=== PATIENT | male | born 1940 | race Caucasian/White ===

== ENCOUNTER → 2023-08-13 14:33 | Outpatient (REF) | payer OTHER, BC, SELFPAY ==
[2023-08-13 15:08] LABS: COVID-19 Antigen Negative (Negative)
== END ==
LOC: OLABP 14:33
PROVIDERS: ATTENDING PHYSICIAN Family Medicine
DX: J96.00 Acute respiratory failure, unspecified whether with hypoxia or hypercapnia (principal)
CPT/HCPCS: 87811

== ENCOUNTER → 2023-09-13 07:44 | Outpatient (REF) | payer OTHER, BC, SELFPAY | LOC: RAD 07:44 | PROVIDERS: ATTENDING PHYSICIAN Internal Medicine Critical Care Medicine; FAMILY PHYSICIAN Family Medicine; REFERRING PHYSICIAN Family Medicine | DX: R91.1 Solitary pulmonary nodule (principal) | CPT/HCPCS: 71250 ==

== ENCOUNTER → 2024-04-01 10:10 | Outpatient (REF) | payer BC, MEDICAID, SELFPAY | LOC: RAD 10:10 | PROVIDERS: ATTENDING PHYSICIAN Internal Medicine Critical Care Medicine; FAMILY PHYSICIAN Family Medicine | DX: R04.2 Hemoptysis (principal) | CPT/HCPCS: 71046 ==

== ENCOUNTER → 2024-04-02 15:38 | Outpatient (REF) | payer BC, MEDICAID, SELFPAY | LOC: RCS 15:38 | PROVIDERS: ATTENDING PHYSICIAN Internal Medicine Cardiovascular Disease; FAMILY PHYSICIAN Family Medicine | DX: R06.09 Other forms of dyspnea (principal); Z98.890 Other specified postprocedural states | CPT/HCPCS: 93306 ==

== ENCOUNTER → 2024-04-04 07:33 | Outpatient (REF) | payer BC, MEDICAID, SELFPAY | LOC: DHCBC/DCA 07:33 | PROVIDERS: ATTENDING PHYSICIAN Internal Medicine Cardiovascular Disease; FAMILY PHYSICIAN Family Medicine | DX: R06.09 Other forms of dyspnea (principal) | CPT/HCPCS: 78452; 93017; A9500; J2785 ==

== ENCOUNTER → 2024-05-16 10:17 | Outpatient (REF) | payer BC, MEDICAID, SELFPAY ==
[2024-05-16 11:49] LABS: % Basophils 0.7 % (0-2); % Eosinophils 3.3 % (0-6); % Immature Granulocytes 0.2 % (0-0.5); % Lymphocytes 27.4 % (20.5-51.1); % Monocytes 7.6 % (1.7-9.3); % Neutrophils 60.8 % (42.2-75.2); Absolute Basophils 0.1 10^3/uL (0-0.2); Absolute Eosinophils 0.3 10^3/uL (0-0.7); Absolute Lymphocytes 2.4 10^3/uL (1.2-3.4); Absolute Monocytes 0.7 10^3/uL (0.1-0.6); Absolute Neutrophils 5.3 10^3/uL (1.4-6.5); Hematocrit 40.4 % (39.0-52.0); Hemoglobin 12.9 g/dL (13.0-18.0); Mean Corp Hgb Conc. 31.9 g/dL (33.0-37.0); Mean Corpuscular Hgb 29.4 pg (27.0-31.0); Mean Platelet Volume 11.5 fL (7.4-10.4); Nucleated Red Blood Cells % 0 % (-); Platelet Count 232 10^3/uL (130-400); Red Blood Cell Count 4.39 10^6/uL (4.70-6.10); Red Cell Dist. Width 14.8 % (11.5-14.5); White Blood Cell Count 8.7 10^3/uL (4.8-10.8)
[2024-05-16 12:05] LABS: Glycohemoglobin (HgbA1c) 5.7 % (4.0-5.6)
[2024-05-16 12:43] LABS: ALT (SGPT) < 10 U/L (0-50); AST (SGOT) 22 U/L (17-59); Alkaline Phosphatase 75 U/L (38-126); Blood Urea Nitrogen 28 mg/dl (9-20); Calcium 9.7 mg/dl (8.4-10.2); Carbon Dioxide 26 mmol/L (22-30); Chloride 103 mmol/L (98-107); Glucose 96 mg/dl (70-99); HDL Cholesterol 56 mg/dl; LDL Cholesterol, Calculated 70 mg/dl; Potassium 4.1 mmol/L (3.5-5.1); Sodium 141 mmol/L (135-145); Total Bilirubin 0.9 mg/dl (0.2-1.3); Total Cholesterol 139 mg/dl (50-199); Total Protein 6.8 g/dl (6.3-8.2); Triglyceride 67 mg/dl (10-149); Very Low Density Lipoprotein 13 mg/dl (0-30); eGFR > 60.00
== END ==
LOC: REG 10:17
PROVIDERS: ATTENDING PHYSICIAN Family Medicine
DX: I10 Essential (primary) hypertension (principal); E50.9 Vitamin A deficiency, unspecified; R73.02 Impaired glucose tolerance (oral); E78.5 Hyperlipidemia, unspecified
CPT/HCPCS: 36415; 80053; 80061; 83036; 85025

== ENCOUNTER → 2024-05-29 11:02 | Outpatient (REF) | payer BC, MEDICAID, SELFPAY | LOC: RAD 11:02 | PROVIDERS: ATTENDING PHYSICIAN Nurse Practitioner Family; FAMILY PHYSICIAN Family Medicine | DX: R04.2 Hemoptysis (principal) | CPT/HCPCS: 71046; 87205 ==

== ENCOUNTER 2024-09-11 20:33 | Inpatient (IN) | payer MEDICARE, BC, SELFPAY ==
[2024-09-11] VITALS (9 sets, daily range): BP systolic 90–131; BP diastolic 50–93; BMI 19.9; BMI 19.2
[2024-09-11 16:47] LABS: % Basophils 0.3 % (0-2); % Immature Granulocytes 0.5 % (0-0.5); % Lymphocytes 7.5 % (20.5-51.1); % Monocytes 8.8 % (1.7-9.3); % Neutrophils 82.9 % (42.2-75.2); Absolute Immature Granulocytes 0.1 10^3/uL (0-0.05); Absolute Lymphocytes 1.1 10^3/uL (1.2-3.4); Absolute Monocytes 1.3 10^3/uL (0.1-0.6); Absolute Neutrophils 12.5 10^3/uL (1.4-6.5); Hematocrit 37.2 % (39.0-52.0); Hemoglobin 12.2 g/dL (13.0-18.0); Mean Corp Hgb Conc. 32.8 g/dL (33.0-37.0); Mean Corpuscular Hgb 29.4 pg (27.0-31.0); Mean Corpuscular Volume 89.6 fL (80.0-94.0); Nucleated Red Blood Cells % 0 % (-); Platelet Count 174 10^3/uL (130-400); Red Blood Cell Count 4.15 10^6/uL (4.70-6.10); Red Cell Dist. Width 15.3 % (11.5-14.5); White Blood Cell Count 15.1 10^3/uL (4.8-10.8)
[2024-09-11 17:01] LABS: ALT (SGPT) 19 U/L (0-50); AST (SGOT) 45 U/L (17-59); Albumin 4.3 g/dl (3.5-5.0); Alkaline Phosphatase 72 U/L (38-126); Blood Urea Nitrogen 52 mg/dl (9-20); Calcium 9.7 mg/dl (8.4-10.2); Carbon Dioxide 23 mmol/L (22-30); Chloride 100 mmol/L (98-107); Estimated Creatinine Clearance 35 ml/min; Glucose 170 mg/dl (70-99); Potassium 4.3 mmol/L (3.5-5.1); Sodium 136 mmol/L (135-145); Total Bilirubin 1.3 mg/dl (0.2-1.3); Total Protein 6.6 g/dl (6.3-8.2); eGFR > 60.00
[2024-09-11 17:16] LABS: NT-proBNP 9480 pg/ml; Troponin I 0.039 ng/ml
--- NOTE | 2024-09-11 17:19 | ED.GENMED ---
History of Present Illness
General
Chief Complaint: Breathing Problem
Source: patient, spouse and family (States he had low oxygen saturations at home)
Exam Limitations: none
Time Seen by Provider: 09/11/24 17:17
Nursing documentation reviewed up to this point in time: agreed with
History of Present Illness
History of Present Illness:
84-year-old male presents Emergency Department due to shortness of breath and weakness ongoing for the past several days, worse today. Family called EMS due to his shortness of breath. He is on oxygen as needed. He did fall today, denies hitting
his head. He denies any injury. He has been on prednisone for the past 2 days for COPD. Denies any fevers.
Past History
Past History
ED Past Medical History: CAD, COPD, HTN, Valvular disease and Other (Neuropathy)
ED Past Surgical History: Cardiac (CABG �2 and mitral valve repair 08/29/2016 DD DDDR pacemaker 2016)
Social History
Tobacco: Former smoker
Drug: None
Personal:
Living: with family
Employment: Retired
Family History
Family History: Other (Noncontributory)
Review of Systems
Review of Systems
Allergies reviewed?: Yes
All Other Systems: Not applicable
Constitutional: Reports no symptoms
EENT: Reports no symptoms
Respiratory: Reports cough and trouble breathing
Cardiac: Reports no symptoms
ABD/GI: Reports no symptoms
: Reports no symptoms
Musculoskeletal: Reports no symptoms
Skin: Reports no symptoms
Neurological: Reports weakness
Endocrine: Reports no symptoms
Hematologic/Lymphatic: Reports no symptoms
Psychiatric: Reports no symptoms
Phy Exam
Physical Exam
Physical Exam:
Physical Exam
General: Moderate respiratory distress, temperature 99.8
Neck: supple. no meningeal signs. normal posterior pharynx
Heart: s1/s2 regular rate and rhythm, no murmur. equal radial
pulses.
HEENT: Pupils equal round reactive to light, EOMI
Lungs: Moderate respiratory distress. Rhonchi bilaterally
Abdomen: normal bowel sounds. not tender. no CVAT
Neuro: alert and oriented. no focal neurological deficits cranial nerves II through XII intact
Skin: no rash
Psychiatric: well kept. interactive and cooperative
Extremities: no edema. no calf tenderness. negative homans. good distal pulses
Scores
Heart Failure Risk
Heart Failure Risk Score: Yes
History of Stroke or TIA: No
History of intubation for respiratory distress: No
Heart rate on ED arrival >/= 110: No
SaO2 <90% on arrival on room air: Yes
HR >/=110 during 3min walk test (or too ill to perform test): Yes
ECG has acute ischemic changes: No
Urea >/=12mmol/L (BUN 33.6mg/dL): Yes
Serum CO2>/=35mmol/L: No
Troponin I or T elevated to NV Level (0.4mg/dL): No
NT-proBNP >/=5,000ng/L (5,000pg/ml): Yes
HF Risk Score: 5
Admission Status: VERY HIGH RISK 39.8% Consider admission to hospital
Course
Orders/Labs/Results
Orders:
Orders
09/11/24 16:29
Electrocardiogram (*1) Urgent
Reason for Study: Shortness of Breath
CR Chest - 2 Views Urgent
Comment:
Reason For Exam: shortness of breath
09/11/24 16:30
EKG- Treatment ONCE
09/11/24 16:33
COVID-19 Antigen Urgent
Source: Nasal Swab
Complete Blood Count/With Diff Urgent
Comprehensive Metabolic Panel Urgent
NT-proBNP Urgent
Troponin I Urgent
Influenza A+B Rapid Molecular Urgent
TODD Source: Nasal Swab
Specimen Description:
09/11/24 17:18
Cardiac Monitoring- Treatment ONCE
IV Insert/Care/Rem.- Treatment PRN
Abnormal Lab Results
09/11/24
16:33
WBC 15.1 H 10^3/uL
(4.8-10.8)
RBC 4.15 L 10^6/uL
(4.70-6.10)
Hgb 12.2 L g/dL
(13.0-18.0)
Hct 37.2 L %
(39.0-52.0)
MCHC 32.8 L g/dL
(33.0-37.0)
RDW 15.3 H %
(11.5-14.5)
MPV 11.0 H fL
(7.4-10.4)
Abs Immat Gran (auto) 0.1 H 10^3/uL
(0-0.05)
Absolute Neuts (auto) 12.5 H 10^3/uL
(1.4-6.5)
Absolute Lymphs (auto) 1.1 L 10^3/uL
(1.2-3.4)
Absolute Monos (auto) 1.3 H 10^3/uL
(0.1-0.6)
Neutrophils % 82.9 H %
(42.2-75.2)
Lymphocytes % 7.5 L %
(20.5-51.1)
BUN 52 H mg/dl
(9-20)
Glucose 170 H mg/dl
(70-99)
Troponin I 0.039 H* ng/ml
09/11/24 16:33
09/11/24 16:33
Vital Signs
Initial and Last Documented VS:
Initial Vital Signs
Pulse Resp Pulse Ox
85 24 98
09/11/24 16:46 03/20/25 16:46 09/11/24 16:46
Last Documented Vital Signs
Temp Pulse Resp BP Pulse Ox
99.8 F 83 22 114/83 97
09/11/24 16:49 09/11/24 19:15 09/11/24 18:45 09/11/24 19:13 09/11/24 19:15
MDM/Problems Addressed
Differential Diagnosis Includes:
Pneumonia, CHF, COPD
MDM/Problems Addressed:
84-year-old male with pneumonia, chronic CHF and COPD, hypoxia respiratory failure. Admit to hospitalist. Vancomycin and aztreonam ordered.
Chronic conditions affecting care: Cardiomyopathy and COPD
Acute Exacerbation and/or Progression of Chronic Illness: Cardiomyopathy and COPD
*Radiology
Radiology exam reviewed: preliminary read by ED provider (Chest x-ray left sided infiltrate)
*Pulse Oximetry
Patient hypoxic: yes
*EKG
Interpreted by ED Provider?: Yes
EKG Intrepretation Date: 09/11/24
EKG Intrepretation Time: 16:40
Interpretation: abnormal
Comparison EKG: changes noted
Heart Rate: 84
Rate: normal
Rhythm: av sequential
Deale: normal axis
Interval: normal interval
QRS Pattern: normal QRS
Ischemia: non-specific ST changes
*Production Planning Supervisor Interpretation
Rate: normal
Interpretation: abnormal
Heart Rate: 84
Rhythm: av sequential
*Critical Care Note
Total Time (30-74mins, 75-104mins- exclusive of procedures): Not Applicable
Data Reviewed
Review of Other/Old Records Reveals: Testing (Echocardiogram 04/02/2024 shows LVEF 50%, diastolic dysfunction)
Source: records
Patient Management
Social determinants of health affecting care: Living situation and Strong social support
Discussion with other providers: Hospitalist
Escalation/DeEscalation of care consider admission/obs:
Admit indicated
ED Attending Note
-
Portions of this chart may have been created with voice recognition software.� Occasional wrong word or��sound alike� substitutions may have occurred due to the inherent limitations of voice recognition software.
Discharge Plan
Departure
Patient Disposition: Admit
Date of Disposition: 09/11/24
Time of Disposition: 19:24
Admit to: Telemetry
Presentation/result/management discussed w/ accepting MD/DO: Hospitalist
Patient with high blood pressure during this ER visit?: No
Condition: Fair
Covid-19: Negative COVID-19
Discharge Problem:
Pneumonia, Chronic respiratory failure with hypoxia, COPD (chronic obstructive pulmonary disease), CHF (congestive heart failure)
Prescriptions:
No Action
ipratropium-albuterol 0.5 mg-3 mg(2.5 mg base)/3 mL solution for nebulization
3 ml inhalation R BID
metoprolol tartrate 25 mg Tablet
12.5 mg PO BID Qty: 10 0RF
benzonatate 100 mg capsule
100 mg PO BID
furosemide 40 mg Tablet
40 mg PO DAILY
atorvastatin 20 mg Tablet
20 mg PO QPM
azithromycin 250 mg Tablet
250 mg PO DAILY
Patient Comments:
09/11/24: Patient states doctor said to stop this medication. Started on 09/08. Took 2 tabs on day 1.
famotidine 40 mg Tablet
40 mg PO DAILY
budesonide 0.5 mg/2 mL Suspension For Nebulization
0.5 mg INHALATION R DAILY
aspirin 81 mg Tablet,Chewable
81 mg PO DAILY
codeine-guaifenesin 10-100 mg/5 mL Liquid
5 ml PO HSPRN PRN (Reason: cough)
albuterol sulfate 90 mcg/actuation Hfa Aerosol Inhaler
2 puff INHALATION R Q6HPRN PRN (Reason: sob/wheezing)
diphenhydramine-acetaminophen [Tylenol PM Extra Strength] 25-500 mg Tablet
1 tab PO HSPRN PRN (Reason: sleep)
PreserVision AREDS-2 250-90-40-1 mg Tablet,Chewable
2 tab PO DAILY
loratadine 10 mg Tablet,Chewable
10 mg PO DAILY
prednisone 20 mg tablet
40 mg PO DAILY
Patient Comments:
09/11/24: Take for 5 days total. Started on 09/08/24.
zzsfcursxcfi-zkakyktf-gvfumoj 1-0.5-0.075 % Drops,Suspension
1 drp ophthalmic (eye) QID
Patient Comments:
LEFT EYE
oxypbwrlabfy-yizgcnlp-ifdtfhk 1-0.5-0.075 % Drops,Suspension
1 drp OPHTHALMIC (EYE) BID
Patient Comments:
RIGHT EYE
guaifenesin [Robafen] 100 mg/5 mL Liquid
200 mg PO Q4HPRN PRN (Reason: cough)
Referrals:
UNKNOWN - PT DOES,NOT KNOW [Family Provider] -
Interventions
Interventions:
*Risk Screen - Suicide Last Done: 09/11/24 16:49
*General Assessment Last Done: 09/11/24 16:49
*Neglect/Abuse Screening Last Done: 09/11/24 16:49
*ED- Fall Risk Assessment Last Done: 09/11/24 16:49
*ED COVID-19 Vaccine History Last Done: 09/11/24 16:49
ED- Cardiac Assessment Last Done: 09/11/24 16:49
ED- Pulmonary Assessment Last Done: 09/11/24 16:49
Discharge Date and Time
Print Language: SYRIAC
[2024-09-11 18:20] LABS: COVID-19 Antigen Negative (Negative)
[2024-09-11] MEDS: DUONEB 3 ML INH (20:04)
[2024-09-11] MEDS: AZACTAM 2000 MG IV (20:04)
--- NOTE | 2024-09-11 20:15 | HPS.HSE ---
Family Physician
-
Family Physician: NOT KNOW UNKNOWN - PT DOES
Chief Complaint
-
shortness of breath
History of Present Illness
84-year-old male PMH HFpEF, right bundle branch block, permanent pacemaker, CAD status post CABG x 2, mitral valve repair, hypertension, chronic anemia, recurrent pleural effusion, COPD no longer on home oxygen, chronic pressure ulcers, diabetes,
hyperlipidemia, GERD, chronic severe protein calorie malnutrition, presenting with cough for the past several days which is dry. Today he he could not breathe and required oxygen even at rest. He denied any fevers or chills, sore throat. He has
runny nose. He was prescribed prednisone and azithromycin 3 days ago by his primary care physician. He denies any lower extremity edema or weight gain.
Patient does report that he has some difficulty swallowing but eats a normal diet.
He reportedly has swallowing dysfunction.
He does not smoke or drink alcohol.
Medical History
Past Medical History
Past Medical History: Reports Other (HFpEF, right bundle branch block, permanent pacemaker, CAD status post CABG x 2, mitral valve repair, hypertension, chronic anemia, recurrent pleural effusion, COPD no longer on home oxygen, chronic pressure
ulcers, diabetes, hyperlipidemia, GERD, chronic severe protein calorie malnutrition)
Past Surgical History: Reports None
Social History
Tobacco: Non-smoker
Alcohol: None
Drug: None
Family History
Family History: Not pertinent
Allergies / Home Medications
Allergies reflects when Allergies were last updated in [facility].
Home Medications with original date entered in [facility]
Allergy/Medication List:
Allergies
Allergy/AdvReac Type Severity Reaction Status Date / Time
adhesive tape Allergy skin Verified 03/09/23 15:54
irritation
azithromycin Allergy GI upset Verified 03/09/23 15:54
cat dander Allergy pat has Verified 03/09/23 15:54
cats/coughing,
sneezing
moxifloxacin Allergy Unknown Verified 03/09/23 15:54
penicillin G Allergy 1960s had Verified 03/09/23 15:54
reaxn to
injection-said
he
required
treatment
Penicillins Allergy rash to Verified 03/09/23 15:54
amoxicillin
[id number]'s
many years
ago
pollen extracts Allergy ENVIRONMENTAL-coughing, Verified 03/09/23 15:54
sneezing,ITCHING
Sulfa (Sulfonamide Allergy Hives Verified 03/09/23 15:54
Antibiotics)
sulfisoxazole Allergy Rash Verified 03/09/23 15:54
tetanus toxoid, adsorbed Allergy Rash Verified 03/09/23 15:54
Artifical sweeteners Allergy RECTAL PAIN Uncoded 03/09/23 15:54
Home Medications
ipratropium 0.5 mg-albuterol 3 mg (2.5 mg base)/3 mL nebulization soln 3 ml inhalation R BID Lung/Breathing Issues 01/24/23
metoprolol tartrate 25 mg tablet 12.5 mg (1/2 x 25 mg) PO BID #10 tabs 02/14/23
benzonatate 100 mg capsule 100 mg PO BID 03/09/23
albuterol sulfate 90 mcg/actuation aerosol inhaler 2 puff inhalation R Q6HPRN PRN sob/wheezing 09/11/24
aspirin 81 mg chewable tablet 81 mg PO DAILY 09/11/24
atorvastatin 20 mg tablet 20 mg PO QPM 09/11/24
azithromycin 250 mg tablet 250 mg PO DAILY 09/11/24
budesonide 0.5 mg/2 mL suspension for nebulization 0.5 mg inhalation R DAILY 09/11/24
codeine 10 mg-guaifenesin 100 mg/5 mL oral liquid 5 ml PO HSPRN PRN cough 09/11/24
diphenhydramine 25 mg-acetaminophen 500 mg tablet (Tylenol PM Extra Strength) 1 tab PO HSPRN PRN sleep 09/11/24
famotidine 40 mg tablet 40 mg PO DAILY 09/11/24
furosemide 40 mg tablet 40 mg PO DAILY 09/11/24
guaifenesin 100 mg/5 mL oral liquid 200 mg PO Q4HPRN PRN cough 09/11/24
loratadine 10 mg chewable tablet 10 mg PO DAILY 09/11/24
prednisolone 1 %-moxifloxacin 0.5 %-bromfenac 0.075 % eye drops susp 1 drp ophthalmic (eye) BID 09/11/24
prednisolone 1 %-moxifloxacin 0.5 %-bromfenac 0.075 % eye drops susp 1 drp ophthalmic (eye) QID 09/11/24
prednisone 20 mg tablet 40 mg PO DAILY 09/11/24
vit C 250 mg-E 90 mg-zinc 40 mg-copper 1 [id number]-upyeai-tsvunq chew tablet (PreserVision AREDS-2) 2 tab PO DAILY 09/11/24
Review of Systems
-
History Source: Patient
A 12 point ROS was completed and negative except as noted: Yes
Constitutional: Reports No Symptoms
EENT: Reports No Symptoms
Respiratory: Reports See HPI
Cardiac: Reports See HPI
Abdomen/GI: Reports No Symptoms
: Reports No Symptoms
Musculoskeletal: Reports No Symptoms
Skin: Reports No Symptoms
Neurological: Reports No Symptoms
Endocrine: Reports No Symptoms
Hematologic/Lymphatic: Reports No Symptoms
Psych: Reports No Symptoms
Physical Exam
Vital Signs
Vital Signs
Temp Pulse Resp BP Pulse Ox
99.8 F 83 22 114/83 97
09/11/24 16:49 09/11/24 19:15 09/11/24 18:45 09/11/24 19:13 09/11/24 19:15
Physical Exam
General: Well Developed, Well Nourished and No Apparent Distress
HEENT: NormoCephalic, Moist mucous membranes and Atraumatic
Respiratory: Wheezes and Rales
Cardiac: S1/S2 and Regular Rhythm; No Murmur or Rub
GI: Soft, Non Tender, Non Distended and Normal Bowel Sounds; No Organomegaly
Rectal: Deferred by Provider
Musculoskeletal: No Clubbing, No Cyanosis and No Edema
Skin: No Rash
Neuro: Nonfocal/grossly intact
Laboratory Results
-
09/11/24 16:33
09/11/24 16:33
Laboratory Results
Total Bilirubin 1.3 mg/dl (0.2-1.3) 09/11/24 16:33
AST 45 U/L (17-59) 09/11/24 16:33
ALT 19 U/L (0-50) 09/11/24 16:33
Alkaline Phosphatase 72 U/L (38-126) 09/11/24 16:33
Troponin I 0.039 ng/ml H* 09/11/24 16:33
Data Reviewed
-
Lab Data: Labs Reviewed by me
Old Records: Reviewed
Impression/Plan
-
IMPRESSION:
PLAN:
# Left lower lobe pneumonia, likely community-acquired could be aspiration related
# History of multiple pneumonias in the past
-Leukocytosis
-Chest x-ray shows focal parenchymal opacity of the left lower lobe
-COVID and flu negative
-Blood cultures
-Check strep antigen, Legionella, MRSA
-Check sputum culture if able
-Vancomycin/cefepime
# Acute on chronic COPD exacerbation
-Currently on 3 L, does not use home oxygen anymore
-DuoNebs every 6 hours
-Continue budesonide
-Dexamethasone 4 mg every 12
-Mucinex
-Monitor for thrush which patient is prone to
Chronic HFpEF
-Cardiac BNP of 9400 from 4500 although not overtly overloaded on examination
-Does not appear volume overloaded
-Continue 40 Lasix daily
Right bundle branch block
Permanent pacemaker
CAD status post CABG x 2
-Continue metoprolol
-Continue aspirin, statin
Mitral valve repair
Essential hypertension
Chronic anemia
Recurrent pleural effusions
Chronic pressure ulcers
Type 2 diabetes
Hyperlipidemia
GERD
Chronic protein calorie malnutrition
Full code
DVT prophylaxis�heparin
Cardiac diet
[2024-09-11 20:25] LABS: Lactic Acid 1.8 mmol/L (0.7-2.0)
[2024-09-11] MEDS: VANCOCIN 530 MG IV (21:12)
[2024-09-11] MEDS: DECADRON 4 MG IV (22:00)
[2024-09-11] MEDS: ROBITUSSIN AC 5 ML PO (22:00)
[2024-09-11] MEDS: NON-FORMULARY ITEM 1 DROP OPHTH (23:07)
[2024-09-11] MEDS: STERILE WATER FOR INJECTION 10 ML IV (23:17)
[2024-09-11] MEDS: MAXIPIME 2000 MG IV (23:17)
[2024-09-11] MEDS: TYLENOL 500 MG PO (23:23)
[2024-09-12 00:01] LABS: Lactic Acid 1.9 mmol/L (0.7-2.0)
[2024-09-12] MEDS: ROBITUSSIN DM 5 ML PO (05:14)
[2024-09-12] MEDS: VANCOCIN 150 IV (05:14)
[2024-09-12 06:00] VITALS: BMI 19.4
[2024-09-12 07:04] LABS: % Basophils 0.2 % (0-2); % Immature Granulocytes 0.3 % (0-0.5); % Lymphocytes 9.4 % (20.5-51.1); % Monocytes 3.5 % (1.7-9.3); % Neutrophils 86.6 % (42.2-75.2); Absolute Lymphocytes 1.1 10^3/uL (1.2-3.4); Absolute Monocytes 0.4 10^3/uL (0.1-0.6); Absolute Neutrophils 10.5 10^3/uL (1.4-6.5); Hematocrit 35.4 % (39.0-52.0); Hemoglobin 11.7 g/dL (13.0-18.0); Mean Corp Hgb Conc. 33.1 g/dL (33.0-37.0); Mean Corpuscular Hgb 29.4 pg (27.0-31.0); Mean Corpuscular Volume 88.9 fL (80.0-94.0); Mean Platelet Volume 11.1 fL (7.4-10.4); Nucleated Red Blood Cells % 0 % (-); Platelet Count 155 10^3/uL (130-400); Red Blood Cell Count 3.98 10^6/uL (4.70-6.10); Red Cell Dist. Width 15.2 % (11.5-14.5); White Blood Cell Count 12.1 10^3/uL (4.8-10.8)
[2024-09-12 07:05] VITALS: BP 137/71
[2024-09-12] MEDS: PULMICORT 0.5 MG INH (07:10)
[2024-09-12] MEDS: DUONEB 3 ML INH ×4 (07:10→19:28)
[2024-09-12 07:20] LABS: Troponin I 0.076 ng/ml
[2024-09-12 07:35] LABS: ALT (SGPT) 16 U/L (0-50); AST (SGOT) 31 U/L (17-59); Albumin 3.2 g/dl (3.5-5.0); Alkaline Phosphatase 69 U/L (38-126); Blood Urea Nitrogen 52 mg/dl (9-20); Calcium 9.5 mg/dl (8.4-10.2); Carbon Dioxide 27 mmol/L (22-30); Chloride 104 mmol/L (98-107); Estimated Creatinine Clearance 37 ml/min; Glucose 157 mg/dl (70-99); Potassium 4.8 mmol/L (3.5-5.1); Sodium 135 mmol/L (135-145); Total Bilirubin 0.8 mg/dl (0.2-1.3); Total Protein 5.7 g/dl (6.3-8.2); eGFR > 60.00
[2024-09-12 07:44] LABS: Glucose - Point of Care 141 mg/dl (70-99)
--- NOTE | 2024-09-12 07:49 | PTCARENOTE ---
Dr Tijerina notified via TT [id number] re: troponin and BUN
--- NOTE | 2024-09-12 08:44 | PHA.VAN.IN ---
Assessment
- Assessment
Renal Function: Appears elevated from baseline (SCR 1.2 --> 1.1 vs ~0.7)
Concomitant Antimicrobials: cefepime
Plan
- Plan
Initial / Loading Dose: 1500mg - 09/11 21:12
Maintenance Regimen: dosing by level - 750mg 09/12 05:14
Monitoring: random 09/13 0600
Pharmacokinetics Vancomycin I
- -
Patient Age: 84
Patient Sex: Male
Vancomycin Day #: 1
Indication: Pulmonary/Respiratory
Requesting Provider: Dr. Merino
Pertinent Antimicrobial Allergies:
azithromycin - GI upset
moxifloxacin - unknown
penicillin G - reaction to injection, got red all over and went to doctor for treatment; tolerates ceftriaxone
amoxicillin - rash [id number]'s
sulfonamide antibiotics - hives
Height / Weight:
Height 5 ft 4 in
Actual Weight 50.621 kg
Pertinent Past Medical History: COPD, DM 2
- Vital Signs / Lab Results
Temp Pulse Resp BP Pulse Ox
97.5 F 86 18 137/71 96
09/12/24 07:05 09/12/24 07:14 09/12/24 07:14 09/12/24 07:05 09/12/24 07:48
Lab Results - Hematology
09/11/24 09/12/24
16:33 06:46
WBC 15.1 H 12.1 H
Lab Results - Chemistry
09/11/24 09/12/24
16:33 06:46
BUN 52 H 52 H
Creatinine 1.2 1.1
Estimated Creat Clear 35 37
Albumin 4.3 3.2 L
09/11/24 09/11/24
19:55 23:28
Lactic Acid 1.8 1.9
Microbiology Results
09/11/24 23:28 Legionella Urinary Antigen - Final
Urine Negative for Legionella pneumophila Serogroup 1 antigen.
A negative result does not rule out the possiblity of
Legionella infection due to other serogroups or species of
Legionella. Clinical correlation is recommended.
Streptococcus pneumoniae Antigen (M - Final
Negative for Streptococcus pneumoniae antigen.
A negative result does not exclude infection with
Streptococcus pneumoniae. Clinical correlation is
recommended.
09/11/24 16:33 Influenza Types A & B (KAREN) - Final
Nasal Swab Negative for Influenza A & B, NAAT
Negative results must be combined with clinical observations
and patient history.
Nucleic Acid Amplification test (NAAT)performed on the
[employer] platform.
[2024-09-12] MEDS: PEPCID 20 MG PO (09:08)
[2024-09-12] MEDS: HEPARIN 5000 UNITS SC ×2 (09:09→21:00)
[2024-09-12] MEDS: LASIX 40 MG PO (09:09)
[2024-09-12] MEDS: CLARITIN 10 MG PO (09:09)
[2024-09-12] MEDS: LOW STRENGTH ASPIRIN 81 MG PO (09:09)
[2024-09-12] MEDS: NON-FORMULARY ITEM 1 DROP OPHTH ×6 (09:10→21:06)
--- NOTE | 2024-09-12 09:50 | W.PN.HOSP.TC ---
Today's Communication/Plan
-
see plan
Assessment / Plan
Assessment / Plan
PLAN:
# Left lower lobe pneumonia, likely community-acquired could be aspiration related
# History of multiple pneumonias in the past
-Leukocytosis
-Chest x-ray shows focal parenchymal opacity of the left lower lobe
-COVID and flu negative
-Blood cultures pending.
-sputum culture pending.
-Vancomycin/cefepime
# Acute on chronic COPD exacerbation
-Currently on 3 L, does not use home oxygen anymore
-DuoNebs every 6 hours
-Continue budesonide
-Dexamethasone 4 mg every 12
-Mucinex
-Monitor for thrush which patient is prone to
pulmonary consulted.
Chronic HFpEF
-Cardiac BNP of 9400 from 4500 although not overtly overloaded on examination
-Does not appear volume overloaded
-Continue 40 Lasix daily
Right bundle branch block
Permanent pacemaker
CAD status post CABG x 2
-Continue metoprolol
-Continue aspirin, statin
Mitral valve repair
Essential hypertension
Chronic anemia
Recurrent pleural effusions
Chronic pressure ulcers
Type 2 diabetes
Hyperlipidemia
GERD
Chronic protein calorie malnutrition
Full code
DVT prophylaxis�heparin
Cardiac diet
Anticipated Discharge: > 48 hours
Subjective/Interval History
-
Date of Service: September 12, 2024
pt seen
dtr at bedside
pt states better from admission not yet at baseline
remains on o2 and wheezy
Objective Data
-
Labs:
Laboratory Results
09/12/24
06:46
WBC 12.1 H
Hgb 11.7 L
Hct 35.4 L
Plt Count 155
Sodium 135
Potassium 4.8
Chloride 104
Carbon Dioxide 27
BUN 52 H
Creatinine 1.1
Glucose 157 H
Calcium 9.5
Total Bilirubin 0.8
AST 31
ALT 16
Alkaline Phosphatase 69
Vital Signs:
Vital Signs
Temp Pulse Resp BP Pulse Ox
97.5 F 86 18 137/71 96
09/12/24 07:05 09/12/24 09:09 09/12/24 07:14 09/12/24 09:09 09/12/24 07:48
Review of Systems
-
History Source: Patient
All other systems: Reviewed and negative
Respiratory: Reports Trouble Breathing
Physical Exam
-
General: Well Developed and No Apparent Distress
HEENT: Normocephalic, Atraumatic, Moist Mucous Membranes and Oxygen
Respiratory: Wheezes
Cardiac: Regular Rhythm and S1/S2; Negative Murmur, Rub or Gallop
GI: Soft, Nontender, Nondistended and Normal Bowel Sounds; Negative Organomegaly
Rectal: Deferred by Provider
Musculoskeletal: No Clubbing, No Cyanosis and No Edema
Skin: Negative Rash
Neuro: Nonfocal/Grossly Intact
Data Reviewed
-
Diagnostic Radiology: Report Reviewed by me
Labs: Labs Reviewed by me
[2024-09-12] MEDS: LOPRESSOR 12.5 MG PO ×2 (10:09→21:00)
[2024-09-12] MEDS: MUCINEX 1200 MG PO ×2 (10:09→21:00)
[2024-09-12] MEDS: DECADRON 4 MG IV ×2 (10:10→21:00)
[2024-09-12] MEDS: NON-FORMULARY ITEM 1 UNIT PO ×2 (10:25→16:42)
[2024-09-12 11:41] LABS: Glucose - Point of Care 129 mg/dl (70-99)
[2024-09-12] MEDS: MAXIPIME 2000 MG IV (11:56)
[2024-09-12] MEDS: STERILE WATER FOR INJECTION 10 ML IV (11:56)
--- NOTE | 2024-09-12 12:48 | CON.PUL ---
Consultation
Consultation Request
Date/Time Consultation Requested: 09/12
Date/Time Consultation Performed: 09/12
Reason for Consultation: COPD, hypoxia, pneumonia
Medical History
-
History of Present Illness:
History obtained from the patient and reviewing both inpatient and outpatient records. 84-year-old male well-known to myself with history of COPD on home oxygen, was doing well up until about 2 weeks ago. He developed increased chest congestion,
productive cough, shortness breath. He contacted his primary physician, was given antibiotic and steroid therapy with no improvement. He had noted his proximal left home was 80%. For this reason he brought himself into [facility]. On
arrival, pulse 85, breathing at 24, 98%, blood pressure 114/83, low-grade fever. Chest x-ray suggested left-sided pneumonia. ED records suggest rhonchi bilaterally and moderate respiratory distress. We are asked to help from a pulmonary standpoint
Presently he is feeling much improved, less cough, less short of breath. He denies any falls, syncope, nausea, emesis, diarrhea, blood in urine or stool. He visits friends at [employer] on a weekly basis to play cards and noted that 2 weeks ago when
visiting, few of his friends or actively coughing clearly sick with respiratory symptoms
.
PMH: Severe centrilobular emphysema, with asthmatic component, history of mitral valve repair, coronary disease with bypass surgery, GERD, recurrent pneumonia, Pseudomonas, hypoxemia on home oxygen, duodenal ulcer, right bundle branch block with
heart block in the past. Pleural effusion with thoracentesis 2016, bypass surgery at [facility] repair 2016, pacemaker 2016, left total knee arthroplasty 2020
Past Medical History
Past Medical History: None ( see above)
Past Surgical History: None ( see above)
Social History
Tobacco: Former Smoker ( 50-bkab-ealg, quit 2016)
Alcohol: None
Drug: None
Personal:
Living: With Family
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
Family History
Family History: Other ( father age 58 valve, mother age 86. 2 daughters healthy. No siblings)
Allergies / Home Medications
Allergies
Allergy/AdvReac Type Severity Reaction Status Date / Time
adhesive tape Allergy skin Verified 03/09/23 15:54
irritation
azithromycin Allergy GI upset Verified 03/09/23 15:54
cat dander Allergy pat has Verified 03/09/23 15:54
cats/coughing,
sneezing
moxifloxacin Allergy Unknown Verified 03/09/23 15:54
penicillin G Allergy 1960s had Verified 03/09/23 15:54
reaxn to
injection-said
he
required
treatment
Penicillins Allergy rash to Verified 03/09/23 15:54
amoxicillin
8400-7480's
many years
ago
pollen extracts Allergy ENVIRONMENTAL-coughing, Verified 03/09/23 15:54
sneezing,ITCHING
Sulfa (Sulfonamide Allergy Hives Verified 03/09/23 15:54
Antibiotics)
sulfisoxazole Allergy Rash Verified 03/09/23 15:54
tetanus toxoid, adsorbed Allergy Rash Verified 03/09/23 15:54
Artifical sweeteners Allergy RECTAL PAIN Uncoded 03/09/23 15:54
Home Medications
�Medication �Instructions �Recorded �Confirmed �Last Taken �Type
ipratropium 0.5 mg-albuterol 3 mg 3 ml inhalation R BID 01/24/23 09/11/24 09/11/24 History
(2.5 mg base)/3 mL nebulization Lung/Breathing Issues
soln
metoprolol tartrate 25 mg tablet 12.5 mg (1/2 x 25 mg) PO BID #10 02/14/23 09/11/24 09/11/24 Rx
tabs
benzonatate 100 mg capsule 100 mg PO BID 03/09/23 09/11/24 09/11/24 History
albuterol sulfate 90 mcg/actuation 2 puff inhalation R Q6HPRN PRN 09/11/24 09/11/24 Unknown History
aerosol inhaler sob/wheezing
aspirin 81 mg chewable tablet 81 mg PO DAILY 09/11/24 09/11/24 09/11/24 History
atorvastatin 20 mg tablet 20 mg PO QPM 09/11/24 09/11/24 09/10/24 History
azithromycin 250 mg tablet 250 mg PO DAILY 09/11/24 09/11/24 Unknown History
budesonide 0.5 mg/2 mL suspension 0.5 mg inhalation R DAILY 09/11/24 09/11/24 09/11/24 History
for nebulization
codeine 10 mg-guaifenesin 100 mg/5 5 ml PO HSPRN PRN cough 09/11/24 09/11/24 Unknown History
mL oral liquid
diphenhydramine 25 1 tab PO HSPRN PRN sleep 09/11/24 09/11/24 09/10/24 History
mg-acetaminophen 500 mg tablet
(Tylenol PM Extra Strength)
famotidine 40 mg tablet 40 mg PO DAILY 09/11/24 09/11/24 09/11/24 History
furosemide 40 mg tablet 40 mg PO DAILY 09/11/24 09/11/24 09/11/24 History
guaifenesin 100 mg/5 mL oral liquid 200 mg PO Q4HPRN PRN cough 09/11/24 09/11/24 Unknown History
loratadine 10 mg chewable tablet 10 mg PO DAILY 09/11/24 09/11/24 09/11/24 History
prednisolone 1 %-moxifloxacin 0.5 1 drp ophthalmic (eye) BID 09/11/24 09/11/24 09/11/24 History
%-bromfenac 0.075 % eye drops susp
prednisolone 1 %-moxifloxacin 0.5 1 drp ophthalmic (eye) QID 09/11/24 09/11/24 09/11/24 History
%-bromfenac 0.075 % eye drops susp
prednisone 20 mg tablet 40 mg PO DAILY 09/11/24 09/11/24 09/11/24 History
vit C 250 mg-E 90 mg-zinc 40 2 tab PO DAILY 09/11/24 09/11/24 09/11/24 History
mg-copper 1 [id number] chew
tablet (PreserVision AREDS-2)
Review of Systems
-
All other systems: Negative unless noted
Vitals / Labs / Diagnostic Testing
Vital Signs
Temp Pulse Resp BP Pulse Ox
97.5 F 88 18 137/71 92
09/12/24 07:05 09/12/24 11:04 09/12/24 11:04 09/12/24 10:09 09/12/24 11:20
Lab Data
09/12/24 06:46
09/12/24 06:46
Microbiology
09/12/24 01:21 Sputum Gram Stain - Preliminary
09/11/24 23:28 Urine Legionella Urinary Antigen - Final
Negative for Legionella pneumophila Serogroup 1 antigen.
A negative result does not rule out the possiblity of
Legionella infection due to other serogroups or species of
Legionella. Clinical correlation is recommended.
09/11/24 23:28 Urine Streptococcus pneumoniae Antigen (M - Final
Negative for Streptococcus pneumoniae antigen.
A negative result does not exclude infection with
Streptococcus pneumoniae. Clinical correlation is
recommended.
09/11/24 16:33 Nasal Swab Influenza Types A & B (KAREN) - Final
Negative for Influenza A & B, NAAT
Negative results must be combined with clinical observations
and patient history.
Nucleic Acid Amplification test (NAAT)performed on the
[employer] platform.
Diagnostic Testing:
Physical Exam
-
HEENT: Normocephalic and Anicteric
Cardiovascular: S1/S2, Regular Rhythm, Murmur (2/6 systolic murmur) and Peripheral Edema (n)
Respiratory: Wheeze (few), Rales (n), Rhonchi (few) and Non-Labored Respirations
GI: Soft, Non Distended and Non Tender
Neurology: Awake, Alert, Oriented and No Motor Deficits ( able to sit up without assistance)
Skin: Good Color and Other ( no edema, no rash)
General: Comfortable
Assessment
-
84-year-old male with history of severe centrilobular emphysema, on home oxygen, baseline FEV1 1.60/76%, DLCO 36%, presents with 2 weeks of upper respiratory symptoms, shortness of breath, cough, be hypoxic at home 80%. Admitted for pneumonia and
COPD exacerbation
Acute COPD exacerbation
Symptoms for 2 weeks, failed outpatient steroid therapy for primary
Left-sided pneumonia, community acquired
Possible sick contact at [employer] visiting friends
Leukocytosis
History of recurrent pneumonia
Pseudomonas in the past
Conditions present prior to admission
Severe COPD, FEV1 1.60/76%, DLCO 36%
On home oxygen
History of asthmatic bronchitis
Hypertension/hyperlipidemia
History of trace hemoptysis in the past, resolved
Pleural effusion, transudate, 2022
Mediastinal and hilar adenopathy with 2 cm right lower lobe nodule, improved on recent imaging
Followed as outpatient
[id number] history smoking quit 2016
History of Covid 2022, 2023
Pulmonary cachexia
Plan/recommendations
Patient with complex pulmonary history
Fourthly, he appears to be nontoxic, improved since admission
Based on EEG exam, much less rhonchorous, moving air much better
Posterior basilar retrocardiac infiltrate per imaging noted
Legionella, streptococcal antigen negative, influenza negative
Moving forward
continue with supportive care at this time
Remains on IV Decadron 4 mg every 12
Cefepime, vancomycin adequate, consider discontinuing vancomycin pending MRSA screen
Continue duo nebs, Pulmicort which is patient's outpatient regimen
Echocardiogram 04/12/24 with EF 50%, moderate to severe MR, normal RV size and function, normal PA pressure
No clear evidence of heart failure at this time
EKG AV paced rhythm
DVT prophylaxis: Subcutaneous heparin every 12 hours.
Prophylaxis: Remains on Pepcid
Reviewed with patient at length.
We'll follow
[2024-09-12 14:47] VITALS: BMI 19.4
--- NOTE | 2024-09-12 14:56 | CM ---
Met with patient and his daughter to obtain information for assessment. Patient stated that he lives alone in a two story home with three steps to enter. He described himself as independent with all ADLs, personal care, dressing and bathing. 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 His also assists. His drives him to all of his appointments and takes him shopping. He has o2 at home, a neb, a walker, and a cane. He has had VN through in the past. He has been to [facility] for SNF.
He has a supportive daughter who is poa.
Patient has a prescription plan and uses, [facility] in [place] for all of his medications.
His PCP is not listed.
Patient stated that he would like to return home when cleared for discharge. Does not feel that he will need VN or SNF.
Plan: Case management will continue to follow and assist with discharge planning. Home, will watch for needs.
[2024-09-12 15:05] VITALS: BP 124/64
[2024-09-12 16:41] LABS: Glucose - Point of Care 224 mg/dl (70-99)
[2024-09-12] MEDS: LIPITOR 20 MG PO (18:03)
[2024-09-12] MEDS: ROBITUSSIN AC 5 ML PO (21:27)
[2024-09-12] MEDS: VISBIOME 1 CAP PO (21:27)
[2024-09-12] MEDS: ANESTHETIC LOZENGE 1 LOZENGE PO (21:27)
[2024-09-12 21:29] LABS: Glucose - Point of Care 211 mg/dl (70-99)
[2024-09-12 22:53] VITALS: BP 122/70
[2024-09-13] MEDS: FLUSH (NSS) 2 FLUSH IV (00:08)
[2024-09-13] MEDS: STERILE WATER FOR INJECTION 10 ML IV ×2 (00:08→11:44)
[2024-09-13] MEDS: MAXIPIME 2000 MG IV ×2 (00:08→11:44)
[2024-09-13] MEDS: ANESTHETIC LOZENGE 1 LOZENGE PO ×3 (03:05→21:09)
[2024-09-13 06:00] VITALS: BMI 19.2
[2024-09-13 06:44] LABS: % Immature Granulocytes 0.4 % (0-0.5); % Lymphocytes 6.4 % (20.5-51.1); % Monocytes 3.4 % (1.7-9.3); % Neutrophils 89.8 % (42.2-75.2); Absolute Lymphocytes 0.7 10^3/uL (1.2-3.4); Absolute Monocytes 0.4 10^3/uL (0.1-0.6); Absolute Neutrophils 9.3 10^3/uL (1.4-6.5); Hematocrit 34.3 % (39.0-52.0); Hemoglobin 11.5 g/dL (13.0-18.0); Mean Corp Hgb Conc. 33.5 g/dL (33.0-37.0); Mean Corpuscular Hgb 29.3 pg (27.0-31.0); Mean Corpuscular Volume 87.5 fL (80.0-94.0); Mean Platelet Volume 11.6 fL (7.4-10.4); Nucleated Red Blood Cells % 0 % (-); Platelet Count 163 10^3/uL (130-400); Red Blood Cell Count 3.92 10^6/uL (4.70-6.10); Red Cell Dist. Width 15.1 % (11.5-14.5); White Blood Cell Count 10.3 10^3/uL (4.8-10.8)
[2024-09-13 07:06] LABS: Vancomycin Random 11.3 ug/ml
--- NOTE | 2024-09-13 07:07 | W.PN.HOSP.TC ---
Today's Communication/Plan
-
see a/p
Assessment / Plan
Assessment / Plan
Physical Exam
General: no acute distress appears comfortable at this time.
HEENT: Normocephalic, Atraumatic, Moist Mucous Membranes and Oxygen
Respiratory: Clear to auscultation b/l
Cardiac: Regular Rhythm and S1/S2; Negative Murmur, Rub or Gallop
GI: Soft, Nontender, Nondistended and Normal Bowel Sounds; Negative Organomegaly
Musculoskeletal: No Clubbing, No Cyanosis and No Edema
Skin: Negative Rash
Neuro: Awake alert conversant coherent
Psych: Calm
84M COPD CAD CABG PPM GERD HFpEF DM HLD HTN here for COPD exacerbation PNA.
PLAN:
# Left lower lobe pneumonia, likely community-acquired could be aspiration related
# History of multiple pneumonias in the past
-Leukocytosis resolved
-Chest x-ray showed focal parenchymal opacity of the left lower lobe
-COVID and flu negative
-Blood cultures NGTD
-sputum culture appreciated usual respiratory jian
-cont cefepime, MRSA screen neg Vanc discontinued
-cough meds scheduled Mucinex prn Tessalon, Robitussin DM
# Acute on chronic COPD exacerbation
#Acute Hypoxia/Respiratory Failure
-Currently on 3 L, does not use home oxygen anymore
-wean O2 as tolerated
-DuoNebs every 6 hours
-Continue budesonide
-Dexamethasone 4 mg every 12
-Mucinex
-Monitor for thrush which patient is prone to
-pulmonary consult appreciated Pulmicort increased to BID
#Hx NIDDM
#Steroid induced hyperglycemia
current A1c 5.8 prediabetic
low dose sliding scale while on steroids
Chronic HFpEF
-Cardiac BNP of 9400 from 4500 although does not appear volume overloaded
-Continue 40 Lasix daily
Right bundle branch block
Permanent pacemaker
CAD status post CABG x 2
-Continue metoprolol
-Continue aspirin, statin
Mitral valve repair
Essential hypertension
Chronic anemia
Recurrent pleural effusions
Chronic pressure ulcers
Hyperlipidemia
GERD
Chronic protein calorie malnutrition
Full code
DVT prophylaxis�heparin
Cardiac diet
discussed with patient and patient's daughter Stephanie
I spent a total of 50 minutes with the patient or on the floor. More than 50% of this time involved counseling and coordination of care.
Anticipated Discharge: 24 - 48 hours
Subjective/Interval History
-
Date of Service: September 13, 2024
coughing persists. Otherwise stable respiratory status on nasal cannula o2 supplementation.
Objective Data
-
Labs:
Laboratory Results
09/13/24 09/13/24
06:32 06:33
WBC 10.3
Hgb 11.5 L
Hct 34.3 L
Plt Count 163
Sodium Pending
Potassium Pending
Chloride Pending
Carbon Dioxide Pending
BUN Pending
Creatinine Pending
Glucose Pending
Calcium Pending
Total Bilirubin Pending
AST Pending
ALT Pending
Alkaline Phosphatase Pending
Vital Signs:
Vital Signs
Temp Pulse Resp BP Pulse Ox
98.2 F 82 16 122/70 100
09/12/24 22:53 09/12/24 22:53 09/12/24 22:53 09/12/24 22:53 09/12/24 22:53
I&O
09/12/24 09/13/24 09/14/24
06:59 06:59 06:59
Intake Total 900 / 1140 240 / 240
Output Total 900 / 1275 375 / 375
Balance 0 / -135 -135 / -135
[2024-09-13 07:10] VITALS: BP 138/76
[2024-09-13] MEDS: DUONEB 3 ML INH ×4 (07:14→19:19)
[2024-09-13] MEDS: PULMICORT 0.5 MG INH ×2 (07:14→19:19)
[2024-09-13 07:19] LABS: ALT (SGPT) 22 U/L (0-50); AST (SGOT) 36 U/L (17-59); Albumin 3.6 g/dl (3.5-5.0); Alkaline Phosphatase 80 U/L (38-126); Blood Urea Nitrogen 54 mg/dl (9-20); Calcium 9.8 mg/dl (8.4-10.2); Carbon Dioxide 23 mmol/L (22-30); Chloride 103 mmol/L (98-107); Estimated Creatinine Clearance 41 ml/min; Glucose 150 mg/dl (70-99); Potassium 4.4 mmol/L (3.5-5.1); Sodium 133 mmol/L (135-145); Total Bilirubin 0.7 mg/dl (0.2-1.3); Total Protein 6.1 g/dl (6.3-8.2); eGFR > 60.00
[2024-09-13 07:20] LABS: Glucose - Point of Care 147 mg/dl (70-99)
--- NOTE | 2024-09-13 08:18 | PHA.VAN.FU ---
Vancomycin Assessment / Plan
- Assessment
Renal Function: Stable
WBC's are: Trending Down
In the past 24 hrs, patient has been: Afebrile
Concomitant Antimicrobials: CEFEPIME
- Assessment - Therapeutic Drug Monitoring
Random Level: 11.3
- Dosing Plan
Dosing by Level: Re-dose today (750)
- Monitoring Plan
Random Level: 09/14 IN AM
CONSIDER SCHEDULE DOSING IF KIDNEY FX MAINTAINS
- Follow Up
Pharmacy will continue to follow.
Vancomycin Follow UP
- -
Patient Age: 84
Patient Sex: Male
Vancomycin Day #: 2
Indication: Pulmonary/Respiratory
Requesting Provider: Dr. Merino
Pertinent Antimicrobial Allergies:
azithromycin - GI upset
moxifloxacin - unknown
penicillin G - 1959's reaction to injection, got red all over and went to doctor for treatment; tolerates ceftriaxone
amoxicillin - rash [id number]'s
sulfonamide antibiotics - hives
Height / Weight:
Height 5 ft 4 in
Actual Weight 50.757 kg
Pertinent Past Medical History: COPD, DM 2
- Vital Signs / Lab Results
Temp Pulse Resp BP Pulse Ox
97.3 F 87 18 138/76 97
09/13/24 07:10 09/13/24 07:17 09/13/24 07:17 09/13/24 07:10 09/13/24 07:17
Lab Results - Hematology
09/11/24 09/12/24 09/13/24
16:33 06:46 06:32
WBC 15.1 H 12.1 H 10.3
Lab Results - Chemistry
09/11/24 09/12/24 09/13/24
16:33 06:46 06:33
BUN 52 H 52 H 54 H
Creatinine 1.2 1.1 1.0
Estimated Creat Clear 35 37 41
Albumin 4.3 3.2 L 3.6
09/11/24 09/11/24
19:55 23:28
Lactic Acid 1.8 1.9
Microbiology Results
09/11/24 19:55 Blood Culture - Preliminary
Blood/Venous No Growth in 24 hours- Final report to follow
09/11/24 19:55 Blood Culture - Preliminary
Blood/Venous No Growth in 24 hours- Final report to follow
09/12/24 01:21 Gram Stain - Preliminary
Sputum
09/11/24 23:28 Legionella Urinary Antigen - Final
Urine Negative for Legionella pneumophila Serogroup 1 antigen.
A negative result does not rule out the possiblity of
Legionella infection due to other serogroups or species of
Legionella. Clinical correlation is recommended.
Streptococcus pneumoniae Antigen (M - Final
Negative for Streptococcus pneumoniae antigen.
A negative result does not exclude infection with
Streptococcus pneumoniae. Clinical correlation is
recommended.
09/11/24 16:33 Influenza Types A & B (KAREN) - Final
Nasal Swab Negative for Influenza A & B, NAAT
Negative results must be combined with clinical observations
and patient history.
Nucleic Acid Amplification test (NAAT)performed on the
[facility] platform.
Therapeutic Drug Monitoring
Random Vancomycin 11.3 ug/ml 09/13/24 06:33
[2024-09-13] MEDS: HEPARIN 5000 UNITS SC ×2 (09:24→21:08)
[2024-09-13] MEDS: VISBIOME 1 CAP PO (09:25)
[2024-09-13] MEDS: PEPCID 20 MG PO (09:25)
[2024-09-13] MEDS: LOW STRENGTH ASPIRIN 81 MG PO (09:25)
[2024-09-13] MEDS: LASIX 40 MG PO (09:25)
[2024-09-13] MEDS: LOPRESSOR 12.5 MG PO ×2 (09:25→21:07)
[2024-09-13] MEDS: CLARITIN 10 MG PO (09:26)
[2024-09-13] MEDS: MUCINEX 1200 MG PO ×2 (09:26→21:07)
[2024-09-13] MEDS: DECADRON 4 MG IV ×2 (09:27→21:08)
[2024-09-13] MEDS: NON-FORMULARY ITEM 1 DROP OPHTH ×6 (09:36→21:19)
[2024-09-13] MEDS: NON-FORMULARY ITEM 1 UNIT PO ×2 (09:37→17:54)
[2024-09-13] MEDS: VANCOCIN 150 IV (09:38)
[2024-09-13] MEDS: TESSALON PERLES 200 MG PO ×2 (10:53→21:09)
[2024-09-13 11:08] LABS: Troponin I 0.028 ng/ml
[2024-09-13 11:41] LABS: Glucose - Point of Care 205 mg/dl (70-99)
[2024-09-13] MEDS: TUMS CHEWABLE TABLET 200 MG PO (13:45)
[2024-09-13 14:01] LABS: Glycohemoglobin (HgbA1c) 5.8 % (4.0-5.6)
[2024-09-13 15:16] VITALS: BP 145/85
--- NOTE | 2024-09-13 15:17 | W.PN.PUL3 ---
Today's Communication / Plan
-
-Change Pulmicort to twice daily nebulized, likely will help with allergic rhinitis also
-Resume Flonase as outpatient for persistent nasal symptoms
Assessment
-
84-year-old male with history of severe centrilobular emphysema, on home oxygen, baseline FEV1 1.60/76%, DLCO 36%, presents with 2 weeks of upper respiratory symptoms, shortness of breath, cough, be hypoxic at home 80%. Admitted for pneumonia and
COPD exacerbation
#1. Acute COPD exacerbation, known history of severe baseline COPD with FEV1 of 1.6 L, 76% predicted and DLCO of 36% on home oxygen. Legionella, streptococcal antigen negative, influenza negative
-Continue DuoNeb 4 times daily, change Pulmicort to twice daily
-Agree with continued IV steroids and antibiotics
-Mucinex and Robitussin with codeine as needed for cough
#2. Left-sided pneumonia, community acquired
-Continue cefepime for now, prior history of Pseudomonas in sputum
-If sputum culture stays negative, can narrow antibiotic spectrum further, off vancomycin now
#3. Allergic rhinitis, reports chronic nasal congestion with postnasal drip
-Change Pulmicort to twice daily nebulized while in hospital, resume Flonase twice daily after discharge
-Outpatient follow-up with the ENT service if persistent symptoms
Conditions present prior to admission
Hypertension/hyperlipidemia
History of trace hemoptysis in the past, resolved
Pleural effusion, transudate, 2022
Mediastinal and hilar adenopathy with 2 cm right lower lobe nodule, improved on recent imaging
Followed as outpatient
[id number] history smoking quit 2016
History of Covid 2022, 2023
Pulmonary cachexia
Echocardiogram 04/12/24 with EF 50%, moderate to severe MR, normal RV size and function, normal PA pressure
No clear evidence of heart failure at this time
EKG AV paced rhythm
DVT prophylaxis: Subcutaneous heparin every 12 hours.
Prophylaxis: Remains on Pepcid
Total time spent on this consultation/encounter __39__ minutes which includes review of history, physical exam, medications, laboratory data, personal review of imaging, extensive review of outpatient records, discussion with care team and
respiratory therapy.
Subjective Data
-
Date of Service:
Date of Service: September 13, 2024
Subjective:
Patient lying in bed in no acute distress, continues to have cough with minimal expectoration, clear white
Review of Systems
Genitourinary: Other (All 14 systems reviewed and negative except as stated above in the history of present illness.)
Objective Data
Data Reviewed
Vital Signs / I&O / Oxygen:
Vital Signs
Temp Pulse Resp BP Pulse Ox
98.4 F 95 17 145/85 97
09/13/24 15:16 09/13/24 15:16 09/13/24 15:16 09/13/24 15:16 09/13/24 15:16
Intake and Output
09/12/24 09/13/24 09/14/24
06:59 06:59 06:59
Intake Total 900 / 1140 240 / 240
Output Total 900 / 1275 375 / 375
Balance 0 / -135 -135 / -135
SaO2 97
Nasal Cannula flow liters per 2
minute
Physical Exam
General: Comfortable
HEENT: Normocephalic
Cardiovascular: S1-S2
Respiratory: Wheeze (Faint end expiratory wheezing) and Non-Labored Respirations
GI: Soft and Non Distended
Neurology: Awake and Alert
Skin: Warm
Labs/Micro/Reports
Lab Data
09/13/24 06:32
09/13/24 06:33
Microbiology
09/12/24 01:21 Sputum Respiratory Culture - Preliminary
Usual Respiratory Ivette
09/12/24 01:21 Sputum Gram Stain - Preliminary
09/11/24 20:47 Nose MRSA Screen - Final
No Methicillin Resistant Staphylococcus aureus isolated.
09/11/24 19:55 Blood/Venous Blood Culture - Preliminary
No Growth in 24 hours- Final report to follow
09/11/24 19:55 Blood/Venous Blood Culture - Preliminary
No Growth in 24 hours- Final report to follow
09/11/24 23:28 Urine Legionella Urinary Antigen - Final
Negative for Legionella pneumophila Serogroup 1 antigen.
A negative result does not rule out the possiblity of
Legionella infection due to other serogroups or species of
Legionella. Clinical correlation is recommended.
09/11/24 23:28 Urine Streptococcus pneumoniae Antigen (M - Final
Negative for Streptococcus pneumoniae antigen.
A negative result does not exclude infection with
Streptococcus pneumoniae. Clinical correlation is
recommended.
09/11/24 16:33 Nasal Swab Influenza Types A & B (KAREN) - Final
Negative for Influenza A & B, NAAT
Negative results must be combined with clinical observations
and patient history.
Nucleic Acid Amplification test (NAAT)performed on the
[employer] platform.
[2024-09-13 16:37] LABS: Glucose - Point of Care 152 mg/dl (70-99)
[2024-09-13] MEDS: LIPITOR 20 MG PO (17:51)
[2024-09-13] MEDS: ROBITUSSIN AC 5 ML PO (21:12)
[2024-09-13 23:15] VITALS: BP 132/77
[2024-09-14] MEDS: STERILE WATER FOR INJECTION 10 ML IV ×2 (00:32→12:06)
[2024-09-14] MEDS: MAXIPIME 2000 MG IV ×2 (00:32→12:06)
[2024-09-14 06:00] VITALS: BMI 19.2
[2024-09-14] MEDS: TESSALON PERLES 200 MG PO ×2 (06:27→21:27)
--- NOTE | 2024-09-14 06:41 | W.PN.HOSP.TC ---
Today's Communication/Plan
-
see a/p
Assessment / Plan
Assessment / Plan
Physical Exam
General: no acute distress appears comfortable at this time.
HEENT: Normocephalic, Atraumatic, Moist Mucous Membranes and Oxygen
Respiratory: Clear to auscultation b/l
Cardiac: Regular Rhythm and S1/S2; Negative Murmur, Rub or Gallop
GI: Soft, Nontender, Nondistended and Normal Bowel Sounds; Negative Organomegaly
Musculoskeletal: No Clubbing, No Cyanosis and No Edema
Skin: Negative Rash
Neuro: Awake alert conversant coherent
Psych: Calm
84M COPD CAD CABG PPM GERD HFpEF DM HLD HTN here for COPD exacerbation PNA.
PLAN:
# Left lower lobe pneumonia, likely community-acquired could be aspiration related
# History of multiple pneumonias in the past
-Leukocytosis resolved
-Chest x-ray showed focal parenchymal opacity of the left lower lobe
-COVID and flu negative
-Blood cultures NGTD
-sputum culture appreciated usual respiratory jian
-MRSA screen neg Vanc discontinued
-cough meds scheduled Mucinex prn Dionte Wangsin DM
-cefipime de-escalated to Cefdinir with clinical improvement
# Acute on chronic COPD exacerbation
#Acute Hypoxia/Respiratory Failure
-Currently on 3 L, does not use home oxygen anymore
-wean O2 as tolerated
-Home oxygen assessment in AM Sunday
-DuoNebs every 6 hours
-Dexamethasone 4 mg every 12 tapered to Prednisone 50 mg daily
-Mucinex
-Monitor for thrush which patient is prone to
-pulmonary consult appreciated Pulmicort increased to BID cont while inpt
#Hx NIDDM
#Steroid induced hyperglycemia
current A1c 5.8 prediabetic
low dose sliding scale while on steroids
Chronic HFpEF
-Cardiac BNP of 9400 from 4500 although does not appear volume overloaded
-Continue 40 Lasix daily
Right bundle branch block
Permanent pacemaker
CAD status post CABG x 2
-Continue metoprolol
-Continue aspirin, statin
Mitral valve repair
Essential hypertension
Chronic anemia
Recurrent pleural effusions
Chronic pressure ulcers
Hyperlipidemia
GERD
Chronic protein calorie malnutrition
PT/OT appreciated home services
Full code
DVT prophylaxis�heparin
Cardiac diet
Discharge planning, patient/family prefer Tues discharge as pt's is also sick with PNA at t home
discussed with patient and patient's daughter Stephanie
I spent a total of 45 minutes with the patient or on the floor. More than 50% of this time involved counseling and coordination of care.
Anticipated Discharge: 24 - 48 hours
Subjective/Interval History
-
Date of Service: September 14, 2024
Reports overall improvement in symptoms including cough sob. remains oxygen dependent. Denies new acute issues.
Objective Data
-
Labs:
Laboratory Results
09/14/24
06:00
WBC Pending
Hgb Pending
Hct Pending
Plt Count Pending
Sodium Pending
Potassium Pending
Chloride Pending
Carbon Dioxide Pending
BUN Pending
Creatinine Pending
Glucose Pending
Calcium Pending
Vital Signs:
Vital Signs
Temp Pulse Resp BP Pulse Ox
97.9 F 80 18 132/77 99
09/13/24 23:15 09/13/24 23:15 09/13/24 23:15 09/13/24 23:15 09/13/24 23:15
I&O
09/12/24 09/13/24 09/14/24
06:59 06:59 06:59
Intake Total 900 / 1140 240 / 240
Output Total 900 / 1275 975 / 975
Balance 0 / -135 -735 / -735
[2024-09-14 07:16] LABS: Hematocrit 34.2 % (39.0-52.0); Hemoglobin 11.5 g/dL (13.0-18.0); Mean Corp Hgb Conc. 33.6 g/dL (33.0-37.0); Mean Corpuscular Hgb 29.6 pg (27.0-31.0); Mean Corpuscular Volume 87.9 fL (80.0-94.0); Platelet Count 185 10^3/uL (130-400); Red Blood Cell Count 3.89 10^6/uL (4.70-6.10); White Blood Cell Count 8.7 10^3/uL (4.8-10.8)
[2024-09-14] MEDS: PULMICORT 0.5 MG INH ×2 (07:24→19:37)
[2024-09-14] MEDS: DUONEB 3 ML INH ×4 (07:24→19:37)
[2024-09-14 07:34] VITALS: BP 135/82
[2024-09-14 08:03] LABS: Glucose - Point of Care 135 mg/dl (70-99)
[2024-09-14] MEDS: NOVOLOG FLEXPEN-LOW RESISTANCE SC (08:11)
[2024-09-14] MEDS: CLARITIN 10 MG PO (08:12)
[2024-09-14] MEDS: LASIX 40 MG PO (08:12)
[2024-09-14] MEDS: MUCINEX 1200 MG PO ×2 (08:12→21:25)
[2024-09-14] MEDS: PEPCID 20 MG PO (08:13)
[2024-09-14] MEDS: NON-FORMULARY ITEM 1 UNIT PO ×2 (08:13→18:05)
[2024-09-14] MEDS: HEPARIN 5000 UNITS SC ×2 (08:13→21:24)
[2024-09-14] MEDS: LOW STRENGTH ASPIRIN 81 MG PO (08:13)
[2024-09-14] MEDS: VISBIOME 1 CAP PO (08:13)
[2024-09-14] MEDS: LOPRESSOR 12.5 MG PO ×2 (08:13→21:24)
[2024-09-14 08:14] LABS: Blood Urea Nitrogen 53 mg/dl (9-20); Calcium 9.8 mg/dl (8.4-10.2); Carbon Dioxide 26 mmol/L (22-30); Chloride 103 mmol/L (98-107); Estimated Creatinine Clearance 45 ml/min; Glucose 121 mg/dl (70-99); Magnesium 2.5 mg/dl (1.6-2.3); Phosphorus 3.5 mg/dl (2.5-4.5); Potassium 4.5 mmol/L (3.5-5.1); Sodium 136 mmol/L (135-145); eGFR > 60.00
[2024-09-14] MEDS: NON-FORMULARY ITEM 1 DROP OPHTH ×6 (08:14→21:28)
[2024-09-14 09:42] VITALS: BP 105/78; PULSE 90; O2SAT 98
[2024-09-14 09:44] VITALS: BP 105/78; PULSE 90; O2SAT 99
[2024-09-14] MEDS: DECADRON 4 MG IV ×2 (10:09→21:25)
[2024-09-14 11:30] LABS: Glucose - Point of Care 209 mg/dl (70-99)
--- NOTE | 2024-09-14 13:50 | W.PN.PUL3 ---
Today's Communication / Plan
-
-Continue current treatment, clinically improving
-Resume Flonase at discharge due to persistent allergic rhinitis symptoms
-If sputum culture stays negative, can transition to narrower spectrum oral antibiotic like Omnicef or Augmentin
Assessment
-
84-year-old male with history of severe centrilobular emphysema, on home oxygen, baseline FEV1 1.60/76%, DLCO 36%, presents with 2 weeks of upper respiratory symptoms, shortness of breath, cough, be hypoxic at home 80%. Admitted for LLL pneumonia
and COPD exacerbation
#1. Acute COPD exacerbation, known history of severe baseline COPD with FEV1 of 1.6 L, 76% predicted and DLCO of 36% on home oxygen. Legionella, streptococcal antigen negative, influenza negative
-Continue DuoNeb 4 times daily, continue Pulmicort twice daily
-Agree with continued IV steroids and antibiotics
-Mucinex and Robitussin with codeine as needed for cough
#2. Left-sided pneumonia, community acquired
-Has been on Cefepime, prior history of Pseudomonas in sputum
-If sputum culture stays negative, can narrow antibiotic spectrum further, off vancomycin now
#3. Allergic rhinitis, reports chronic nasal congestion with postnasal drip
-Changed Pulmicort to twice daily nebulized while in hospital, resume Flonase twice daily after discharge
-Outpatient follow-up with the ENT service if persistent symptoms
Conditions present prior to admission
Hypertension/hyperlipidemia
History of trace hemoptysis in the past, resolved
Pleural effusion, transudate, 2022
Mediastinal and hilar adenopathy with 2 cm right lower lobe nodule, improved on recent imaging
Followed as outpatient
[id number] history smoking quit 2016
History of Covid 2022, 2023
Pulmonary cachexia
Echocardiogram 04/12/24 with EF 50%, moderate to severe MR, normal RV size and function, normal PA pressure
No clear evidence of heart failure at this time
EKG AV paced rhythm
DVT prophylaxis: Subcutaneous heparin every 12 hours.
Prophylaxis: Remains on Pepcid
Total time spent on this consultation/encounter __26_ minutes which includes review of history, physical exam, medications, laboratory data, personal review of imaging, extensive review of outpatient records, discussion with care team and
respiratory therapy.
Subjective Data
-
Date of Service:
Date of Service: September 14, 2024
Subjective:
Patient sitting in chair, comfortably, reports feeling better.
Review of Systems
Genitourinary: Other (All 14 systems reviewed and negative except as stated above in the history of present illness.)
Objective Data
Data Reviewed
Vital Signs / I&O / Oxygen:
Vital Signs
Temp Pulse Resp BP Pulse Ox
97.5 F 75 16 135/82 98
09/14/24 07:34 09/14/24 11:19 09/14/24 11:19 09/14/24 07:34 09/14/24 11:19
Intake and Output
09/13/24 09/14/24 09/15/24
06:59 06:59 06:59
Intake Total 900 / 1140 240 / 240
Output Total 900 / 1275 975 / 975
Balance 0 / -135 -735 / -735
SaO2 98
Nasal Cannula flow liters per 2
minute
Physical Exam
General: Comfortable
HEENT: Normocephalic
Cardiovascular: S1-S2
Respiratory: Wheeze (Faint end expiratory wheezing, improving) and Non-Labored Respirations
GI: Soft and Non Distended
Neurology: Awake and Alert
Skin: Warm
Labs/Micro/Reports
Lab Data
09/14/24 06:48
09/14/24 06:48
Microbiology
09/12/24 01:21 Sputum Respiratory Culture - Final
Usual Respiratory Ivette
09/12/24 01:21 Sputum Gram Stain - Final
09/11/24 19:55 Blood/Venous Blood Culture - Preliminary
No Growth in 48 hours- Final report to follow
09/11/24 19:55 Blood/Venous Blood Culture - Preliminary
No Growth in 48 hours- Final report to follow
09/11/24 20:47 Nose MRSA Screen - Final
No Methicillin Resistant Staphylococcus aureus isolated.
09/11/24 23:28 Urine Legionella Urinary Antigen - Final
Negative for Legionella pneumophila Serogroup 1 antigen.
A negative result does not rule out the possiblity of
Legionella infection due to other serogroups or species of
Legionella. Clinical correlation is recommended.
09/11/24 23:28 Urine Streptococcus pneumoniae Antigen (M - Final
Negative for Streptococcus pneumoniae antigen.
A negative result does not exclude infection with
Streptococcus pneumoniae. Clinical correlation is
recommended.
09/11/24 16:33 Nasal Swab Influenza Types A & B (KAREN) - Final
Negative for Influenza A & B, NAAT
Negative results must be combined with clinical observations
and patient history.
Nucleic Acid Amplification test (NAAT)performed on the
[employer] platform.
[2024-09-14] MEDS: NOVOLOG FLEXPEN-LOW RESISTANCE 2 UNITS SC (14:41)
[2024-09-14 15:24] VITALS: BP 132/66
[2024-09-14 16:44] LABS: Glucose - Point of Care 174 mg/dl (70-99)
[2024-09-14] MEDS: NOVOLOG FLEXPEN-LOW RESISTANCE 1 UNITS SC (18:03)
[2024-09-14] MEDS: LIPITOR 20 MG PO (18:05)
[2024-09-14] MEDS: OMNICEF 300 MG PO (21:25)
[2024-09-14 21:27] LABS: Glucose - Point of Care 194 mg/dl (70-99)
[2024-09-14 23:00] VITALS: BP 143/77
[2024-09-15 06:00] VITALS: BMI 18.9
[2024-09-15 06:58] LABS: Hemoglobin 11.7 g/dL (13.0-18.0); Mean Corp Hgb Conc. 33.4 g/dL (33.0-37.0); Mean Corpuscular Hgb 29.3 pg (27.0-31.0); Mean Corpuscular Volume 87.7 fL (80.0-94.0); Mean Platelet Volume 11.9 fL (7.4-10.4); Platelet Count 184 10^3/uL (130-400); Red Blood Cell Count 3.99 10^6/uL (4.70-6.10); Red Cell Dist. Width 14.8 % (11.5-14.5); White Blood Cell Count 7.8 10^3/uL (4.8-10.8)
[2024-09-15] MEDS: PULMICORT 0.5 MG INH ×2 (07:22→19:16)
[2024-09-15] MEDS: DUONEB 3 ML INH ×4 (07:22→19:16)
[2024-09-15 07:30] LABS: Blood Urea Nitrogen 50 mg/dl (9-20); Calcium 9.8 mg/dl (8.4-10.2); Carbon Dioxide 28 mmol/L (22-30); Chloride 103 mmol/L (98-107); Estimated Creatinine Clearance 45 ml/min; Glucose 157 mg/dl (70-99); Magnesium 2.5 mg/dl (1.6-2.3); Phosphorus 3.2 mg/dl (2.5-4.5); Sodium 135 mmol/L (135-145); eGFR > 60.00
[2024-09-15 07:41] LABS: Glucose - Point of Care 137 mg/dl (70-99)
[2024-09-15 07:54] VITALS: BP 156/77
[2024-09-15] MEDS: NOVOLOG FLEXPEN-LOW RESISTANCE SC (08:22)
[2024-09-15] MEDS: OMNICEF 300 MG PO ×2 (08:23→20:06)
[2024-09-15] MEDS: LASIX 40 MG PO (08:23)
[2024-09-15] MEDS: DELTASONE 50 MG PO (08:23)
[2024-09-15] MEDS: LOPRESSOR 12.5 MG PO ×2 (08:24→20:06)
[2024-09-15] MEDS: MUCINEX 1200 MG PO ×2 (08:24→20:07)
[2024-09-15] MEDS: LOW STRENGTH ASPIRIN 81 MG PO (08:24)
[2024-09-15] MEDS: CLARITIN 10 MG PO (08:24)
[2024-09-15] MEDS: PEPCID 20 MG PO (08:25)
[2024-09-15] MEDS: HEPARIN 5000 UNITS SC ×2 (08:26→20:07)
[2024-09-15] MEDS: NON-FORMULARY ITEM 1 DROP OPHTH ×6 (09:21→21:15)
[2024-09-15] MEDS: TESSALON PERLES 200 MG PO ×2 (09:22→21:17)
[2024-09-15] MEDS: NON-FORMULARY ITEM 1 UNIT PO ×2 (09:22→17:54)
[2024-09-15] MEDS: VISBIOME 1 CAP PO (09:23)
--- NOTE | 2024-09-15 11:45 | CM ---
PT indicating home health at discharge. Will meet with family/patient regarding which agency they would like.
Plan: Case management will continue to follow and assist with discharge planning. Home with VN services. Will determine which agency.
[2024-09-15 12:00] LABS: Glucose - Point of Care 220 mg/dl (70-99)
--- NOTE | 2024-09-15 12:20 | W.PN.HOSP.TC ---
Today's Communication/Plan
-
await CM for dispo planning
home o2 eval
po steroids
Assessment / Plan
Assessment / Plan
Physical Exam
General: no acute distress appears comfortable at this time.
HEENT: Normocephalic, Atraumatic, Moist Mucous Membranes and Oxygen
Respiratory: Clear to auscultation b/l
Cardiac: Regular Rhythm and S1/S2; Negative Murmur, Rub or Gallop
GI: Soft, Nontender, Nondistended and Normal Bowel Sounds; Negative Organomegaly
Musculoskeletal: No Clubbing, No Cyanosis and No Edema
Skin: Negative Rash
Neuro: Awake alert conversant coherent
Psych: Calm
84M COPD CAD CABG PPM GERD HFpEF DM HLD HTN here for COPD exacerbation PNA.
PLAN:
# Left lower lobe pneumonia, likely community-acquired could be aspiration related
# History of multiple pneumonias in the past
-Leukocytosis resolved
-Chest x-ray showed focal parenchymal opacity of the left lower lobe
-COVID and flu negative
-Blood cultures NGTD
-sputum culture appreciated usual respiratory jian
-MRSA screen neg Vanc discontinued
-cough meds scheduled Mucinex prn TessalSrinivasan milleritussin DM
-cefipime de-escalated to Cefdinir with clinical improvement
# Acute on chronic COPD exacerbation
#Acute Hypoxia/Respiratory Failure
-Currently on 2 L, does not use home oxygen anymore
-wean O2 as tolerated
-Home oxygen assessment
-DuoNebs every 6 hours
-Dexamethasone 4 mg every 12 tapered to Prednisone 50 mg daily
-Mucinex
-Monitor for thrush which patient is prone to
-pulmonary consult appreciated Pulmicort increased to BID cont while inpt
#Hx NIDDM
#Steroid induced hyperglycemia
current A1c 5.8 prediabetic
low dose sliding scale while on steroids
Chronic HFpEF
-Cardiac BNP of 9400 from 4500 although does not appear volume overloaded
-Continue 40 Lasix daily
Right bundle branch block
Permanent pacemaker
CAD status post CABG x 2
-Continue metoprolol
-Continue aspirin, statin
Mitral valve repair
Essential hypertension
Chronic anemia
Recurrent pleural effusions
Chronic pressure ulcers
Hyperlipidemia
GERD
Chronic protein calorie malnutrition
PT/OT appreciated home services
Full code
DVT prophylaxis�heparin
Cardiac diet
discussed with patient and patient's daughter over the phone in details
PT recs Home VN.
Dispo-home VN vs? snf. CM aware.
Anticipated Discharge: Within 24 hours
Subjective/Interval History
-
Date of Service: September 15, 2024
resting in bed
on 2L oxygen
having dry cough
Objective Data
-
Labs:
Laboratory Results
09/15/24
06:20
WBC 7.8
Hgb 11.7 L
Hct 35.0 L
Plt Count 184
Sodium 135
Potassium 5.0
Chloride 103
Carbon Dioxide 28
BUN 50 H
Creatinine 0.9
Glucose 157 H
Calcium 9.8
Vital Signs:
Vital Signs
Temp Pulse Resp BP Pulse Ox
97.6 F 91 18 156/77 96
09/15/24 07:54 09/15/24 11:04 09/15/24 11:04 09/15/24 08:24 09/15/24 11:04
I&O
09/14/24 09/15/24 09/16/24
06:59 06:59 06:59
Intake Total 240 / 240 810 / 810
Output Total 975 / 975 580 / 580
Balance -735 / -735 230 / 230
Data Reviewed
-
Total Time Spent with Patient (in minutes): 55
--- NOTE | 2024-09-15 13:01 | W.PN.PUL3 ---
Today's Communication / Plan
-
Continue nebulizer therapy-similar to what he uses in the outpatient setting
Prednisone taper
Antibiotics complete 7 days
Oxygen therapy as necessary-Home oxygen assessment ordered.
Increase activity as tolerated
Radiographic follow-up will be needed in the outpatient setting
Discharge planning
Assessment
-
84-year-old male with history of severe centrilobular emphysema, on home oxygen, baseline FEV1 1.60/76%, DLCO 36%, presents with 2 weeks of upper respiratory symptoms, shortness of breath, cough, be hypoxic at home 80%. Admitted for LLL pneumonia
and COPD exacerbation
#1. Acute COPD exacerbation, known history of severe baseline COPD with FEV1 of 1.6 L, 76% predicted and DLCO of 36% on home oxygen. Legionella, streptococcal antigen negative, influenza negative
-Continue DuoNeb 4 times daily, continue Pulmicort twice daily-patient's home regimen.
-Transition to prednisone therapy continue with taper.
-Mucinex and Robitussin with codeine as needed for cough
-Continue oxygen therapy currently at 2L NC-
-on last 6MWT 07/2024 lowest sat was 90% no O2 required.
Home oxygen assessment has been ordered.
#2. Left-sided pneumonia, community acquired
-Has been on Cefepime, prior history of Pseudomonas in sputum
-Transitioned to Ceftin. Complete total 7 days.
-Radiographic follow-up will be needed. With advanced COPD risk of cancer. He has been followed in the outpatient setting with yearly CAT scans. He was due for a CAT scan 08/2024. Would wait for about 4 to 6 weeks before obtaining.
#3. Allergic rhinitis, reports chronic nasal congestion with postnasal drip
-Changed Pulmicort to twice daily nebulized while in hospital, resume Flonase twice daily after discharge
-Outpatient follow-up with the ENT service if persistent symptoms
Conditions present prior to admission
Hypertension/hyperlipidemia
History of trace hemoptysis in the past, resolved
Pleural effusion, transudate, 2022
Mediastinal and hilar adenopathy with 2 cm right lower lobe nodule, improved on recent imaging
Followed as outpatient
98-[id number] history smoking quit 2016
History of Covid 2023
Pulmonary cachexia
Echocardiogram 04/12/24 with EF 50%, moderate to severe MR, normal RV size and function, normal PA pressure
No clear evidence of heart failure at this time
EKG AV paced rhythm
DVT prophylaxis: Subcutaneous heparin every 12 hours.
Prophylaxis: Remains on Pepcid
-
Agree with discharge planning.
-
Follow-up with Dr. Cabezas after DC.
Subjective Data
-
Date of Service:
Date of Service: September 15, 2024
Chief Complaint: Pulmonary Follow Up (Acute exacerbation of COPD)
Subjective:
Patient feels clinically improved
Denies increased phlegm production
Shortness of breath improving
Review of Systems
General: Fever (n)
Cardiopulmonary: Dyspnea (none at rest)
GI: Abdominal Pain (n) and Nausea (n)
Neuro: Headache (n)
Objective Data
Data Reviewed
Vital Signs / I&O / Oxygen:
Vital Signs
Temp Pulse Resp BP Pulse Ox
97.6 F 91 18 156/77 96
09/15/24 07:54 09/15/24 11:04 09/15/24 11:04 09/15/24 08:24 09/15/24 11:04
Intake and Output
09/14/24 09/15/24 09/16/24
06:59 06:59 06:59
Intake Total 240 / 240 810 / 810
Output Total 975 / 975 580 / 580
Balance -735 / -735 230 / 230
SaO2 96
Nasal Cannula flow liters per 2
minute
Physical Exam
General: Comfortable
HEENT: Normocephalic
Cardiovascular: S1-S2
Respiratory: Wheeze (none, imiproved) and Non-Labored Respirations
GI: Soft and Non Distended
Neurology: Awake and Alert
Skin: Warm
Labs/Micro/Reports
Lab Data
09/15/24 06:20
09/15/24 06:20
Microbiology
09/11/24 19:55 Blood/Venous Blood Culture - Preliminary
No Growth in 72 hours- Final report to follow
09/11/24 19:55 Blood/Venous Blood Culture - Preliminary
No Growth in 72 hours- Final report to follow
09/12/24 01:21 Sputum Respiratory Culture - Final
Usual Respiratory Ivette
09/12/24 01:21 Sputum Gram Stain - Final
09/11/24 20:47 Nose MRSA Screen - Final
No Methicillin Resistant Staphylococcus aureus isolated.
[2024-09-15] MEDS: NOVOLOG FLEXPEN-LOW RESISTANCE 2 UNITS SC ×2 (13:33→17:56)
[2024-09-15 15:00] VITALS: BP 127/65
[2024-09-15 16:50] LABS: Glucose - Point of Care 219 mg/dl (70-99)
[2024-09-15] MEDS: LIPITOR 20 MG PO (17:54)
[2024-09-15 21:21] LABS: Glucose - Point of Care 158 mg/dl (70-99)
[2024-09-15 23:48] VITALS: BP 162/85
[2024-09-16 06:00] VITALS: BMI 19.0
[2024-09-16 07:03] LABS: Hematocrit 36.4 % (39.0-52.0); Hemoglobin 12.1 g/dL (13.0-18.0); Mean Corp Hgb Conc. 33.2 g/dL (33.0-37.0); Mean Corpuscular Hgb 29.2 pg (27.0-31.0); Mean Corpuscular Volume 87.7 fL (80.0-94.0); Mean Platelet Volume 11.9 fL (7.4-10.4); Platelet Count 202 10^3/uL (130-400); Red Blood Cell Count 4.15 10^6/uL (4.70-6.10); Red Cell Dist. Width 14.8 % (11.5-14.5)
[2024-09-16 07:05] VITALS: BP 153/89
[2024-09-16 07:21] LABS: Blood Urea Nitrogen 49 mg/dl (9-20); Calcium 9.7 mg/dl (8.4-10.2); Carbon Dioxide 29 mmol/L (22-30); Chloride 105 mmol/L (98-107); Estimated Creatinine Clearance 58 ml/min; Glucose 116 mg/dl (70-99); Magnesium 2.4 mg/dl (1.6-2.3); Phosphorus 2.9 mg/dl (2.5-4.5); Potassium 4.3 mmol/L (3.5-5.1); Sodium 137 mmol/L (135-145); eGFR > 60.00
[2024-09-16] MEDS: DUONEB 3 ML INH ×4 (07:26→19:16)
[2024-09-16] MEDS: PULMICORT 0.5 MG INH ×2 (07:26→19:16)
[2024-09-16 07:39] LABS: Glucose - Point of Care 49 mg/dl (70-99)
[2024-09-16] MEDS: NOVOLOG FLEXPEN-LOW RESISTANCE SC ×2 (07:43→12:35)
[2024-09-16 07:50] LABS: Glucose - Point of Care 53 mg/dl (70-99)
[2024-09-16] MEDS: DEXTROSE 50% SYRINGE 12.5 GRAMS IV (07:51)
[2024-09-16 08:18] LABS: Glucose - Point of Care 170 mg/dl (70-99)
[2024-09-16] MEDS: CLARITIN 10 MG PO (09:34)
[2024-09-16] MEDS: OMNICEF 300 MG PO ×2 (09:35→21:20)
[2024-09-16] MEDS: PEPCID 20 MG PO (09:35)
[2024-09-16] MEDS: HEPARIN 5000 UNITS SC ×2 (09:35→21:20)
[2024-09-16] MEDS: LOPRESSOR 12.5 MG PO ×2 (09:35→21:20)
[2024-09-16] MEDS: TESSALON PERLES 200 MG PO ×2 (09:35→21:32)
[2024-09-16] MEDS: LOW STRENGTH ASPIRIN 81 MG PO (09:35)
[2024-09-16] MEDS: DELTASONE 50 MG PO (09:35)
[2024-09-16] MEDS: VISBIOME 1 CAP PO (09:35)
[2024-09-16] MEDS: LASIX 40 MG PO (09:35)
[2024-09-16] MEDS: MUCINEX 1200 MG PO ×2 (09:35→21:20)
[2024-09-16] MEDS: NON-FORMULARY ITEM 1 UNIT PO ×2 (09:39→18:36)
[2024-09-16] MEDS: NON-FORMULARY ITEM 1 DROP OPHTH ×6 (09:39→21:24)
[2024-09-16] MEDS: LOPRESSOR PO (09:41)
[2024-09-16 09:46] LABS: Glucose - Point of Care 116 mg/dl (70-99)
[2024-09-16 10:25] LABS: Glucose - Point of Care 90 mg/dl (70-99)
--- NOTE | 2024-09-16 11:09 | CM ---
Addendum entered by PAGE Sousa 09/17/24 15:13:
Spoke with Zoe in admissions at [facility] who stated that she won't take patient back due to pending/outstanding balance. Reviewed PT. Indication is for return home.
Spoke with patient's daughter who was advised of indication for home from PT. She is agreeable. VN offered and patient's daughter confirmed that would be a good idea, agreeable to VN, will make referral.
Attending updated.
Patient's daughter coming in to take patient home.
IMM reviewed with daughter, In chart.
Original Note:
Received call from patient's daughter who stated that they would like for patient to go to rehab, prior to returning home and would like [facility]. Sent referral to Zoe in admissions at [facility]. Will f/u with her regarding bed
availability.
Plan: Case management will continue to follow and assist with discharge planning. SNF when stable.
--- NOTE | 2024-09-16 11:18 | W.PN.HOSP.TC ---
Addendum entered and electronically signed by Tono Vernon MD 09/16/24 11:56:
d;w with daughter Bright over the phone in details-she agrees for PT togo rehab. Cm aware. await placement.
Original Note:
Today's Communication/Plan
-
await placement
po steroids taper
abx
Assessment / Plan
Assessment / Plan
Physical Exam
General: no acute distress appears comfortable at this time.
HEENT: Normocephalic, Atraumatic, Moist Mucous Membranes and Oxygen
Respiratory: Clear to auscultation b/l
Cardiac: Regular Rhythm and S1/S2; Negative Murmur, Rub or Gallop
GI: Soft, Nontender, Nondistended and Normal Bowel Sounds; Negative Organomegaly
Musculoskeletal: No Clubbing, No Cyanosis and No Edema
Skin: Negative Rash
Neuro: Awake alert conversant coherent
Psych: Calm
84M COPD CAD CABG PPM GERD HFpEF DM HLD HTN here for COPD exacerbation PNA.
PLAN:
# Left lower lobe pneumonia, likely community-acquired could be aspiration related
# History of multiple pneumonias in the past
-Leukocytosis resolved
-Chest x-ray showed focal parenchymal opacity of the left lower lobe
-COVID and flu negative
-Blood cultures NGTD
-sputum culture appreciated usual respiratory jian
-MRSA screen neg Vanc discontinued
-cough meds scheduled Mucinex prn Dionte Wangsin DM
-cefipime de-escalated to Cefdinir with clinical improvement
# Acute on chronic COPD exacerbation
#Acute Hypoxia/Respiratory Failure
-Currently on 2 L, does not use home oxygen anymore
-wean O2 as tolerated
-Home oxygen assessment
-DuoNebs every 6 hours
-Dexamethasone 4 mg every 12 tapered to Prednisone 50 mg daily
-Mucinex
-Monitor for thrush which patient is prone to
-pulmonary consult appreciated Pulmicort increased to BID cont while inpt
#Hx NIDDM
#Steroid induced hyperglycemia
current A1c 5.8 prediabetic
low dose sliding scale while on steroids
Chronic HFpEF
-Cardiac BNP of 9400 from 4500 although does not appear volume overloaded
-Continue 40 Lasix daily
Right bundle branch block
Permanent pacemaker
CAD status post CABG x 2
-Continue metoprolol
-Continue aspirin, statin
Mitral valve repair
Essential hypertension
Chronic anemia
Recurrent pleural effusions
Chronic pressure ulcers
Hyperlipidemia
GERD
Chronic protein calorie malnutrition
PT/OT appreciated home services
Full code
DVT prophylaxis�heparin
Cardiac diet
discussed with patient's daughter over the phone in details on 09/15/24
PT recs Home VN. Pt and family prefer going to rehab.
Dispo-SNF.
Anticipated Discharge: Today
Subjective/Interval History
-
Date of Service: September 16, 2024
on oxygen
remains with dry cough
Objective Data
-
Labs:
Laboratory Results
09/16/24
06:40
WBC 7.0
Hgb 12.1 L
Hct 36.4 L
Plt Count 202
Sodium 137
Potassium 4.3
Chloride 105
Carbon Dioxide 29
BUN 49 H
Creatinine 0.7
Glucose 116 H
Calcium 9.7
Vital Signs:
Vital Signs
Temp Pulse Resp BP Pulse Ox
97.7 F 75 20 153/89 96
09/16/24 07:05 09/16/24 07:53 09/16/24 07:53 09/16/24 07:05 09/16/24 07:53
I&O
09/15/24 09/16/24 09/17/24
06:59 06:59 06:59
Intake Total 810 / 810 1860 / 1860
Output Total 580 / 580 700 / 700
Balance 230 / 230 1160 / 1160
[2024-09-16 11:29] VITALS: O2SAT 100
[2024-09-16 12:25] LABS: Glucose - Point of Care 104 mg/dl (70-99)
--- NOTE | 2024-09-16 13:20 | W.PN.PUL3 ---
Today's Communication / Plan
-
Continue prednisone taper
Continue nebulizer regimen
Mucolytic's
Acapella device
Oxygen to maintain pulse ox above 90%
Physical therapy as able
Agree with discharge planning
Please call with questions.
Assessment
-
84-year-old male with history of severe centrilobular emphysema, on home oxygen, baseline FEV1 1.60/76%, DLCO 36%, presents with 2 weeks of upper respiratory symptoms, shortness of breath, cough, be hypoxic at home 80%. Admitted for LLL pneumonia
and COPD exacerbation
#1. Acute COPD exacerbation, known history of severe baseline COPD with FEV1 of 1.6 L, 76% predicted and DLCO of 36% on home oxygen. Legionella, streptococcal antigen negative, influenza negative
-Continue DuoNeb 4 times daily, continue Pulmicort twice daily-patient's home regimen.
-Transition to prednisone therapy continue with taper-decrease by 10 mg every 72 hours.
-Mucinex and Robitussin with codeine as needed for cough
-Continue oxygen therapy currently at 2L NC-
-on last 6MWT 07/2024 lowest sat was 90% no O2 required.
Continue oxygen supplementation to maintain pulse ox above 90%.
#2. Left-sided pneumonia, community acquired
Sputum with normal respiratory jian.
-Has been on Cefepime, prior history of Pseudomonas in sputum
-Transitioned to Ceftin. Complete total 7 days.
-Radiographic follow-up will be needed. With advanced COPD risk of cancer. He has been followed in the outpatient setting with yearly CAT scans. He was due for a CAT scan 08/2024. Would wait for about 4 to 6 weeks before obtaining.
#3. Allergic rhinitis, reports chronic nasal congestion with postnasal drip
-Changed Pulmicort to twice daily nebulized while in hospital, resume Flonase twice daily after discharge
-Outpatient follow-up with the ENT service if persistent symptoms
Conditions present prior to admission
Hypertension/hyperlipidemia
History of trace hemoptysis in the past, resolved
Pleural effusion, transudate, 2022
Mediastinal and hilar adenopathy with 2 cm right lower lobe nodule, improved on recent imaging
Followed as outpatient
15-[id number] history smoking quit 2016
History of Covid 2022, 2023
Pulmonary cachexia
Echocardiogram 04/12/24 with EF 50%, moderate to severe MR, normal RV size and function, normal PA pressure
No clear evidence of heart failure at this time
EKG AV paced rhythm
DVT prophylaxis: Subcutaneous heparin every 12 hours.
Prophylaxis: Remains on Pepcid
-
Agree with discharge planning. Patient will be discharged to rehab.
No additional recommendation from the pulmonary perspective
Sign off
-
Follow-up with Dr. Cabezas after DC.
Subjective Data
-
Date of Service:
Date of Service: September 16, 2024
Chief Complaint: Pulmonary Follow Up (Acute exacerbation of COPD)
Subjective:
Continues to report exertional dyspnea. Improved since admission
Denies hemoptysis
Denies increase in phlegm production
Review of Systems
Cardiopulmonary: Dyspnea, Dyspnea on Exertion and Cough
Objective Data
Data Reviewed
Vital Signs / I&O / Oxygen:
Vital Signs
Temp Pulse Resp BP Pulse Ox
97.7 F 75 20 153/89 96
09/16/24 07:05 09/16/24 07:53 09/16/24 07:53 09/16/24 07:05 09/16/24 07:53
Intake and Output
09/15/24 09/16/24 09/17/24
06:59 06:59 06:59
Intake Total 810 / 810 1860 / 1860
Output Total 580 / 580 700 / 700
Balance 230 / 230 1160 / 1160
SaO2 96
Nasal Cannula flow liters per 2
minute
Physical Exam
General: Comfortable
HEENT: Normocephalic
Cardiovascular: S1-S2
Respiratory: Wheeze (improved), Rhonchi (mild scattered ) and Non-Labored Respirations
GI: Soft and Non Distended
Neurology: Awake and Alert
Skin: Warm
Labs/Micro/Reports
Lab Data
09/16/24 06:40
09/16/24 06:40
Microbiology
09/11/24 19:55 Blood/Venous Blood Culture - Preliminary
No Growth in 4 days- Final report to follow
09/11/24 19:55 Blood/Venous Blood Culture - Preliminary
No Growth in 4 days- Final report to follow
09/12/24 01:21 Sputum Respiratory Culture - Final
Usual Respiratory Jain
09/12/24 01:21 Sputum Gram Stain - Final
[2024-09-16 14:51] VITALS: O2SAT 98
[2024-09-16 15:40] VITALS: BP 106/69
[2024-09-16 16:29] LABS: Glucose - Point of Care 183 mg/dl (70-99)
[2024-09-16] MEDS: LIPITOR 20 MG PO (18:35)
[2024-09-16] MEDS: NOVOLOG FLEXPEN-LOW RESISTANCE 1 UNITS SC (18:39)
[2024-09-16 21:29] LABS: Glucose - Point of Care 229 mg/dl (70-99)
[2024-09-16 23:10] VITALS: BP 139/80
[2024-09-17 07:05] VITALS: BP 153/85
[2024-09-17] MEDS: PULMICORT 0.5 MG INH (07:08)
[2024-09-17] MEDS: DUONEB 3 ML INH ×3 (07:08→14:59)
[2024-09-17 07:30] LABS: Glucose - Point of Care 95 mg/dl (70-99)
[2024-09-17] MEDS: NOVOLOG FLEXPEN-LOW RESISTANCE SC (07:40)
[2024-09-17] MEDS: OMNICEF 300 MG PO (07:45)
[2024-09-17] MEDS: HEPARIN 5000 UNITS SC (07:48)
[2024-09-17] MEDS: LOW STRENGTH ASPIRIN 81 MG PO (07:48)
[2024-09-17] MEDS: CLARITIN 10 MG PO (07:48)
[2024-09-17] MEDS: VISBIOME 1 CAP PO (07:48)
[2024-09-17] MEDS: LASIX 40 MG PO (07:48)
[2024-09-17] MEDS: LOPRESSOR 12.5 MG PO (07:48)
[2024-09-17] MEDS: DELTASONE 50 MG PO (07:48)
[2024-09-17] MEDS: PEPCID 20 MG PO (07:48)
[2024-09-17] MEDS: NON-FORMULARY ITEM 1 DROP OPHTH ×3 (07:52→12:03)
[2024-09-17] MEDS: NON-FORMULARY ITEM 1 UNIT PO (07:52)
[2024-09-17] MEDS: MUCINEX PO (07:55)
[2024-09-17 09:20] LABS: Hematocrit 37.1 % (39.0-52.0); Hemoglobin 12.2 g/dL (13.0-18.0); Mean Corp Hgb Conc. 32.9 g/dL (33.0-37.0); Mean Corpuscular Hgb 28.9 pg (27.0-31.0); Mean Corpuscular Volume 87.9 fL (80.0-94.0); Mean Platelet Volume 11.3 fL (7.4-10.4); Platelet Count 190 10^3/uL (130-400); Red Blood Cell Count 4.22 10^6/uL (4.70-6.10); Red Cell Dist. Width 14.7 % (11.5-14.5); White Blood Cell Count 7.7 10^3/uL (4.8-10.8)
[2024-09-17 10:30] LABS: Blood Urea Nitrogen 42 mg/dl (9-20); Calcium 9.5 mg/dl (8.4-10.2); Carbon Dioxide 33 mmol/L (22-30); Chloride 102 mmol/L (98-107); Estimated Creatinine Clearance 51 ml/min; Glucose 94 mg/dl (70-99); Magnesium 2.4 mg/dl (1.6-2.3); Phosphorus 2.8 mg/dl (2.5-4.5); Potassium 4.4 mmol/L (3.5-5.1); Sodium 136 mmol/L (135-145); eGFR > 60.00
[2024-09-17 11:36] LABS: Glucose - Point of Care 153 mg/dl (70-99)
[2024-09-17] MEDS: NOVOLOG FLEXPEN-LOW RESISTANCE 1 UNITS SC (12:01)
--- NOTE | 2024-09-17 13:24 | W.PN.HOSP.TC ---
Today's Communication/Plan
-
await placement to SNF
Medically stable
Assessment / Plan
Assessment / Plan
Physical Exam
General: no acute distress appears comfortable at this time.
HEENT: Normocephalic, Atraumatic, Moist Mucous Membranes and Oxygen
Respiratory: Clear to auscultation b/l
Cardiac: Regular Rhythm and S1/S2; Negative Murmur, Rub or Gallop
GI: Soft, Nontender, Nondistended and Normal Bowel Sounds; Negative Organomegaly
Musculoskeletal: No Clubbing, No Cyanosis and No Edema
Skin: Negative Rash
Neuro: Awake alert conversant coherent
Psych: Calm
84M COPD CAD CABG PPM GERD HFpEF DM HLD HTN here for COPD exacerbation PNA.
PLAN:
# Left lower lobe pneumonia, likely community-acquired could be aspiration related
# History of multiple pneumonias in the past
-Leukocytosis resolved
-Chest x-ray showed focal parenchymal opacity of the left lower lobe
-COVID and flu negative
-Blood cultures NGTD
-sputum culture appreciated usual respiratory jian
-MRSA screen neg Vanc discontinued
-cough meds scheduled Mucinex prn Tessalon, Robitussin DM
-cefipime de-escalated to Cefdinir with clinical improvement
# Acute on chronic COPD exacerbation
#Acute Hypoxia/Respiratory Failure
-Currently on 2 L, does not use home oxygen anymore
-wean O2 as tolerated
-Home oxygen assessment
-DuoNebs every 6 hours
-Dexamethasone 4 mg every 12 tapered to Prednisone 50 mg daily and now de-escalte down to 40mg daily
-Mucinex
-Monitor for thrush which patient is prone to
-pulmonary consult appreciated Pulmicort increased to BID cont while inpt
#Hx NIDDM
#Steroid induced hyperglycemia
current A1c 5.8 prediabetic
low dose sliding scale while on steroids
no further episode of hypoglycemia
Chronic HFpEF
-Cardiac BNP of 9400 from 4500 although does not appear volume overloaded
-Continue 40 Lasix daily
Right bundle branch block
Permanent pacemaker
CAD status post CABG x 2
-Continue metoprolol
-Continue aspirin, statin
Mitral valve repair
Essential hypertension
Chronic anemia
Recurrent pleural effusions
Chronic pressure ulcers
Hyperlipidemia
GERD
Chronic protein calorie malnutrition
PT/OT appreciated home services
Full code
DVT prophylaxis�heparin
Cardiac diet
discussed with patient's daughter over the phone in details on 09/15/24 and 09/16/24
PT recs Home VN. Pt and family prefer going to rehab.
Dispo-SNF.
Anticipated Discharge: Today
Subjective/Interval History
-
Date of Service: September 17, 2024
states breathing is same
Objective Data
-
Labs:
Laboratory Results
09/17/24
06:59
WBC 7.7
Hgb 12.2 L
Hct 37.1 L
Plt Count 190
Sodium 136
Potassium 4.4
Chloride 102
Carbon Dioxide 33 H
BUN 42 H
Creatinine 0.8
Glucose 94
Calcium 9.5
Vital Signs:
Vital Signs
Temp Pulse Resp BP Pulse Ox
97.5 F 84 18 153/85 96
09/17/24 07:05 09/17/24 11:28 09/17/24 11:28 09/17/24 07:05 09/17/24 11:28
I&O
09/16/24 09/17/24 09/18/24
06:59 06:59 06:59
Intake Total 1860 / 1860 1020 / 1020
Output Total 700 / 700 450 / 450
Balance 1160 / 1160 570 / 570
[2024-09-17 15:12] VITALS: BP 125/77
--- NOTE | 2024-09-17 15:12 | W.DCSUMMARY ---
Discharge Summary
Discharge Data
Date of Admission: 09/11/24
Date of Discharge: 09/17/24
-
Pending Results: No
Hospital Course
84M COPD CAD CABG PPM GERD HFpEF DM HLD HTN here for COPD exacerbation PNA. Patient was started on IV antibiotics. Patient was eval by pulmonary. Patient was also started on IV steroids. Patient was started on bronchodilators. Patient required
oxygenation was able to be weaned off. Patient did not qualify for home oxygenation. Patient was transition from IV cefepime to p.o. cefdinir. Patient breathing slowly started to improve. proBNP was lower compared to prior admission. Patient
did not look volume overloaded. Patient with significantly slow improvement. Eventually patient with significant improvement in breathing and thus IV steroids were transitioned to p.o. prednisone. 50 mg x 3 was completed in the hospital.
Patient will continue with 40 mg with a slow taper and will follow-up with pulmonary as outpatient. Patient was eval by rehabilitation. Patient with significant improvement and pt and family would like to go home with [facility].
Discharge Plan
-
Patient Disposition: Home with Home Care
Discharge Diagnosis/Procedures: Left lower lobe pneumonia, likely community-acquired could be aspiration related
Acute on chronic COPD exacerbation
Acute Hypoxia/Respiratory Failure
Condition: Fair
Diet: Regular
Activity: As tolerated
Driving Restrictions: Not until seen by your Dr
Referrals:
Ilia Jacobs MD [Active] - in two to three weeks (May see [facility], post hospital DC for PNA)
UNKNOWN - PT DOES,NOT KNOW [Family Provider] - in less than 1 week
Prescriptions:
New
cefdinir 300 mg Capsule
300 mg PO Q12 2 Days Qty: 4 0RF
prednisone 10 mg Tablet
See Rx Instructions .ROUTE .COMPLEX Qty: 30 0RF
Rx Instructions:
Take By Mouth:
40 mg daily x3 days, 30 mg daily x3 days,
20 mg daily x3 days, 10 mg daily x3 days.
Continued
ipratropium-albuterol 0.5 mg-3 mg(2.5 mg base)/3 mL solution for nebulization
3 ml inhalation R BID
metoprolol tartrate 25 mg Tablet
12.5 mg PO BID Qty: 10 0RF
benzonatate 100 mg capsule
100 mg PO BID
furosemide 40 mg Tablet
40 mg PO DAILY
atorvastatin 20 mg Tablet
20 mg PO QPM
famotidine 40 mg Tablet
40 mg PO DAILY
budesonide 0.5 mg/2 mL Suspension For Nebulization
0.5 mg INHALATION R DAILY
aspirin 81 mg Tablet,Chewable
81 mg PO DAILY
codeine-guaifenesin 10-100 mg/5 mL Liquid
5 ml PO HSPRN PRN (Reason: cough)
albuterol sulfate 90 mcg/actuation Hfa Aerosol Inhaler
2 puff INHALATION R Q6HPRN PRN (Reason: sob/wheezing)
diphenhydramine-acetaminophen [Tylenol PM Extra Strength] 25-500 mg Tablet
1 tab PO HSPRN PRN (Reason: sleep)
PreserVision AREDS-2 250-90-40-1 mg Tablet,Chewable
2 tab PO DAILY
loratadine 10 mg Tablet,Chewable
10 mg PO DAILY
griduwcivsdv-nbyklhnx-bwbafwq 1-0.5-0.075 % Drops,Suspension
1 drp ophthalmic (eye) QID
Patient Comments:
LEFT EYE
fipdmpcnkzok-ifhnslqt-rkkaayc 1-0.5-0.075 % Drops,Suspension
1 drp OPHTHALMIC (EYE) BID
Patient Comments:
RIGHT EYE
guaifenesin 100 mg/5 mL Liquid
200 mg PO Q4HPRN PRN (Reason: cough)
Discontinued
azithromycin 250 mg Tablet
250 mg PO DAILY
Patient Comments:
09/11/24: Patient states doctor said to stop this medication. Started on 09/08. Took 2 tabs on day 1.
prednisone 20 mg tablet
40 mg PO DAILY
Patient Comments:
09/11/24: Take for 5 days total. Started on 09/08/24.
Discharge Orders:
Discharge Patient (As Directed); Ordered 09/17/24
Ordered By: Tono Vernon
Discharge Date and Time
Discharge Date/Time: 09/17/24 16:29
Print Language: GREEK
== END 2024-09-17 16:29 | disposition home health service (06) | DRG 177 ==
LOC: 3 WEST ACU 20:33
PROVIDERS: Internal Medicine; Nurse Practitioner Gerontology; ADMITTING PHYSICIAN Hospitalist; ATTENDING PHYSICIAN Hospitalist; CONSULT PHYSICIAN Internal Medicine Critical Care Medicine; EMERGENCY PHYSICIAN Emergency Medicine
DX: J69.0 Pneumonitis due to inhalation of food and vomit (principal); J96.01 Acute respiratory failure with hypoxia; J44.0 Chronic obstructive pulmonary disease with (acute) lower respiratory infection; E46 Unspecified protein-calorie malnutrition; Z68.1 Body mass index [BMI] 19.9 or less, adult; I50.32 Chronic diastolic (congestive) heart failure; R64 Cachexia; J44.1 Chronic obstructive pulmonary disease with (acute) exacerbation; Z87.01 Personal history of pneumonia (recurrent); I25.10 Atherosclerotic heart disease of native coronary artery without angina pectoris; Z95.1 Presence of aortocoronary bypass graft; K21.9 Gastro-esophageal reflux disease without esophagitis; E78.5 Hyperlipidemia, unspecified; I45.10 Unspecified right bundle-branch block; I11.0 Hypertensive heart disease with heart failure; D64.9 Anemia, unspecified; Z11.52 Encounter for screening for COVID-19; E11.40 Type 2 diabetes mellitus with diabetic neuropathy, unspecified; J43.2 Centrilobular emphysema; L89.90 Pressure ulcer of unspecified site, unspecified stage; R13.10 Dysphagia, unspecified; Z99.81 Dependence on supplemental oxygen; Z87.891 Personal history of nicotine dependence; Z86.16 Personal history of COVID-19; W19.XXXA Unspecified fall, initial encounter; Z79.82 Long term (current) use of aspirin; Z79.899 Other long term (current) drug therapy; Z87.11 Personal history of peptic ulcer disease; Z95.0 Presence of cardiac pacemaker; Z96.652 Presence of left artificial knee joint
CPT/HCPCS: 71046; 80048; 80053; 80202; 82962; 83036; 83605; 83735; 83880; 84100; 84484; 85025; 85027; 87040; 87070; 87205; 87449; 87502; 87811; 87899; 93005; 94640; 96374; 97116; 97162; 97166; 97530; 99285

== ENCOUNTER → 2024-10-11 10:15 | Outpatient (REF) | payer MEDICARE, BC, SELFPAY | LOC: RAD 10:15 | PROVIDERS: ATTENDING PHYSICIAN Nurse Practitioner Family; FAMILY PHYSICIAN Internal Medicine Cardiovascular Disease | DX: R93.89 Abnormal findings on diagnostic imaging of other specified body structures (principal) | CPT/HCPCS: 71250 ==

== ENCOUNTER 2024-11-08 13:32 | Inpatient (IN) | payer MEDICARE, BC, SELFPAY ==
[2024-11-08] VITALS (9 sets, daily range): BP systolic 99–130; BP diastolic 55–88; BMI 20.3; BMI 19.6
[2024-11-08 09:48] LABS: % Basophils 0.3 % (0-2); % Eosinophils 0.9 % (0-6); % Immature Granulocytes 0.5 % (0-0.5); % Lymphocytes 3.3 % (20.5-51.1); % Monocytes 6.7 % (1.7-9.3); % Neutrophils 88.3 % (42.2-75.2); Absolute Basophils 0.1 10^3/uL (0-0.2); Absolute Eosinophils 0.2 10^3/uL (0-0.7); Absolute Immature Granulocytes 0.1 10^3/uL (0-0.05); Absolute Lymphocytes 0.6 10^3/uL (1.2-3.4); Absolute Monocytes 1.2 10^3/uL (0.1-0.6); Absolute Neutrophils 15.3 10^3/uL (1.4-6.5); Hematocrit 33.7 % (39.0-52.0); Hemoglobin 11.4 g/dL (13.0-18.0); Mean Corp Hgb Conc. 33.8 g/dL (33.0-37.0); Mean Corpuscular Hgb 29.7 pg (27.0-31.0); Mean Corpuscular Volume 87.8 fL (80.0-94.0); Nucleated Red Blood Cells % 0 % (-); Platelet Count 180 10^3/uL (130-400); Red Blood Cell Count 3.84 10^6/uL (4.70-6.10); White Blood Cell Count 17.3 10^3/uL (4.8-10.8)
[2024-11-08 10:15] LABS: ALT (SGPT) 12 U/L (0-50); AST (SGOT) 17 U/L (17-59); Albumin 3.5 g/dl (3.5-5.0); Alkaline Phosphatase 84 U/L (38-126); Blood Urea Nitrogen 42 mg/dl (9-20); Calcium 9.7 mg/dl (8.4-10.2); Carbon Dioxide 22 mmol/L (22-30); Chloride 107 mmol/L (98-107); Glucose 260 mg/dl (70-99); Potassium 4.3 mmol/L (3.5-5.1); Sodium 137 mmol/L (135-145); Total Bilirubin 1.3 mg/dl (0.2-1.3); Total Protein 6.1 g/dl (6.3-8.2); eGFR > 60.00
[2024-11-08 10:19] LABS: COVID-19 Antigen Negative (Negative)
--- NOTE | 2024-11-08 11:03 | ED.GENMED ---
History of Present Illness
General
Chief Complaint: Cough
Source: patient
Exam Limitations: none
Time Seen by Provider: 11/08/24 10:37
Nursing documentation reviewed up to this point in time: agreed with
History of Present Illness
History of Present Illness:
Patient is an 84-year-old male presenting to the emergency department with progressively worsening cough and generalized weakness over the past 1.5 weeks. Patient reports he initially started w/ a dry cough at 1.5 weeks ago which has been
progressively worsening. He now feels short of breath and extremely weak. Patient reports fevers this past week at home with a temp of 102F. Patient denies any exertional chest pain. Patient denies any nausea or vomiting. No urinary symptoms.
No lower extremity swelling or pain.
Patient has oxygen at home given COPD although rarely needs to use it. However�over the past 2 days he has been using 2 L nasal cannula.
Patient was admitted to the hospital at the end of August of this year with pneumonia.
Past History
Past History
ED Past Medical History: CAD, COPD, HTN, Valvular disease and Other (Neuropathy)
ED Past Surgical History: Cardiac (CABG �2 and mitral valve repair 08/29/2016 DD DDDR pacemaker 2016)
Social History
Tobacco: Former smoker
Drug: None
Personal:
Living: with family
Employment: Retired
Family History
Family History: Other (Noncontributory)
Review of Systems
Review of Systems
Allergies reviewed?: Yes
All Other Systems: ROS reviewed and negative except as documented in HPI and ROS
Phy Exam
Physical Exam
Physical Exam:
Vitals: Tachypneic. Afebrile
General: Patient is frail and weak appearing.
Skin: Warm and dry, no rashes or lesions
Head: Normocephalic, atraumatic
Eyes: Sclera nonicteric.
Throat: Protecting airway
Neck: Normal ROM, no cervical spine tenderness, no meningismus
Cardiac: Regular rate and rhythm, no murmurs.
Pulm: O2 96 on 4 L. Coarse lung sounds bilaterally. Tachypneic
Abdomen: Abdomen soft and nontender.
Extremities: No evidence of cyanosis or edema. No tenderness of bilateral lower extremities
Neuro: AAOx3. Grossly intact.
Psychiatric: Normal affect.
Sepsis
Sepsis Screening
Sepsis Assessment: Sepsis
Sepsis Screen
Sepsis Screen: Sepsis
Date: 11/08/24
Time: 23:24
Course
Orders/Labs/Results
Orders:
Orders
11/08/24 09:19
Electrocardiogram (*1) Urgent
Reason for Study: Shortness of Breath
Chest [CR Chest - 2 Views ] Urgent
Comment:
Reason For Exam: cough. SOB
11/08/24 09:20
EKG- Treatment ONCE
11/08/24 09:29
COVID-19 Antigen Urgent
Source: Nasal Swab
Complete Blood Count/With Diff Urgent
Comprehensive Metabolic Panel Urgent
Influenza A+B Rapid Molecular Urgent
TODD Source: Nasal Swab
Specimen Description:
11/08/24 10:46
0.9% Sodium Chloride 500 ml [Nss] 500 ml IV BOLUS
Dexamethasone Sod Phosphate [Decadron] 6 mg IV NOW STA
Ipratropium/Albuterol Sulfate [Duoneb] 3 ml INH R NOW STA
11/08/24 10:56
pacemaker [Interrogate Pacemaker- Treatment] ONCE
11/08/24 11:00
Cefepime HCl [Maxipime] 2,000 mg IV NOW STA
Vancomycin [Vancocin] 1,500 mg 0.9% Sodium Chloride 500 ml [Nss] 500 ml IV NOW
11/08/24 11:23
Lactic Acid Q4H
Comment: CANCEL 2nd LACTIC ACID IF 1st LACTIC ACID IS LESS THAN 2
NT-proBNP Urgent
Troponin I Urgent
Blood Culture Q30M
TODD Source: Blood/Venous
Specimen Description:
11/08/24 11:32
Vancomycin [Vancocin] 1,500 mg 0.9% Sodium Chloride 500 ml [Nss] 500 ml IV NOW
11/08/24 11:58
Blood Culture Q30M
TODD Source: Blood/Venous
Specimen Description:
11/08/24 13:06
Admit/Transfer Patient As Directed
Co-Sign Provider:
Level of Care: Inpatient admission
Assign to:: Telemetry
Physician / Group: zoran
Diagnosis: sepsis pneumonia
Reason for Telemetry: Arrhythmia
Date to Stop Telemetry: 11/11/24
Time to Stop Telemetry: 11:00
Reason for Hospitalization: sepsis pneumonia
Expected length of stay greater than two midnights?: Yes
ELOS- Estimated Length of Stay in days: 2
I certify the patient meets the requirements for IP care: Yes
PRN Pain Medication Management As Directed
May give lesser potent ordered pain med per pt: Yes
preference::
Protocol:: Medication orders for pain may be administered in a
manner that supports deferring to patient preference
when the pt is:
- Requesting an ordered lesser potent pain medication.
Least to most potent pain medications are defined
as: acetaminophen < NSAID < tramadol < opioids
(morphine, oxycodone, hydromorphone).
- Requesting a lesser dose of the same medication IF
ORDERED.
- Requesting a less intrusive route of administration
if both routes are prescribed by the provider (PO <
IV).
11/08/24 13:10
Sputum Culture [Respiratory Culture/Gram Stain] Urgent
TODD Source: Sputum
Specimen Description:
11/08/24 13:23
Legionella Urinary Antigen Urgent
TODD Source: Urine
Specimen Description:
Strep pneumoniae Antigen Urgent
TODD Source: Urine
Specimen Description:
11/08/24 15:16
0.9% Sodium Chloride 1000 ml [Nss] 1,000 ml IV 80 mls/hr
Benzonatate [Tessalon Perles] 100 mg PO DAILYPRN PRN
Dextrose 50%-Water [Dextrose 50% Syringe] 12.5 grams IV [id number] PRN
Glucagon [GlucaGen] 1 mg IM PRN PRN
Guaifenesin/Codeine Solution [Robitussin AC] 5 ml PO HSPRN PRN
11/08/24 15:16
Bedside Glucose Monitoring As Directed
Frequency: AC&HS
Additional Instructions:: Change to q6h if pt on TPN, tube feeding or not eating
DX Deep Vein Thrombosis Video Routine
11/08/24 15:24
Artificial Tears (Pf) [Refresh Eye Drops (Pf)] 1 drops OPHTH DAILYPRN PRN
11/08/24 15:37
Acetaminophen [Tylenol] 500 mg PO HSPRN PRN
11/08/24 15:39
Lactic Acid Q4H
Comment: CANCEL 2nd LACTIC ACID IF 1st LACTIC ACID IS LESS THAN 2
MRSA Screen Routine
TODD Source: Nose
Specimen Description:
11/08/24 16:00
Ipratropium/Albuterol Sulfate [Duoneb] 3 ml INH R QID
11/08/24 16:30
Insulin Aspart Corrective Low [Novolog Flexpen-Low Resistance] See Protocol SC AC
11/08/24 18:00
Atorvastatin [Lipitor] 20 mg PO QPM
11/08/24 20:00
Budesonide [Pulmicort] 0.5 mg INH R BID
Budesonide/Formoterol 160/4.5 [Symbicort 160/4.5 Mcg Inhaler] 2 puff INH R BID
Heparin 5,000 units SC Q12
Metoprolol [Lopressor] 12.5 mg PO BID
Vit C/Vit E/Lutein/Min/[place]-3 [Ocuvite Softgel] 1 cap PO BID
11/09/24 00:00
Cefepime HCl [Maxipime] 1,000 mg IV Q12H
Dexamethasone Sod Phosphate [Decadron] 4 mg IV Q12H
11/09/24 06:00
Glycohemoglobin (HgbA1c) IN AM
11/09/24 08:00
Aspirin Low Dose EC [Aspir Low (Enteric Coated)] 81 mg PO DAILY
Famotidine [Pepcid] 40 mg PO DAILY
Loratadine [Claritin] 10 mg PO DAILY
Multivitamin [Theragran] 1 tablet PO DAILY
fluticasone propionate 2 spray NASAL DAILY
11/11/24 11:00
DC Protocol for Telemetry ONCE
Abnormal Lab Results
11/08/24 11/08/24
09:29 11:23
WBC 17.3 H 10^3/uL
(4.8-10.8)
RBC 3.84 L 10^6/uL
(4.70-6.10)
Hgb 11.4 L g/dL
(13.0-18.0)
Hct 33.7 L %
(39.0-52.0)
RDW 15.0 H %
(11.5-14.5)
MPV 12.0 H fL
(7.4-10.4)
Abs Immat Gran (auto) 0.1 H 10^3/uL
(0-0.05)
Absolute Neuts (auto) 15.3 H 10^3/uL
(1.4-6.5)
Absolute Lymphs (auto) 0.6 L 10^3/uL
(1.2-3.4)
Absolute Monos (auto) 1.2 H 10^3/uL
(0.1-0.6)
Neutrophils % 88.3 H %
(42.2-75.2)
Lymphocytes % 3.3 L %
(20.5-51.1)
BUN 42 H mg/dl
(9-20)
Glucose 260 H mg/dl
(70-99)
Lactic Acid 2.6 H mmol/L
(0.7-2.0)
Total Protein 6.1 L g/dl
(6.3-8.2)
11/08/24 09:29
11/08/24 09:29
Vital Signs
Initial and Last Documented VS:
Initial Vital Signs
Temp Pulse Resp BP Pulse Ox
99.0 F 101 24 119/55 92
11/08/24 09:15 11/08/24 09:15 11/08/24 09:15 11/08/24 09:15 11/08/24 09:15
Last Documented Vital Signs
Temp Pulse Resp BP Pulse Ox
97.6 F 80 16 104/59 97
11/08/24 19:00 11/08/24 20:01 11/08/24 20:01 11/08/24 19:00 11/08/24 20:01
MDM/Problems Addressed
Differential Diagnosis Includes:
Not limited to: Acute COPD exacerbation, pneumonia, bronchitis, acute CHF, acute coronary syndrome, etc.
MDM/Problems Addressed:
84-year-old male with history as documented presenting with 1.5 weeks of progressively worsening cough, fevers at home, now requiring supplemental O2. No chest pain. No lower extremity edema. Patient mildly tachycardic on arrival on 4 L nasal
cannula. He is mildly tachypneic. Physical exam as above.
Labs were sent in triage significant for leukocytosis of 17.3 with left shift. Chemistry shows acute hyperglycemia. Otherwise no abnormalities.
A CXR was ordered in triage and resulted, which shows a suspected left upper lobe pneumonia.
Given patients tachycardia, tachypnea, leukocytosis, and pneumonia on x-ray � patient does meet sepsis criteria. IV vancomycin/cefepime started in ED and IV fluids ordered. Overall impression is likely sepsis secondary ton pneumonia w/ acute COPD
exacerbation. Patient given IV steroids and duoneb.
Will send lactic, blood cultures, viral studies. Patient will require admission for IV antibiotics and further management.
Patient accepted to hospitalist service in stable condition.
Chronic conditions affecting care:
COPD, CAD, hypertension
Acute Exacerbation and/or Progression of Chronic Illness:
Pneumonia with acute COPD exacerbation
*Radiology
Radiology exam reviewed: preliminary read by ED provider (Opacity in left lobe) and radiology read reviewed
*Pulse Oximetry
Patient hypoxic: yes (Patient placed on 4 L nasal cannula)
*Critical Care Note
Total Time (30-74mins, 75-104mins- exclusive of procedures): Not Applicable
Data Reviewed
Review of Other/Old Records Reveals: Discharge Summary (Discharge summary from 09/17/25 after hospitalization for pneumonia and COPD exacerbation)
Patient Management
Discussion with other providers: Hospitalist
Escalation/DeEscalation of care consider admission/obs:
Admit for IV antibiotics, further management
ED Attending Note
-
Portions of this chart may have been created with voice recognition software.� Occasional wrong word or��sound alike� substitutions may have occurred due to the inherent limitations of voice recognition software.
Discharge Plan
Departure
Patient Disposition: Admit
Date of Disposition: 11/08/24
Time of Disposition: 12:17
Presentation/result/management discussed w/ accepting MD/DO: Hospitalist
Discharge Problem:
Sepsis, Left upper lobe pneumonia, Acute exacerbation of chronic obstructive pulmonary disease
Interventions
Interventions:
*Risk Screen - Suicide Last Done: 11/08/24 09:15
*General Assessment Last Done: 11/08/24 09:15
*Neglect/Abuse Screening Last Done: 11/08/24 10:00
*ED- Fall Risk Assessment Last Done: 11/08/24 10:00
*ED COVID-19 Vaccine History Last Done: 11/08/24 15:14
*Nursing Disposition Last Done: 11/08/24 15:08
ED- Pulmonary Assessment Last Done: 11/08/24 10:00
Discharge Date and Time
Discharge Date/Time: 11/08/24 14:50
[2024-11-08] MEDS: DECADRON 6 MG IV (11:37)
[2024-11-08] MEDS: MAXIPIME 2000 MG IV (11:37)
[2024-11-08] MEDS: DUONEB 3 ML INH ×2 (11:37→15:32)
[2024-11-08] MEDS: NSS 500 IV (11:38)
[2024-11-08 11:52] LABS: Lactic Acid 2.6 mmol/L (0.7-2.0)
[2024-11-08 12:02] LABS: NT-proBNP 3100 pg/ml; Troponin I 0.016 ng/ml
[2024-11-08] MEDS: VANCOCIN 530 MG IV (12:32)
--- NOTE | 2024-11-08 13:10 | HPS.HSE ---
Family Physician
-
Family Physician: Yahir Martins
Chief Complaint
-
weakness
History of Present Illness
84-year-old male past medical history of CAD status post CABG x 2, chronic HFpEF, mitral valve repair, permanent pacemaker, history of recurrent pneumonia, COPD, hypertension, neuropathy, presenting with progressively worsening cough and generalized
weakness over the past 1 and half week. Patient had dry cough which has been progressively getting worse. Now feels short of breath and weak. Fevers this past week with temperature 102. No chest pain. No nausea or vomiting. No urinary
symptoms. No swelling.
He has oxygen for COPD at home but does not use it but used 2 L for past 2 days.
Medical History
Past Medical History
Past Medical History: Reports Other (CAD status post CABG x 2, chronic HFpEF, mitral valve repair, permanent pacemaker, history of recurrent pneumonia, COPD, hypertension, neuropathy,)
Past Surgical History: Reports Other (Cardiac (CABG �2 and mitral valve repair 08/29/2016 DD DDDR pacemaker 2017))
Social History
Tobacco: Non-smoker
Alcohol: None
Drug: None
Family History
Family History: Not pertinent
Allergies / Home Medications
Allergies reflects when Allergies were last updated in [employer].
Home Medications with original date entered in [employer]
Allergy/Medication List:
Allergies
Allergy/AdvReac Type Severity Reaction Status Date / Time
adhesive tape Allergy skin Verified 11/08/24 09:18
irritation
azithromycin Allergy GI upset Verified 11/08/24 09:18
cat dander Allergy pat has Verified 11/08/24 09:18
cats/coughing,
sneezing
moxifloxacin Allergy Unknown Verified 11/08/24 09:18
penicillin G Allergy 1960s had Verified 11/08/24 09:18
reaxn to
injection-said
he
required
treatment
Penicillins Allergy rash to Verified 11/08/24 09:18
amoxicillin
[id number]'s
many years
ago
pollen extracts Allergy ENVIRONMENTAL-coughing, Verified 11/08/24 09:18
sneezing,ITCHING
Sulfa (Sulfonamide Allergy Hives Verified 11/08/24 09:18
Antibiotics)
sulfisoxazole Allergy Rash Verified 11/08/24 09:18
tetanus toxoid, adsorbed Allergy Rash Verified 11/08/24 09:18
Artifical sweeteners Allergy RECTAL PAIN Uncoded 11/08/24 09:18
Home Medications
ipratropium 0.5 mg-albuterol 3 mg (2.5 mg base)/3 mL nebulization soln 3 ml inhalation R BID Lung/Breathing Issues 01/24/23
metoprolol tartrate 25 mg tablet 12.5 mg (1/2 x 25 mg) PO BID #10 tabs 02/14/23
benzonatate 100 mg capsule 100 mg PO DAILYPRN PRN cough 03/09/23
atorvastatin 20 mg tablet 20 mg PO QPM High Cholesterol 09/11/24
budesonide 0.5 mg/2 mL suspension for nebulization 0.5 mg inhalation R BID Lung/Breathing Issues 09/11/24
codeine 10 mg-guaifenesin 100 mg/5 mL oral liquid 5 ml PO HSPRN PRN cough 09/11/24
diphenhydramine 25 mg-acetaminophen 500 mg tablet (Tylenol PM Extra Strength) 1 tab PO HSPRN PRN sleep 09/11/24
famotidine 40 mg tablet 40 mg PO DAILY Gastrointestinal Issue 09/11/24
furosemide 40 mg tablet 40 mg PO DAILY Fluid Retention/Swelling 09/11/24
vit C 250 mg-E 90 mg-zinc 40 mg-copper 1 bu-iltneh-avahgn chew tablet (PreserVision AREDS-2) 1 tab PO BID Supplement 09/11/24
aspirin 81 mg tablet 81 mg PO DAILY 11/08/24
budesonide 160 mcg-glycopyr 9 mcg-formot 4.8 mcg/actuation HFA inhaler (Daxa Aerosphere) 2 inh inhalation R BID 11/08/24
carboxymethylcellulose sodium 0.25 % eye drops (TheraTears) 1 drp ophthalmic (eye) DAILYPRN PRN dry eyes 11/08/24
fluticasone propionate 50 mcg/actuation nasal spray,suspension 2 spray intranasal DAILY 11/08/24
loratadine 10 mg tablet 10 mg PO DAILY 11/08/24
therapeutic multivitamin 1 tab PO DAILY 11/08/24
Review of Systems
-
History Source: Patient
A 12 point ROS was completed and negative except as noted: Yes
Constitutional: Reports No Symptoms
EENT: Reports No Symptoms
Respiratory: Reports See HPI
Cardiac: Reports No Symptoms
Abdomen/GI: Reports No Symptoms
: Reports No Symptoms
Musculoskeletal: Reports No Symptoms
Skin: Reports No Symptoms
Neurological: Reports No Symptoms
Endocrine: Reports No Symptoms
Hematologic/Lymphatic: Reports No Symptoms
Psych: Reports No Symptoms
Physical Exam
Vital Signs
Vital Signs
Temp Pulse Resp BP Pulse Ox
99.0 F 88 23 126/75 98
11/08/24 09:15 11/08/24 10:45 11/08/24 10:45 11/08/24 10:22 11/08/24 10:30
Physical Exam
General: Well Developed, Well Nourished and No Apparent Distress
HEENT: NormoCephalic, Moist mucous membranes and Atraumatic
Respiratory: Clear
Cardiac: S1/S2 and Regular Rhythm; No Murmur or Rub
GI: Soft, Non Tender, Non Distended and Normal Bowel Sounds; No Organomegaly
Rectal: Deferred by Provider
Musculoskeletal: No Clubbing, No Cyanosis and No Edema
Skin: No Rash
Neuro: Nonfocal/grossly intact
Laboratory Results
-
11/08/24 09:29
11/08/24 09:29
Laboratory Results
Lactic Acid 2.6 mmol/L (0.7-2.0) H 11/08/24 11:23
Total Bilirubin 1.3 mg/dl (0.2-1.3) 11/08/24 09:29
AST 17 U/L (17-59) 11/08/24 09:29
ALT 12 U/L (0-50) 11/08/24 09:29
Alkaline Phosphatase 84 U/L (38-126) 11/08/24 09:29
Troponin I 0.016 ng/ml 11/08/24 11:23
Data Reviewed
-
Lab Data: Labs Reviewed by me
Old Records: Reviewed
Impression/Plan
-
IMPRESSION:
PLAN:
# Sepsis (leukocytosis, tachycardia) secondary to left upper lobe pneumonia with likely small parapneumonic effusion
# History of recurrent pneumonias
-COVID and flu negative
- Leukocytosis 17
-Lactic acid 2.6
-IV fluids
-Hold Lasix
-Check sputum culture, blood cultures
-Check strep antigen, Legionella, MRSA
- Vancomycin/cefepime
- Unclear why recurrent pneumonias, May need evaluation for immunodeficiency
# Acute COPD exacerbation
- Bilateral rhonchi
- DuoNebs every 6 hours
- Dexamethasone 4 mg every 12
# Hyperglycemia secondary to infection
-Patient not diabetic as per patient
-Check A1c
- Insulin sliding scale
CAD status post CABG x 2
- Continue aspirin, statin
- Continue metoprolol
Chronic HFpEF
- Hold Lasix
Right bundle branch block
History of permanent pacemaker
- Pacemaker interrogated, report pending
Mitral valve repair
Essential hypertension
Chronic neuropathy
Chronic pressure ulcers
Chronic anemia
- Hemoglobin stable
GERD
Chronic protein calorie malnutrition
Hyperlipidemia
Full code
DVT prophylaxis�heparin
Regular diet
--- NOTE | 2024-11-08 15:33 | PHA.VAN.IN ---
Assessment
- Assessment
Renal Function: Appears similar to baseline
Renal Function may be Overestimated due to: age
Concomitant Antimicrobials: cefepime
AUC Dosing Plan
- Dosing Variables
Dosing Weight (kg): 50.15
Dosing CrCl (ml/min): 40
Vd coefficient (L/kg): 0.7
- Empiric Dosing
Initial / Loading Dose: 1500mg 11/08
Maintenance Regimen: 750mg q24h
Estimated AUC (mcg*h/mL): 579
Estimated Peak (mcg*h/mL): 35.9
Estimated Trough (mcg/ml): 15.1
Estimated Half Life (H): 18.4
- Monitoring
No levels ordered at this time: consider next few days
MRSA Screen: Ordered per protocol
Pharmacokinetics Vancomycin I
- -
Patient Age: 84
Patient Sex: Male
Vancomycin Day #: 1
Indication: Pulmonary/Respiratory
Requesting Provider: Dr. Merino
Pertinent Antimicrobial Allergies:
azithromycin-=gi upset
sulfa=hives
pcn=rash
moxifloxacin=unknown
Height / Weight:
Height 5 ft 3 in
Actual Weight 50.15 kg
IBW in k.9
- Vital Signs / Lab Results
Temp Pulse Resp BP Pulse Ox
98.4 F 89 18 130/61 97
11/08/24 15:17 11/08/24 15:17 11/08/24 15:17 11/08/24 15:17 11/08/24 15:17
Lab Results - Hematology
11/08/24
09:29
WBC 17.3 H
Lab Results - Chemistry
11/08/24
09:29
BUN 42 H
Creatinine 1.0
Albumin 3.5
11/08/24
11:23
Lactic Acid 2.6 H
Microbiology Results
11/08/24 13:23 Legionella Urinary Antigen - Final
Urine Negative for Legionella pneumophila Serogroup 1 antigen.
A negative result does not rule out the possiblity of
Legionella infection due to other serogroups or species of
Legionella. Clinical correlation is recommended.
Streptococcus pneumoniae Antigen (M - Final
Negative for Streptococcus pneumoniae antigen.
A negative result does not exclude infection with
Streptococcus pneumoniae. Clinical correlation is
recommended.
11/08/24 09:29 Influenza Types A & B (KAREN) - Final
Nasal Swab Negative for Influenza A & B, NAAT
Negative results must be combined with clinical observations
and patient history.
Nucleic Acid Amplification test (NAAT)performed on the
[employer] platform.
--- NOTE | 2024-11-08 15:34 | PTCARENOTE ---
Received patient from ED via stretcher. Pt AAOX3. Pox: 97% 2L NC. V-paced on child monitor. Patient denies chest pain. Call balderrama within reach. Plan of care ongoing.
[2024-11-08] MEDS: NSS 1000 IV (15:45)
[2024-11-08 16:17] LABS: Lactic Acid 1.4 mmol/L (0.7-2.0)
[2024-11-08 16:58] LABS: Glucose - Point of Care 168 mg/dl (70-99)
[2024-11-08] MEDS: NOVOLOG FLEXPEN-LOW RESISTANCE 1 UNITS SC (17:26)
[2024-11-08] MEDS: LIPITOR 20 MG PO (17:26)
[2024-11-08] MEDS: VENTOLIN NEBULES 2.5 MG INH (19:57)
[2024-11-08] MEDS: SYMBICORT 160/4.5 MCG INHALER 2 PUFF INH (19:57)
[2024-11-08] MEDS: PULMICORT 0.5 MG INH (19:57)
[2024-11-08] MEDS: HEPARIN 5000 UNITS SC (20:58)
[2024-11-08] MEDS: LOPRESSOR 12.5 MG PO (20:58)
[2024-11-08] MEDS: OCUVITE SOFTGEL 1 CAP PO (20:58)
[2024-11-08] MEDS: REFRESH EYE DROPS (PF) 1 DROPS OPHTH (21:02)
[2024-11-08 21:20] LABS: Glucose - Point of Care 423 mg/dl (70-99)
[2024-11-08 21:20] LABS: Glucose - Point of Care 416 mg/dl (70-99)
[2024-11-08 22:52] LABS: Glucose 390 mg/dl (70-99)
[2024-11-08] MEDS: NOVOLOG FLEXPEN 15 UNITS SC (23:15)
[2024-11-08] MEDS: STERILE WATER FOR INJECTION 10 ML IV (23:16)
[2024-11-08] MEDS: DECADRON 4 MG IV (23:17)
[2024-11-08] MEDS: MAXIPIME 1000 MG IV (23:17)
[2024-11-09] VITALS (8 sets, daily range): BP systolic 104–137; BP diastolic 51–72; PULSE 81–82; O2SAT 94; BMI 19.8
[2024-11-09] MEDS: VANCOCIN 150 IV (05:54)
[2024-11-09 07:39] LABS: Glucose - Point of Care 165 mg/dl (70-99)
[2024-11-09] MEDS: PULMICORT 0.5 MG INH ×2 (08:07→19:38)
[2024-11-09] MEDS: SPIRIVA RESPIMAT 2.5 MCG 2 PUFF INH (08:07)
[2024-11-09] MEDS: SYMBICORT 160/4.5 MCG INHALER 2 PUFF INH (08:07)
[2024-11-09] MEDS: VENTOLIN NEBULES 2.5 MG INH ×4 (08:07→19:38)
[2024-11-09] MEDS: LOPRESSOR 12.5 MG PO ×2 (08:42→21:15)
[2024-11-09] MEDS: HEPARIN 5000 UNITS SC ×2 (08:42→21:15)
[2024-11-09] MEDS: PEPCID 40 MG PO (08:42)
[2024-11-09] MEDS: TESSALON PERLES 200 MG PO ×3 (08:42→21:16)
[2024-11-09] MEDS: ASPIR LOW (ENTERIC COATED) 81 MG PO (08:42)
[2024-11-09] MEDS: LANTUS 0.2 UNITS SC (08:43)
[2024-11-09] MEDS: NSS IV (08:43)
[2024-11-09] MEDS: NOVOLOG FLEXPEN-HIGH RESISTANCE 2 UNITS SC (08:49)
[2024-11-09] MEDS: NOVOLOG FLEXPEN 10 UNITS SC ×2 (08:50→14:07)
--- NOTE | 2024-11-09 10:07 | W.PN.HOSP.TC ---
Addendum entered and electronically signed by Merissa Ford MD 11/09/24 17:17:
Addendum
Blood glucose is coming down. Will cut back on Premeal and Lantus dose.
Discussed with nursing staff
End
Original Note:
Today's Communication/Plan
-
CT chest
IV Abx
'Hold Symbicort while on Pulmicort and Albuterol.
Holding systemic steroid pending further evaluation
ok to c/w breathing treatments
Assessment / Plan
Assessment / Plan
Physical Exam
General: chronically ill looking, no Apparent Distress
HEENT: Normocephalic, Moist mucous membranes and Atraumatic
Respiratory: rales in lower lungs, no wheezes
Cardiac: S1/S2
GI: Soft, Non Tender, Non Distended
Musculoskeletal: No Clubbing, No Cyanosis and No Edema
Skin: No Rash
Neuro: Nonfocal/grossly intact
Psych: calm.
# Sepsis POA/ Lactic acidosis, (leukocytosis, tachycardia) secondary to left upper lobe pneumonia with likely small parapneumonic effusion
# History of recurrent pneumonias
-COVID and flu negative
- Leukocytosis 17
-Lactic acid 2.6, now resolved.
-IV fluids
-Hold Lasix
-Check sputum culture, blood cultures
-Check strep antigen, Legionella, MRSA
- Vancomycin/cefepime
- Consult ID & Pulmonary, will order repeat CT chest to better look at the effusion. Blood culture is pending.
# Acute COPD exacerbation
- No wheezes
Hold Symbicort while on Pulmicort and Albuterol.
Stop Systemic steroid for now, Last night BS was around 400. c/w inhaled steroid
- DuoNeb every 6 hours
# Hyperglycemia secondary to steroid
pre DM per last HGB A1C
Will add pre-meal insulin, Lantus & ISS.
CAD status post CABG x 2
- Continue aspirin, statin
- Continue metoprolol
Chronic HFpEF
- ok to resume Lasix
Right bundle branch block
History of permanent pacemaker
Mitral valve repair
Essential hypertension
Chronic neuropathy
Chronic pressure ulcers
Sacral stage 1 pressure ulcer
Chronic anemia
- Hemoglobin stable
GERD
Chronic protein calorie malnutrition
Hyperlipidemia
Full code
DVT prophylaxis�heparin
Regular diet
Total time spent to see the patient, examine the patient, review data and lab results, discuss treatment plan with patient, nursing staff around 55 minutes
Anticipated Discharge: > 48 hours
Subjective/Interval History
-
Date of Service: November 09, 2024
He feels better
Less cough
No chest pain
No fevers
Objective Data
-
Labs:
Laboratory Results
11/08/24
22:27
Glucose 390 H
Vital Signs:
Vital Signs
Temp Pulse Resp BP Pulse Ox
98.4 F 75 18 116/61 95
11/09/24 07:00 11/09/24 08:42 11/09/24 08:10 11/09/24 08:42 11/09/24 08:10
I&O
11/08/24 11/09/24 11/10/24
06:59 06:59 06:59
Intake Total 240 / 240
Output Total 925 / 925
Balance -685 / -685
--- NOTE | 2024-11-09 11:26 | PHA.VAN.FU ---
Vancomycin Assessment / Plan
- Assessment
Renal Function: No New Labs Today
In the past 24 hrs, patient has been: Afebrile
Concomitant Antimicrobials: cefepime
- Dosing Plan
Continue: vanc 750 mg q 24h
- Monitoring Plan
No level(s) ordered at this time: consider in the upcoming days
Monitoring Comments: SCr, BUN ordered per protocol for 11/10 am
- Follow Up
Pharmacy will continue to follow.
Vancomycin Follow UP
- -
Patient Age: 84
Patient Sex: Male
Vancomycin Day #: 2
Indication: Pulmonary/Respiratory
Requesting Provider: Dr. Merino
Pertinent Antimicrobial Allergies:
azithromycin-=gi upset
sulfa=hives
pcn=rash
moxifloxacin=unknown
Height / Weight:
Height 5 ft 3 in
Actual Weight 50.604 kg
IBW in k.9
- Vital Signs / Lab Results
Temp Pulse Resp BP Pulse Ox
98.5 F 81 18 104/55 96
11/09/24 11:00 11/09/24 11:00 11/09/24 11:00 11/09/24 11:00 11/09/24 11:00
Lab Results - Hematology
11/08/24
09:29
WBC 17.3 H
Lab Results - Chemistry
11/08/24
09:29
BUN 42 H
Creatinine 1.0
Albumin 3.5
11/08/24 11/08/24
11:23 15:39
Lactic Acid 2.6 H 1.4
Microbiology Results
11/08/24 13:23 Legionella Urinary Antigen - Final
Urine Negative for Legionella pneumophila Serogroup 1 antigen.
A negative result does not rule out the possiblity of
Legionella infection due to other serogroups or species of
Legionella. Clinical correlation is recommended.
Streptococcus pneumoniae Antigen (M - Final
Negative for Streptococcus pneumoniae antigen.
A negative result does not exclude infection with
Streptococcus pneumoniae. Clinical correlation is
recommended.
11/08/24 09:29 Influenza Types A & B (KAREN) - Final
Nasal Swab Negative for Influenza A & B, NAAT
Negative results must be combined with clinical observations
and patient history.
Nucleic Acid Amplification test (NAAT)performed on the
[employer] platform.
[2024-11-09 12:20] LABS: Glucose - Point of Care 287 mg/dl (70-99)
[2024-11-09] MEDS: MAXIPIME 1000 MG IV ×2 (12:22→21:16)
[2024-11-09] MEDS: STERILE WATER FOR INJECTION 10 ML IV ×2 (12:23→21:16)
--- NOTE | 2024-11-09 12:59 | CON.PUL ---
Consultation
Consultation Request
Date/Time Consultation Requested: 11/09/2024 - 39
Date/Time Consultation Performed: 11/09/2024 - 5
Requesting Provider: Dr. Ford
Performing Provider: Dr. Andre
Reason for Consultation: PNA
Medical History
-
Chief Complaint: Hacking cough, fevers, weakness + SOB
History of Present Illness:
84-year-old male former tobacco smoker with a past medical history of COPD/emphysema, asthma, history of COVID-19, history of pneumonia, history of Pseudomonas aeruginosa infection, CAD s/p CABG, mitral regurgitation s/p MVR, duodenal ulcer and
hypertension who presents with a hacking cough, SOB, fevers and weakness. Patient arrived here to the ER on oxygen which she says he uses only if needed. Of note, he was recently hospitalized here 09/11 - 09/17/2024 for a COPD exacerbation with a
left-sided CAP. He now presents with worsening cough + weakness for about 1-2 weeks. He has home oxygen and normally does not use it but has been on 2 L/min for the past 2 days [employer]ENDING T[employer] HEL[employer]. He was afebrile in the ER with heart rate 101, respiratory rate
24, BP 119/55 and saturating 92% on room air. Labs showed leukocytosis to 17.3, Hb 11.4, glucose 260, lactate 2.6, proBNP 3100 (previously 9480 on 09/11/2024), and COVID-19 antigen was negative. Flu swab also negative, and blood cultures collected.
CXR showed a left-sided infiltrate, and CT chest showed a left upper lobe pneumonia with advanced emphysematous changes. He was given 500 cc bolus of NS 0.9% in the ER in addition to cefepime, vancomycin and Decadron + DuoNebs. He was admitted to
the hospitalist service and now Pulmonary service is consulted for additional management/recommendations.
When I saw the patient, he was flossing his teeth in the bathroom, on room air breathing comfortably. He says he has been using 2 L/min nasal cannula since he has been hospitalized and he feels much more energetic. Cough is better and almost back
to baseline. Currently denies chest pain, CUNHA, nausea, fevers or chills.
Of note, patient follows with us in the [facility] office, last visit 11/06/2024. At that time he had worsening cough/congestion with cough productive of clear/white phlegm. He had stopped his Lasix but he had worsening edema so resumed it 3 days a week.
He has had ongoing episodes of choking while eating, and has a poor appetite. He is maintained on Breztri, nebulized budesonide + DuoNebs BID. Last PFT on 08/21/2024 showing mild COPD with a severely reduced gas exchange capacity (DLco: 22%,
DLco/VA: 24%)
PMHx: COPD/emphysema, history of asthma, former tobacco smoker, history of Pseudomonas aeruginosa infection, history of COVID-19, history of pneumonia, anemia, CAD s/p CABG, history of severe MR s/p MVR, duodenal ulcer, hypertension
PSHx: Mitral valve repair, CABG, pacemaker, left TKA
Past Medical History
Past Medical History: Other (Above as per HPI)
Past Surgical History: Other (Above as per HPI)
Social History
Tobacco: Former Smoker
Alcohol: Occasional
Drug: None
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
Family History
Family History: Other (Father: Valve surgery and respiratory failure)
Allergies / Home Medications
Allergies
Allergy/AdvReac Type Severity Reaction Status Date / Time
adhesive tape Allergy skin Verified 11/08/24 09:18
irritation
azithromycin Allergy GI upset Verified 11/08/24 09:18
cat dander Allergy pat has Verified 11/08/24 09:18
cats/coughing,
sneezing
moxifloxacin Allergy Unknown Verified 11/08/24 09:18
penicillin G Allergy 1960s had Verified 11/08/24 09:18
reaxn to
injection-said
he
required
treatment
Penicillins Allergy rash to Verified 11/08/24 09:18
amoxicillin
[id number]'s
many years
ago
pollen extracts Allergy ENVIRONMENTAL-coughing, Verified 11/08/24 09:18
sneezing,ITCHING
Sulfa (Sulfonamide Allergy Hives Verified 11/08/24 09:18
Antibiotics)
sulfisoxazole Allergy Rash Verified 11/08/24 09:18
tetanus toxoid, adsorbed Allergy Rash Verified 11/08/24 09:18
Artifical sweeteners Allergy RECTAL PAIN Uncoded 11/08/24 09:18
Home Medications
�Medication �Instructions �Recorded �Confirmed �Last Taken �Type
ipratropium 0.5 mg-albuterol 3 mg 3 ml inhalation R BID 01/24/23 11/08/24 09/11/24 History
(2.5 mg base)/3 mL nebulization Lung/Breathing Issues
soln
metoprolol tartrate 25 mg tablet 12.5 mg (1/2 x 25 mg) PO BID #10 02/14/23 11/08/24 11/08/24 Rx
tabs
benzonatate 100 mg capsule 100 mg PO DAILYPRN PRN cough 03/09/23 11/08/24 11/08/24 History
atorvastatin 20 mg tablet 20 mg PO QPM High Cholesterol 09/11/24 11/08/24 11/07/24 History
budesonide 0.5 mg/2 mL suspension 0.5 mg inhalation R BID 09/11/24 11/08/24 11/07/24 History
for nebulization Lung/Breathing Issues
codeine 10 mg-guaifenesin 100 mg/5 5 ml PO HSPRN PRN cough 09/11/24 11/08/24 Unknown History
mL oral liquid
diphenhydramine 25 1 tab PO HSPRN PRN sleep 09/11/24 11/08/24 11/06/24 History
mg-acetaminophen 500 mg tablet
(Tylenol PM Extra Strength)
famotidine 40 mg tablet 40 mg PO DAILY Gastrointestinal 09/11/24 11/08/24 11/08/24 History
Issue
furosemide 40 mg tablet 40 mg PO DAILY Fluid 09/11/24 11/08/24 11/08/24 History
Retention/Swelling
vit C 250 mg-E 90 mg-zinc 40 1 tab PO BID Supplement 09/11/24 11/08/24 11/08/24 History
mg-copper 1 [id number] chew
tablet (PreserVision AREDS-2)
aspirin 81 mg tablet 81 mg PO DAILY Blood Clot 11/08/24 11/08/24 11/08/24 History
Prevention/Tx
budesonide 160 mcg-glycopyr 9 2 inh inhalation R BID 11/08/24 11/08/24 11/08/24 History
mcg-formot 4.8 mcg/actuation HFA Lung/Breathing Issues
inhaler (Breztri Aerosphere)
carboxymethylcellulose sodium 0.25 1 drp ophthalmic (eye) DAILYPRN 11/08/24 11/08/24 Unknown History
% eye drops (TheraTears) PRN dry eyes
fluticasone propionate 50 2 spray intranasal DAILY Congestion 11/08/24 11/08/24 11/08/24 History
mcg/actuation nasal
spray,suspension
loratadine 10 mg tablet 10 mg PO DAILY Allergies 11/08/24 11/08/24 11/08/24 History
therapeutic multivitamin 1 tab PO DAILY Supplement 11/08/24 11/08/24 11/08/24 History
Review of Systems
-
History Source: Patient
All other systems: Negative unless noted
Vitals / Labs / Diagnostic Testing
Vital Signs
Temp Pulse Resp BP Pulse Ox
98.4 F 75 18 116/61 95
11/09/24 07:00 11/09/24 08:42 11/09/24 08:10 11/09/24 08:42 11/09/24 08:10
Lab Data
11/08/24 09:29
11/08/24 22:27
Microbiology
11/08/24 13:23 Urine Legionella Urinary Antigen - Final
Negative for Legionella pneumophila Serogroup 1 antigen.
A negative result does not rule out the possiblity of
Legionella infection due to other serogroups or species of
Legionella. Clinical correlation is recommended.
11/08/24 13:23 Urine Streptococcus pneumoniae Antigen (M - Final
Negative for Streptococcus pneumoniae antigen.
A negative result does not exclude infection with
Streptococcus pneumoniae. Clinical correlation is
recommended.
11/08/24 09:29 Nasal Swab Influenza Types A & B (KAREN) - Final
Negative for Influenza A & B, NAAT
Negative results must be combined with clinical observations
and patient history.
Nucleic Acid Amplification test (NAAT)performed on the
[employer] platform.
Diagnostic Testing:
Physical Exam
-
HEENT: Normocephalic and Anicteric
Cardiovascular: S1/S2 and Peripheral Edema (n)
Respiratory: Wheeze (negative), Rales (negative), Rhonchi (negative) and Non-Labored Respirations
GI: Soft, Non Distended, Non Tender and Normal Bowel Sounds
Neurology: AO x 3 and Tremors (n)
Skin: Warm and Dry
General: Respiratory Distress (n), Comfortable, Chills (n), Sweats (n) and Other (Elderly male in NAD)
Assessment
-
Assessment: 84-year-old male former tobacco smoker with a past medical history of COPD/emphysema, asthma, history of COVID-19, history of pneumonia, history of Pseudomonas aeruginosa infection, CAD s/p CABG, mitral regurgitation s/p MVR, duodenal
ulcer and hypertension who presents with a hacking cough, SOB, fevers and weakness. Patient arrived here to the ER on oxygen which she says he uses only if needed. Of note, he was recently hospitalized here 09/11 - 09/17/2024 for a COPD exacerbation
with a left-sided CAP. He now presents with worsening cough + weakness for about 1-2 weeks. He has home oxygen and normally does not use it but has been on 2 L/min for the past 2 days [employer]. He was afebrile in the ER with heart rate 101,
respiratory rate 24, BP 119/55 and saturating 92% on room air. Labs showed leukocytosis to 17.3, Hb 11.4, glucose 260, lactate 2.6, proBNP 3100 (previously 9480 on 09/11/2024), and COVID-19 antigen was negative. Flu swab also negative, and blood
cultures collected. CXR showed a left-sided infiltrate, and CT chest showed a left upper lobe pneumonia with advanced emphysematous changes. He was given 500 cc bolus of NS 0.9% in the ER in addition to cefepime, vancomycin and Decadron + DuoNebs.
He was admitted to the hospitalist service and now Pulmonary service is consulted for additional management/recommendations.
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
Impression:
#Left upper lobe pneumonia
#Acute COPD exacerbation due to above
#GOLD Class I/group E COPD with post-bronchodilator FEV1: 1.82/97% predicted with DLco: 22%, DLco/VA: 24% via PFTs from 08/21/2024
#COPD cachexia
#Centrilobular emphysema with focal right apical fibrosis/bronchiectasis
#History of COVID-19
#Supplemental O2 use at home used as needed (2L/min prn)
#CAD s/p CABG
#History of severe MR s/p MVR
#Duodenal ulcer
#Hypertension
Plan:
- Patient has known centrilobular emphysema with right apical fibrosis/bronchiectasis, and CT chest performed today (11/09) shows a consolidative opacity in the posterior left upper lobe with multiple nodular opacities in the lingula, which is new
compared to recent CT chest on 10/11/2024. Of note he does have chronic opacities in the left base and a chronic wedge-shaped consolidative opacity in the right lung base
- Continue with cefepime/vancomycin + Levaquin given he has been hospitalized in the last 3 months with increased risk of MRSA + Pseudomonas infection
- ID consulted, and antibiotics will be deferred to them
- Not currently on steroids although have low threshold to start given his advanced emphysematous changes despite him having a GOLD class I obstructive lung defect on PFTs
- Continue budesonide, nebulized albuterol + Symbicort 160 mcg + Spiriva
- prn nebulized bronchodilators - not currently bronchospastic
- Maintain SpO2 88-95% with supplemental O2 and wean down as tolerated; check ambulatory pulse oximetry prior to discharge
- Incentive spirometer encouraged q1hr while awake
- Replete electrolytes with K>4, Mg>2
- Trend H/H and transfuse if needed to keep Hb>7g/dL; keep plt>20k, unless there is concern for bleeding then keep plt>50k
- Maintain euglycemia with goal BG >100 and <180
- DVT ppx: Heparin SQ
Of note, patient follows with us in the [facility] office, last visit on 11/06/2024 with DWAYNE Spring. Also follows with Dr. Cabezas. Next visit scheduled for 12/17/2024 with DWAYNE Spring. As of now we will keep this appointment but he
may need to be seen sooner depending on this hospital course.
Pulmonary service will continue to follow along.
Data:
CT Chest without contrast 11/09/2024:
1. Left upper lobe pneumonia, new as compared with previous examination.
2. Advanced emphysematous changes as seen previously. Unchanged partial atelectasis/scarring right apex with associated cylindrical and cystic bronchiectatic change. Unchanged wedge-shaped area of consolidation at the right lung base likely
related to atelectasis/scarring. Trace bilateral pleural effusions.
Total time spent today was 58 minutes for this encounter. Time includes reviewing laboratory test/imaging results, reviewing pertinent medical records, obtaining and reviewing medical history, performing an appropriate exam, ordering medications,
tests and procedures. Time also includes documentation of this encounter, coordinating patient care and communicating with other healthcare professionals. Total time does not include separately billed tests performed on this date of service.
[2024-11-09 13:17] LABS: Glycohemoglobin (HgbA1c) 5.9 % (4.0-5.6)
--- NOTE | 2024-11-09 13:33 | CON.ID ---
Consultation
-
Date/Time Consultation Requested: November 09, 202439
Date/Time Consultation Performed: November 09, 202439
Requesting Provider: Dr. Katherine Ford
Performing Provider: Dr. Mary Swanson
Reason for Consultation: Sepsis/pneumonia
Chief Complaint / Past History
Chief Complaint
SOB and cough
History of Present Illness
84-year-old history of coronary disease, pacemaker placement, COPD, multiple Pseudomonas PNA Who presented to the hospital on November 08 due to approximately a week and a half history of worsening shortness of breath and nonproductive cough. Complaint
of weakness. Positive intermittent fevers up to 102. Chest x-ray shows new left upper lobe opacity. He received dexamethasone in the ER for wheezing. He is currently on cefepime and vancomycin. No ill contacts. No traveling history. Of note
he was here August 2024 with COPD exacerbation and left lower lobe pneumonia.
Past History
Additional Past Medical History:
COPD on prn home O2
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
Hypertension.
Hyperlipidemia.
Coronary artery disease, status post CABG x2 08/2016.
Severe mitral regurgitation and mitral valve prolapse, status post mitral valve repair 08/2016.
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
Right bundle branch block.
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
Pulmonary nodule.
GERD.
Rectal polyps.
Duodenal ulcer 2016.
Peripheral neuropathy.
BPH.
Deviated septum.
Remote shingles.
Hearing impairment bilaterally.
Osteoarthritis, status post bilateral total hip arthroplasties
left TKA
�
Allergy History:
adhesive tape Allergy (Verified 11/08/24 09:18)
skin irritation
azithromycin Allergy (Verified 11/08/24 09:18)
GI upset
cat dander Allergy (Verified 11/08/24 09:18)
pat has cats/coughing, sneezing
moxifloxacin Allergy (Verified 11/08/24 09:18)
Unknown; pt denies allergy to moxifloxacin
penicillin G Allergy (Verified 11/08/24 09:18)
1960s had reaxn to injection-said he required treatment
Penicillins Allergy (Verified 11/08/24 09:18)
rash to amoxicillin [id number]'s many years ago
pollen extracts Allergy (Verified 11/08/24 09:18)
ENVIRONMENTAL-coughing, sneezing,ITCHING
Sulfa (Sulfonamide Antibiotics) Allergy (Verified 11/08/24 09:18)
Hives
sulfisoxazole Allergy (Verified 11/08/24 09:18)
Rash
tetanus toxoid, adsorbed Allergy (Verified 11/08/24 09:18)
Rash
Artifical sweeteners Allergy (Uncoded 11/08/24 09:18)
RECTAL PAIN
Medications Reviewed: Yes
Current Antibiotics:
Cefepime 1 g q12
Vancomycin
Social History
Tobacco: Former Smoker
Alcohol: None
Drug: None
Family History
Family History: Not Pertinent
Review of Systems
Review of Systems
General: Fever, Chills and Change in Appetite
HEENT: Negative Sinus Problems, Headache or Pharyngitis
Cardiovascular: Dyspnea; Negative Chest Pain
Respiratory: Dyspnea and Cough; Negative Sputum Production
Gasteroenterology: Negative Nausea, Vomiting or Diarrhea
Genital / Urological: Negative Dysuria or Flank Pain
Endocrine: Weakness and Fatigue
All systems: All other systems were reviewed and were negative
Vital Signs
Temp Pulse Resp BP Pulse Ox
98.5 F 81 18 104/55 98
11/09/24 11:00 11/09/24 11:56 11/09/24 11:56 11/09/24 11:00 11/09/24 11:56
Physical Exam
Physical Exam
Constitutional: No Acute Distress, Chronically Ill and Cachetic
Eyes: No Conjunctival Hemorrhage and Sclera Anicteric
Cardiovascular: Regular Rate, S1/S2 and Other (PPM pocket without induration/erythema)
Pulmonary: Clear; Negative Wheezes or Rales
Gastrointestinal: Soft, Non Tender, Non Distended and Normal Bowel Sounds
Extremities: Negative Edema
Musculoskeletal: Negative Spinal Tenderness
Neurological: AO x 3
Lab / Diagnostic Study Results
11/08/24 09:29
11/08/24 22:27
Abs Immat Gran (auto) 0.1 10^3/uL (0-0.05) H 11/08/24:
Absolute Neuts (auto) 15.3 10^3/uL (1.4-6.5) H 11/08/24:
Absolute Lymphs (auto) 0.6 10^3/uL (1.2-3.4) L 11/08/24:
Absolute Monos (auto) 1.2 10^3/uL (0.1-0.6) H 11/08/24 09:29
Absolute Basos (auto) 0.1 10^3/uL (0-0.2) 11/08/24 09:29
Immature Gran % 0.5 % (0-0.5) 11/08/24:
Neutrophils % 88.3 % (42.2-75.2) H 11/08/24:
Lymphocytes % 3.3 % (20.5-51.1) L 11/08/24:
Monocytes % 6.7 % (1.7-9.3) 11/08/24:
Eosinophils % 0.9 % (0-6) 11/08/24:
Basophils % 0.3 % (0-2) 11/08/24 09:29
Lactic Acid 1.4 mmol/L (0.7-2.0) 11/08/24 15:39
Microbiology Results
Micro:
11/08/24 11:58 Blood Culture - Preliminary
Blood/Venous No Growth in 24 hours- Final report to follow
11/08/24 11:23 Blood Culture - Preliminary
Blood/Venous No Growth in 24 hours- Final report to follow
11/08/24 15:39 MRSA Screen - Pending
Nose
11/08/24 13:23 Legionella Urinary Antigen - Final
Urine Negative for Legionella pneumophila Serogroup 1 antigen.
A negative result does not rule out the possiblity of
Legionella infection due to other serogroups or species of
Legionella. Clinical correlation is recommended.
Streptococcus pneumoniae Antigen (M - Final
Negative for Streptococcus pneumoniae antigen.
A negative result does not exclude infection with
Streptococcus pneumoniae. Clinical correlation is
recommended.
11/08/24 09:29 Influenza Types A & B (KAREN) - Final
Nasal Swab Negative for Influenza A & B, NAAT
Negative results must be combined with clinical observations
and patient history.
Nucleic Acid Amplification test (NAAT)performed on the
[employer] platform.
11/09/[address]: Left upper lobe pneumonia, new as compared with previous examination. Advanced emphysematous changes as seen previously. Unchanged partial atelectasis/scarring right apex with associated cylindrical and cystic bronchiectatic
change. Unchanged wedge-shaped area of consolidation at the right lung base likely related to atelectasis/scarring. Trace bilateral pleural effusions.
Assessment / Plan
# LAVON PNA
# COPD
# Leukocytosis
# Lungs colonized with Pseudomonas (resistant to meropenem, Zosyn, ceftaz, tobra/gent)
- Add levofloxacin 750mg po qd.
- Increase cefepime dose 1g IV q6.
Monitor closely for neurotoxicity. Pt h/o altered mental status on cefepime.
- DC Vancomycin if MRSA negative.
-Trend wbc
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
COPD
HTN
Neuropathy
CAD s/p CABG x2
Mitral valve repair (08/29/2016)
Pacemaker placement
hx recurrent Pseudomonas PNA
[2024-11-09] MEDS: NOVOLOG FLEXPEN-HIGH RESISTANCE 7 UNITS SC (14:08)
[2024-11-09] MEDS: LEVAQUIN 750 MG PO (15:32)
[2024-11-09 16:30] LABS: Glucose - Point of Care 114 mg/dl (70-99)
[2024-11-09] MEDS: NOVOLOG FLEXPEN-HIGH RESISTANCE SC (16:41)
[2024-11-09] MEDS: NOVOLOG FLEXPEN SC (17:23)
[2024-11-09] MEDS: LIPITOR 20 MG PO (17:31)
[2024-11-09] MEDS: NOVOLOG FLEXPEN 3 UNITS SC (17:32)
[2024-11-09] MEDS: REFRESH EYE DROPS (PF) 1 DROPS OPHTH (21:20)
[2024-11-09 21:35] LABS: Glucose - Point of Care 198 mg/dl (70-99)
[2024-11-10] VITALS (7 sets, daily range): BP systolic 124–144; BP diastolic 62–79; PULSE 99; O2SAT 89
[2024-11-10] MEDS: STERILE WATER FOR INJECTION 10 ML IV (04:26)
[2024-11-10] MEDS: MAXIPIME 1000 MG IV (04:26)
[2024-11-10] MEDS: VANCOCIN 150 IV (05:24)
[2024-11-10] MEDS: VENTOLIN NEBULES 2.5 MG INH ×4 (07:14→20:26)
[2024-11-10] MEDS: SPIRIVA RESPIMAT 2.5 MCG 2 PUFF INH (07:15)
[2024-11-10] MEDS: PULMICORT 0.5 MG INH ×2 (07:15→20:26)
[2024-11-10 07:18] LABS: Blood Urea Nitrogen 50 mg/dl (9-20); Estimated Creatinine Clearance 46 ml/min
[2024-11-10] MEDS: NOVOLOG FLEXPEN-HIGH RESISTANCE 2 UNITS SC ×2 (07:47→12:33)
[2024-11-10] MEDS: NOVOLOG FLEXPEN 3 UNITS SC ×3 (07:47→16:41)
[2024-11-10 07:48] LABS: Glucose - Point of Care 153 mg/dl (70-99)
--- NOTE | 2024-11-10 08:27 | W.PN.HOSP.TC ---
Today's Communication/Plan
-
Antibiotics, diabetic education, resuming diuretics. Discharge planning
Assessment / Plan
Assessment / Plan
Physical exam:
General: Acute on chronically ill
HEENT: Normocephalic, Atraumatic and Moist Mucous Membranes
Respiratory: Clear to Auscultation; Negative Wheezes, Rales or Rhonchi
Cardiac: Regular Rhythm and S1/S2
GI: Soft, Nontender and Nondistended
Musculoskeletal: No Clubbing, No Cyanosis and No Edema
Neuro: Awake, Alert and Oriented
Psych: Calm
A/P:
Sepsis due to left upper lobe pneumonia:
Community-acquired with concerns for Pseudomonas in the setting of history of recurrent Pseudomonas pneumonia
Continue oral Levaquin 750 mg every 48 hours through 11/16
D/C cefepime and vancomycin
Sputum poor quality; MRSA screen negative; blood cultures no growth; influenza and COVID-19 negative.
WBC 17.3--> 12.[address] scan of the chest
PT OT recommends home health
COPD:
[place] to have exacerbation upon admission and given some steroids
Currently not bronchospastic and off steroids
Continue albuterol, budesonide, Symbicort, Spiriva
Bronchodilators and oxygen as needed
Assess for home oxygen needs
Diabetes mellitus type 2 with hyperglycemia:
Started on Lantus but I am thinking it will not be necessary upon discharge-continue for now
Change to diabetic diet
Insulin sliding scale
Diabetic education
Hemoglobin A1c 5.9
Chronic HFpEF:
Resume diuretics, Lasix 40 mg p.o. daily
Continue beta-karina
Hypertension:
Continue home regimen
Hyperlipidemia:
Continue home statin
CAD:
Continue aspirin and beta-blockers and statin
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
Continue nutrition encouragement
Sacral pressure ulcer stage I, POA
Other medical problems:
Neuropathy
Pacemaker placed for complete heart block back in 2017
Severe mitral regurgitation and mitral prolapse status post mitral valve repair back in 2017
DVT prophylaxis:
Heparin SQ
CODE STATUS:
Full code
Anticipated Discharge: Within 24 hours
Subjective/Interval History
-
Date of Service: November 10, 2024
Patient feels better. Less shortness of breath and less cough. Afebrile
Objective Data
-
Labs:
Laboratory Results
11/10/24
06:07
BUN 50 H
Creatinine 0.9
Vital Signs:
Vital Signs
Temp Pulse Resp BP Pulse Ox
97.4 F 75 18 138/71 100
11/10/24 08:11 11/10/24 08:11 11/10/24 08:11 11/10/24 08:11 11/10/24 08:11
I&O
11/09/24 11/10/24 11/11/24
06:59 06:59 06:59
Intake Total 240 / 240 1650 / 1650
Output Total 925 / 925 800 / 800
Balance -685 / -685 850 / 850
[2024-11-10] MEDS: LANTUS 0.1 UNITS SC (09:00)
[2024-11-10] MEDS: TESSALON PERLES 200 MG PO ×3 (09:01→21:28)
[2024-11-10] MEDS: ASPIR LOW (ENTERIC COATED) 81 MG PO (09:01)
[2024-11-10] MEDS: PEPCID 40 MG PO (09:01)
[2024-11-10] MEDS: LOPRESSOR 12.5 MG PO ×2 (09:01→19:52)
[2024-11-10] MEDS: HEPARIN 5000 UNITS SC ×2 (09:02→19:51)
[2024-11-10 09:35] LABS: % Basophils 0.1 % (0-2); % Eosinophils 0.1 % (0-6); % Immature Granulocytes 0.5 % (0-0.5); % Lymphocytes 4.4 % (20.5-51.1); % Monocytes 4.7 % (1.7-9.3); % Neutrophils 90.2 % (42.2-75.2); Absolute Immature Granulocytes 0.1 10^3/uL (0-0.05); Absolute Lymphocytes 0.5 10^3/uL (1.2-3.4); Absolute Monocytes 0.6 10^3/uL (0.1-0.6); Absolute Neutrophils 11.1 10^3/uL (1.4-6.5); Hematocrit 29.7 % (39.0-52.0); Hemoglobin 9.7 g/dL (13.0-18.0); Mean Corp Hgb Conc. 32.7 g/dL (33.0-37.0); Mean Corpuscular Hgb 29.3 pg (27.0-31.0); Mean Corpuscular Volume 89.7 fL (80.0-94.0); Mean Platelet Volume 12.4 fL (7.4-10.4); Nucleated Red Blood Cells % 0 % (-); Platelet Count 183 10^3/uL (130-400); Red Blood Cell Count 3.31 10^6/uL (4.70-6.10); Red Cell Dist. Width 15.1 % (11.5-14.5); White Blood Cell Count 12.3 10^3/uL (4.8-10.8)
[2024-11-10 09:51] LABS: Calcium 9.7 mg/dl (8.4-10.2); Carbon Dioxide 21 mmol/L (22-30); Chloride 111 mmol/L (98-107); Glucose 162 mg/dl (70-99); Potassium 4.6 mmol/L (3.5-5.1); Sodium 139 mmol/L (135-145)
--- NOTE | 2024-11-10 10:04 | W.PN.ID1 ---
Date of Service
Date of Service: November 10, 2024
Today's Communication
- Continue levofloxacin 750mg po q48h (d2) through 11/16/24.
- OK to dc home from ID standpoint.
Assessment / Plan
# LAVON PNA
# COPD
# Leukocytosis - improving
# Lungs colonized with Pseudomonas (resistant to meropenem, Zosyn, ceftaz, tobra/gent)
- Sputum - poor quality
- DC cefepime dose 1g IV q8.
- DC Vancomycin, MRSA negative.
- Continue levofloxacin 750mg po q48h (d2) through 11/16/24.
- OK to dc home from ID standpoint.
# Conditions [employer]
COPD
HTN
Neuropathy
CAD s/p CABG x2
Mitral valve repair (08/29/2016)
Pacemaker placement
hx recurrent Pseudomonas PNA
Chief Complaint
-: Pneumonia
Subjective / Review of Systems
SOB/cough much improved. More energy today.
Vital Signs / Physical Exam
Vital Signs
Vital Signs
Temp Pulse Resp BP Pulse Ox
97.4 F 75 18 138/71 100
11/10/24 08:11 11/10/24 09:01 11/10/24 08:11 11/10/24 09:01 11/10/24 08:11
Physical Exam
Constitutional: No Acute Distress and Chronically Ill
Cardiovascular: Regular Rate and S1/S2
Pulmonary: Clear; Negative Wheezes
Gastrointestinal: Soft, Non Tender and Non Distended
Extremities: Negative Edema
Neurological: AO x 3
Objective Data
Lab Data
Lab Results
11/10/24 06:07
11/10/24 08:29
Estimated Creat Clear Cancelled 11/10/24 08:29
Lactic Acid 1.4 mmol/L (0.7-2.0) 11/08/24 15:39
Total Bilirubin 1.3 mg/dl (0.2-1.3) 11/08/24 09:29
AST 17 U/L (17-59) 11/08/24 09:29
ALT 12 U/L (0-50) 11/08/24 09:29
Alkaline Phosphatase 84 U/L (38-126) 11/08/24 09:29
Most recent labs reviewed.
Micro Results:
11/09/24 19:15 Respiratory Culture - Pending
Sputum Gram Stain - Preliminary
11/08/24 15:39 MRSA Screen - Final
Nose No Methicillin Resistant Staphylococcus aureus isolated.
11/08/24 11:58 Blood Culture - Preliminary
Blood/Venous No Growth in 24 hours- Final report to follow
11/08/24 11:23 Blood Culture - Preliminary
Blood/Venous No Growth in 24 hours- Final report to follow
11/08/24 13:23 Legionella Urinary Antigen - Final
Urine Negative for Legionella pneumophila Serogroup 1 antigen.
A negative result does not rule out the possiblity of
Legionella infection due to other serogroups or species of
Legionella. Clinical correlation is recommended.
Streptococcus pneumoniae Antigen (M - Final
Negative for Streptococcus pneumoniae antigen.
A negative result does not exclude infection with
Streptococcus pneumoniae. Clinical correlation is
recommended.
11/08/24 09:29 Influenza Types A & B (KAREN) - Final
Nasal Swab Negative for Influenza A & B, NAAT
Negative results must be combined with clinical observations
and patient history.
Nucleic Acid Amplification test (NAAT)performed on the
[employer] platform.
11/09/[address]: Left upper lobe pneumonia, new as compared with previous examination. Advanced emphysematous changes as seen previously. Unchanged partial atelectasis/scarring right apex with associated cylindrical and cystic bronchiectatic
change. Unchanged wedge-shaped area of consolidation at the right lung base likely related to atelectasis/scarring. Trace bilateral pleural effusions.
Care Review
Plan reviewed with: Physician (Dr. Ceballos)
[2024-11-10 11:45] LABS: Glucose - Point of Care 160 mg/dl (70-99)
[2024-11-10] MEDS: LASIX 40 MG PO (13:31)
--- NOTE | 2024-11-10 13:58 | PTCARENOTE ---
11/10/2024 DIABETES EDUCATION
I met with Mr. Pinedo, he is inpatient with diagnosis of PNA. Reviewed his HbA1c of 5.9% and explained this is pre-diabetes. He states he was previously at 5.7%, I explained this is also pre-diabetes. I provided education that prediabetes is
controlled through diet and exercise, stressed importance of exercise 30 minutes or more every day and reducing carbohydrates, pairing carbohydrates with protein, and reducing concentrated sweets. Provided sample kit with Contour Next glucose
meter, he states he has several at home. I educated to ensure the test strips are not to ensure accurate results. He declined live demonstration of monitoring glucose, we verbally discussed proper technique to check glucose levels. He
verbalized understanding. Written material provided on prediabetes education class.
--- NOTE | 2024-11-10 14:22 | W.PN.PUL3 ---
Today's Communication / Plan
-
Doing well, stable on RA
Continue abx for full course
Encouraged IS, ambulation
OP FU already arranged, will follow up
Discharge planning per team
Assessment
-
84-year-old male former tobacco smoker with a past medical history of COPD/emphysema, asthma, history of COVID-19, history of pneumonia, history of Pseudomonas aeruginosa infection, CAD s/p CABG, mitral regurgitation s/p MVR, duodenal ulcer and
hypertension who presents with a hacking cough, SOB, fevers and weakness. Patient arrived here to the ER on oxygen which she says he uses only if needed. Of note, he was recently hospitalized here 09/11 - 09/17/2024 for a COPD exacerbation with a
left-sided CAP. He now presents with worsening cough + weakness for about 1-2 weeks. 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 He was afebrile in the ER with heart rate 101, respiratory rate
24, BP 119/55 and saturating 92% on room air. Labs showed leukocytosis to 17.3, Hb 11.4, glucose 260, lactate 2.6, proBNP 3100 (previously 9480 on 09/11/2024), and COVID-19 antigen was negative. Flu swab also negative, and blood cultures collected.
CXR showed a left-sided infiltrate, and CT chest showed a left upper lobe pneumonia with advanced emphysematous changes. He was given 500 cc bolus of NS 0.9% in the ER in addition to cefepime, vancomycin and Decadron + DuoNebs. He was admitted to
the hospitalist service and now Pulmonary service is consulted for additional management/recommendations.
Left upper lobe pneumonia
Acute COPD exacerbation due to above
GOLD Class I/group E COPD with post-bronchodilator FEV1: 1.82/97% predicted with DLco: 22%, DLco/VA: 24% via PFTs from 08/21/2024
COPD cachexia
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
history of asthma
former tobacco smoker
history of Pseudomonas aeruginosa infection
anemia
Centrilobular emphysema with focal right apical fibrosis/bronchiectasis
History of COVID-19
Supplemental O2 use at home used as needed (2L/min prn)
CAD s/p CABG
History of severe MR s/p MVR
Duodenal ulcer
Hypertension
Plan:
Currently not on O2, stable on RA
Improving SOB, ambulating now
Patient has known centrilobular emphysema with right apical fibrosis/bronchiectasis, and CT chest performed today (11/09) shows a consolidative opacity in the posterior left upper lobe with multiple nodular opacities in the lingula, which is new
compared to recent CT chest on 10/11/2024.
Of note he does have chronic opacities in the left base and a chronic wedge-shaped consolidative opacity in the right lung base
Continue with cefepime/vancomycin + Levaquin given he has been hospitalized in the last 3 months with increased risk of MRSA + Pseudomonas infection
ID consulted, and antibiotics will be deferred to them
Not currently on steroids although have low threshold to start given his advanced emphysematous changes despite him having a GOLD class I obstructive lung defect on PFTs
Continue budesonide, nebulized albuterol + Symbicort 160 mcg + Spiriva
prn nebulized bronchodilators - not currently bronchospastic
Maintain SpO2 88-95% with supplemental O2 and wean down as tolerated; check ambulatory pulse oximetry prior to discharge
Incentive spirometer encouraged q1hr while awake
- Replete electrolytes with K>4, Mg>2
- Trend H/H and transfuse if needed to keep Hb>7g/dL; keep plt>20k, unless there is concern for bleeding then keep plt>50k
- Maintain euglycemia with goal BG >100 and <180
- DVT ppx: Heparin SQ
Of note, patient follows with us in the [facility] office, last visit on 11/06/2024 with DWAYNE Spring. Also follows with Dr. Cabezas. Next visit scheduled for 12/17/2024 with DWAYNE Spring. As of now we will keep this appointment but he
may need to be seen sooner depending on this hospital course.
Discharge planning per team
Data:
CT Chest without contrast 11/09/2024:
1. Left upper lobe pneumonia, new as compared with previous examination.
2. Advanced emphysematous changes as seen previously. Unchanged partial atelectasis/scarring right apex with associated cylindrical and cystic bronchiectatic change. Unchanged wedge-shaped area of consolidation at the right lung base likely
related to atelectasis/scarring. Trace bilateral pleural effusions.
CT Chest 10/11/24- Region of chronic scarring and severe bronchiectasis in the right lung apex measuring up to 5.2 cm. Severe centrilobular emphysema. Faint parenchymal opacity and small peribronchial nodules at the posterior aspect of the left lower
lobe. 0.6 cm nodular focus in the basilar right lower lobe (series 205, image 45), with continued decrease in size compared to 1.0 cm on the previous chest CT. Punctate granuloma in the right middle lobe. Stable small triangular-shaped region of
loculated pleural fluid in the right lung base. No pneumothorax. The trachea and central airways are patent.
ECHO 04/02/24- Mildly reduced left ventricular systolic function. Left ventricular ejection fraction is 50% by Wilcox's method. Stage II diastolic dysfunction suggestive of abnormal relaxation and increased filling pressures. MVR with peak/mean
gradients across the mitral valve are 14/5 mmHg. Moderate to severe mitral regurgitation. Compared to previous echo 07/04/2023, the mitral regurgitation is sightly progressed.
----
Total time spent today was 45 minutes for this encounter. Time includes reviewing laboratory test/imaging results, reviewing pertinent medical records, obtaining and reviewing medical history, performing an appropriate exam, ordering medications,
tests and procedures. Time also includes documentation of this encounter, coordinating patient care and communicating with other healthcare professionals. Total time does not include separately billed tests performed on this date of service.
Subjective Data
-
Date of Service:
Date of Service: November 10, 2024
Chief Complaint: Pulmonary Follow Up
Subjective:
Doing well today, off oxygen
No new complaints
Objective Data
Data Reviewed
Vital Signs / I&O / Oxygen:
Vital Signs
Temp Pulse Resp BP Pulse Ox
97.9 F 91 17 125/64 95
11/10/24 11:32 11/10/24 13:31 11/10/24 11:32 11/10/24 13:31 11/10/24 11:32
Intake and Output
11/09/24 11/10/24 11/11/24
06:59 06:59 06:59
Intake Total 240 / 240 1650 / 1650
Output Total 925 / 925 800 / 800
Balance -685 / -685 850 / 850
SaO2 95
Nasal Cannula flow liters per 2
minute
Physical Exam
General: Comfortable and Other (NAD)
HEENT: Normocephalic, Anicteric and Moist Mucous Membranes
Cardiovascular: S1-S2 and Regular Rhythm
Respiratory: Crackles (mild) and Non-Labored Respirations
GI: Soft, Non Distended and Non Tender
Neurology: Awake, Alert, Oriented and No Motor Deficits
Skin: Warm, Dry and Good Color
Labs/Micro/Reports
Lab Data
11/10/24 06:07
11/10/24 08:29
Microbiology
11/08/24 11:58 Blood/Venous Blood Culture - Preliminary
No Growth in 48 hours- Final report to follow
11/08/24 11:23 Blood/Venous Blood Culture - Preliminary
No Growth in 48 hours- Final report to follow
11/09/24 19:15 Sputum Gram Stain - Preliminary
11/08/24 15:39 Nose MRSA Screen - Final
No Methicillin Resistant Staphylococcus aureus isolated.
11/08/24 13:23 Urine Legionella Urinary Antigen - Final
Negative for Legionella pneumophila Serogroup 1 antigen.
A negative result does not rule out the possiblity of
Legionella infection due to other serogroups or species of
Legionella. Clinical correlation is recommended.
11/08/24 13:23 Urine Streptococcus pneumoniae Antigen (M - Final
Negative for Streptococcus pneumoniae antigen.
A negative result does not exclude infection with
Streptococcus pneumoniae. Clinical correlation is
recommended.
11/08/24 09:29 Nasal Swab Influenza Types A & B (KAREN) - Final
Negative for Influenza A & B, NAAT
Negative results must be combined with clinical observations
and patient history.
Nucleic Acid Amplification test (NAAT)performed on the
[employer] platform.
--- NOTE | 2024-11-10 14:48 | CM ---
Patient seen at bedside
CM role explained
Dx: sepsis, pneumonia
IA completed
Lives with in a 2 story home, 3 steps to enter, flight to second floor
PLOF: Independent, uses cane outside
PT rec HH
Patient states he is current with [facility], has had outpatient rehab in past
notified Brianne liaison [facility] - referral to be added
DME: Walker, cane, home oxygen states does not remember vendor, states does not use
PCP: [facility]
Pharmacy: [address], [place]
PLAN: Home when stable with [facility]
--- NOTE | 2024-11-10 14:56 | VNURNOTE ---
Chart reviewed. Patient is current with [facility] nursing, PT. [facility]
[2024-11-10 16:36] LABS: Glucose - Point of Care 130 mg/dl (70-99)
[2024-11-10] MEDS: NOVOLOG FLEXPEN-HIGH RESISTANCE 1 UNITS SC (16:40)
[2024-11-10] MEDS: LIPITOR 20 MG PO (16:41)
[2024-11-10 21:27] LABS: Glucose - Point of Care 104 mg/dl (70-99)
[2024-11-11 03:20] VITALS: BP 150/89
[2024-11-11] MEDS: SPIRIVA RESPIMAT 2.5 MCG 2 PUFF INH (07:19)
[2024-11-11] MEDS: PULMICORT 0.5 MG INH (07:19)
[2024-11-11] MEDS: VENTOLIN NEBULES 2.5 MG INH ×2 (07:19→11:08)
[2024-11-11 07:46] LABS: Hematocrit 31.6 % (39.0-52.0); Hemoglobin 10.7 g/dL (13.0-18.0)
[2024-11-11 08:11] VITALS: BP 148/76
[2024-11-11 08:12] LABS: Blood Urea Nitrogen 42 mg/dl (9-20); Calcium 9.4 mg/dl (8.4-10.2); Carbon Dioxide 24 mmol/L (22-30); Chloride 112 mmol/L (98-107); Estimated Creatinine Clearance 51 ml/min; Glucose 77 mg/dl (70-99); Magnesium 2.1 mg/dl (1.6-2.3); Potassium 3.7 mmol/L (3.5-5.1); Sodium 139 mmol/L (135-145); eGFR > 60.00
[2024-11-11 08:20] LABS: Glucose - Point of Care 77 mg/dl (70-99)
[2024-11-11] MEDS: ASPIR LOW (ENTERIC COATED) 81 MG PO (08:20)
[2024-11-11] MEDS: NOVOLOG FLEXPEN-HIGH RESISTANCE SC ×2 (08:20→11:55)
[2024-11-11] MEDS: HEPARIN 5000 UNITS SC (08:21)
[2024-11-11] MEDS: LOPRESSOR 12.5 MG PO (08:21)
[2024-11-11] MEDS: LASIX 40 MG PO (08:21)
[2024-11-11] MEDS: PEPCID 20 MG PO (08:21)
[2024-11-11] MEDS: TESSALON PERLES 200 MG PO (08:21)
[2024-11-11] MEDS: LANTUS 0.1 UNITS SC (08:24)
[2024-11-11] MEDS: NOVOLOG FLEXPEN 3 UNITS SC ×2 (08:24→12:07)
--- NOTE | 2024-11-11 10:35 | W.PN.ID1 ---
Addendum entered and electronically signed by Mary Swanson MD 11/11/24 11:13:
Patient's is concern about tendinitis/rupture associated with Levofloxacin.
I explained that unfortunately, FQ is the only po abx optimal option to treat his Pseudomonas.
He is on short course, risk is lower. Not every patient on Levofloxacin develops tendinitis.
I recommend he monitor for side effects. If he experiences tendon pain, then stop levofloxacin.
Patient is agreeable.
Original Note:
Date of Service
Date of Service: November 11, 2024
Today's Communication
Continue levofloxacin 750mg po q48h through 11/16/24.
Assessment / Plan
# LAVON PNA
# COPD
# Leukocytosis - improving
# Lungs colonized with Pseudomonas (resistant to meropenem, Zosyn, ceftaz, tobra/gent)
- Sputum - poor quality
- Continue levofloxacin 750mg po q48h through 11/16/24.
- Can dc home from ID standpoint.
# Conditions BAGG[employer]
COPD
HTN
Neuropathy
CAD s/p CABG x2
Mitral valve repair (08/29/2016)
Pacemaker placement
hx recurrent Pseudomonas PNA
Chief Complaint
-: Pneumonia
Subjective / Review of Systems
Coughing up yellow sputum. Otherwise doing well. Tolerating current abx.
Vital Signs / Physical Exam
Vital Signs
Vital Signs
Temp Pulse Resp BP Pulse Ox
97.7 F 75 14 148/76 93
11/11/24 08:11 11/11/24 08:11 11/11/24 08:11 11/11/24 08:11 11/11/24 08:11
Physical Exam
Constitutional: No Acute Distress, Chronically Ill and Cachetic
Cardiovascular: Regular Rate and S1/S2
Pulmonary: Clear; Negative Wheezes
Gastrointestinal: Soft, Non Tender and Non Distended
Extremities: Negative Edema
Neurological: AO x 3
Objective Data
Lab Data
Lab Results
11/11/24 06:54
11/11/24 06:54
Estimated Creat Clear 51 ml/min 11/11/24 06:54
Lactic Acid 1.4 mmol/L (0.7-2.0) 11/08/24 15:39
Total Bilirubin 1.3 mg/dl (0.2-1.3) 11/08/24 09:29
AST 17 U/L (17-59) 11/08/24 09:29
ALT 12 U/L (0-50) 11/08/24 09:29
Alkaline Phosphatase 84 U/L (38-126) 11/08/24 09:29
Most recent labs reviewed.
Micro Results:
11/08/24 11:58 Blood Culture - Preliminary
Blood/Venous No Growth in 48 hours- Final report to follow
11/08/24 11:23 Blood Culture - Preliminary
Blood/Venous No Growth in 48 hours- Final report to follow
11/09/24 19:15 Respiratory Culture - Pending
Sputum Gram Stain - Preliminary
11/08/24 15:39 MRSA Screen - Final
Nose No Methicillin Resistant Staphylococcus aureus isolated.
11/08/24 13:23 Legionella Urinary Antigen - Final
Urine Negative for Legionella pneumophila Serogroup 1 antigen.
A negative result does not rule out the possiblity of
Legionella infection due to other serogroups or species of
Legionella. Clinical correlation is recommended.
Streptococcus pneumoniae Antigen (M - Final
Negative for Streptococcus pneumoniae antigen.
A negative result does not exclude infection with
Streptococcus pneumoniae. Clinical correlation is
recommended.
11/08/24 09:29 Influenza Types A & B (KAREN) - Final
Nasal Swab Negative for Influenza A & B, NAAT
Negative results must be combined with clinical observations
and patient history.
Nucleic Acid Amplification test (NAAT)performed on the
[employer] platform.
11/09/[address]: Left upper lobe pneumonia, new as compared with previous examination. Advanced emphysematous changes as seen previously. Unchanged partial atelectasis/scarring right apex with associated cylindrical and cystic bronchiectatic
change. Unchanged wedge-shaped area of consolidation at the right lung base likely related to atelectasis/scarring. Trace bilateral pleural effusions.
Care Review
Plan reviewed with: Physician (Dr. Ceballos)
--- NOTE | 2024-11-11 10:39 | W.PN.HOSP.TC ---
Today's Communication/Plan
-
Discharge planning today
Assessment / Plan
Assessment / Plan
Physical exam:
General: Acute on chronically ill
HEENT: Normocephalic, Atraumatic and Moist Mucous Membranes
Respiratory: Clear to Auscultation; Negative Wheezes, Rales or Rhonchi
Cardiac: Regular Rhythm and S1/S2
GI: Soft, Nontender and Nondistended
Musculoskeletal: No Clubbing, No Cyanosis and No Edema
Neuro: Awake, Alert and Oriented
Psych: Calm
A/P:
Sepsis due to left upper lobe pneumonia:
Community-acquired with concerns for Pseudomonas in the setting of history of recurrent Pseudomonas pneumonia
Continue oral Levaquin 750 mg every 48 hours through 11/16--> patient has concerns about quinolones so reach out to ID to discuss with patient. ID feels there is no better alternative and will explain risk and benefits.
D/C cefepime and vancomycin
Sputum poor quality; MRSA screen negative; blood cultures no growth; influenza and COVID-19 negative.
WBC 17.3--> 12.[address] scan of the chest
PT OT recommends home health
COPD:
[place] to have exacerbation upon admission and given some steroids
Currently not bronchospastic and off steroids
Continue albuterol, budesonide, Symbicort, Spiriva
Bronchodilators and oxygen as needed
Assess for home oxygen needs
Diabetes mellitus type 2 with hyperglycemia:
Started on Lantus but I am thinking it will not be necessary upon discharge-continue for now
Change to diabetic diet
Insulin sliding scale
Diabetic education
Hemoglobin A1c 5.9
Chronic HFpEF:
Resume diuretics, Lasix 40 mg p.o. daily
Continue beta-karina
Hypertension:
Continue home regimen
Hyperlipidemia:
Continue home statin
CAD:
Continue aspirin and beta-blockers and statin
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
Continue nutrition encouragement
Sacral pressure ulcer stage I, POA
Other medical problems:
Neuropathy
Pacemaker placed for complete heart block back in 2016
Severe mitral regurgitation and mitral prolapse status post mitral valve repair back in 2016
DVT prophylaxis:
Heparin SQ
CODE STATUS:
Full code
Anticipated Discharge: Today
Subjective/Interval History
-
Date of Service: November 11, 2024
Patient feels better overall. Afebrile.
Objective Data
-
Labs:
Laboratory Results
11/11/24
06:54
Hgb 10.7 L
Hct 31.6 L
Sodium 139
Potassium 3.7
Chloride 112 H
Carbon Dioxide 24
BUN 42 H
Creatinine 0.8
Glucose 77
Calcium 9.4
Vital Signs:
Vital Signs
Temp Pulse Resp BP Pulse Ox
97.7 F 75 14 148/76 93
11/11/24 08:11 11/11/24 08:11 11/11/24 08:11 11/11/24 08:11 11/11/24 08:11
I&O
11/10/24 11/11/24 11/12/24
06:59 06:59 06:59
Intake Total 1650 / 1650 740 / 740
Output Total 800 / 800
Balance 850 / 850 740 / 740
--- NOTE | 2024-11-11 10:44 | W.DCSUMMARY ---
Discharge Summary
Discharge Data
Date of Admission: 11/08/24
Date of Discharge: 11/11/24
Total time spent discharging patient (in min): 34
-
Pending Results: No
Hospital Course
Patient 84 years old male with history of COPD, asthma, recurrent Pseudomonas infection, CAD, mitral regurgitation status post MVR, duodenal ulcer, hypertension, presented to the hospital cough shortness of breath and fever and found to have
pneumonia. Pulmonary and ID were consulted. Patient was treated with bronchodilators and broad-spectrum IV antibiotics. He was afebrile, his white blood cell count trending down, and he remained on room air. He did improve substantially. ID
recommended to switch to oral antibiotics. Patient was concerned about quinolones use and ID discussed with him but there was no better alternative and also discussed risk and benefits with him and he accepted a short course of antibiotics.
Otherwise, patient hemodynamically stable and afebrile. He has been cleared by ID and pulmonary. He will be discharged in relatively stable condition today with close follow-up as outpatient.
Patient was regimen: 34 minutes
Discharge Plan
-
Patient Disposition: Home (Routine Discharge)
Discharge Diagnosis/Procedures: Pneumonia. Chronic obstructive pulmonary disease.
Diet: Low Cholesterol and Diabetic, Carb Controlled
Activity: As tolerated
Blood Work: Please PCP to order CBC, BMP within 1 week
Referrals:
Primary care, provider [Other] - in less than 1 week
Ana Luisa Kenney CRNP [Specified Professional Personl] - 12/17/24 2:00 pm
Prescriptions:
New
levofloxacin 750 mg Tablet
750 mg PO Q48H Qty: 3 0RF
Continued
ipratropium-albuterol 0.5 mg-3 mg(2.5 mg base)/3 mL solution for nebulization
3 ml inhalation R BID
metoprolol tartrate 25 mg Tablet
12.5 mg PO BID Qty: 10 0RF
benzonatate 100 mg capsule
100 mg PO DAILYPRN PRN (Reason: cough)
furosemide 40 mg Tablet
40 mg PO DAILY
atorvastatin 20 mg Tablet
20 mg PO QPM
famotidine 40 mg Tablet
40 mg PO DAILY
budesonide 0.5 mg/2 mL Suspension For Nebulization
0.5 mg INHALATION R BID
codeine-guaifenesin 10-100 mg/5 mL Liquid
5 ml PO HSPRN PRN (Reason: cough)
diphenhydramine-acetaminophen [Tylenol PM Extra Strength] 25-500 mg Tablet
1 tab PO HSPRN PRN (Reason: sleep)
PreserVision AREDS-2 250-90-40-1 mg Tablet,Chewable
1 tab PO BID
therapeutic multivitamin Tablet
1 tab PO DAILY
TheraTears 0.25 % Drops
1 drp OPHTHALMIC (EYE) DAILYPRN PRN (Reason: dry eyes)
aspirin 81 mg Tablet
81 mg PO DAILY
fluticasone propionate 50 mcg/actuation spray,suspension
2 spray INTRANASAL DAILY
loratadine 10 mg Tablet
10 mg PO DAILY
Breztri Aerosphere 160-9-4.8 mcg/actuation HFA aerosol inhaler
2 inh INHALATION R BID
Discharge Orders:
Discharge Patient (As Directed); Ordered 11/11/24
Ordered By: Himanshu Ceballos
Discharge Date and Time
Discharge Date/Time: 11/11/24 13:37
Print Language: ZAMBIAN
[2024-11-11 11:48] LABS: Glucose - Point of Care 112 mg/dl (70-99)
[2024-11-11 12:00] VITALS: BP 139/67
--- NOTE | 2024-11-11 12:51 | CM ---
Patient seen at bedside.
IMM explained & signed. In chart
Referral in [facility] for [facility]
PLAN: Home with [facility]
to transport
[2024-11-11] MEDS: LEVAQUIN 750 MG PO (13:25)
--- NOTE | 2024-11-11 14:34 | W.PN.PUL3 ---
Today's Communication / Plan
-
No new complaints, remains stable on RA
He had concerns over his LVQ abx today, but this was recommended by ID
Reviewed OP course today, can call for sooner FU if feeling worse
Discharge planning otherwise per team
Assessment
-
84-year-old male former tobacco smoker with a past medical history of COPD/emphysema, asthma, history of COVID-19, history of pneumonia, history of Pseudomonas aeruginosa infection, CAD s/p CABG, mitral regurgitation s/p MVR, duodenal ulcer and
hypertension who presents with a hacking cough, SOB, fevers and weakness. Patient arrived here to the ER on oxygen which she says he uses only if needed. Of note, he was recently hospitalized here 09/11 - 09/17/2024 for a COPD exacerbation with a
left-sided CAP. He now presents with worsening cough + weakness for about 1-2 weeks. He has home oxygen and normally does not use it but has been on 2 L/min for the past 2 days RN CASE MANAGEMENT. He was afebrile in the ER with heart rate 101, respiratory rate
24, BP 119/55 and saturating 92% on room air. Labs showed leukocytosis to 17.3, Hb 11.4, glucose 260, lactate 2.6, proBNP 3100 (previously 9480 on 09/11/2024), and COVID-19 antigen was negative. Flu swab also negative, and blood cultures collected.
CXR showed a left-sided infiltrate, and CT chest showed a left upper lobe pneumonia with advanced emphysematous changes. He was given 500 cc bolus of NS 0.9% in the ER in addition to cefepime, vancomycin and Decadron + DuoNebs. He was admitted to
the hospitalist service and now Pulmonary service is consulted for additional management/recommendations.
Left upper lobe pneumonia
Acute COPD exacerbation due to above
GOLD Class I/group E COPD with post-bronchodilator FEV1: 1.82/97% predicted with DLco: 22%, DLco/VA: 24% via PFTs from 08/21/2024
COPD cachexia
Chronic conditions RN CASE MANAGEMENT:
history of asthma
former tobacco smoker
history of Pseudomonas aeruginosa infection
anemia
Centrilobular emphysema with focal right apical fibrosis/bronchiectasis
History of COVID-19
Supplemental O2 use at home used as needed (2L/min prn)
CAD s/p CABG
History of severe MR s/p MVR
Duodenal ulcer
Hypertension
Plan:
Currently not on O2, stable on RA
Improving SOB, ambulating now
Patient has known centrilobular emphysema with right apical fibrosis/bronchiectasis, and CT chest performed today (11/09) shows a consolidative opacity in the posterior left upper lobe with multiple nodular opacities in the lingula, which is new
compared to recent CT chest on 10/11/2024.
Of note he does have chronic opacities in the left base and a chronic wedge-shaped consolidative opacity in the right lung base
Continue with cefepime/vancomycin + Levaquin given he has been hospitalized in the last 3 months with increased risk of MRSA + Pseudomonas infection
ID consulted, and antibiotics will be deferred to them
Not currently on steroids although have low threshold to start given his advanced emphysematous changes despite him having a GOLD class I obstructive lung defect on PFTs
Continue budesonide, nebulized albuterol + Symbicort 160 mcg + Spiriva
prn nebulized bronchodilators - not currently bronchospastic
Maintain SpO2 88-95% with supplemental O2 and wean down as tolerated; check ambulatory pulse oximetry prior to discharge
Incentive spirometer encouraged q1hr while awake
- Replete electrolytes with K>4, Mg>2
- Trend H/H and transfuse if needed to keep Hb>7g/dL; keep plt>20k, unless there is concern for bleeding then keep plt>50k
- Maintain euglycemia with goal BG >100 and <180
- DVT ppx: Heparin SQ
Of note, patient follows with us in the [facility] office, last visit on 11/06/2024 with DWAYNE Spring. Also follows with Dr. Cabezas. Next visit scheduled for 12/17/2024 with DWAYNE Spring. As of now we will keep this appointment but he
may need to be seen sooner depending on this hospital course.
Discharge planning per team
Data:
CT Chest without contrast 11/09/2024:
1. Left upper lobe pneumonia, new as compared with previous examination.
2. Advanced emphysematous changes as seen previously. Unchanged partial atelectasis/scarring right apex with associated cylindrical and cystic bronchiectatic change. Unchanged wedge-shaped area of consolidation at the right lung base likely
related to atelectasis/scarring. Trace bilateral pleural effusions.
CT Chest 10/11/24- Region of chronic scarring and severe bronchiectasis in the right lung apex measuring up to 5.2 cm. Severe centrilobular emphysema. Faint parenchymal opacity and small peribronchial nodules at the posterior aspect of the left lower
lobe. 0.6 cm nodular focus in the basilar right lower lobe (series 205, image 45), with continued decrease in size compared to 1.0 cm on the previous chest CT. Punctate granuloma in the right middle lobe. Stable small triangular-shaped region of
loculated pleural fluid in the right lung base. No pneumothorax. The trachea and central airways are patent.
ECHO 04/02/24- Mildly reduced left ventricular systolic function. Left ventricular ejection fraction is 50% by Wilcox's method. Stage II diastolic dysfunction suggestive of abnormal relaxation and increased filling pressures. MVR with peak/mean
gradients across the mitral valve are 14/5 mmHg. Moderate to severe mitral regurgitation. Compared to previous echo 07/04/2023, the mitral regurgitation is sightly progressed.
----
Total time spent today was 45 minutes for this encounter. Time includes reviewing laboratory test/imaging results, reviewing pertinent medical records, obtaining and reviewing medical history, performing an appropriate exam, ordering medications,
tests and procedures. Time also includes documentation of this encounter, coordinating patient care and communicating with other healthcare professionals. Total time does not include separately billed tests performed on this date of service.
Subjective Data
-
Date of Service:
Date of Service: November 11, 2024
Chief Complaint: Pulmonary Follow Up
Subjective:
No new complaints
Remains stable on RA
Objective Data
Data Reviewed
Vital Signs / I&O / Oxygen:
Vital Signs
Temp Pulse Resp BP Pulse Ox
97.7 F 85 14 139/67 93
11/11/24 08:11 11/11/24 12:00 11/11/24 12:00 11/11/24 12:00 11/11/24 12:00
Intake and Output
11/10/24 11/11/24 11/12/24
06:59 06:59 06:59
Intake Total 1650 / 1650 740 / 740
Output Total 800 / 800
Balance 850 / 850 740 / 740
SaO2 93
Nasal Cannula flow liters per 2
minute
Physical Exam
General: Comfortable and Other (NAD)
HEENT: Normocephalic, Anicteric and Moist Mucous Membranes
Cardiovascular: S1-S2 and Regular Rhythm
Respiratory: Crackles (mild) and Non-Labored Respirations
GI: Soft, Non Distended and Non Tender
Neurology: Awake, Alert, Oriented and No Motor Deficits
Skin: Warm, Dry and Good Color
Labs/Micro/Reports
Lab Data
11/11/24 06:54
11/11/24 06:54
Microbiology
11/08/24 11:58 Blood/Venous Blood Culture - Preliminary
No Growth in 72 hours- Final report to follow
11/09/24 19:15 Sputum Respiratory Culture - Preliminary
Usual Respiratory Ivette
11/09/24 19:15 Sputum Gram Stain - Preliminary
11/08/24 11:23 Blood/Venous Blood Culture - Preliminary
No Growth in 72 hours- Final report to follow
11/08/24 15:39 Nose MRSA Screen - Final
No Methicillin Resistant Staphylococcus aureus isolated.
11/08/24 13:23 Urine Legionella Urinary Antigen - Final
Negative for Legionella pneumophila Serogroup 1 antigen.
A negative result does not rule out the possiblity of
Legionella infection due to other serogroups or species of
Legionella. Clinical correlation is recommended.
11/08/24 13:23 Urine Streptococcus pneumoniae Antigen (M - Final
Negative for Streptococcus pneumoniae antigen.
A negative result does not exclude infection with
Streptococcus pneumoniae. Clinical correlation is
recommended.
== END 2024-11-11 13:37 | disposition home health service (06) | DRG 871 ==
LOC: 3 WEST ACU 13:32
PROVIDERS: Physician Assistant; Student in an Organized Health Care Education/Training Program; ADMITTING PHYSICIAN Hospitalist; ATTENDING PHYSICIAN Hospitalist; CONSULT PHYSICIAN Internal Medicine Critical Care Medicine; EMERGENCY PHYSICIAN Emergency Medicine; FAMILY PHYSICIAN Internal Medicine Cardiovascular Disease; OTHER PHYSICIAN Internal Medicine Infectious Disease
DX: A41.89 Other specified sepsis (principal); E43 Unspecified severe protein-calorie malnutrition; J18.9 Pneumonia, unspecified organism; J44.1 Chronic obstructive pulmonary disease with (acute) exacerbation; I50.32 Chronic diastolic (congestive) heart failure; E87.20 Acidosis, unspecified; R64 Cachexia; Z87.891 Personal history of nicotine dependence; Z11.52 Encounter for screening for COVID-19; Z79.82 Long term (current) use of aspirin; Z79.899 Other long term (current) drug therapy; I11.0 Hypertensive heart disease with heart failure; K21.9 Gastro-esophageal reflux disease without esophagitis; E78.5 Hyperlipidemia, unspecified; Z68.20 Body mass index [BMI] 20.0-20.9, adult; L89.151 Pressure ulcer of sacral region, stage 1; E11.65 Type 2 diabetes mellitus with hyperglycemia; I25.10 Atherosclerotic heart disease of native coronary artery without angina pectoris; Z95.1 Presence of aortocoronary bypass graft
CPT/HCPCS: 71046; 71250; 80048; 80053; 82947; 82962; 83036; 83605; 83735; 83880; 84484; 85014; 85018; 85025; 87040; 87070; 87205; 87449; 87502; 87811; 87899; 93005; 93288; 94640; 96365; 96366; 96375; 97162; 97166; 97530; 99285

== ENCOUNTER 2024-11-13 16:45 | Inpatient (IN) | payer MEDICARE, BC, SELFPAY ==
[2024-11-13] VITALS (8 sets, daily range): BP systolic 99–147; BP diastolic 56–100; BMI 19.7
--- NOTE | 2024-11-13 14:21 | ED.GENMED ---
History of Present Illness
General
Chief Complaint: Breathing Problem
Time Seen by Provider: 11/13/24 13:56
History of Present Illness
History of Present Illness:
84-year-old male with history of COPD, asthma, recurrent Pseudomonas pneumonia, CAD, mitral regurgitation status post MVR, hypertension presenting for shortness of breath and hypoxia. Patient reports recent hospital admission. On review of EMR,
admission from 11/08 to 11/11, admitted for pneumonia and COPD exacerbation. Patient treated with broad-spectrum antibiotics, discharged on Levaquin. He reports that initially he was doing okay, off oxygen. However yesterday symptoms started to
worsen, increased dyspnea. Reports at home he was walking, checked his pulse ox upon sitting down, low at 52. Patient has oxygen at home as needed, however rarely requires it. Denies associated chest pain. Denies any fever since being home. He
did not take his Levaquin today. Does note that he had a little bit of stomach upset today, however resolved. Denies additional acute medical complaints
Past History
Past History
ED Past Medical History: CAD, COPD, HTN, Valvular disease and Other (Neuropathy)
ED Past Surgical History: Cardiac (CABG �2 and mitral valve repair 08/29/2016 DD DDDR pacemaker 2017)
Social History
Tobacco: Former smoker
Drug: None
Personal:
Living: with family
Employment: Retired
Family History
Family History: Other (Noncontributory)
Phy Exam
Physical Exam
Physical Exam:
General: Well-appearing, no clinical signs of dehydration, nontoxic and in no acute distress
HEENT: protecting airway
Neck: appears supple
CV: Normal heart rate, regular rhythm
Resp: Tachypnea, mild end expiratory wheezing, no focal abnormal lung sounds
Abd: Soft and non-distended, no tenderness to palpation
Extremities: No deformities, no swelling
Neuro: alert, no focal neurologic deficit
: deferred
Rectal: deferred
Psych: Normal affect
Skin: Intact
Scores
Heart Failure Risk
Heart Failure Risk Score: Not Applicable
Sepsis
Sepsis Screening
Sepsis Assessment: Sepsis
Sepsis Screen
Sepsis Screen: Sepsis
Date: 11/13/24
Time: 15:52
Course
Orders/Labs/Results
Orders:
Orders
11/13/24 14:13
0.9% Sodium Chloride 1000 ml [Nss] 1,000 ml IV BOLUS
11/13/24 14:14
Electrocardiogram (*1) Stat
Reason for Study: Other
Other Reason for Exam: chest pain
EKG- Treatment ONCE
CR Chest - 2 Views Urgent
Comment:
Reason For Exam: sob, recent pneumonia
11/13/24 14:15
Lactic Acid Q4H
Comment: CANCEL 2nd LACTIC ACID IF 1st LACTIC ACID IS LESS THAN 2
11/13/24 14:18
COVID-19 Antigen Urgent
Source: Nasal Swab
Complete Blood Count/With Diff Urgent
Comprehensive Metabolic Panel Urgent
PTT Urgent
Prothrombin Time Urgent
Venous Blood Gas Urgent
%Oxygen/Room Air: 30
Blood Culture Q30M
TODD Source: Blood/Venous
Specimen Description:
Blood Culture Q30M
TODD Source: Blood/Venous
Specimen Description:
Influenza A+B Rapid Molecular Urgent
TODD Source: Nasal Swab
Specimen Description:
11/13/24 14:19
Lactic Acid Q4H
Comment: CANCEL 2nd LACTIC ACID IF 1st LACTIC ACID IS LESS THAN 2
11/13/24 15:38
Cefepime HCl [Maxipime] 2,000 mg IV NOW STA
Vancomycin [Vancocin] 1,500 mg 0.9% Sodium Chloride 500 ml [Nss] 500 ml IV NOW
Abnormal Lab Results
11/13/24
14:18
WBC 18.1 H 10^3/uL
(4.8-10.8)
RBC 4.05 L 10^6/uL
(4.70-6.10)
Hgb 11.8 L g/dL
(13.0-18.0)
Hct 35.8 L %
(39.0-52.0)
RDW 15.8 H %
(11.5-14.5)
MPV 11.5 H fL
(7.4-10.4)
Abs Immat Gran (auto) 0.1 H 10^3/uL
(0-0.05)
Absolute Neuts (auto) 14.6 H 10^3/uL
(1.4-6.5)
Absolute Monos (auto) 0.9 H 10^3/uL
(0.1-0.6)
Absolute Eos (auto) 1.0 H 10^3/uL
(0-0.7)
Immature Gran % 0.8 H %
(0-0.5)
Neutrophils % 80.7 H %
(42.2-75.2)
Lymphocytes % 7.6 L %
(20.5-51.1)
PT 16.5 H Sec
(11.4-14.6)
BUN 41 H mg/dl
(9-20)
Glucose 127 H mg/dl
(70-99)
AST 14 L U/L
(17-59)
Total Protein 5.2 L g/dl
(6.3-8.2)
Albumin 3.0 L g/dl
(3.5-5.0)
11/13/24 14:18
11/13/24 14:18
Vital Signs
Initial and Last Documented VS:
Initial Vital Signs
Temp Pulse Resp BP Pulse Ox
98.8 F 94 16 147/70 89
11/13/24 13:52 11/13/24 13:52 11/13/24 13:52 11/13/24 13:52 11/13/24 13:52
Last Documented Vital Signs
Temp Pulse Resp BP Pulse Ox
98.8 F 94 16 147/70 89
11/13/24 13:52 11/13/24 13:52 11/13/24 13:52 11/13/24 13:52 11/13/24 13:52
MDM/Problems Addressed
MDM/Problems Addressed:
84-year-old male with history of COPD, asthma, recurrent Pseudomonas pneumonia, CAD, mitral regurgitation status post MVR, hypertension presenting for worsening dyspnea. Vital signs on arrival are significant for hypoxia.
On exam patient is dyspneic, improved on O2. Patient currently stable on 5 L O2. Review of EMR shows recent hospital admission for pneumonia, status post antibiotics with interval improvement. Given return of symptoms, concern for failure of
outpatient therapy. Patient currently afebrile.
15:30 - Patient's blood work shows worsening leukocytosis. Lactate within normal limits and blood pressure remained stable without concern for severe sepsis or septic shock. VBG obtained, within normal limits. Chest x-ray however is concerning
for worsening pneumonia. Will restart IV antibiotics and plan for admission.
*Critical Care Note
Total Time (30-74mins, 75-104mins- exclusive of procedures): Not Applicable
ED Attending Note
-
Portions of this chart may have been created with voice recognition software.� Occasional wrong word or��sound alike� substitutions may have occurred due to the inherent limitations of voice recognition software.
Discharge Plan
Departure
Patient Disposition: Admit
Date of Disposition: 11/13/24
Time of Disposition: 15:49
Presentation/result/management discussed w/ accepting MD/DO: Hospitalist
Condition: Fair
Discharge Problem:
Pneumonia involving left lung, Failure of outpatient treatment
Prescriptions:
No Action
ipratropium-albuterol 0.5 mg-3 mg(2.5 mg base)/3 mL solution for nebulization
3 ml inhalation R BID
metoprolol tartrate 25 mg Tablet
12.5 mg PO BID Qty: 10 0RF
benzonatate 100 mg capsule
100 mg PO DAILYPRN PRN (Reason: cough)
furosemide 40 mg Tablet
40 mg PO DAILY
atorvastatin 20 mg Tablet
20 mg PO QPM
famotidine 40 mg Tablet
40 mg PO DAILY
budesonide 0.5 mg/2 mL Suspension For Nebulization
0.5 mg INHALATION R BID
codeine-guaifenesin 10-100 mg/5 mL Liquid
5 ml PO HSPRN PRN (Reason: cough)
diphenhydramine-acetaminophen [Tylenol PM Extra Strength] 25-500 mg Tablet
1 tab PO HSPRN PRN (Reason: sleep)
PreserVision AREDS-2 250-90-40-1 mg Tablet,Chewable
1 tab PO BID
therapeutic multivitamin Tablet
1 tab PO DAILY
TheraTears 0.25 % Drops
1 drp BOTH EYES DAILYPRN PRN (Reason: dry eyes)
aspirin 81 mg Tablet
81 mg PO DAILY
fluticasone propionate 50 mcg/actuation spray,suspension
2 spray INTRANASAL DAILY
loratadine 10 mg Tablet
10 mg PO DAILY
Breztri Aerosphere 160-9-4.8 mcg/actuation HFA aerosol inhaler
2 inh INHALATION R BID
levofloxacin 750 mg Tablet
750 mg PO Q48H Qty: 3 0RF
Referrals:
Cleveland Charles MD [Family Provider] -
Interventions
Interventions:
*Risk Screen - Suicide Last Done: 11/13/24 13:52
*General Assessment Last Done: 11/13/24 14:02
*Neglect/Abuse Screening Last Done: 11/13/24 13:52
ED- Pulmonary Assessment Last Done: 11/13/24 14:29
Discharge Date and Time
Print Language: [place]
[2024-11-13] MEDS: NSS 1000 IV (14:26)
[2024-11-13 14:32] LABS: % Basophils 0.2 % (0-2); % Eosinophils 5.6 % (0-6); % Immature Granulocytes 0.8 % (0-0.5); % Lymphocytes 7.6 % (20.5-51.1); % Monocytes 5.1 % (1.7-9.3); % Neutrophils 80.7 % (42.2-75.2); Absolute Immature Granulocytes 0.1 10^3/uL (0-0.05); Absolute Lymphocytes 1.4 10^3/uL (1.2-3.4); Absolute Monocytes 0.9 10^3/uL (0.1-0.6); Absolute Neutrophils 14.6 10^3/uL (1.4-6.5); Hematocrit 35.8 % (39.0-52.0); Hemoglobin 11.8 g/dL (13.0-18.0); Mean Corpuscular Hgb 29.1 pg (27.0-31.0); Mean Corpuscular Volume 88.4 fL (80.0-94.0); Mean Platelet Volume 11.5 fL (7.4-10.4); Nucleated Red Blood Cells % 0 % (-); Platelet Count 295 10^3/uL (130-400); Red Blood Cell Count 4.05 10^6/uL (4.70-6.10); Red Cell Dist. Width 15.8 % (11.5-14.5); White Blood Cell Count 18.1 10^3/uL (4.8-10.8)
[2024-11-13 14:33] LABS: Venous Blood Gas B.E. -0.1 mmol/L (-4 to +4); Venous Blood Gas HCO3 25.9 mmol/L (22-27); Venous Blood Gas O2 Sat % 59.5 %; Venous Blood Gas pCO2 47 mmHg (35-48); Venous Blood Gas pH 7.35 (7.32-7.43); Venous Blood Gas pO2 36 mmHg (30-50)
[2024-11-13 14:45] LABS: ALT (SGPT) < 10 U/L (0-50); AST (SGOT) 14 U/L (17-59); Alkaline Phosphatase 85 U/L (38-126); Blood Urea Nitrogen 41 mg/dl (9-20); Calcium 9.3 mg/dl (8.4-10.2); Carbon Dioxide 26 mmol/L (22-30); Chloride 105 mmol/L (98-107); Estimated Creatinine Clearance 47 ml/min; Glucose 127 mg/dl (70-99); Sodium 136 mmol/L (135-145); Total Bilirubin 0.8 mg/dl (0.2-1.3); Total Protein 5.2 g/dl (6.3-8.2); eGFR > 60.00
[2024-11-13 14:47] LABS: Lactic Acid 1.8 mmol/L (0.7-2.0)
[2024-11-13 14:51] LABS: INR 1.28; PT 16.5 Sec (11.4-14.6)
[2024-11-13 14:52] LABS: APTT 32.4 Sec (23.4-35.0)
[2024-11-13 15:05] LABS: COVID-19 Antigen Negative (Negative)
[2024-11-13] MEDS: VANCOCIN 530 MG IV (16:18)
[2024-11-13] MEDS: MAXIPIME 2000 MG IV (16:20)
--- NOTE | 2024-11-13 16:40 | HPS.HSE ---
Family Physician
-
Family Physician: Cleveland Charles
Chief Complaint
-
Pneumonia
History of Present Illness
Mr. Pinedo is an 84-year-old male with a medical history of COPD (home oxygen as needed), asthma, recurrent Pseudomonas pulmonary infections, CAD (status post CABG), mitral valve replacement (08/2016), complete heart block (pacemaker placed
02/2017), HFpEF, hypertension, and duodenal ulcer who returns to [facility] due to shortness of breath, hypoxia, and generalized weakness. He was discharged home 11/11 after inpatient treatment at this facility for pneumonia. He had been
treated during that hospitalization with a combination of cefepime and Levaquin due to his history of multidrug-resistant Pseudomonas pulmonary infections. He was discharged to home on Levaquin. However since that time has been feeling
progressively more fatigued and becoming significantly hypoxic with minimal exertion despite supplemental oxygen use.
In the ED today, he was normotensive, heart rate was controlled around 90, he was tachypneic with RR around 35 initially, pulse ox in the mid 80s, and afebrile. His pulse ox improved to the mid 90s on 5 L via nasal cannula. His labs are
significant for leukocytosis of 18,000 and lactate within normal limits at 1.8. Chest x-ray showed slight progression of pneumonia from previous admission. He was given a bolus of 1 L normal saline, cultures were obtained, and he was started on
broad-spectrum antibiotics with vancomycin and cefepime. He has been admitted for further evaluation and management of sepsis secondary to pseudomonal pneumonia.
Medical History
Past Medical History
Past Medical History: Reports Other
Additional Past Medical History:
COPD on prn home O2
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
Hypertension.
Hyperlipidemia.
Coronary artery disease, status post CABG x2 08/2016.
Severe mitral regurgitation and mitral valve prolapse, status post mitral valve repair 08/2016.
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
Right bundle branch block.
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
Pulmonary nodule.
GERD.
Rectal polyps.
Duodenal ulcer 2017.
Peripheral neuropathy.
BPH.
Deviated septum.
Remote shingles.
Hearing impairment bilaterally.
Past Surgical History: Reports Other
Additional Past Surgical History:
Osteoarthritis, status post bilateral total hip arthroplasties
left TKA
Social History
Tobacco: Former Smoker (Quit 2017, had been smoking since age 19 approximately 0.25 packs per day = ~14 pack years)
Alcohol: Occasional
Drug: None
Personal:
Living: With Family
Family History
Family History: Not pertinent
Allergies / Home Medications
Allergies reflects when Allergies were last updated in [employer].
Home Medications with original date entered in [employer]
Allergy/Medication List:
Allergies
Allergy/AdvReac Type Severity Reaction Status Date / Time
adhesive tape Allergy skin Verified 11/13/24 13:53
irritation
azithromycin Allergy GI upset Verified 11/13/24 13:53
cat dander Allergy pat has Verified 11/13/24 13:53
cats/coughing,
sneezing
moxifloxacin Allergy Unknown Verified 11/13/24 13:53
penicillin G Allergy 1960s had Verified 11/13/24 13:53
reaxn to
injection-said
he
required
treatment
Penicillins Allergy rash to Verified 11/13/24 13:53
amoxicillin
[id number]'s
many years
ago
pollen extracts Allergy ENVIRONMENTAL-coughing, Verified 11/13/24 13:53
sneezing,ITCHING
Sulfa (Sulfonamide Allergy Hives Verified 11/13/24 13:53
Antibiotics)
sulfisoxazole Allergy Rash Verified 11/13/24 13:53
tetanus toxoid, adsorbed Allergy Rash Verified 11/13/24 13:53
Artifical sweeteners Allergy RECTAL PAIN Uncoded 11/13/24 13:53
Home Medications
ipratropium 0.5 mg-albuterol 3 mg (2.5 mg base)/3 mL nebulization soln 3 ml inhalation R BID Lung/Breathing Issues 01/24/23
metoprolol tartrate 25 mg tablet 12.5 mg (1/2 x 25 mg) PO BID #10 tabs 02/14/23
benzonatate 100 mg capsule 100 mg PO DAILYPRN PRN cough 03/09/23
atorvastatin 20 mg tablet 20 mg PO QPM High Cholesterol 09/11/24
budesonide 0.5 mg/2 mL suspension for nebulization 0.5 mg inhalation R BID Lung/Breathing Issues 09/11/24
codeine 10 mg-guaifenesin 100 mg/5 mL oral liquid 5 ml PO HSPRN PRN cough 09/11/24
diphenhydramine 25 mg-acetaminophen 500 mg tablet (Tylenol PM Extra Strength) 1 tab PO HSPRN PRN sleep 09/11/24
famotidine 40 mg tablet 40 mg PO DAILY Gastrointestinal Issue 09/11/24
furosemide 40 mg tablet 40 mg PO DAILY Fluid Retention/Swelling 09/11/24
vit C 250 mg-E 90 mg-zinc 40 mg-copper 1 mg-plvhlh-sixibx chew tablet (PreserVision AREDS-2) 1 tab PO BID Supplement 09/11/24
aspirin 81 mg tablet 81 mg PO DAILY Blood Clot Prevention/Tx 11/08/24
budesonide 160 mcg-glycopyr 9 mcg-formot 4.8 mcg/actuation HFA inhaler (Breztri Aerosphere) 2 inh inhalation R BID Lung/Breathing Issues 11/08/24
carboxymethylcellulose sodium 0.25 % eye drops (TheraTears) 1 drp BOTH EYES DAILYPRN PRN dry eyes 11/08/24
fluticasone propionate 50 mcg/actuation nasal spray,suspension 2 spray intranasal DAILY Congestion 11/08/24
loratadine 10 mg tablet 10 mg PO DAILY Allergies 11/08/24
therapeutic multivitamin 1 tab PO DAILY Supplement 11/08/24
levofloxacin 750 mg tablet 750 mg PO Q48H #3 tabs 11/11/24
Review of Systems
-
History Source: Patient
A 12 point ROS was completed and negative except as noted: Yes
Constitutional: Reports Fatigue
Respiratory: Reports Trouble Breathing
Physical Exam
Vital Signs
Vital Signs
Temp Pulse Resp BP Pulse Ox
98.8 F 88 27 118/65 98
11/13/24 13:52 11/13/24 16:00 11/13/24 16:00 11/13/24 16:00 11/13/24 16:00
Physical Exam
General: No Apparent Distress
Laboratory Results
-
11/13/24 14:18
11/13/24 14:18
Laboratory Results
PT 16.5 Sec (11.4-14.6) H 11/13/24 14:18
INR 1.28 11/13/24 14:18
APTT 32.4 Sec (23.4-35.0) 11/13/24 14:18
Lactic Acid 1.8 mmol/L (0.7-2.0) 11/13/24 14:19
Total Bilirubin 0.8 mg/dl (0.2-1.3) 11/13/24 14:18
AST 14 U/L (17-59) L 11/13/24 14:18
ALT < 10 U/L (0-50) 11/13/24 14:18
Alkaline Phosphatase 85 U/L (38-126) 11/13/24 14:18
Impression/Plan
-
General: No Apparent Distress, Comfortable and Conversant
HEENT: NormoCephalic, Moist mucous membranes, Atraumatic
Respiratory: No wheezing, mild scattered rhonchi bilaterally, Non Labored Respirations at rest
Cardiac: S1/S2 and Regular Rhythm; No Rub or Gallop
GI: Soft, Non Tender, Non Distended and Normal Bowel Sounds
Musculoskeletal: No Edema, no deformity
Skin: Warm and dry
: NO Garcia
Neuro: Awake, Alert, Nonfocal/grossly intact
Psych: Calm and Intact Judgment/Insight
Mr. Pinedo is an 84-year-old male with a medical history of COPD (home oxygen as needed), asthma, recurrent Pseudomonas pulmonary infections, CAD (status post CABG), mitral valve replacement (08/2016), complete heart block (pacemaker placed
02/2017), HFpEF, hypertension, and duodenal ulcer who returns to [facility] due to shortness of breath, hypoxia, and generalized weakness. He was discharged home 11/11 after inpatient treatment at this facility for pneumonia. He had been
treated during that hospitalization with a combination of cefepime and Levaquin due to his history of multidrug-resistant Pseudomonas pulmonary infections. He was discharged to home on Levaquin. However since that time has been feeling
progressively more fatigued and becoming significantly hypoxic with minimal exertion despite supplemental oxygen use.
In the ED today, he was normotensive, heart rate was controlled around 90, he was tachypneic with RR around 35 initially, pulse ox in the mid 80s, and afebrile. His pulse ox improved to the mid 90s on 5 L via nasal cannula. His labs are
significant for leukocytosis of 18,000 and lactate within normal limits at 1.8. Chest x-ray showed slight progression of pneumonia from previous admission. He was given a bolus of 1 L normal saline, cultures were obtained, and he was started on
broad-spectrum antibiotics with vancomycin and cefepime. He has been admitted for further evaluation and management of sepsis secondary to pseudomonal pneumonia.
Sepsis secondary to pneumonia:
- History of multidrug-resistant Pseudomonas pulmonary infections
- Will continue antibiotics with cefepime, prior sputum culture show sensitivity to cefepime
- Repeat sputum cultures
- Do not feel we need to cover for MRSA at this time considering recent negative screen
- Continue scheduled breathing treatments with additional as needed
- Supplemental oxygen, titrate to maintain O2 sat between 88 to 92%
- ID consult
- Respiratory panel negative for COVID-19 and influenza, urine Legionella and strep pneumo antigens negative during recent admission
Acute on chronic hypoxic respiratory failure:
- Secondary to pneumonia
- Patient uses supplemental oxygen at home as needed
- Now on 5 L via nasal cannula
- Titrate to maintain pulse ox between 88 and 92%
- Treatment of pulmonary infection as above
HFpEF, chronic:
- Currently compensated, euvolemic
- Continue beta-blockade with home metoprolol tartrate 12.5 mg p.o. twice daily
- Home Lasix 40 mg p.o. daily
CAD:
- Chronic, stable
- Continue home aspirin and statin
DVT prophylaxis: Lovenox
CODE STATUS: Full code
Total time spent on today's encounter was 60 minutes
[2024-11-13] MEDS: LOVENOX 40 MG SC (18:12)
[2024-11-13] MEDS: LIPITOR 20 MG PO (18:12)
[2024-11-13] MEDS: LOPRESSOR 12.5 MG PO (19:51)
[2024-11-13] MEDS: SYMBICORT 160/4.5 MCG INHALER 2 PUFF INH (20:09)
[2024-11-13] MEDS: DUONEB 3 ML INH (20:16)
[2024-11-13] MEDS: REFRESH CELLUVISC GEL 1 DROPS BOTH EYES (21:17)
[2024-11-13] MEDS: TESSALON PERLES 100 MG PO (21:17)
[2024-11-14] MEDS: MAXIPIME 1000 MG IV ×4 (00:20→23:02)
[2024-11-14] MEDS: STERILE WATER FOR INJECTION 10 ML IV ×4 (00:21→23:02)
[2024-11-14 06:00] VITALS: BMI 19.6
[2024-11-14] MEDS: SPIRIVA RESPIMAT 2.5 MCG 2 PUFF INH (06:03)
[2024-11-14] MEDS: SYMBICORT 160/4.5 MCG INHALER 2 PUFF INH ×2 (06:03→18:41)
[2024-11-14] MEDS: DUONEB 3 ML INH (06:07)
[2024-11-14 07:14] LABS: % Basophils 0.3 % (0-2); % Eosinophils 8.1 % (0-6); % Immature Granulocytes 1.1 % (0-0.5); % Lymphocytes 6.9 % (20.5-51.1); % Monocytes 5.4 % (1.7-9.3); % Neutrophils 78.2 % (42.2-75.2); Absolute Basophils 0.1 10^3/uL (0-0.2); Absolute Eosinophils 1.2 10^3/uL (0-0.7); Absolute Immature Granulocytes 0.2 10^3/uL (0-0.05); Absolute Monocytes 0.8 10^3/uL (0.1-0.6); Absolute Neutrophils 11.5 10^3/uL (1.4-6.5); Hematocrit 32.8 % (39.0-52.0); Hemoglobin 11.1 g/dL (13.0-18.0); Mean Corp Hgb Conc. 33.8 g/dL (33.0-37.0); Mean Corpuscular Hgb 29.8 pg (27.0-31.0); Mean Corpuscular Volume 87.9 fL (80.0-94.0); Mean Platelet Volume 11.5 fL (7.4-10.4); Nucleated Red Blood Cells % 0 % (-); Platelet Count 274 10^3/uL (130-400); Red Blood Cell Count 3.73 10^6/uL (4.70-6.10); Red Cell Dist. Width 15.9 % (11.5-14.5); White Blood Cell Count 14.7 10^3/uL (4.8-10.8)
[2024-11-14 07:49] LABS: Blood Urea Nitrogen 40 mg/dl (9-20); Calcium 8.8 mg/dl (8.4-10.2); Carbon Dioxide 24 mmol/L (22-30); Chloride 109 mmol/L (98-107); Estimated Creatinine Clearance 52 ml/min; Glucose 99 mg/dl (70-99); Sodium 137 mmol/L (135-145); eGFR > 60.00
[2024-11-14 08:00] VITALS: BP 131/61
--- NOTE | 2024-11-14 08:23 | VNURNOTE ---
Chart reviewed. Patient recently hospitalized 11/08-11/11. Patient is current with [facility] nursing, PT. Will continue to follow hospital course and DC plans.
[2024-11-14] MEDS: LOPRESSOR 12.5 MG PO ×2 (08:28→20:40)
[2024-11-14] MEDS: CLARITIN 10 MG PO (08:28)
[2024-11-14] MEDS: PEPCID 20 MG PO (08:29)
[2024-11-14] MEDS: THERAGRAN 1 TABLET PO (08:29)
[2024-11-14] MEDS: LASIX 40 MG PO (08:29)
[2024-11-14] MEDS: ASPIR LOW (ENTERIC COATED) 81 MG PO (08:29)
[2024-11-14] MEDS: FLUSH (NSS) 2 FLUSH IV ×2 (08:30→16:26)
[2024-11-14] MEDS: TESSALON PERLES 100 MG PO ×2 (08:32→16:34)
--- NOTE | 2024-11-14 14:01 | CON.ID ---
Consultation
-
Date/Time Consultation Requested: 11/13/2024 1639
Date/Time Consultation Performed: 11/14/2024 1330
Requesting Provider: Dr. Taveras
Performing Provider: Dr. Villegas
Reason for Consultation: Pneumonia
Chief Complaint / Past History
Chief Complaint
SOB and cough
History of Present Illness
Angelito Pinedo is an 84-year-old man being seen in infectious consultation regarding Pseudomonas pneumonia. History is obtained from chart review, along with patient interview.
The patient is known to the ID service, having recently been seen on his admission dated 11/08 through 11/11/2024. During that admission, sputum cultures revealed the presence of Pseudomonas aeruginosa. Patient was ultimately discharged on
levofloxacin, to continue through 11/16.
The patient reports that following discharge, he had progressive shortness of breath, along with progressive weakness. He notes that he has been increasing fatigue since discharge and he became hypoxemic even with minimal exertion. He reports he
still has a cough, although sputum production has overall decreased as compared to when he was admitted on 11/08.
At admission he was placed on cefepime. Today he reports he feels about the same as yesterday, with ongoing weakness. He has not had any significant fevers. In the outpatient setting he follows with Dr. Cabezas of Pulmonary. At present, he
admits to a headache, he denies any chest pain, but notes ongoing shortness of breath. He denies any abdominal pain, nausea or vomiting.
Past History
Additional Past Medical History:
COPD on prn home O2
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
Hypertension.
Hyperlipidemia.
Coronary artery disease, status post CABG x2 08/2016.
Severe mitral regurgitation and mitral valve prolapse, status post mitral valve repair 08/2016.
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
Right bundle branch block.
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
Pulmonary nodule.
GERD.
Rectal polyps.
Duodenal ulcer 2017.
Peripheral neuropathy.
BPH.
Deviated septum.
Remote shingles.
Hearing impairment bilaterally.
Osteoarthritis, status post bilateral total hip arthroplasties
left TKA
�
Allergy History:
adhesive tape Allergy (Verified 11/13/24 13:53)
skin irritation
azithromycin Allergy (Verified 11/13/24 13:53)
GI upset
cat dander Allergy (Verified 11/13/24 13:53)
pat has cats/coughing, sneezing
moxifloxacin Allergy (Verified 11/13/24 13:53)
Unknown
penicillin G Allergy (Verified 11/13/24 13:53)
1960s had reaxn to injection-said he required treatment
Penicillins Allergy (Verified 11/13/24 13:53)
rash to amoxicillin [id number]'s many years ago
pollen extracts Allergy (Verified 11/13/24 13:53)
ENVIRONMENTAL-coughing, sneezing,ITCHING
Sulfa (Sulfonamide Antibiotics) Allergy (Verified 11/13/24 13:53)
Hives
sulfisoxazole Allergy (Verified 11/13/24 13:53)
Rash
tetanus toxoid, adsorbed Allergy (Verified 11/13/24 13:53)
Rash
Artifical sweeteners Allergy (Uncoded 11/13/24 13:53)
RECTAL PAIN
Medications Reviewed: Yes
Current Antibiotics:
Cefepime 1 g IV q8
Social History
Tobacco: Former Smoker
Alcohol: None
Drug: None
Personal:
Living: With Family
Employment: Retired
Family History
Family History: Not Pertinent
Review of Systems
Vital Signs
Temp Pulse Resp BP Pulse Ox
98.1 F 92 20 131/61 99
11/14/24 08:00 11/14/24 08:00 11/14/24 08:00 11/14/24 08:00 11/14/24 08:00
Physical Exam
Physical Exam
Constitutional: No Acute Distress, Comfortable, Chronically Ill, Non-toxic and Cachetic
Head: Normocephalic
Eyes: No Conjunctival Hemorrhage and Sclera Anicteric
Cardiovascular: Regular Rate, S1/S2 and Other (PPM pocket without induration/erythema); Negative S3/S4
Pulmonary: Coarse and Other (mildly labored); Negative Wheezes or Rales
Gastrointestinal: Soft, Non Tender, Non Distended and Normal Bowel Sounds
Extremities: Negative Edema
Musculoskeletal: Negative Spinal Tenderness
Neurological: AO x 3
Psychological: Calm
Lab / Diagnostic Study Results
11/14/24 06:03
11/14/24 06:03
Abs Immat Gran (auto) 0.2 10^3/uL (0-0.05) H 11/14/24 06:03
Absolute Neuts (auto) 11.5 10^3/uL (1.4-6.5) H 11/14/24 06:03
Absolute Lymphs (auto) 1.0 10^3/uL (1.2-3.4) L 11/14/24 06:03
Absolute Monos (auto) 0.8 10^3/uL (0.1-0.6) H 11/14/24 06:03
Absolute Basos (auto) 0.1 10^3/uL (0-0.2) 11/14/24 06:03
Immature Gran % 1.1 % (0-0.5) H 11/14/24 06:03
Neutrophils % 78.2 % (42.2-75.2) H 11/14/24 06:03
Lymphocytes % 6.9 % (20.5-51.1) L 11/14/24 06:03
Monocytes % 5.4 % (1.7-9.3) 11/14/24 06:03
Eosinophils % 8.1 % (0-6) H 11/14/24 06:03
Basophils % 0.3 % (0-2) 11/14/24 06:03
PT 16.5 Sec (11.4-14.6) H 11/13/24 14:18
INR 1.28 11/13/24 14:18
Lactic Acid 1.8 mmol/L (0.7-2.0) 11/13/24 14:19
Microbiology Results
Micro:
11/14/24 11:22 Respiratory Culture - Pending
Sputum Gram Stain - Preliminary
11/13/24 14:18 Influenza Types A & B (KAREN) - Final
Nasal Swab Negative for Influenza A & B, NAAT
Negative results must be combined with clinical observations
and patient history.
Nucleic Acid Amplification test (NAAT)performed on the
[employer] platform.
11/13/24 14:18 Blood Culture - Pending
Blood/Venous
11/13/24 14:18 Blood Culture - Pending
Blood/Venous
Imaging:
11/13/2024 CXR (2 view): Ongoing airspace consolidation is seen within the lingular segment and left upper lobe, slightly progressed compared to prior study. Small left pleural effusion. Patchy opacity at the right lung apex. Please see full
dictation for additional detail.
11/09/[address]: Left upper lobe pneumonia, new as compared with previous examination. Advanced emphysematous changes as seen previously. Unchanged partial atelectasis/scarring right apex with associated cylindrical and cystic bronchiectatic
change. Unchanged wedge-shaped area of consolidation at the right lung base likely related to atelectasis/scarring. Trace bilateral pleural effusions.
Assessment / Plan
Pulmonary infiltrate.
Hx Pseudomonas pneumonia versus colonization
Leukocytosis; improved
Suspect exacerbation COPD
HTN
HLD
CAD
GERD
Duodenal ulcer
Recommendations:
Continue with cefepime for the present, although can likely transition back to levaquin at D/C.
Repeat sputum culture.
Follow white count and temperature curve.
Monitor sputum volume.
Follow O2 requirements.
Care Review
Plan reviewed with: Physician (Hospitalist)
--- NOTE | 2024-11-14 14:27 | W.PN.HOSP.TC ---
Today's Communication/Plan
-
Assessment / Plan
Assessment / Plan
General: No Apparent Distress, Comfortable and Conversant
HEENT: NormoCephalic, Moist mucous membranes, Atraumatic
Respiratory: No wheezing, mild scattered rhonchi bilaterally, Non Labored Respirations at rest
Cardiac: S1/S2 and Regular Rhythm; No Rub or Gallop
GI: Soft, Non Tender, Non Distended and Normal Bowel Sounds
Musculoskeletal: No Edema, no deformity
Skin: Warm and dry
: NO Garcia
Neuro: Awake, Alert, Nonfocal/grossly intact
Psych: Calm and Intact Judgment/Insight
Mr. Pinedo is an 84-year-old male with a medical history of COPD (home oxygen as needed), asthma, recurrent Pseudomonas pulmonary infections, CAD (status post CABG), mitral valve replacement (08/2016), complete heart block (pacemaker placed
02/2017), HFpEF, hypertension, and duodenal ulcer who returns to [facility] due to shortness of breath, hypoxia, and generalized weakness. He was discharged home 11/11 after inpatient treatment at this facility for pneumonia. He had been
treated during that hospitalization with a combination of cefepime and Levaquin due to his history of multidrug-resistant Pseudomonas pulmonary infections. He was discharged to home on Levaquin. However since that time has been feeling
progressively more fatigued and becoming significantly hypoxic with minimal exertion despite supplemental oxygen use.
In the ED today, he was normotensive, heart rate was controlled around 90, he was tachypneic with RR around 35 initially, pulse ox in the mid 80s, and afebrile. His pulse ox improved to the mid 90s on 5 L via nasal cannula. His labs are
significant for leukocytosis of 18,000 and lactate within normal limits at 1.8. Chest x-ray showed slight progression of pneumonia from previous admission. He was given a bolus of 1 L normal saline, cultures were obtained, and he was started on
broad-spectrum antibiotics with vancomycin and cefepime. He has been admitted for further evaluation and management of sepsis secondary to pseudomonal pneumonia.
Sepsis secondary to pneumonia:
- History of multidrug-resistant Pseudomonas pulmonary infections
- Will continue antibiotics with cefepime, prior sputum culture show sensitivity to cefepime
- Repeat sputum cultures
- Do not feel we need to cover for MRSA at this time considering recent negative screen
- Continue scheduled breathing treatments with additional as needed
- Supplemental oxygen, titrate to maintain O2 sat between 88 to 92%
- ID following, recommendations appreciated
- Respiratory panel negative for COVID-19 and influenza, urine Legionella and strep pneumo antigens negative during recent admission
Acute on chronic hypoxic respiratory failure:
- Secondary to pneumonia
- Patient uses supplemental oxygen at home as needed
- Now on 3 L via nasal cannula
- Titrate to maintain pulse ox between 88 and 92%
- Treatment of pulmonary infection as above
HFpEF, chronic:
- Currently compensated, euvolemic
- Continue beta-blockade with home metoprolol tartrate 12.5 mg p.o. twice daily
- Home Lasix 40 mg p.o. daily
CAD:
- Chronic, stable
- Continue home aspirin and statin
DVT prophylaxis: Lovenox
CODE STATUS: Full code
Total time spent on today's encounter was 40 minutes
Anticipated Discharge: 24 - 48 hours
Subjective/Interval History
-
Date of Service: November 14, 2024
Patient was seen and examined at bedside this morning. Breathing more comfortably today but still feeling generalized weakness.
Objective Data
-
Labs:
Laboratory Results
11/14/24
06:03
WBC 14.7 H
Hgb 11.1 L
Hct 32.8 L
Plt Count 274
Sodium 137
Potassium 4.0
Chloride 109 H
Carbon Dioxide 24
BUN 40 H
Creatinine 0.8
Glucose 99
Calcium 8.8
Vital Signs:
Vital Signs
Temp Pulse Resp BP Pulse Ox
98.1 F 92 20 131/61 99
11/14/24 08:00 11/14/24 08:00 11/14/24 08:00 11/14/24 08:00 11/14/24 08:00
I&O
11/13/24 11/14/24 11/15/24
06:59 06:59 06:59
Output Total 530 / 530
Balance -530 / -530
Review of Systems
-
History Source: Patient
All other systems: Reviewed and negative
Constitutional: Reports Fatigue and Weakness
Respiratory: Reports Cough
Physical Exam
-
General: No Apparent Distress
[2024-11-14 15:17] VITALS: BP 136/58
--- NOTE | 2024-11-14 16:16 | PTCARENOTE ---
patient took oxygen off, PCT checked POX 93%, so patient ambulated to bathroom. upon return from bathroom this nurse assessed patient, very short of breath and POX 85%. placed back on 3l nasal cannula. pox rechecked ad 97%. patient no longer with
shortness of breath. plan of care on going.
[2024-11-14] MEDS: REFRESH CELLUVISC GEL 1 DROPS BOTH EYES (16:34)
[2024-11-14] MEDS: LIPITOR 20 MG PO (18:00)
[2024-11-14] MEDS: LOVENOX 40 MG SC (18:00)
[2024-11-14] MEDS: ROBITUSSIN AC 5 ML PO (23:02)
[2024-11-14 23:18] VITALS: BP 109/60
[2024-11-15] MEDS: TESSALON PERLES 100 MG PO ×3 (00:24→18:01)
[2024-11-15 06:00] VITALS: BMI 19.5
[2024-11-15 06:19] LABS: Hematocrit 31.5 % (39.0-52.0); Hemoglobin 10.9 g/dL (13.0-18.0); Mean Corp Hgb Conc. 34.6 g/dL (33.0-37.0); Mean Corpuscular Hgb 29.9 pg (27.0-31.0); Mean Corpuscular Volume 86.5 fL (80.0-94.0); Mean Platelet Volume 11.3 fL (7.4-10.4); Platelet Count 299 10^3/uL (130-400); Red Blood Cell Count 3.64 10^6/uL (4.70-6.10); Red Cell Dist. Width 15.5 % (11.5-14.5); White Blood Cell Count 11.8 10^3/uL (4.8-10.8)
[2024-11-15 06:34] LABS: Blood Urea Nitrogen 37 mg/dl (9-20); Calcium 8.8 mg/dl (8.4-10.2); Carbon Dioxide 25 mmol/L (22-30); Chloride 107 mmol/L (98-107); Estimated Creatinine Clearance 52 ml/min; Glucose 110 mg/dl (70-99); Potassium 3.9 mmol/L (3.5-5.1); Sodium 137 mmol/L (135-145); eGFR > 60.00
[2024-11-15 07:14] VITALS: BP 122/66
[2024-11-15] MEDS: SPIRIVA RESPIMAT 2.5 MCG 2 PUFF INH (07:17)
[2024-11-15] MEDS: SYMBICORT 160/4.5 MCG INHALER 2 PUFF INH (07:18)
[2024-11-15 07:54] LABS: % Basophils 0.5 % (0-2); % Eosinophils 8.7 % (0-6); % Immature Granulocytes 1.1 % (0-0.5); % Lymphocytes 11.8 % (20.5-51.1); % Monocytes 9.4 % (1.7-9.3); % Neutrophils 68.5 % (42.2-75.2); Absolute Basophils 0.1 10^3/uL (0-0.2); Absolute Immature Granulocytes 0.1 10^3/uL (0-0.05); Absolute Lymphocytes 1.4 10^3/uL (1.2-3.4); Absolute Monocytes 1.1 10^3/uL (0.1-0.6); Absolute Neutrophils 8.1 10^3/uL (1.4-6.5); Nucleated Red Blood Cells % 0 % (-)
[2024-11-15] MEDS: LOPRESSOR 12.5 MG PO ×2 (08:03→20:45)
[2024-11-15] MEDS: REFRESH CELLUVISC GEL 1 DROPS BOTH EYES (08:04)
[2024-11-15] MEDS: LASIX 40 MG PO (08:04)
[2024-11-15] MEDS: CLARITIN 10 MG PO (08:04)
[2024-11-15] MEDS: PEPCID 20 MG PO (08:04)
[2024-11-15] MEDS: MAXIPIME 1000 MG IV ×3 (08:05→23:11)
[2024-11-15] MEDS: STERILE WATER FOR INJECTION 10 ML IV ×3 (08:05→23:11)
[2024-11-15] MEDS: ASPIR LOW (ENTERIC COATED) 81 MG PO (08:05)
[2024-11-15] MEDS: THERAGRAN 1 TABLET PO (08:05)
[2024-11-15] MEDS: FLUSH (NSS) 2 FLUSH IV ×3 (08:06→18:01)
--- NOTE | 2024-11-15 09:59 | W.PN.ID1 ---
Date of Service
Date of Service: November 15, 2024
Today's Communication
Continue with cefepime for the present, although can likely transition back to levaquin at D/C - previously planned duration was through 11/16 would extend to 11/21
Repeat sputum culture 11/14 poor quality - repeat ordered
consideration of steroids per IM service
Assessment / Plan
Pulmonary infiltrate.
Hx Pseudomonas pneumonia versus colonization
Leukocytosis; improved
Suspect exacerbation COPD
Pacemaker
HTN
HLD
CAD
GERD
Duodenal ulcer
Recommendations:
Continue with cefepime for the present, although can likely transition back to levaquin at D/C - previously planned duration was through 11/16 would extend to 11/21
steroids per IM service
Repeat sputum culture 11/14 poor quality - repeat ordered
Follow white count and temperature curve.
Monitor sputum volume.
Follow O2 requirements.
Chief Complaint
-: Pneumonia and Other (COPD exacerbation)
Subjective / Review of Systems
afebrile
bp stable
down to 3L NC - dropping sats with ambulation yesterday
wheezing and still complaining of shortness of breath, just finished a neb treatment as I walked in
Vital Signs / Physical Exam
Vital Signs
Vital Signs
Temp Pulse Resp BP Pulse Ox
98.0 F 75 18 122/66 97
11/15/24 07:14 11/15/24 07:24 11/15/24 07:24 11/15/24 07:14 11/15/24 07:24
Physical Exam
Constitutional: No Acute Distress, Chronically Ill and Cachetic
Cardiovascular: Regular Rate and S1/S2; Negative Murmur or Rub
Pulmonary: Clear, Symmetric, Wheezes and Non Labored; Negative Rales
Gastrointestinal: Soft, Non Tender, Non Distended and Normal Bowel Sounds
Skin: Warm and Dry; Negative Rash or Jaundice
Objective Data
Lab Data
Lab Results
11/15/24 05:19
11/15/24 05:19
PT 16.5 Sec (11.4-14.6) H 11/13/24 14:18
INR 1.28 11/13/24 14:18
APTT 32.4 Sec (23.4-35.0) 11/13/24 14:18
Estimated Creat Clear 52 ml/min 11/15/24 05:19
Lactic Acid 1.8 mmol/L (0.7-2.0) 11/13/24 14:19
Total Bilirubin 0.8 mg/dl (0.2-1.3) 11/13/24 14:18
AST 14 U/L (17-59) L 11/13/24 14:18
ALT < 10 U/L (0-50) 11/13/24 14:18
Alkaline Phosphatase 85 U/L (38-126) 11/13/24 14:18
Most recent labs reviewed.
Micro Results:
11/14/24 11:22 Respiratory Culture - Preliminary
Sputum Gram Stain - Preliminary
11/13/24 14:18 Blood Culture - Preliminary
Blood/Venous No Growth in 24 hours- Final report to follow
11/13/24 14:18 Blood Culture - Preliminary
Blood/Venous No Growth in 24 hours- Final report to follow
11/13/24 14:18 Influenza Types A & B (KAREN) - Final
Nasal Swab Negative for Influenza A & B, NAAT
Negative results must be combined with clinical observations
and patient history.
Nucleic Acid Amplification test (NAAT)performed on the
[employer] platform.
Imaging:
11/13/2024 CXR (2 view): Ongoing airspace consolidation is seen within the lingular segment and left upper lobe, slightly progressed compared to prior study. Small left pleural effusion. Patchy opacity at the right lung apex. Please see full
dictation for additional detail.
11/09/[address]: Left upper lobe pneumonia, new as compared with previous examination. Advanced emphysematous changes as seen previously. Unchanged partial atelectasis/scarring right apex with associated cylindrical and cystic bronchiectatic
change. Unchanged wedge-shaped area of consolidation at the right lung base likely related to atelectasis/scarring. Trace bilateral pleural effusions.
Care Review
Plan reviewed with: Physician (Dr Padron - olivia, recent neb)
--- NOTE | 2024-11-15 10:26 | W.PN.HOSP.TC ---
Today's Communication/Plan
-
Assessment / Plan
Assessment / Plan
General: No Apparent Distress, Comfortable and Conversant
HEENT: NormoCephalic, Moist mucous membranes, Atraumatic
Respiratory: No wheezing, mild scattered rhonchi bilaterally, Non Labored Respirations at rest
Cardiac: S1/S2 and Regular Rhythm; No Rub or Gallop
GI: Soft, Non Tender, Non Distended and Normal Bowel Sounds
Musculoskeletal: No Edema, no deformity
Skin: Warm and dry
: NO Garcia
Neuro: Awake, Alert, Nonfocal/grossly intact
Psych: Calm and Intact Judgment/Insight
Mr. Pinedo is an 84-year-old male with a medical history of COPD (home oxygen as needed), asthma, recurrent Pseudomonas pulmonary infections, CAD (status post CABG), mitral valve replacement (08/2016), complete heart block (pacemaker placed
02/2017), HFpEF, hypertension, and duodenal ulcer who returns to [facility] due to shortness of breath, hypoxia, and generalized weakness. He was discharged home 11/11 after inpatient treatment at this facility for pneumonia. He had been
treated during that hospitalization with a combination of cefepime and Levaquin due to his history of multidrug-resistant Pseudomonas pulmonary infections. He was discharged to home on Levaquin. However since that time has been feeling
progressively more fatigued and becoming significantly hypoxic with minimal exertion despite supplemental oxygen use.
In the ED, he was normotensive, heart rate was controlled around 90, he was tachypneic with RR around 35 initially, pulse ox in the mid 80s, and afebrile. His pulse ox improved to the mid 90s on 5 L via nasal cannula. His labs are significant for
leukocytosis of 18,000 and lactate within normal limits at 1.8. Chest x-ray showed slight progression of pneumonia from previous admission. He was given a bolus of 1 L normal saline, cultures were obtained, and he was started on broad-spectrum
antibiotics with vancomycin and cefepime. He was admitted for further evaluation and management of sepsis secondary to pseudomonal pneumonia.
Sepsis secondary to pneumonia:
- History of multidrug-resistant Pseudomonas pulmonary infections
- Will continue antibiotics with cefepime, prior sputum culture show sensitivity to cefepime
- Repeat sputum culture pending
- Continue scheduled breathing treatments with additional as needed
- Supplemental oxygen, titrate to maintain O2 sat between 88 to 92%
- ID following, recommendations appreciated
Acute on chronic hypoxic respiratory failure:
- Secondary to pneumonia
- Patient uses supplemental oxygen at home as needed
- Now on 3-4 L via nasal cannula
- Titrate to maintain pulse ox between 88 and 92%
- Treatment of pulmonary infection as above
HFpEF, chronic:
- Currently compensated, euvolemic
- Continue beta-blockade with home metoprolol tartrate 12.5 mg p.o. twice daily
- Home Lasix 40 mg p.o. daily
CAD:
- Chronic, stable
- Continue home aspirin and statin
DVT prophylaxis: Lovenox
CODE STATUS: Full code
Total time spent on today's encounter was 40 minutes
Anticipated Discharge: 24 - 48 hours
Subjective/Interval History
-
Date of Service: November 15, 2024
Patient was seen and examined at bedside this morning. Continues to have cough productive of copious sputum. Reports feeling generally better than when he first arrived in the hospital. Still requiring supplemental oxygen via nasal cannula.
Objective Data
-
Labs:
Laboratory Results
11/15/24
05:19
WBC 11.8 H
Hgb 10.9 L
Hct 31.5 L
Plt Count 299
Sodium 137
Potassium 3.9
Chloride 107
Carbon Dioxide 25
BUN 37 H
Creatinine 0.8
Glucose 110 H
Calcium 8.8
Vital Signs:
Vital Signs
Temp Pulse Resp BP Pulse Ox
98.0 F 75 18 122/66 97
11/15/24 07:14 11/15/24 07:24 11/15/24 07:24 11/15/24 07:14 11/15/24 07:24
I&O
11/14/24 11/15/24 11/16/24
06:59 06:59 06:59
Intake Total 240 / 240
Output Total 980 / 980
Balance -740 / -740
Review of Systems
-
History Source: Patient
All other systems: Reviewed and negative
Constitutional: Reports Weakness
Respiratory: Reports Cough
Physical Exam
-
General: No Apparent Distress
[2024-11-15] MEDS: DUONEB 3 ML INH ×3 (10:27→19:47)
[2024-11-15] MEDS: SOLU-MEDROL PF 40 MG IV (12:31)
--- NOTE | 2024-11-15 14:15 | CON.PUL ---
Consultation
Consultation Request
Date/Time Consultation Requested: 11/15/2024
Date/Time Consultation Performed: 11/15/2024
Requesting Provider: Tee Gamboa
Performing Provider: Madhu Newton
Reason for Consultation: Cough, pneumonia
Medical History
-
Chief Complaint: Cough
History of Present Illness:
Patient is a 84-year-old gentleman with known history of oxygen dependent COPD, severe emphysema, upper lobe bronchiectasis and chronic Pseudomonas colonization who was recently admitted to the hospital for shortness of breath and was treated for
pneumonia and was discharged on levofloxacin. He was discharged on 11/11. Inpatient he was treated with both cefepime and Levaquin and he was discharged on Levaquin at the time of discharge. Reportedly he went home felt short of breath and hypoxic
despite supplemental oxygen use and returned back to the emergency room. He was noted to be slightly tachypneic in the emergency room with pulse ox in mid 80s and was otherwise afebrile. He was put on 5 L nasal cannula with improved saturations.
He was noted to have elevated WBCs. X-ray was suggestive of possibly slight progression of pneumonia from previous admission. Patient was resuscitated with IV fluids cultures were obtained and he was started on broad-spectrum antibiotics with
vancomycin and cefepime. He was evaluated by ID service also during this hospitalization. Pulmonary consultation was requested for further input.
Past Medical History
Past Medical History: Reports Other
Additional Past Medical History:
COPD on prn home O2
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
Hypertension.
Hyperlipidemia.
Coronary artery disease, status post CABG x2 08/2016.
Severe mitral regurgitation and mitral valve prolapse, status post mitral valve repair 08/2016.
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
Right bundle branch block.
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
Pulmonary nodule.
GERD.
Rectal polyps.
Duodenal ulcer 2016.
Peripheral neuropathy.
BPH.
Deviated septum.
Remote shingles.
Hearing impairment bilaterally.
Past Surgical History: Reports Other
Additional Past Surgical History:
Osteoarthritis, status post bilateral total hip arthroplasties
left TKA
Social History
Tobacco: Former Smoker (Quit 2017, had been smoking since age 19 approximately 0.25 packs per day = ~14 pack years)
Alcohol: Occasional
Drug: None
Personal:
Living: With Family
Family History
Family History: Not pertinent
Allergies / Home Medications
Allergies / Home Medications
Allergies
Allergy/AdvReac Type Severity Reaction Status Date / Time
adhesive tape Allergy skin Verified 11/13/24 13:53
irritation
azithromycin Allergy GI upset Verified 11/13/24 13:53
cat dander Allergy pat has Verified 11/13/24 13:53
cats/coughing,
sneezing
moxifloxacin Allergy Unknown Verified 11/13/24 13:53
penicillin G Allergy 1960s had Verified 11/13/24 13:53
reaxn to
injection-said
he
required
treatment
Penicillins Allergy rash to Verified 11/13/24 13:53
amoxicillin
[id number]'s
many years
ago
pollen extracts Allergy ENVIRONMENTAL-coughing, Verified 11/13/24 13:53
sneezing,ITCHING
Sulfa (Sulfonamide Allergy Hives Verified 11/13/24 13:53
Antibiotics)
sulfisoxazole Allergy Rash Verified 11/13/24 13:53
tetanus toxoid, adsorbed Allergy Rash Verified 11/13/24 13:53
Artifical sweeteners Allergy RECTAL PAIN Uncoded 11/13/24 13:53
Home Medications
�Medication �Instructions �Recorded �Confirmed �Last Taken �Type
ipratropium 0.5 mg-albuterol 3 mg 3 ml inhalation R BID 08/08/1711/13/24 09/11/24 History
(2.5 mg base)/3 mL nebulization Lung/Breathing Issues
soln
metoprolol tartrate 25 mg tablet 12.5 mg (1/2 x 25 mg) PO BID #10 02/14/23 11/13/24 11/13/24 Rx
tabs
benzonatate 100 mg capsule 100 mg PO DAILYPRN PRN cough 03/09/23 11/13/24 11/08/24 History
atorvastatin 20 mg tablet 20 mg PO QPM High Cholesterol 09/11/24 11/13/24 11/07/24 History
budesonide 0.5 mg/2 mL suspension 0.5 mg inhalation R BID 09/11/24 11/13/24 11/07/24 History
for nebulization Lung/Breathing Issues
codeine 10 mg-guaifenesin 100 mg/5 5 ml PO HSPRN PRN cough 09/11/24 11/13/24 Unknown History
mL oral liquid
diphenhydramine 25 1 tab PO HSPRN PRN sleep 09/11/24 11/13/24 11/06/24 History
mg-acetaminophen 500 mg tablet
(Tylenol PM Extra Strength)
famotidine 40 mg tablet 40 mg PO DAILY Gastrointestinal 09/11/24 11/13/24 11/13/24 History
Issue
furosemide 40 mg tablet 40 mg PO DAILY Fluid 09/11/24 11/13/24 11/13/24 History
Retention/Swelling
vit C 250 mg-E 90 mg-zinc 40 1 tab PO BID Supplement 09/11/24 11/13/24 11/13/24 History
mg-copper 1 [id number] chew
tablet (PreserVision AREDS-2)
aspirin 81 mg tablet 81 mg PO DAILY Blood Clot 11/08/24 11/13/24 11/13/24 History
Prevention/Tx
budesonide 160 mcg-glycopyr 9 2 inh inhalation R BID 11/08/24 11/13/24 11/08/24 History
mcg-formot 4.8 mcg/actuation HFA Lung/Breathing Issues
inhaler (Breztri Aerosphere)
carboxymethylcellulose sodium 0.25 1 drp BOTH EYES DAILYPRN PRN dry 11/08/24 11/13/24 Unknown History
% eye drops (TheraTears) eyes
fluticasone propionate 50 2 spray intranasal DAILY Congestion 11/08/24 11/13/24 11/08/24 History
mcg/actuation nasal
spray,suspension
loratadine 10 mg tablet 10 mg PO DAILY Allergies 11/08/24 11/13/24 11/13/24 History
therapeutic multivitamin 1 tab PO DAILY Supplement 11/08/24 11/13/24 11/13/24 History
levofloxacin 750 mg tablet 750 mg PO Q48H #3 tabs 11/11/24 11/13/24 11/13/24 Rx
Review of Systems
-
Respiratory: Cough, Trouble Breathing and Other (Wheezing, smith to grayish expectoration. No hemoptysis reported.)
Hematologic/Lymphatic: Other (All 14 systems reviewed and negative except as stated above in the history of present illness.)
Vitals / Labs / Diagnostic Testing
Vital Signs
Temp Pulse Resp BP Pulse Ox
99.6 F 76 18 122/66 97
11/15/24 12:22 11/15/24 10:30 11/15/24 10:30 11/15/24 07:14 11/15/24 10:30
Lab Data
11/15/24 05:19
11/15/24 05:19
Microbiology
11/14/24 11:22 Sputum Respiratory Culture - Preliminary
11/14/24 11:22 Sputum Gram Stain - Preliminary
11/13/24 14:18 Blood/Venous Blood Culture - Preliminary
No Growth in 24 hours- Final report to follow
11/13/24 14:18 Blood/Venous Blood Culture - Preliminary
No Growth in 24 hours- Final report to follow
11/13/24 14:18 Nasal Swab Influenza Types A & B (KAREN) - Final
Negative for Influenza A & B, NAAT
Negative results must be combined with clinical observations
and patient history.
Nucleic Acid Amplification test (NAAT)performed on the
[email or web address] NOW platform.
Diagnostic Testing:
Physical Exam
-
HEENT: Normocephalic
Cardiovascular: S1/S2
Respiratory: Wheeze, Rhonchi and Non-Labored Respirations
GI: Soft and Non Distended
Neurology: Awake and Alert
Skin: Warm
General: Comfortable
Assessment
-
#1. Acute on chronic hypoxic respiratory failure
- Related to Pneumonia with underlying severe emphysema and bronchiectasis
- Continue supplemental oxygen to keep oxygen saturation above 88%
#2. Multifocal pneumonia, Lingula and RUL.
- Continue Cefepime as prescribed
- h/o Pseudomonas colonization (Bronchiectasis noted with architecture distortion)
- ID service on case
- Once discharged, we will switch back to levofloxacin oral, therapy recommended until 11/21 per infectious disease service
#3. Severe Emphysema with acute exacerbation of COPD (former smoker)
- Switch to Duoneb qid
- In view of recurrent Pneumonias, will d/c inhaled steroids.
- Was supposed to be on Breztri at home, will recommend discharging on Anoro (LAMA/LABA) instead and avoid inhaled steroids
- Lower systemic steroids to 40 mg daily with plan for short 5 days course only
#4. Bronchiectasis with RUL fibrotic changes.
- Avoid inhaled steroids
- Minimize systemic steroids
- Start 3% NS nebulized bid with Duoneb
Other medical diagnosis:
- HFpEF
- CAD, s/p CABG
- h/o severe MR, s/p MVR
Discussed with primary team as well.
Total time spent on this consultation/encounter __81__ minutes which includes review of history, physical exam, medications, laboratory data, personal review of imaging, extensive review of outpatient records, discussion with care team and
respiratory therapy.
Data:
CXR 10/2024: 1. Patchy opacity throughout the lingular segment left upper lobe, slightly progressed compared to prior study. Findings likely represent pneumonia superimposed on chronic interstitial lung disease.
2. Hazy opacity at the right lung apex, unchanged, also suggestive of pneumonia superimposed on chronic interstitial process.
3. Small left pleural effusion.
CT Chest 10/2024: 1. Left upper lobe pneumonia, new as compared with previous examination.
2. Advanced emphysematous changes as seen previously. Unchanged partial atelectasis/scarring right apex with associated cylindrical and cystic bronchiectatic change. Unchanged wedge-shaped area of consolidation at the right lung base likely
related to atelectasis/scarring. Trace bilateral pleural effusions.
Lexiscan 03/2024: There is a medium sized, fixed defect of mild to moderate severity in the mid inferior, mid inferoseptal, apical inferior, apical septal and apex consistent with finding of known pacemaker and some degree of infarction. Systolic
function is normal global contractility with abnormal septal motion consistent with pacemaker.. The ejection fraction is 52%.
Stress Risk is moderate risk study (1 - 3% [place] or /year) due to pharmacologic agent used.
Compared with the study performed on 03/08/2021. The size of the defect has decreased in no longer includes the apical anterior wall and inferolateral wall. The overall systolic function has improved from 45% to 52% on today's study.
ECHO 03/2024: Mildly reduced left ventricular systolic function. Left ventricular ejection
fraction is 50% by Wilcox's method.
Stage II diastolic dysfunction suggestive of abnormal relaxation and increased
filling pressures.
MVR with peak/mean gradients across the mitral valve are 14/5 mmHg.
Moderate to severe mitral regurgitation.
Compared to previous echo 07/04/2023, the mitral regurgitation is sightly
progressed.
--- NOTE | 2024-11-15 14:59 | CM ---
Patient who was readmitted with Dx Sepsis secondary to pneumonia, HF. O2 4L. Receiving IV Steroids, IV Abx. PT/OT Prudencio pending.
Spoke with patient and daughter Stephanie;
the patient resides with his in a 2 story home, 3 steps to enter, flight to second floor.
He was independent prior to his last recent admission.
Patient states he wa discharged to home and returned to hospital a day later.
At home he was having trouble breathing and trouble walking using his rollator.
The patient was using his home O2 that was not helping and he slept downstairs on the sofa.
DME - rollator, RW, SPC, home O2 concentrator and portables through [facility]
Current with [facility] for nurse and PT- not seen before readmitted
SNF - [facility]
PCP - [facility]
Pharmacy - [facility]
Patient and daughter want patient to return home and resume [facility] services.
Plan follow up after seen by PT/OT.
Plan home with resumption [facility].
[2024-11-15 15:00] VITALS: BP 109/62
[2024-11-15] MEDS: LOVENOX 40 MG SC (18:01)
[2024-11-15] MEDS: LIPITOR 20 MG PO (18:01)
[2024-11-15] MEDS: SODIUM CHLORIDE 3% FOR INHALATION 1 VIAL INH (19:47)
[2024-11-15 23:05] VITALS: BP 119/60
[2024-11-15] MEDS: ROBITUSSIN AC 5 ML PO (23:10)
[2024-11-16] MEDS: TESSALON PERLES 100 MG PO ×2 (02:29→20:57)
--- NOTE | 2024-11-16 05:04 | PTCARENOTE ---
Pt called and states he was feeling hot and sweaty. Pt's gown and bedding changed. Was not possible to get oral or axillary temperature on the pt. Rectal Temp=96. Pt covered with warm blanket and CIRCULAR KNITTER made aware, ordered a kylee hugger with a goal
Temp=97. Kylee hugger applied at 0445, medium setting (T=38c). Check Temp at 0500=97.4. Kylee hugger D/C. Will keep close monitoring on pt's Temperature. Advise pt to keep blankets on.
[2024-11-16 06:00] VITALS: BMI 19.4
[2024-11-16 06:43] LABS: % Basophils 0.2 % (0-2); % Eosinophils 0.1 % (0-6); % Immature Granulocytes 1.3 % (0-0.5); % Lymphocytes 6.8 % (20.5-51.1); % Monocytes 4.8 % (1.7-9.3); % Neutrophils 86.8 % (42.2-75.2); Absolute Immature Granulocytes 0.2 10^3/uL (0-0.05); Absolute Lymphocytes 0.8 10^3/uL (1.2-3.4); Absolute Monocytes 0.6 10^3/uL (0.1-0.6); Absolute Neutrophils 10.2 10^3/uL (1.4-6.5); Hematocrit 29.4 % (39.0-52.0); Mean Corpuscular Hgb 29.4 pg (27.0-31.0); Mean Corpuscular Volume 86.5 fL (80.0-94.0); Mean Platelet Volume 11.3 fL (7.4-10.4); Nucleated Red Blood Cells % 0 % (-); Platelet Count 283 10^3/uL (130-400); Red Cell Dist. Width 15.3 % (11.5-14.5); White Blood Cell Count 11.8 10^3/uL (4.8-10.8)
[2024-11-16 06:57] LABS: Blood Urea Nitrogen 34 mg/dl (9-20); Calcium 8.9 mg/dl (8.4-10.2); Carbon Dioxide 27 mmol/L (22-30); Chloride 105 mmol/L (98-107); Estimated Creatinine Clearance 52 ml/min; Glucose 201 mg/dl (70-99); Potassium 4.3 mmol/L (3.5-5.1); Sodium 136 mmol/L (135-145); eGFR > 60.00
[2024-11-16] MEDS: DUONEB 3 ML INH ×4 (07:19→19:35)
[2024-11-16] MEDS: SODIUM CHLORIDE 3% FOR INHALATION 1 VIAL INH ×2 (07:19→19:35)
[2024-11-16] MEDS: LOPRESSOR 12.5 MG PO ×2 (07:46→20:50)
[2024-11-16] MEDS: CLARITIN 10 MG PO (07:46)
[2024-11-16] MEDS: PEPCID 20 MG PO (07:47)
[2024-11-16] MEDS: SOLU-MEDROL PF 40 MG IV (07:47)
[2024-11-16] MEDS: THERAGRAN 1 TABLET PO (07:47)
[2024-11-16] MEDS: MAXIPIME 1000 MG IV ×2 (07:47→16:35)
[2024-11-16] MEDS: LASIX 40 MG PO (07:47)
[2024-11-16] MEDS: ASPIR LOW (ENTERIC COATED) 81 MG PO (07:47)
[2024-11-16] MEDS: STERILE WATER FOR INJECTION 10 ML IV ×2 (07:47→16:35)
[2024-11-16 07:55] VITALS: BP 122/61
--- NOTE | 2024-11-16 11:30 | W.PN.ID1 ---
Date of Service
Date of Service: November 16, 2024
Today's Communication
resolved wheezing today - 'I feel much better'
Continue with cefepime for the present, although can likely transition back to levaquin at D/C with improved renal function at 750 q24h through 11/21
Repeat sputum culture 11/15 - hortencia albicans - normal resp jian
could follow overnight or consider discharge with pulmonary follow up
Assessment / Plan
Pulmonary infiltrate.
Hx Pseudomonas pneumonia versus colonization
Leukocytosis; improved
Suspect exacerbation COPD
Pacemaker
HTN
HLD
CAD
GERD
Duodenal ulcer
Recommendations:
resolved wheezing today - 'I feel much better'
Continue with cefepime for the present, although can likely transition back to levaquin at D/C with improved renal function at 750 q24h through 11/21
Repeat sputum culture 11/15 - hortencia albicans - normal resp jian
could follow overnight or consider discharge with pulmonary follow up
Chief Complaint
-: Pneumonia and Other (COPD exacerbation)
Subjective / Review of Systems
afebrile
bp stable
no new complaints
'I feel a lot better'
Vital Signs / Physical Exam
Vital Signs
Vital Signs
Temp Pulse Resp BP Pulse Ox
97.4 F 87 18 122/61 96
11/16/24 07:55 11/16/24 11:10 11/16/24 11:10 11/16/24 07:55 11/16/24 11:10
Physical Exam
Constitutional: No Acute Distress, Chronically Ill and Cachetic
Cardiovascular: Regular Rate and S1/S2; Negative Murmur or Rub
Pulmonary: Clear and Symmetric; Negative Wheezes or Rales
Gastrointestinal: Soft, Non Tender, Non Distended and Normal Bowel Sounds
Skin: Warm and Dry; Negative Rash or Jaundice
Objective Data
Lab Data
Lab Results
11/16/24 06:13
11/16/24 06:13
PT 16.5 Sec (11.4-14.6) H 11/13/24 14:18
INR 1.28 11/13/24 14:18
APTT 32.4 Sec (23.4-35.0) 11/13/24 14:18
Estimated Creat Clear 52 ml/min 11/16/24 06:13
Lactic Acid 1.8 mmol/L (0.7-2.0) 11/13/24 14:19
Total Bilirubin 0.8 mg/dl (0.2-1.3) 11/13/24 14:18
AST 14 U/L (17-59) L 11/13/24 14:18
ALT < 10 U/L (0-50) 11/13/24 14:18
Alkaline Phosphatase 85 U/L (38-126) 11/13/24 14:18
Most recent labs reviewed.
Micro Results:
11/14/24 11:22 Respiratory Culture - Final
Sputum Hortenica albicans
Gram Stain - Final
11/13/24 14:18 Blood Culture - Preliminary
Blood/Venous No Growth in 48 hours- Final report to follow
11/13/24 14:18 Blood Culture - Preliminary
Blood/Venous No Growth in 48 hours- Final report to follow
11/13/24 14:18 Influenza Types A & B (KAREN) - Final
Nasal Swab Negative for Influenza A & B, NAAT
Negative results must be combined with clinical observations
and patient history.
Nucleic Acid Amplification test (NAAT)performed on the
[employer] platform.
Imaging:
11/13/2024 CXR (2 view): Ongoing airspace consolidation is seen within the lingular segment and left upper lobe, slightly progressed compared to prior study. Small left pleural effusion. Patchy opacity at the right lung apex. Please see full
dictation for additional detail.
11/09/[address]: Left upper lobe pneumonia, new as compared with previous examination. Advanced emphysematous changes as seen previously. Unchanged partial atelectasis/scarring right apex with associated cylindrical and cystic bronchiectatic
change. Unchanged wedge-shaped area of consolidation at the right lung base likely related to atelectasis/scarring. Trace bilateral pleural effusions.
--- NOTE | 2024-11-16 11:50 | W.PN.HOSP.TC ---
Today's Communication/Plan
-
Assessment / Plan
Assessment / Plan
General: No Apparent Distress, Comfortable and Conversant
HEENT: NormoCephalic, Moist mucous membranes, Atraumatic
Respiratory: No wheezing, mild scattered rhonchi bilaterally, Non Labored Respirations at rest
Cardiac: S1/S2 and Regular Rhythm; No Rub or Gallop
GI: Soft, Non Tender, Non Distended and Normal Bowel Sounds
Musculoskeletal: No Edema, no deformity
Skin: Warm and dry
: NO Garcia
Neuro: Awake, Alert, Nonfocal/grossly intact
Psych: Calm and Intact Judgment/Insight
Mr. Pinedo is an 84-year-old male with a medical history of COPD (home oxygen as needed), asthma, recurrent Pseudomonas pulmonary infections, CAD (status post CABG), mitral valve replacement (08/2016), complete heart block (pacemaker placed
02/2017), HFpEF, hypertension, and duodenal ulcer who returns to [facility] due to shortness of breath, hypoxia, and generalized weakness. He was discharged home 11/11 after inpatient treatment at this facility for pneumonia. He had been
treated during that hospitalization with a combination of cefepime and Levaquin due to his history of multidrug-resistant Pseudomonas pulmonary infections. He was discharged to home on Levaquin. However since that time has been feeling
progressively more fatigued and becoming significantly hypoxic with minimal exertion despite supplemental oxygen use.
In the ED, he was normotensive, heart rate was controlled around 90, he was tachypneic with RR around 35 initially, pulse ox in the mid 80s, and afebrile. His pulse ox improved to the mid 90s on 5 L via nasal cannula. His labs are significant for
leukocytosis of 18,000 and lactate within normal limits at 1.8. Chest x-ray showed slight progression of pneumonia from previous admission. He was given a bolus of 1 L normal saline, cultures were obtained, and he was started on broad-spectrum
antibiotics with vancomycin and cefepime. He was admitted for further evaluation and management of sepsis secondary to pseudomonal pneumonia.
Sepsis secondary to pneumonia:
- Improving
- History of multidrug-resistant Pseudomonas pulmonary infections
- Will continue antibiotics with cefepime for now based on prior cultures, transition to Levaquin when ready for discharge to complete antibiotic course through 11/21
- Continue scheduled breathing treatments but discontinue inhaled corticosteroid based on pulmonology recommendations in the setting of chronic pseudomonal respiratory infection
- Added 3% nebulized saline
- Supplemental oxygen, titrate to maintain O2 sat between 88 to 92%
- ID following, recommendations appreciated
Acute on chronic hypoxic respiratory failure:
- Secondary to pneumonia, improving
- Patient uses supplemental oxygen at home as needed
- Now on 3-4 L via nasal cannula
- Titrate to maintain pulse ox between 88 and 92%
- Short course of systemic steroids
- Treatment of pulmonary infection as above, appreciate pulmonology guidance
HFpEF, chronic:
- Currently compensated, euvolemic
- Continue beta-blockade with home metoprolol tartrate 12.5 mg p.o. twice daily
- Home Lasix 40 mg p.o. daily
CAD:
- Chronic, stable
- Continue home aspirin and statin
DVT prophylaxis: Lovenox
CODE STATUS: Full code
Total time spent on today's encounter was 40 minutes
Anticipated Discharge: 24 - 48 hours
Subjective/Interval History
-
Date of Service: November 16, 2024
Patient was seen and examined at bedside this morning. Feeling well. Continues to have cough but less productive today.
Objective Data
-
Labs:
Laboratory Results
11/16/24
06:13
WBC 11.8 H
Hgb 10.0 L
Hct 29.4 L
Plt Count 283
Sodium 136
Potassium 4.3
Chloride 105
Carbon Dioxide 27
BUN 34 H
Creatinine 0.8
Glucose 201 H
Calcium 8.9
Vital Signs:
Vital Signs
Temp Pulse Resp BP Pulse Ox
97.4 F 87 18 122/61 96
11/16/24 07:55 11/16/24 11:10 11/16/24 11:10 11/16/24 07:55 11/16/24 11:10
I&O
11/15/24 11/16/24 11/17/24
06:59 06:59 06:59
Intake Total 240 / 240 750 / 750
Output Total 980 / 980 950 / 950
Balance -740 / -740 -200 / -200
Review of Systems
-
History Source: Patient
All other systems: Reviewed and negative
Respiratory: Reports Cough
Physical Exam
-
General: No Apparent Distress
[2024-11-16 11:56] VITALS: BP 123/62; PULSE 86; PULSE 88; O2SAT 94; O2SAT 97
--- NOTE | 2024-11-16 12:07 | W.PN.PUL3 ---
Today's Communication / Plan
-
- Continue current management
- Anticipate transition to oral prednisone and oral levofloxacin in AM
- Tentative discharge 11/17
Assessment
-
Patient is a 84-year-old gentleman with known history of oxygen dependent COPD, severe emphysema, upper lobe bronchiectasis and chronic Pseudomonas colonization who was recently admitted to the hospital for shortness of breath and was treated for
pneumonia and was discharged on levofloxacin. He was discharged on 11/11. Inpatient he was treated with both cefepime and Levaquin and he was discharged on Levaquin at the time of discharge. Reportedly he went home felt short of breath and hypoxic
despite supplemental oxygen use and returned back to the emergency room. He was noted to be slightly tachypneic in the emergency room with pulse ox in mid 80s and was otherwise afebrile. He was put on 5 L nasal cannula with improved saturations.
He was noted to have elevated WBCs. X-ray was suggestive of possibly slight progression of pneumonia from previous admission. Patient was resuscitated with IV fluids cultures were obtained and he was started on broad-spectrum antibiotics with
vancomycin and cefepime. He was evaluated by ID service also during this hospitalization. Pulmonary consultation was requested for further input.
#1. Acute on chronic hypoxic respiratory failure.
- 11/16. Patient reports overall feeling better, improving cough and dyspnea.
- Related to Pneumonia with underlying severe emphysema and bronchiectasis
- Continue supplemental oxygen to keep oxygen saturation above 88%
#2. Multifocal pneumonia, Lingula and RUL.
- Continue Cefepime as prescribed
- h/o Pseudomonas colonization (Bronchiectasis noted with architecture distortion)
- ID service on case
- Once discharged, we will switch back to levofloxacin oral, therapy recommended until 11/21 per infectious disease service
#3. Severe Emphysema with acute exacerbation of COPD (former smoker)
- Continue Duoneb qid
- In view of recurrent Pneumonias, stopped inhaled steroids.
- Was supposed to be on Breztri at home, will recommend discharging on Anoro (LAMA/LABA) instead and avoid inhaled steroids
- Continue lower dose of Solu-Medrol at 40 daily, will transition to 30 mg p.o. daily for another 4 to 5 days tomorrow
#4. Bronchiectasis with RUL fibrotic changes.
- Avoid inhaled steroids
- Minimize systemic steroids
- Continue 3% NS nebulized bid with Duoneb
Other medical diagnosis:
- HFpEF
- CAD, s/p CABG
- h/o severe MR, s/p MVR
Discussed with primary team as well.
Total time spent on this consultation/encounter __42__ minutes which includes review of history, physical exam, medications, laboratory data, personal review of imaging, extensive review of outpatient records, discussion with care team and
respiratory therapy.
Data:
CXR 10/2024: 1. Patchy opacity throughout the lingular segment left upper lobe, slightly progressed compared to prior study. Findings likely represent pneumonia superimposed on chronic interstitial lung disease.
2. Hazy opacity at the right lung apex, unchanged, also suggestive of pneumonia superimposed on chronic interstitial process.
3. Small left pleural effusion.
CT Chest 10/2024: 1. Left upper lobe pneumonia, new as compared with previous examination.
2. Advanced emphysematous changes as seen previously. Unchanged partial atelectasis/scarring right apex with associated cylindrical and cystic bronchiectatic change. Unchanged wedge-shaped area of consolidation at the right lung base likely
related to atelectasis/scarring. Trace bilateral pleural effusions.
Lexiscan 03/2024: There is a medium sized, fixed defect of mild to moderate severity in the mid inferior, mid inferoseptal, apical inferior, apical septal and apex consistent with finding of known pacemaker and some degree of infarction. Systolic
function is normal global contractility with abnormal septal motion consistent with pacemaker.. The ejection fraction is 52%.
Stress Risk is moderate risk study (1 - 3% RI or /year) due to pharmacologic agent used.
Compared with the study performed on 03/08/2021. The size of the defect has decreased in no longer includes the apical anterior wall and inferolateral wall. The overall systolic function has improved from 45% to 52% on today's study.
ECHO 03/2024: Mildly reduced left ventricular systolic function. Left ventricular ejection
fraction is 50% by Wilcox's method.
Stage II diastolic dysfunction suggestive of abnormal relaxation and increased
filling pressures.
MVR with peak/mean gradients across the mitral valve are 14/5 mmHg.
Moderate to severe mitral regurgitation.
Compared to previous echo 07/04/2023, the mitral regurgitation is sightly
progressed.
Subjective Data
-
Date of Service:
Date of Service: November 16, 2024
Subjective:
Patient comfortably sitting in bed, in no acute distress. Appears comfortable.
Review of Systems
Genitourinary: Other (All 14 systems reviewed and negative except as stated above in the history of present illness.)
Objective Data
Data Reviewed
Vital Signs / I&O / Oxygen:
Vital Signs
Temp Pulse Resp BP Pulse Ox
97.4 F 87 18 122/61 96
11/16/24 07:55 11/16/24 11:10 11/16/24 11:10 11/16/24 07:55 11/16/24 11:10
Intake and Output
11/15/24 11/16/24 11/17/24
06:59 06:59 06:59
Intake Total 240 / 240 750 / 750
Output Total 980 / 980 950 / 950
Balance -740 / -740 -200 / -200
SaO2 96
Nasal Cannula flow liters per 4
minute
Physical Exam
General: Comfortable
HEENT: Normocephalic
Cardiovascular: S1-S2
Respiratory: Clear
GI: Soft and Non Distended
Neurology: Awake, Alert and Oriented
Skin: Warm
Labs/Micro/Reports
Lab Data
11/16/24 06:13
05/25/25 06:13
Microbiology
11/14/24 11:22 Sputum Respiratory Culture - Final
Hortencia albicans
11/14/24 11:22 Sputum Gram Stain - Final
11/13/24 14:18 Blood/Venous Blood Culture - Preliminary
No Growth in 48 hours- Final report to follow
11/13/24 14:18 Blood/Venous Blood Culture - Preliminary
No Growth in 48 hours- Final report to follow
11/13/24 14:18 Nasal Swab Influenza Types A & B (KAREN) - Final
Negative for Influenza A & B, NAAT
Negative results must be combined with clinical observations
and patient history.
Nucleic Acid Amplification test (NAAT)performed on the
[employer] platform.
[2024-11-16 15:55] VITALS: BP 121/54
[2024-11-16] MEDS: LOVENOX 40 MG SC (16:35)
[2024-11-16] MEDS: LIPITOR 20 MG PO (16:35)
--- NOTE | 2024-11-16 21:45 | PTCARENOTE ---
Pt found in BR as shower call balderrama was on. Pt had opened shower door to remove piece of clothing he had drying in shower and accidentally pulled shower call balderrama. Pt was found by tech having some difficulty maneuvering in BR and catching O2 tubing
on foot. Pt grabbed wall to avoid what appeared to be potential fall. Assisted back to bed by tech. Bed alarm applied to bed w/explanation to pt that is was for his protection and safety and instructions given not to get OOB w/o assistance.
--- NOTE | 2024-11-16 23:00 | PTCARENOTE ---
Since bed alarm applied to bed, pt has been upset, stating it is hard and uncomfortable, as well as hot. Additional folded sheep applied over bed alarm to provide more comfort, however pt has become increasing uncomfortable and anxious, as well as
becoming somewhat SOB. Pt was observed talking on phone to daughter Stephanie, primary contact & POA, about his distress over bed alarm. Stephanie informed by this RN of incident in BR and resultant Bed alarm placement. Stephanie believes pt will be compliant
in calling and strongly requests alarm be removed and all 4 side rails be put up instead. Much encouragement given to leave alarm in place, but both pt and daughter insisting very strongly. Crew Boat Operator notified of situation and consent given by same
to remove alarm and put up 4 rails. Bed alarm removed. Both pt and daughter expressed appreciation & pt states he will ring for any need to get OOB. Pt no longer agitated and no longer SOB. Will monitor closely through the night.
[2024-11-16 23:31] VITALS: BP 124/66
[2024-11-17] MEDS: MAXIPIME 1000 MG IV ×2 (00:51→08:18)
[2024-11-17] MEDS: STERILE WATER FOR INJECTION 10 ML IV ×2 (00:51→08:18)
[2024-11-17] MEDS: FLUSH (NSS) 2 FLUSH IV (00:53)
[2024-11-17] MEDS: ROBITUSSIN AC 5 ML PO (02:01)
[2024-11-17 06:00] VITALS: BMI 19.5
--- NOTE | 2024-11-17 06:00 | PTCARENOTE ---
Since bed alarm removed, pt compliant w/calling for assist.
[2024-11-17] MEDS: SODIUM CHLORIDE 3% FOR INHALATION 1 VIAL INH (07:03)
[2024-11-17] MEDS: DUONEB 3 ML INH ×2 (07:03→11:22)
[2024-11-17 07:09] VITALS: BP 119/70
[2024-11-17] MEDS: CLARITIN 10 MG PO (08:14)
[2024-11-17] MEDS: PEPCID 20 MG PO (08:14)
[2024-11-17] MEDS: ASPIR LOW (ENTERIC COATED) 81 MG PO (08:14)
[2024-11-17] MEDS: THERAGRAN 1 TABLET PO (08:14)
[2024-11-17] MEDS: LOPRESSOR 12.5 MG PO (08:14)
[2024-11-17] MEDS: LASIX 40 MG PO (08:14)
[2024-11-17] MEDS: SOLU-MEDROL PF 40 MG IV (08:16)
[2024-11-17] MEDS: FLUSH (NSS) 3 FLUSH IV (08:18)
[2024-11-17] MEDS: TESSALON PERLES 100 MG PO (08:21)
--- NOTE | 2024-11-17 09:55 | W.PN.ID1 ---
Date of Service
Date of Service: November 17, 2024
Today's Communication
Continue with cefepime while inpatient, transition back to levaquin at D/C with improved renal function at 750 q24h through 11/21
Repeat sputum culture 11/15 - hortencia albicans - normal resp jian
stable for dc from ID perspective
follow up with pulmonary
Assessment / Plan
Pulmonary infiltrate.
Hx Pseudomonas pneumonia versus colonization
Leukocytosis; improved
Suspect exacerbation COPD
Pacemaker
HTN
HLD
CAD
GERD
Duodenal ulcer
Recommendations:
Continue with cefepime while inpatient, transition back to levaquin at D/C with improved renal function at 750 q24h through 11/21
Repeat sputum culture 11/15 - hortencia albicans - normal resp jian
stable for dc from ID perspective
follow up with pulmonary
Chief Complaint
-: Pneumonia and Other (COPD exacerbation)
Subjective / Review of Systems
afebrile
bp stable
tolerating current therapies
Vital Signs / Physical Exam
Vital Signs
Vital Signs
Temp Pulse Resp BP Pulse Ox
97.9 F 87 20 119/70 96
11/17/24 07:09 11/17/24 07:09 11/17/24 07:09 11/17/24 07:09 11/17/24 07:09
Physical Exam
Constitutional: No Acute Distress, Chronically Ill and Cachetic
Cardiovascular: Regular Rate and S1/S2; Negative Murmur or Rub
Pulmonary: Clear and Symmetric; Negative Wheezes or Rales
Gastrointestinal: Soft, Non Tender, Non Distended and Normal Bowel Sounds
Skin: Warm and Dry; Negative Rash or Jaundice
Objective Data
Lab Data
Lab Results
11/16/24 06:13
11/16/24 06:13
PT 16.5 Sec (11.4-14.6) H 11/13/24 14:18
INR 1.28 11/13/24 14:18
APTT 32.4 Sec (23.4-35.0) 11/13/24 14:18
Estimated Creat Clear 52 ml/min 11/16/24 06:13
Lactic Acid 1.8 mmol/L (0.7-2.0) 11/13/24 14:19
Total Bilirubin 0.8 mg/dl (0.2-1.3) 11/13/24 14:18
AST 14 U/L (17-59) L 11/13/24 14:18
ALT < 10 U/L (0-50) 11/13/24 14:18
Alkaline Phosphatase 85 U/L (38-126) 11/13/24 14:18
Most recent labs reviewed.
Micro Results:
11/16/24 20:59 Respiratory Culture - Pending
Sputum Gram Stain - Pending
11/13/24 14:18 Blood Culture - Preliminary
Blood/Venous No Growth in 72 hours- Final report to follow
11/13/24 14:18 Blood Culture - Preliminary
Blood/Venous No Growth in 72 hours- Final report to follow
11/14/24 11:22 Respiratory Culture - Final
Sputum Hortencia albicans
Gram Stain - Final
11/13/24 14:18 Influenza Types A & B (KAREN) - Final
Nasal Swab Negative for Influenza A & B, NAAT
Negative results must be combined with clinical observations
and patient history.
Nucleic Acid Amplification test (NAAT)performed on the
[employer] platform.
Imaging:
11/13/2024 CXR (2 view): Ongoing airspace consolidation is seen within the lingular segment and left upper lobe, slightly progressed compared to prior study. Small left pleural effusion. Patchy opacity at the right lung apex. Please see full
dictation for additional detail.
11/09/[address]: Left upper lobe pneumonia, new as compared with previous examination. Advanced emphysematous changes as seen previously. Unchanged partial atelectasis/scarring right apex with associated cylindrical and cystic bronchiectatic
change. Unchanged wedge-shaped area of consolidation at the right lung base likely related to atelectasis/scarring. Trace bilateral pleural effusions.
--- NOTE | 2024-11-17 12:06 | W.PN.PUL3 ---
Today's Communication / Plan
-
- stable for d/c from Pulmonary stand point
- Switch to PO Levofloxacin thru 11/21
- Continue PRN Duoneb at home
- D/c Breztri, prednisone and Budesonide. Avoid ICS in view of recurrent PNAs
- Start LAMA/LABA at d/c. Anoro or Stiolto
- Continue Home O2
- Pulmonary clinic follow up in 2 weeks time
- Pulmonary team will sign off, please call as needed.
Assessment
-
Patient is a 84-year-old gentleman with known history of oxygen dependent COPD, severe emphysema, upper lobe bronchiectasis and chronic Pseudomonas colonization who was recently admitted to the hospital for shortness of breath and was treated for
pneumonia and was discharged on levofloxacin. He was discharged on 11/11. Inpatient he was treated with both cefepime and Levaquin and he was discharged on Levaquin at the time of discharge. Reportedly he went home felt short of breath and hypoxic
despite supplemental oxygen use and returned back to the emergency room. He was noted to be slightly tachypneic in the emergency room with pulse ox in mid 80s and was otherwise afebrile. He was put on 5 L nasal cannula with improved saturations.
He was noted to have elevated WBCs. X-ray was suggestive of possibly slight progression of pneumonia from previous admission. Patient was resuscitated with IV fluids cultures were obtained and he was started on broad-spectrum antibiotics with
vancomycin and cefepime. He was evaluated by ID service also during this hospitalization. Pulmonary consultation was requested for further input.
#1. Acute on chronic hypoxic respiratory failure.
- 11/17. Patient reports overall feeling better, improving cough and dyspnea. Reports being close to baseline.
- Related to Pneumonia with underlying severe emphysema and bronchiectasis
- Continue supplemental oxygen to keep oxygen saturation above 88%
#2. Multifocal pneumonia, Lingula and RUL.
- Continue Cefepime as prescribed while Hospitalized. Switch to Levofloxacin at d/c thru 11/21.
- h/o Pseudomonas colonization (Bronchiectasis noted with architecture distortion)
- ID service on case
#3. Severe Emphysema with acute exacerbation of COPD (former smoker)
- Continue Duoneb qid
- In view of recurrent Pneumonias, stopped inhaled steroids.
- Was supposed to be on Breztri at home, will recommend discharging on Anoro (LAMA/LABA) instead and avoid inhaled steroids
- d/c steroids.
#4. Bronchiectasis with RUL fibrotic changes.
- Avoid inhaled steroids
- Minimize systemic steroids
- Continue 3% NS nebulized bid with Duoneb while here. No expectoration, will not continue post discharge.
Other medical diagnosis:
- HFpEF
- CAD, s/p CABG
- h/o severe MR, s/p MVR
Discussed with primary team as well.
Total time spent on this consultation/encounter __40__ minutes which includes review of history, physical exam, medications, laboratory data, personal review of imaging, extensive review of outpatient records, discussion with care team and
respiratory therapy.
Data:
CXR 10/2024: 1. Patchy opacity throughout the lingular segment left upper lobe, slightly progressed compared to prior study. Findings likely represent pneumonia superimposed on chronic interstitial lung disease.
2. Hazy opacity at the right lung apex, unchanged, also suggestive of pneumonia superimposed on chronic interstitial process.
3. Small left pleural effusion.
CT Chest 10/2024: 1. Left upper lobe pneumonia, new as compared with previous examination.
2. Advanced emphysematous changes as seen previously. Unchanged partial atelectasis/scarring right apex with associated cylindrical and cystic bronchiectatic change. Unchanged wedge-shaped area of consolidation at the right lung base likely
related to atelectasis/scarring. Trace bilateral pleural effusions.
Lexiscan 03/2024: There is a medium sized, fixed defect of mild to moderate severity in the mid inferior, mid inferoseptal, apical inferior, apical septal and apex consistent with finding of known pacemaker and some degree of infarction. Systolic
function is normal global contractility with abnormal septal motion consistent with pacemaker.. The ejection fraction is 52%.
Stress Risk is moderate risk study (1 - 3% OR or /year) due to pharmacologic agent used.
Compared with the study performed on 03/08/2021. The size of the defect has decreased in no longer includes the apical anterior wall and inferolateral wall. The overall systolic function has improved from 45% to 52% on today's study.
ECHO 03/2024: Mildly reduced left ventricular systolic function. Left ventricular ejection
fraction is 50% by Wilcox's method.
Stage II diastolic dysfunction suggestive of abnormal relaxation and increased
filling pressures.
MVR with peak/mean gradients across the mitral valve are 14/5 mmHg.
Moderate to severe mitral regurgitation.
Compared to previous echo 07/04/2023, the mitral regurgitation is sightly
progressed.
Subjective Data
-
Date of Service:
Date of Service: November 17, 2024
Subjective:
Comfortable in bed. No new symptoms. Reports feeling better.
Review of Systems
Genitourinary: Other (No new symptoms/ )
Objective Data
Data Reviewed
Vital Signs / I&O / Oxygen:
Vital Signs
Temp Pulse Resp BP Pulse Ox
97.9 F 82 16 119/70 96
11/17/24 07:09 11/17/24 11:22 11/17/24 11:22 11/17/24 07:09 11/17/24 07:09
Intake and Output
11/16/24 11/17/24 11/18/24
06:59 06:59 06:59
Intake Total 750 / 750 1500 / 1500
Output Total 950 / 950 480 / 480
Balance -200 / -200 1020 / 1020
SaO2 96
Nasal Cannula flow liters per 3
minute
Physical Exam
General: Comfortable
HEENT: Normocephalic
Cardiovascular: S1-S2
Respiratory: Clear
GI: Soft and Non Distended
Neurology: Awake, Alert and Oriented
Skin: Warm
Labs/Micro/Reports
Lab Data
11/16/24 06:13
11/16/24 06:13
Microbiology
11/13/24 14:18 Blood/Venous Blood Culture - Preliminary
No Growth in 72 hours- Final report to follow
11/13/24 14:18 Blood/Venous Blood Culture - Preliminary
No Growth in 72 hours- Final report to follow
11/14/24 11:22 Sputum Respiratory Culture - Final
Hortencia albicans
11/14/24 11:22 Sputum Gram Stain - Final
--- NOTE | 2024-11-17 12:07 | W.PN.HOSP.TC ---
Today's Communication/Plan
-
Transition to Levaquin through 11/21
Discontinue inhaled corticosteroid
Start Anoro Ellipta at DC
Assessment / Plan
Assessment / Plan
#Sepsis secondary to pneumonia
#Recurrent pseudomonal pulmonary infections
#COPD/bronchiectasis
-Suspect history of MDRO Pseudomonas in the context of bronchiectasis which is a risk factor for pseudomonal lung infection
-Also likely component of inhaled corticosteroid and systemic corticosteroid over time with pulmonary immunosuppression
-Presented here with recurrent infection, started on IV cefepime, sputum culture here without bacterial growth
-Pulmonology following; recommended discontinuing inhaled corticosteroid in context of chronic pseudomonal respiratory infection
-Has been receiving DuoNebs and nebulized saline here
-As of morning 11/17 was on 2 L with SpO2 mid to high 90s
-Will transition to PO Levaquin through 11/21/2024
-DC breztri and budesonide, avoid inhaled corticosteroid
#Acute on chronic hypoxic respiratory failure
-Patient has as needed O2 at home due to COPD/bronchiectasis
-Required up to 4 L O2 here, has been weaned down significantly
-Remains on RTC DuoNebs; home respiratory regimen adjusted as above
-No signs of bronchospasm, will defer advanced steroid course at time of DC
-Treatment of pulmonary infection as above, appreciate pulmonology guidance
#HFpEF, chronic
#S/p MVR
-Unclear etiology, possibly valvular; home regimen includes metoprolol tartrate and Lasix; no GDMT
-Last echocardiogram with LVEF 50% and grade 2 diastology; normal transvalvular gradients
-Currently compensated, euvolemic
#CAD s/p CABG
-Home regimen includes beta-karina, aspirin, statin
-No signs of ACS or other ischemic heart disease here
#Third-degree AVB s/p PPM
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
H/O PUD
DVT prophylaxis: Lovenox
CODE STATUS: Full code
Total time spent on today's encounter was 40 minutes
Anticipated Discharge: Today
Subjective/Interval History
-
Date of Service: November 17, 2024
Seen and examined at the bedside. No acute events reported overnight. AFVSS on 2 L O2 with SpO2 mid to high 90s
Patient states he feels well today. Had a bowel movement this morning. Breathing has improved
Agreeable to likely discharge today
Objective Data
-
Vital Signs:
Vital Signs
Temp Pulse Resp BP Pulse Ox
97.9 F 82 16 119/70 96
11/17/24 07:09 11/17/24 11:22 11/17/24 11:22 11/17/24 07:09 11/17/24 07:09
I&O
11/16/24 11/17/24 11/18/24
06:59 06:59 06:59
Intake Total 750 / 750 1500 / 1500
Output Total 950 / 950 480 / 480
Balance -200 / -200 1020 / 1020
Review of Systems
-
History Source: Patient
All other systems: Reviewed and negative
Physical Exam
-
General: Well Developed, No Apparent Distress, Comfortable, Appears Chronically Ill and Other (Thin and frail)
HEENT: Normocephalic, Atraumatic, Moist Mucous Membranes and Anicteric
Respiratory: Clear to Auscultation and Non Labored Respirations; Negative Wheezes, Rales, Rhonchi or Accessory Resp Muscle Use
Cardiac: Regular Rhythm, S1/S2 and Murmur; Negative Rub, JVD or Gallop
GI: Soft, Nontender, Nondistended and Normal Bowel Sounds
Musculoskeletal: No Clubbing, No Cyanosis and No Edema
Skin: Warm, Dry and Normal Turgor; Negative Rash
Neuro: AO x 3 and Nonfocal/Grossly Intact; Negative Tremors
Psych: Calm
Data Reviewed
-
Labs: Labs Reviewed by me, Discussed with Physician (Petrology Teacher) and Discussed with Patient
--- NOTE | 2024-11-17 12:39 | CM ---
Chart reviewed and patient has been cleared for discharge today, plan is to home with [facility], family to transport and bring in patient home oxygen.
Plan; Home with family and [facility].
[2024-11-17] MEDS: LEVAQUIN 750 MG PO (14:12)
[2024-11-17 14:42] VITALS: BP 136/71
--- NOTE | 2024-11-17 16:42 | W.DCSUMMARY ---
Discharge Summary
Discharge Data
Date of Admission: 11/13/24
Date of Discharge: 11/17/24
Total time spent discharging patient (in min): 31
-
Pending Results: No
Hospital Course
Discharging Physician :�Sami Espitia DO
Disposition :���� Home care
Principal Discharge diagnosis :�
Acute on chronic hypoxemic respiratory failure
Sepsis secondary to CAP
Community-acquired pneumonia
Recurrent pseudomonal lung infection
COPD/bronchiectasis
Chronic Discharge diagnosis :�
Chronic hypoxemic respiratory failure (as needed O2)
COPD/bronchiectasis
Chronic HFpEF
CAD s/p CABG
AVB s/p PPM
S/p MVR
HTN
Neuropathy
H/O DVT (no longer on AC)
H/O PUD
Hospital Course :�
84-year-old male that presented to the hospital on 11/13/2024 with dyspnea, generalized weakness. Found to be hypoxemic upon arrival. Recently discharged with pneumonia that was treated with cefepime and Levaquin due to recurrent MDRO pseudomonal
pulmonary infections. Was discharged with Levaquin every 48 hours though continued to feel worse. Upon arrival was resumed on IV cefepime. Initially treated with IV vancomycin as well this was discontinued following negative MRSA screen.
Infectious disease and pulmonary were consulted for guidance. Infectious disease recommended to transition back to Levaquin for extended course at time of discharge. Pump House Engineer recommended discontinuing inhaled corticosteroids and transitioning
to LABA/LAMA inhaler with as needed DuoNeb bronchodilators. Was recommended to follow-up with pulmonology in 2 to 3 weeks from time of discharge.
Consultants :
Infectious disease: Lissy Box MD
Pulmonology: Nicholas Newton MD
Important imaging findings :�
Chest x-ray (2 view, 11/13/2024)
IMPRESSION:
1. Patchy opacity throughout the lingular segment left upper lobe, slightly progressed compared to prior study. Findings likely represent pneumonia superimposed on chronic interstitial lung disease.
2. Hazy opacity at the right lung apex, unchanged, also suggestive of pneumonia superimposed on chronic interstitial process.
3. Small left pleural effusion.
Procedure findings :� N/A
Follow-up :
PCP in 1 to 2 weeks after discharge
Pulmonology in 2 to 3 weeks after discharge
Repeat PFTs and 6 MWT with pulmonology
Discharge Plan
-
Patient Disposition: Home with Home Care
Discharge Diagnosis/Procedures: Acute on chronic hypoxemic respiratory failure
Sepsis secondary to CAP
COPD/bronchiectasis
Recurrent lung infections with Pseudomonas
Condition: Fair
Diet: Low Cholesterol and No added salt
Activity: As tolerated
Driving Restrictions: No driving for 24 hours
Bathing Restrictions: None
Blood Work: None
Others Tests: PFTs and 6-minute walk test with emergency department aide
Activity Restrictions/Additional Instructions:
After discharge from the hospital you should follow-up with your family doctor, should be seen in the office within 1 to 2 weeks of discharge
Follow-up with emergency department aide in the office in 2 to 3 weeks from discharge
Instructions: Bronchiectasis in adults
Referrals:
Cleveland Charles MD [Family Provider] -
Ana Luisa Kenney CRNP [Specified Professional Personl] - in two to three weeks
()
Additional Discharge Medication Instructions: Continue levofloxacin 750 mg once daily through the end of 11/21/2024
Use Anoro Ellipta 1 inhalation every day
Use sodium chloride nebulizers twice daily as needed for chest congestion
Continue with DuoNebs every 4-6 hours as needed for shortness of breath or wheezing
Stop taking budesonide and beztri
Prescriptions:
New
sodium chloride [NebuSal] 3 % Solution For Nebulization
4 ml inhalation R BID Qty: 120 0RF
levofloxacin 750 mg tablet
750 mg PO Q24H Qty: 7 0RF
umeclidinium-vilanterol [Anoro Ellipta] 62.5-25 mcg/actuation blister with device
1 inh inhalation Q24H Qty: 60 0RF
Continued
ipratropium-albuterol 0.5 mg-3 mg(2.5 mg base)/3 mL solution for nebulization
3 ml inhalation R BID
metoprolol tartrate 25 mg Tablet
12.5 mg PO BID Qty: 10 0RF
benzonatate 100 mg capsule
100 mg PO DAILYPRN PRN (Reason: cough)
furosemide 40 mg Tablet
40 mg PO DAILY
atorvastatin 20 mg Tablet
20 mg PO QPM
famotidine 40 mg Tablet
40 mg PO DAILY
codeine-guaifenesin 10-100 mg/5 mL Liquid
5 ml PO HSPRN PRN (Reason: cough)
diphenhydramine-acetaminophen [Tylenol PM Extra Strength] 25-500 mg Tablet
1 tab PO HSPRN PRN (Reason: sleep)
PreserVision AREDS-2 250-90-40-1 mg Tablet,Chewable
1 tab PO BID
therapeutic multivitamin Tablet
1 tab PO DAILY
TheraTears 0.25 % Drops
1 drp BOTH EYES DAILYPRN PRN (Reason: dry eyes)
aspirin 81 mg Tablet
81 mg PO DAILY
fluticasone propionate 50 mcg/actuation spray,suspension
2 spray INTRANASAL DAILY
loratadine 10 mg Tablet
10 mg PO DAILY
Discontinued
budesonide 0.5 mg/2 mL Suspension For Nebulization
0.5 mg INHALATION R BID
Breztri Aerosphere 160-9-4.8 mcg/actuation HFA aerosol inhaler
2 inh INHALATION R BID
levofloxacin 750 mg Tablet
750 mg PO Q48H Qty: 3 0RF
Discharge Orders:
Discharge Patient (As Directed); Ordered 11/17/24
Ordered By: Sami Espitia
Discharge Date and Time
Discharge Date/Time: 11/17/24 15:18
Print Language: DANISH
== END 2024-11-17 15:18 | disposition home health service (06) | DRG 871 ==
LOC: 4 EAST ACU 16:45
PROVIDERS: ADMITTING PHYSICIAN Internal Medicine; ATTENDING PHYSICIAN Internal Medicine; CONSULT PHYSICIAN Internal Medicine; EMERGENCY PHYSICIAN Student in an Organized Health Care Education/Training Program; FAMILY PHYSICIAN Family Medicine; OTHER PHYSICIAN Internal Medicine Infectious Disease
DX: A41.52 Sepsis due to Pseudomonas (principal); J15.1 Pneumonia due to Pseudomonas; J96.21 Acute and chronic respiratory failure with hypoxia; J44.1 Chronic obstructive pulmonary disease with (acute) exacerbation; J44.0 Chronic obstructive pulmonary disease with (acute) lower respiratory infection; I50.32 Chronic diastolic (congestive) heart failure; J47.0 Bronchiectasis with acute lower respiratory infection; I44.2 Atrioventricular block, complete; J84.9 Interstitial pulmonary disease, unspecified; I11.0 Hypertensive heart disease with heart failure; Z95.1 Presence of aortocoronary bypass graft; I25.10 Atherosclerotic heart disease of native coronary artery without angina pectoris; Z95.2 Presence of prosthetic heart valve; G62.9 Polyneuropathy, unspecified; K21.9 Gastro-esophageal reflux disease without esophagitis; N40.0 Benign prostatic hyperplasia without lower urinary tract symptoms; J34.2 Deviated nasal septum; H91.93 Unspecified hearing loss, bilateral; I45.10 Unspecified right bundle-branch block; E78.5 Hyperlipidemia, unspecified; Z95.0 Presence of cardiac pacemaker; M19.90 Unspecified osteoarthritis, unspecified site; Z96.652 Presence of left artificial knee joint; Z96.643 Presence of artificial hip joint, bilateral; Z87.891 Personal history of nicotine dependence; Z88.1 Allergy status to other antibiotic agents; Z88.0 Allergy status to penicillin; Z88.2 Allergy status to sulfonamides; Z11.52 Encounter for screening for COVID-19; Z99.81 Dependence on supplemental oxygen; J43.9 Emphysema, unspecified; Z79.82 Long term (current) use of aspirin; Z79.899 Other long term (current) drug therapy; Z87.01 Personal history of pneumonia (recurrent); Z87.11 Personal history of peptic ulcer disease
CPT/HCPCS: 71046; 80048; 80053; 82805; 83605; 85025; 85610; 85730; 87040; 87070; 87205; 87502; 87811; 93005; 94640; 96361; 96365; 96366; 96375; 97162; 97166; 99285

== ENCOUNTER → 2024-12-12 11:02 | Outpatient (REF) | payer BC, SELFPAY | LOC: RAD 11:02 | PROVIDERS: ATTENDING PHYSICIAN Nurse Practitioner Family; FAMILY PHYSICIAN Family Medicine | DX: Z87.01 Personal history of pneumonia (recurrent) (principal) | CPT/HCPCS: 71046 ==

== ENCOUNTER 2024-12-15 19:50 | Inpatient (IN) | payer MEDICARE, BC, SELFPAY ==
[2024-12-15] VITALS (11 sets, daily range): BP systolic 99–140; BP diastolic 62–97; BMI 18.8; BMI 18.1
[2024-12-15 15:05] LABS: % Basophils 0.8 % (0-2); % Eosinophils 3.9 % (0-6); % Immature Granulocytes 0.4 % (0-0.5); % Lymphocytes 21.7 % (20.5-51.1); % Monocytes 11.9 % (1.7-9.3); % Neutrophils 61.3 % (42.2-75.2); Absolute Basophils 0.1 10^3/uL (0-0.2); Absolute Eosinophils 0.3 10^3/uL (0-0.7); Absolute Lymphocytes 1.6 10^3/uL (1.2-3.4); Absolute Monocytes 0.9 10^3/uL (0.1-0.6); Absolute Neutrophils 4.6 10^3/uL (1.4-6.5); Hematocrit 31.6 % (39.0-52.0); Hemoglobin 10.4 g/dL (13.0-18.0); Mean Corp Hgb Conc. 32.9 g/dL (33.0-37.0); Mean Corpuscular Hgb 28.2 pg (27.0-31.0); Mean Corpuscular Volume 85.6 fL (80.0-94.0); Mean Platelet Volume 10.9 fL (7.4-10.4); Nucleated Red Blood Cells % 0 % (-); Platelet Count 355 10^3/uL (130-400); Red Blood Cell Count 3.69 10^6/uL (4.70-6.10); White Blood Cell Count 7.5 10^3/uL (4.8-10.8)
[2024-12-15 15:26] LABS: ALT (SGPT) < 10 U/L (0-50); AST (SGOT) 21 U/L (17-59); Albumin 3.3 g/dl (3.5-5.0); Alkaline Phosphatase 100 U/L (38-126); Blood Urea Nitrogen 33 mg/dl (9-20); Calcium 9.6 mg/dl (8.4-10.2); Carbon Dioxide 26 mmol/L (22-30); Chloride 109 mmol/L (98-107); Glucose 125 mg/dl (70-99); Potassium 4.5 mmol/L (3.5-5.1); Sodium 139 mmol/L (135-145); Total Bilirubin 0.6 mg/dl (0.2-1.3); Total Protein 6.7 g/dl (6.3-8.2); eGFR > 60.00
--- NOTE | 2024-12-15 17:41 | ED.GENMED ---
History of Present Illness
General
Chief Complaint: Breathing Problem
Source: patient, records, spouse and family
Time Seen by Provider: 12/15/24 17:08
Nursing documentation reviewed up to this point in time: agreed with
History of Present Illness
History of Present Illness:
Note:
CHIEF COMPLAINT(S)
Shortness of breath and cough.
HISTORY OF PRESENT ILLNESS
The patient is an 84-year-old male with a history of emphysema, who presents with increased shortness of breath and cough. This has reportedly worsened, leading to a recent lung imaging study. A chest X-ray performed last week shows airspace disease
more consolidated compared to the prior study, left-sided pleural effusion, and overall changes consistent with emphysema. The patients breathing difficulties are described as coming and going. There is no current chest pain, though the patient
mentions using more supplemental oxygen, which he usually does not need. The patient denies any fevers. The notes previous episodes of pneumonia. He was recently discharged from the hospital and has experienced a persistent cough.
ADDITIONAL HISTORY OBTAINED FROM SOURCES OTHER THAN THE PATIENT
According to the patients spouse, there have been no significant changes in his medications since the last hospitalization.
EXTERNAL RECORDS REVIEWED
A recent chest X-ray was reviewed, indicating airspace disease and pleural effusion.
CHRONIC MEDICAL CONDITIONS SIGNIFICANTLY AFFECTING CARE
Chronic conditions affecting care: emphysema.
REVIEW OF SYSTEMS
- Respiratory: Increased shortness of breath, cough, not currently febrile.
PHYSICAL EXAM
- Nursing notes reviewed and vital signs reviewed.
-
Physical Exam
General: Chronic ill appearance
Neck: supple. no meningeal signs. normal posterior pharynx
Heart: s1/s2 regular rate and rhythm, no murmur. equal radial
pulses.
HEENT: Pupils equal round reactive to light, EOMI
Lungs: Mild respiratory distress. Left-sided rhonchi
Abdomen: normal bowel sounds. not tender. no CVAT
Neuro: alert and oriented. no focal neurological deficits cranial nerves II through XII intact
Skin: no rash
Psychiatric: well kept. interactive and cooperative
Extremities: no edema. no calf tenderness. negative homans. good distal pulses
- Respiratory: Noted increased need for supplemental oxygen.
PLAN
- Discuss the case with pulmonology.
- Review current laboratory results.
- Monitor for any worsening symptoms.
- Consider hospital admission if respiratory status worsens.
DIFFERENTIAL DIAGNOSIS
The Differential Diagnosis includes, in no particular order and is not limited to:
1. Pneumonia
2. Chronic obstructive pulmonary disease exacerbation
3. Congestive heart failure
4. Pulmonary embolism
5. Interstitial lung disease
6. Pulmonary fibrosis
7. Pleural effusion
8. Lung cancer
9. Asthma exacerbation
10. Viral or bacterial bronchitis
CARE-UPDATE
12/15/24 - 18:[address] Andre in Pulmonology, who recommends admission for further workup including blood cultures and a pulmonary consult. Initiated Chastity Sepapine and ordered blood cultures.
Disposition:
SUMMARY OF ENCOUNTER
The patient presented with shortness of breath and cough, exacerbated by a history of emphysema. Given the recent radiological findings indicating airspace disease and pleural effusion, the presentation was concerning for potential pneumonia or COPD
exacerbation. The decision was made to admit the patient for further evaluation and management due to increased oxygen requirements and history of recurring respiratory issues.
DISPOSITION
Admission to the hospital for further workup and management.
ASSESSMENT
The patients condition is concerning for pneumonia and potential exacerbation of emphysema, with increased oxygen need and radiological findings supporting these diagnoses.
MANAGEMENT OF THE PATIENTS CARE WAS DISCUSSED WITH
Dr. Andre in Pulmonology, who recommended hospital admission for further evaluation including a pulmonary consult and blood cultures.
PLAN
Admission for further monitoring and treatment, including blood cultures and pulmonology consultation.
INDEPENDENT REVIEW OF LABS AND INTERPRETATION OF TESTS
My independent interpretation of the chest X-ray shows airspace disease and pleural effusion, consistent with worsening emphysema and potential pneumonia.
MEDICATION RECONCILIATION
Chastity cefepime was initiated in response to the patients current symptoms and condition.
MEDICAL DECISION MAKING
Chronic conditions affecting care: emphysema. The differential diagnosis includes pneumonia and COPD exacerbation based on the current presentation and radiologic findings. Category 3: Discussion of the case with a subscription clerk informed the
decision to admit the patient.
PATHOLOGIES TO CONSIDER
Pneumonia, Chronic obstructive pulmonary disease exacerbation, Pulmonary embolism, Lung cancer.
Past History
Past History
ED Past Medical History: CAD, COPD, HTN, Valvular disease and Other (Neuropathy)
ED Past Surgical History: Cardiac (CABG �2 and mitral valve repair 08/29/2016 DD DDDR pacemaker 2017)
Social History
Tobacco: Former smoker
Drug: None
Personal:
Living: with family
Employment: Retired
Family History
Family History: Other (Noncontributory)
Phy Exam
Physical Exam
Physical Exam:
.
Scores
Heart Failure Risk
Heart Failure Risk Score: Not Applicable
Course
Orders/Labs/Results
Orders:
Orders
12/15/24 14:17
Electrocardiogram (*1) Urgent
Reason for Study: Shortness of Breath
EKG- Treatment ONCE
12/15/24 14:52
Complete Blood Count/With Diff Urgent
Comprehensive Metabolic Panel Urgent
12/15/24 17:47
CR Chest - 2 Views Urgent
Comment:
Reason For Exam: short of breath, worsening
Abnormal Lab Results
12/15/24
14:52
RBC 3.69 L 10^6/uL
(4.70-6.10)
Hgb 10.4 L g/dL
(13.0-18.0)
Hct 31.6 L %
(39.0-52.0)
MCHC 32.9 L g/dL
(33.0-37.0)
RDW 15.0 H %
(11.5-14.5)
MPV 10.9 H fL
(7.4-10.4)
Absolute Monos (auto) 0.9 H 10^3/uL
(0.1-0.6)
Monocytes % 11.9 H %
(1.7-9.3)
Chloride 109 H mmol/L
(98-107)
BUN 33 H mg/dl
(9-20)
Glucose 125 H mg/dl
(70-99)
Albumin 3.3 L g/dl
(3.5-5.0)
12/15/24 14:52
12/15/24 14:52
Vital Signs
Initial and Last Documented VS:
Initial Vital Signs
Temp Pulse Resp BP Pulse Ox
98.3 F 85 18 99/63 98
12/15/24 14:38 12/15/24 14:38 12/15/24 14:38 12/15/24 14:38 12/15/24 14:38
Last Documented Vital Signs
Temp Pulse Resp BP Pulse Ox
98.4 F 83 18 115/70 98
12/15/24 17:36 12/15/24 17:36 12/15/24 17:36 12/15/24 17:36 12/15/24 17:44
*Pulse Oximetry
SaO2: 98
Nasal Cannula flow liters per minute: 3
Patient hypoxic: no
*EKG
Interpreted by ED Provider?: Yes
EKG Intrepretation Date: 12/15/24
EKG Intrepretation Time: 14:29
Interpretation: abnormal
Comparison EKG: changes noted
Heart Rate: 83
Rate: normal
Rhythm: av sequential
[place]: normal axis
Interval: normal interval
QRS Pattern: normal QRS
Ischemia: no ischemia
*Vice President Of Talent Management Interpretation
Rate: Vice President Of Talent Management- N/A
*Critical Care Note
Total Time (30-74mins, 75-104mins- exclusive of procedures): Not Applicable
ED Attending Note
-
Portions of this chart may have been created with voice recognition software.� Occasional wrong word or��sound alike� substitutions may have occurred due to the inherent limitations of voice recognition software.
Discharge Plan
Departure
Patient Disposition: Admit
Date of Disposition: 12/15/24
Time of Disposition: 18:13
Admit to: Telemetry
Presentation/result/management discussed w/ accepting MD/DO: Hospitalist
Patient with high blood pressure during this ER visit?: No
Condition: Fair
Discharge Problem:
Left upper lobe pneumonia, Chronic respiratory failure with hypoxia
Prescriptions:
No Action
ipratropium-albuterol 0.5 mg-3 mg(2.5 mg base)/3 mL solution for nebulization
3 ml inhalation R BID
metoprolol tartrate 25 mg Tablet
12.5 mg PO BID Qty: 10 0RF
benzonatate 100 mg capsule
100 mg PO DAILYPRN PRN (Reason: cough)
furosemide 40 mg Tablet
40 mg PO DAILY
atorvastatin 20 mg Tablet
20 mg PO QPM
famotidine 40 mg Tablet
40 mg PO DAILY
codeine-guaifenesin 10-100 mg/5 mL Liquid
5 ml PO HSPRN PRN (Reason: cough)
diphenhydramine-acetaminophen [Tylenol PM Extra Strength] 25-500 mg Tablet
1 tab PO HSPRN PRN (Reason: sleep)
PreserVision AREDS-2 250-90-40-1 mg Tablet,Chewable
1 tab PO BID
therapeutic multivitamin Tablet
1 tab PO DAILY
TheraTears 0.25 % Drops
1 drp BOTH EYES DAILYPRN PRN (Reason: dry eyes)
aspirin 81 mg Tablet
81 mg PO DAILY
fluticasone propionate 50 mcg/actuation spray,suspension
2 spray INTRANASAL DAILY
loratadine 10 mg Tablet
10 mg PO DAILY
sodium chloride [NebuSal] 3 % Solution For Nebulization
4 ml inhalation R BID Qty: 120 0RF
levofloxacin 750 mg tablet
750 mg PO Q24H Qty: 7 0RF
umeclidinium-vilanterol [Anoro Ellipta] 62.5-25 mcg/actuation blister with device
1 inh inhalation Q24H Qty: 60 0RF
Referrals:
Cleveland Charles MD [Family Provider, Family Practice]
Interventions
Interventions:
*General Assessment Last Done: 12/15/24 17:36
*Neglect/Abuse Screening Last Done: 12/15/24 17:43
*ED- Fall Risk Assessment Last Done: 12/15/24 17:36
*ED COVID-19 Vaccine History Last Done: 12/15/24 17:36
ED- Cardiac Assessment Last Done: 12/15/24 17:36
ED- Pulmonary Assessment Last Done: 12/15/24 17:36
Discharge Date and Time
Print Language: MALTESE
--- NOTE | 2024-12-15 18:12 | W.PN.UPDATE ---
Update Note
Progress Note Update
This note serves as an addendum to the H&P by agricultural equipment mechanic DENYS Arlyn DIAZ
HPI
84M HX chr HFpEF, chronic hypoxic RF, on PRN home O2 sent to ER by by pulmonology
- hypoxia with increased shortness of breath and cough that has been worsening since a recent x-ray 3 days ago.
- CXR 12/12/2024 showing a small left-sided pleural effusion and airspace disease more consolidated compared to prior study with overall changes of emphysema.
- Recent admission 11/13 - 11/17/2024 secondary to a community-acquired pneumonia with recurrent pseudomonal lung infection and acute on chronic hypoxemic respiratory failure which was initially treated with IV vancomycin transition to Levaquin there
was recommended she discontinue inhaled corticosteroids and transition to LABA/LAMA inhaler with DuoNeb bronchodilators as needed.
PMHX: see below
Relevant VS
12/15/24
14:38 12/15/24
17:00
Temp 98.3 F
Pulse 85
Resp Rate 18
Blood pressure 99/63 115/70
SaO2 98
Nasal Cannula flow liters per minute 3
PE
Gen: thin , cachectic , not toxic
HEENT: anicteric
Neck: supple
Lungs: symmetric AE
Cor: RRR S1 S2
Abdomen: soft BS
PHARMACEUTICAL SALES SPECIALIST: AAO3
MS: no edema
Psych: natalee mood and affect
Relevant data
11/16/24 12/15/24 12/15/24
06:13 14:52 18:15
WBC 11.8 H 7.5
Hgb 10.0 L 10.4 L
BUN 33 H
Creatinine 0.8
eGFR > 60.00
Lactic Acid Pending
12/15/24 CXR
1. Airspace disease is more consolidated compared to the prior study.
There is airspace disease in the left upper lobe, more consolidated compared to recent study.
There is patchy airspace disease in the apices.
2. small left pleural effusion.
3. There is marked hyperaeration.
Last hospitalist admission:
ASSESSMENT & PLAN
Pending Rx reconciliation
Presumed PNA @ [facility] with small Lt pleural effusion from CXR 3days ago - afebrile, nl WCC
Suspect chronic interstitial process at apices
Chr hypoxic RF on PRN home O2
HX PCN allergy
Known HX recurrent pseudomonal lung infection
- BCx sent
- check PCT
- Empiric IV CFP
- O2 to keep Pox > 93
- Pul consult
Known HX:
- chronic hypoxemic respiratory failure with as needed O2
- COPD/bronchiectasis,
- CAP
- Chr HFpEF
- CAD status post CABG
- AV block status post permanent pacemaker,
- status post MVR,
- HTN,
- Neuropathy,
- HX DVT no longer on AC history of peptic ulcer disease
- Chronic anemia
DVT Px: LMWH
Full code
IP MS
--- NOTE | 2024-12-15 18:26 | HPS.HSE ---
Family Physician
-
Family Physician: Cleveland Charles
Chief Complaint
-
Increased shortness of breath, cough over the past week
History of Present Illness
84-year-old male sent in by pulmonology due to hypoxia with increased shortness of breath and cough that has been worsening over the past 3 days with productive cough light brown in color. He reports her breathing difficulties have been coming and
going she does have supplemental oxygen at home which he does not really use unless needed. He had a chest x-ray on 12/12/2024 showing a small left-sided pleural effusion and airspace disease more consolidated compared to prior study with overall
changes of emphysema. The patient had a recent admission 11/13 - 11/17/2024 secondary to a community-acquired pneumonia with recurrent pseudomonal lung infection and acute on chronic hypoxemic respiratory failure which was initially treated with IV
vancomycin transition to Levaquin there was recommended she discontinue inhaled corticosteroids and transition to LABA/LAMA inhaler with DuoNeb bronchodilators as needed. Patient denies fever, chills, chest pain, palpitations, abdominal pain,
nausea, vomiting, diarrhea, urinary symptoms.
The patient has past medical history of chronic hypoxemic respiratory failure with as needed O2, COPD/bronchiectasis, community-acquired pneumonia, recurrent pseudomonal lung infection, chronic heart failure preserved EF, CAD status post CABG, AV
block status post permanent pacemaker, status post MVR, HTN, neuropathy, history of DVT no longer on AC history of peptic ulcer disease, chronic anemia
Medical History
Past Medical History
Past Medical History: Reports Other
Additional Past Medical History:
COPD on prn home O2
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
Hypertension.
Hyperlipidemia.
Coronary artery disease, status post CABG x2 08/2016.
Severe mitral regurgitation and mitral valve prolapse, status post mitral valve repair 08/2016.
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
Right bundle branch block.
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
Pulmonary nodule.
GERD.
Rectal polyps.
Duodenal ulcer 2017.
Peripheral neuropathy.
BPH.
Deviated septum.
Remote shingles.
Hearing impairment bilaterally.
Past Surgical History: Reports Other
Additional Past Surgical History:
Osteoarthritis, status post bilateral total hip arthroplasties
left TKA
Social History
Tobacco: Former Smoker (Quit 2017, had been smoking since age 19 approximately 0.25 packs per day = ~14 pack years)
Alcohol: Occasional
Drug: None
Personal:
Living: With Family
Family History
Family History: Not pertinent
Allergies / Home Medications
Allergies reflects when Allergies were last updated in [employer].
Home Medications with original date entered in [employer]
Allergy/Medication List:
Allergies
Allergy/AdvReac Type Severity Reaction Status Date / Time
adhesive tape Allergy skin Verified 11/13/24 13:53
irritation
azithromycin Allergy GI upset Verified 11/13/24 13:53
cat dander Allergy pat has Verified 11/13/24 13:53
cats/coughing,
sneezing
moxifloxacin Allergy Unknown Verified 11/16/24 11:50
penicillin G Allergy 1960s had Verified 11/13/24 13:53
reaxn to
injection-said
he
required
treatment
Penicillins Allergy rash to Verified 11/13/24 13:53
amoxicillin
[id number]'s
many years
ago
pollen extracts Allergy ENVIRONMENTAL-coughing, Verified 11/13/24 13:53
sneezing,ITCHING
Sulfa (Sulfonamide Allergy Hives Verified 11/13/24 13:53
Antibiotics)
sulfisoxazole Allergy Rash Verified 11/13/24 13:53
tetanus toxoid, adsorbed Allergy Rash Verified 11/13/24 13:53
Artifical sweeteners Allergy RECTAL PAIN Uncoded 11/13/24 13:53
Home Medications
ipratropium 0.5 mg-albuterol 3 mg (2.5 mg base)/3 mL nebulization soln 3 ml inhalation R BID Lung/Breathing Issues 01/24/23
metoprolol tartrate 25 mg tablet 12.5 mg (1/2 x 25 mg) PO BID #10 tabs 02/14/23
benzonatate 100 mg capsule 100 mg PO DAILYPRN PRN cough 03/09/23
atorvastatin 20 mg tablet 20 mg PO QPM High Cholesterol 09/11/24
codeine 10 mg-guaifenesin 100 mg/5 mL oral liquid 5 ml PO HSPRN PRN cough 09/11/24
diphenhydramine 25 mg-acetaminophen 500 mg tablet (Tylenol PM Extra Strength) 1 tab PO HSPRN PRN sleep 09/11/24
famotidine 40 mg tablet 40 mg PO DAILY Gastrointestinal Issue 09/11/24
furosemide 40 mg tablet 40 mg PO DAILY Fluid Retention/Swelling 09/11/24
vit C 250 mg-E 90 mg-zinc 40 mg-copper 1 [id number] chew tablet (PreserVision AREDS-2) 1 tab PO BID Supplement 09/11/24
aspirin 81 mg tablet 81 mg PO DAILY Blood Clot Prevention/Tx 11/08/24
carboxymethylcellulose sodium 0.25 % eye drops (TheraTears) 1 drp BOTH EYES DAILYPRN PRN dry eyes 11/08/24
fluticasone propionate 50 mcg/actuation nasal spray,suspension 2 spray intranasal DAILY Congestion 11/08/24
loratadine 10 mg tablet 10 mg PO DAILY Allergies 11/08/24
therapeutic multivitamin 1 tab PO DAILY Supplement 11/08/24
levofloxacin 750 mg tablet 750 mg PO Q24H Infection #7 tabs 11/17/24
sodium chloride 3 % for nebulization (NebuSal) 4 ml inhalation R BID Congestion #120 mL 11/17/24
umeclidinium 62.5 mcg-vilanterol 25 mcg/actuation powdr for inhalation (Anoro Ellipta) 1 inh inhalation Q24H #60 ea 11/17/24
Review of Systems
-
History Source: Patient and Family
A 12 point ROS was completed and negative except as noted: Yes
Constitutional: Denies Fever
EENT: Denies Sore Throat or Runny Nose
Respiratory: Reports Cough (Occasionally productive light brown) and Trouble Breathing
Cardiac: Denies Chest Pain, Diaphoresis, Palpitations or Syncope
Abdomen/GI: Denies Abdominal Pain, Nausea, Vomiting, Diarrhea, Constipated or Bloody Stools
: Denies Dysuria, Frequency, Flank Pain, Incontinence, Difficulty Voiding or Urgency
Musculoskeletal: Denies Joint Pain or Edema
Skin: Denies Itching or Rash
Neurological: Denies Dizzy, Headache or Weakness
Endocrine: Reports No Symptoms
Hematologic/Lymphatic: Reports No Symptoms
Psych: Reports Calm
Physical Exam
Vital Signs
Vital Signs
Temp Pulse Resp BP Pulse Ox
98.4 F 83 18 115/70 98
12/15/24 17:36 12/15/24 17:36 12/15/24 17:36 12/15/24 17:36 12/15/24 17:44
Physical Exam
General: Comfortable and Cachectic; No Pain, Fever or Chills
HEENT: NormoCephalic, Anicteric, PERRLA, [place] Conjunctivae, No Ptosis and Oxygen (4 L nasal cannula)
Respiratory: Clear; No Wheezes, Rales or Rhonchi
Cardiac: S1/S2 and Regular Rhythm; No Murmur, Rub, Gallop or Peripheral Edema
Breast: Deferred by me
GI: Soft, Non Tender, Non Distended, Normal Bowel Sounds and No Hepatosplenomegaly
Genito-urinary: Deferred by me
Musculoskeletal: No Clubbing, No Cyanosis and No Edema
Skin: Warm and Dry; No Rash or Jaundice
Neuro: AO x 3, No Motor Deficits, Nonfocal/grossly intact and Cranial Nerves Intact; No Slurred Speech, Facial Droop, Tremors or Sedated
Hematologic/Lymphatic: No Lymphadenopathy
Psych: Calm
Laboratory Results
-
12/15/24 14:52
12/15/24 14:52
Laboratory Results
Total Bilirubin 0.6 mg/dl (0.2-1.3) 12/15/24 14:52
AST 21 U/L (17-59) 12/15/24 14:52
ALT < 10 U/L (0-50) 12/15/24 14:52
Alkaline Phosphatase 100 U/L (38-126) 12/15/24 14:52
Impression/Plan
-
Impression/plan:
Admit to [facility]
#Shortness of breath concern for left-sided pneumonia with small left-sided pleural effusion
#Recurrent pseudomonal pulmonary infections
#COPD/bronchiectasis
-Suspect history of MDRO Pseudomonas in the context of bronchiectasis which is a risk factor for pseudomonal lung infection
-Pulmonology with recent recommended discontinuing inhaled corticosteroid in context of chronic pseudomonal respiratory infection
-Continue Anoro Ellipta, DuoNebs scheduled and as needed, sodium chloride twice daily for chest congestion
- avoid inhaled corticosteroid
- IV cefepime given in ER
# Chronic hypoxic respiratory failure
-Patient has as needed O2 at home due to COPD/bronchiectasis
- 98% 4 LNC
#HFpEF, chronic
#S/p MVR
-Unclear etiology, possibly valvular; home regimen includes metoprolol tartrate and Lasix; no GDMT
-Last echocardiogram with LVEF 50% and grade 2 diastology; normal transvalvular gradients
-Currently compensated, euvolemic
#CAD s/p CABG
-Home regimen includes beta-karina, aspirin, statin
#Third-degree AVB s/p PPM
#H/O DVT after CABG-no longer on AC therapy
#H/O PUD
#Chronic anemia
DVT prophylaxis: Lovenox
CODE STATUS: Full code
[2024-12-15] MEDS: MAXIPIME 2000 MG IV (18:56)
[2024-12-15 19:16] LABS: Lactic Acid 1.6 mmol/L (0.7-2.0)
--- NOTE | 2024-12-15 21:40 | PTCARENOTE ---
Pt received from ED via stretcher at 2114. Pt AAOx3, VSS, on 4L of O2, and able to ambulate into room with assistance. Pt absent of pain at this time. Pt receptive to room and call balderrama. Pt bed in lowest position and call balderrama within reach. Pt
educated on importance of call balderrama usage, pt relays understanding and cooperation. Will continue with current plan of care.
[2024-12-15] MEDS: SODIUM CHLORIDE 3% FOR INHALATION 1 VIAL INH (22:11)
[2024-12-15] MEDS: DUONEB 3 ML INH (22:11)
[2024-12-15] MEDS: OCUVITE SOFTGEL 1 CAP PO (22:27)
[2024-12-15] MEDS: LOPRESSOR 12.5 MG PO (22:27)
[2024-12-15] MEDS: TESSALON PERLES 100 MG PO (22:45)
[2024-12-16] MEDS: STERILE WATER FOR INJECTION 10 ML IV ×2 (01:01→08:58)
[2024-12-16] MEDS: MAXIPIME 1000 MG IV ×2 (01:01→08:58)
[2024-12-16] MEDS: BENADRYL 25 MG PO ×2 (01:31→22:27)
[2024-12-16] MEDS: TYLENOL 500 MG PO ×2 (01:31→22:28)
[2024-12-16 06:52] LABS: % Basophils 0.4 % (0-2); % Eosinophils 1.7 % (0-6); % Immature Granulocytes 0.7 % (0-0.5); % Lymphocytes 3.7 % (20.5-51.1); % Monocytes 4.4 % (1.7-9.3); % Neutrophils 89.1 % (42.2-75.2); Absolute Basophils 0.1 10^3/uL (0-0.2); Absolute Eosinophils 0.2 10^3/uL (0-0.7); Absolute Immature Granulocytes 0.1 10^3/uL (0-0.05); Absolute Lymphocytes 0.5 10^3/uL (1.2-3.4); Absolute Monocytes 0.6 10^3/uL (0.1-0.6); Absolute Neutrophils 12.1 10^3/uL (1.4-6.5); Hematocrit 33.2 % (39.0-52.0); Hemoglobin 10.9 g/dL (13.0-18.0); Mean Corp Hgb Conc. 32.8 g/dL (33.0-37.0); Mean Corpuscular Hgb 28.5 pg (27.0-31.0); Mean Corpuscular Volume 86.7 fL (80.0-94.0); Mean Platelet Volume 10.9 fL (7.4-10.4); Nucleated Red Blood Cells % 0 % (-); Platelet Count 330 10^3/uL (130-400); Red Blood Cell Count 3.83 10^6/uL (4.70-6.10); Red Cell Dist. Width 15.3 % (11.5-14.5); White Blood Cell Count 13.6 10^3/uL (4.8-10.8)
[2024-12-16 07:11] LABS: Procalcitonin 0.06 ng/ml (0.0-0.25)
[2024-12-16 07:12] LABS: ALT (SGPT) < 10 U/L (0-50); AST (SGOT) 21 U/L (17-59); Albumin 3.1 g/dl (3.5-5.0); Alkaline Phosphatase 92 U/L (38-126); Blood Urea Nitrogen 32 mg/dl (9-20); Calcium 9.4 mg/dl (8.4-10.2); Carbon Dioxide 22 mmol/L (22-30); Chloride 109 mmol/L (98-107); Estimated Creatinine Clearance 48 ml/min; Glucose 140 mg/dl (70-99); Potassium 4.4 mmol/L (3.5-5.1); Sodium 138 mmol/L (135-145); Total Bilirubin 0.9 mg/dl (0.2-1.3); Total Protein 6.5 g/dl (6.3-8.2); eGFR > 60.00
[2024-12-16] MEDS: SODIUM CHLORIDE 3% FOR INHALATION 1 VIAL INH ×2 (07:14→19:43)
[2024-12-16] MEDS: SPIRIVA RESPIMAT 2.5 MCG 2 PUFF INH (07:14)
[2024-12-16] MEDS: STRIVERDI RESPIMAT 2 PUFF INH (07:14)
[2024-12-16] MEDS: DUONEB 3 ML INH ×4 (07:15→19:43)
--- NOTE | 2024-12-16 07:59 | W.PN.HOSP.TC ---
Today's Communication/Plan
-
;/
Assessment / Plan
Assessment / Plan
Assessment/Plan
#SOB with concern for pneumonia
#Recurrent pseudomonal pulmonary infections
#COPD/bronchiectasis
#History of MDRO Pseudomonas
-CXR on presentation- Emphysematous changes redemonstrated. Stable severe left midlung airspace disease. Stable milder biapical airspace disease. No significant pleural effusions. No visualized pneumothorax.
-started on IV cefepime Q8, blood culture pending.
-Continue scheduled breathing treatments with additional as needed
-Supplemental oxygen, titrate to maintain O2 sat between 88 to 92%
-Avoid Inhaled corticosteroid due to Hx of Recurrent Pneumonia
-Pulmonology Consulted
-Check Sputum culture
-Evaluate with CT Chest
-ID consult given Hx of Multi-drug resistance
#Acute on chronic hypoxic respiratory failure
-Secondary to Pneumonia and underlying severe Emphysema and Bronchiectasis
-Patient has as needed O2 at home due to COPD/bronchiectasis
-Now on 4 L via nasal cannula
-Titrate to maintain pulse ox between 88 and 92%
-Treatment of pulmonary infection as above
#HFpEF, chronic
#S/p MVR
-Unclear etiology, possibly valvular; home regimen includes metoprolol tartrate and Lasix; no GDMT
-Last echocardiogram with LVEF 50% and grade 2 diastology; normal transvalvular gradients
-Currently compensated, euvolemic
#CAD s/p CABG
-Home regimen includes beta-karina, aspirin, statin
#Third-degree AVB s/p PPM
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
#H/O PUD
#Chronic Anemia
DVT prophylaxis: Lovenox
CODE STATUS: Full code
Anticipated Discharge: > 48 hours
Subjective/Interval History
-
Patient seen and examined at Bedside. Still with coughing episodes this AM. Currently on 4L O2. He denies SOB, denies chest pain.
Objective Data
-
Labs:
Laboratory Results
12/16/24
06:28
WBC 13.6 H
Hgb 10.9 L
Hct 33.2 L
Plt Count 330
Sodium 138
Potassium 4.4
Chloride 109 H
Carbon Dioxide 22
BUN 32 H
Creatinine 0.8
Glucose 140 H
Calcium 9.4
Total Bilirubin 0.9
AST 21
ALT < 10
Alkaline Phosphatase 92
Vital Signs:
Vital Signs
Temp Pulse Resp BP Pulse Ox
98 F 101 20 112/62 92
12/15/24 23:00 12/16/24 07:21 12/16/24 07:21 12/15/24 23:00 12/16/24 07:21
I&O
12/15/24 12/16/24 12/17/24
06:59 06:59 06:59
Intake Total 120 / 120
Output Total 225 / 225
Balance -105 / -105
Review of Systems
-
All other systems: Reviewed and negative (except as documented)
Physical Exam
-
General: No Apparent Distress
HEENT: Normocephalic, Atraumatic and Oxygen (on 4L)
Respiratory: Wheezes and Non Labored Respirations
Cardiac: Regular Rhythm and S1/S2
GI: Soft, Nontender, Nondistended and Normal Bowel Sounds
Musculoskeletal: No Edema
Neuro: Awake, Alert, Oriented and AO x 3
[2024-12-16 08:31] VITALS: BP 108/61
[2024-12-16] MEDS: LOPRESSOR 12.5 MG PO (08:57)
[2024-12-16] MEDS: THERAGRAN 1 TABLET PO (08:57)
[2024-12-16] MEDS: PEPCID 20 MG PO (08:57)
[2024-12-16] MEDS: CLARITIN 10 MG PO (08:57)
[2024-12-16] MEDS: OCUVITE SOFTGEL 1 CAP PO ×2 (08:58→19:39)
[2024-12-16] MEDS: LOW STRENGTH ASPIRIN 81 MG PO (08:58)
[2024-12-16] MEDS: MUCINEX 1200 MG PO ×2 (09:07→19:39)
--- NOTE | 2024-12-16 09:33 | CON.PUL ---
Consultation
Consultation Request
Date/Time Consultation Requested: 12/15/2024
Date/Time Consultation Performed: 12/16/2024
Medical History
-
Chief Complaint: Shortness of breath
History of Present Illness:
Patient is 84-year-old gentleman with known history of severe emphysema, oxygen dependent COPD as well as upper lobe bronchiectasis with chronic Pseudomonas colonization, who was admitted to the hospital for worsening shortness of breath. Patient
reportedly had an hospitalization in 10/2024 for community-acquired pneumonia/bronchiectasis flare and was treated with IV antibiotic in hospital and was transitioned to Levaquin as outpatient. Patient has since completed antibiotics. In view of
chronic pseudomonal colonization and bronchiectasis, inhaled corticosteroids were discontinued and patient was transition to LAMA/LABA with Anoro. Reportedly patient has been feeling poorly and continues to have cough with breathing difficulty over
the last few days. He was recommended to be evaluated in the emergency room. He had a chest x-ray performed which showed persistent left upper lobe/lingular area consolidation and he was admitted to the hospital and started on IV cefepime.
Pulmonary consultation was requested for further input.
Past Medical History
Past Medical History: Reports Other
Additional Past Medical History:
COPD on prn home O2
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
Hypertension.
Hyperlipidemia.
Coronary artery disease, status post CABG x2 08/2016.
Severe mitral regurgitation and mitral valve prolapse, status post mitral valve repair 08/2016.
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
Right bundle branch block.
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
Pulmonary nodule.
GERD.
Rectal polyps.
Duodenal ulcer 2016.
Peripheral neuropathy.
BPH.
Deviated septum.
Remote shingles.
Hearing impairment bilaterally.
Past Surgical History: Reports Other
Additional Past Surgical History:
Osteoarthritis, status post bilateral total hip arthroplasties
left TKA
Social History
Tobacco: Former Smoker (Quit 2017, had been smoking since age 19 approximately 0.25 packs per day = ~14 pack years)
Alcohol: Occasional
Drug: None
Personal:
Living: With Family
Family History
Family History: Not pertinent
Allergies / Home Medications
Allergies / Home Medications
Allergies
Allergy/AdvReac Type Severity Reaction Status Date / Time
adhesive tape Allergy skin Verified 11/13/24 13:53
irritation
azithromycin Allergy GI upset Verified 11/13/24 13:53
cat dander Allergy pat has Verified 11/13/24 13:53
cats/coughing,
sneezing
moxifloxacin Allergy Unknown Verified 11/16/24 11:50
penicillin G Allergy 1960s had Verified 11/13/24 13:53
reaxn to
injection-said
he
required
treatment
Penicillins Allergy rash to Verified 11/13/24 13:53
amoxicillin
[id number]'s
many years
ago
pollen extracts Allergy ENVIRONMENTAL-coughing, Verified 11/13/24 13:53
sneezing,ITCHING
Sulfa (Sulfonamide Allergy Hives Verified 11/13/24 13:53
Antibiotics)
sulfisoxazole Allergy Rash Verified 11/13/24 13:53
tetanus toxoid, adsorbed Allergy Rash Verified 11/13/24 13:53
Artifical sweeteners Allergy RECTAL PAIN Uncoded 11/13/24 13:53
Home Medications
�Medication �Instructions �Recorded �Confirmed �Last Taken �Type
ipratropium 0.5 mg-albuterol 3 mg 3 ml inhalation R BID 01/24/23 12/15/24 09/11/24 History
(2.5 mg base)/3 mL nebulization Lung/Breathing Issues
soln
metoprolol tartrate 25 mg tablet 12.5 mg (1/2 x 25 mg) PO BID #10 02/14/23 12/15/24 12/15/24 08:00 Rx
tabs
benzonatate 100 mg capsule 100 mg PO DAILYPRN PRN cough 03/09/23 12/15/24 12/15/24 08:00 History
atorvastatin 20 mg tablet 20 mg PO QPM High Cholesterol 09/11/24 12/15/24 12/14/24 20:00 History
codeine 10 mg-guaifenesin 100 mg/5 5 ml PO HSPRN PRN cough 09/11/24 12/15/24 Unknown History
mL oral liquid
diphenhydramine 25 1 tab PO HSPRN PRN sleep 09/11/24 12/15/24 11/06/24 History
mg-acetaminophen 500 mg tablet
(Tylenol PM Extra Strength)
famotidine 40 mg tablet 40 mg PO DAILY Gastrointestinal 09/11/24 12/15/24 12/15/24 08:00 History
Issue
furosemide 40 mg tablet 40 mg PO DAILY Fluid 09/11/24 12/15/24 12/15/24 08:00 History
Retention/Swelling
vit C 250 mg-E 90 mg-zinc 40 1 tab PO BID Supplement 09/11/24 12/15/24 11/13/24 History
mg-copper 1 [id number] chew
tablet (PreserVision AREDS-2)
aspirin 81 mg tablet 81 mg PO DAILY Blood Clot 11/08/24 12/15/24 12/15/24 08:00 History
Prevention/Tx
carboxymethylcellulose sodium 0.25 1 drp BOTH EYES DAILYPRN PRN dry 11/08/24 12/15/24 12/15/24 08:00 History
% eye drops (TheraTears) eyes
fluticasone propionate 50 2 spray intranasal DAILY Congestion 11/08/24 12/15/24 12/15/24 08:00 History
mcg/actuation nasal
spray,suspension
loratadine 10 mg tablet 10 mg PO DAILY Allergies 11/08/24 12/15/24 11/13/24 History
therapeutic multivitamin 1 tab PO DAILY Supplement 11/08/24 12/15/24 12/15/24 08:00 History
levofloxacin 750 mg tablet 750 mg PO Q24H Infection #7 tabs 11/17/24 12/15/24 Unknown Rx
sodium chloride 3 % for 4 ml inhalation R BID Congestion 11/17/24 12/15/24 Unknown Rx
nebulization (NebuSal) #120 mL
umeclidinium 62.5 mcg-vilanterol 1 inh inhalation Q24H #60 ea 11/17/24 12/15/24 Unknown Rx
25 mcg/actuation powdr for
inhalation (Anoro Ellipta)
Review of Systems
-
Hematologic/Lymphatic: Other (All 14 systems reviewed and negative except as stated above in the history of present illness. No reported pleuritic discomfort or hemoptysis.)
Vitals / Labs / Diagnostic Testing
Vital Signs
Temp Pulse Resp BP Pulse Ox
98.8 F 108 17 108/61 99
12/16/24 08:31 12/16/24 08:57 12/16/24 08:31 12/16/24 08:57 12/16/24 08:31
Lab Data
12/16/24 06:28
12/16/24 06:28
Diagnostic Testing:
Physical Exam
-
HEENT: Normocephalic and Other (Cachectic appearing)
Cardiovascular: S1/S2
Respiratory: Rhonchi
GI: Soft and Non Distended
Neurology: Awake
Skin: Warm
General: Comfortable
Assessment
-
#1. Acute on chronic hypoxic respiratory failure.
- Multifactorial, related to underlying severe emphysema/COPD along with chronic bronchiectasis with persistent left upper lobe/lingular consolidation
- Continue bronchodilators, airway clearance and supplemental oxygen, hold antibiotics for now
#2. Persistent left upper lobe/lingular pneumonia
- Procalcitonin 0.06, patient is afebrile and WBC count on admission was normal at 7.5, elevated to 13.6 this morning
- Follow-up CT chest pursued, final report pending, preliminary review by myself is suggestive of persistent left upper lobe/lingular opacity for more than a month now
- Hold IV antibiotics for now, discussed with patient need for bronchoscopy and BAL left upper lobe as well as lingular region along with bronchoscopic inspection to evaluate for any endobronchial lesion that might be leading to airway loss in the
area
- Plan for n.p.o. postmidnight, anticipate bronchoscopy with BAL on 12/17
- Recommend infectious disease consult
#3. Severe Emphysema with acute exacerbation of COPD (former smoker)
- Continue Duoneb qid, hold Spiriva and olodaterol while patient is receiving scheduled DuoNeb 4 times daily
- In view of recurrent Pneumonias, avoid inhaled steroids
- Currently no wheezing, hold off IV steroids
#4. Bronchiectasis with RUL fibrotic changes, prior history of Pseudomonas in sputum
- Avoid inhaled steroids
- Continue 3% NS nebulized bid with Duoneb
- Depending on clinical course, will consider vest therapy
Other medical diagnosis:
- HFpEF
- CAD, s/p CABG
- h/o severe MR, s/p MVR
- S/p pacemaker placement
Discussed with primary team as well.
Total time spent on this consultation/encounter __65__ minutes which includes review of history, physical exam, medications, laboratory data, personal review of imaging, extensive review of outpatient records, discussion with care team and
respiratory therapy.
Data:
CXR 11/2024: Stable bilateral airspace disease suspicious for pneumonia.
CT Chest 10/2024: 1. Left upper lobe pneumonia, new as compared with previous examination.
2. Advanced emphysematous changes as seen previously. Unchanged partial atelectasis/scarring right apex with associated cylindrical and cystic bronchiectatic change. Unchanged wedge-shaped area of consolidation at the right lung base likely
related to atelectasis/scarring. Trace bilateral pleural effusions.
Lexiscan 03/2024: There is a medium sized, fixed defect of mild to moderate severity in the mid inferior, mid inferoseptal, apical inferior, apical septal and apex consistent with finding of known pacemaker and some degree of infarction. Systolic
function is normal global contractility with abnormal septal motion consistent with pacemaker.. The ejection fraction is 52%.
Stress Risk is moderate risk study (1 - 3% [place] or /year) due to pharmacologic agent used.
Compared with the study performed on 03/08/2021. The size of the defect has decreased in no longer includes the apical anterior wall and inferolateral wall. The overall systolic function has improved from 45% to 52% on today's study.
ECHO 03/2024: Mildly reduced left ventricular systolic function. Left ventricular ejection
fraction is 50% by Wilcox's method.
Stage II diastolic dysfunction suggestive of abnormal relaxation and increased
filling pressures.
MVR with peak/mean gradients across the mitral valve are 14/5 mmHg.
Moderate to severe mitral regurgitation.
Compared to previous echo 07/04/2023, the mitral regurgitation is sightly
progressed.
--- NOTE | 2024-12-16 09:34 | VNURNOTE ---
Chart reviewed. Patient is current with [facility] nursing, PT. Will continue to follow hospital course and DC plans.
[2024-12-16 10:14] VITALS: BP 128/63; PULSE 105; O2SAT 97
--- NOTE | 2024-12-16 10:59 | CM ---
Initial assessment completed. Patient is a 84-year-old male sent in by pulmonology due to hypoxia with increased shortness of breath and cough that has been worsening over the past 3 days.
Patient resides w/ spouse in a 2STH, 3 steps to enter, flight to second floor. Independent w/ the use of a RW, has a rollator and cane as well for support. Patient has home O2 concentrator and portables through [facility]. [facility] in the past,
current w/ [facility].
Address, points of contact and insurance verified. Daughter is POA
PCP: Cleveland Charles
Pharmacy: [facility]
Therapy assessed, rec HH
YRN referral to [facility]
Plan: Home, YRN w/ [facility] when stable
[2024-12-16 15:00] VITALS: BP 99/63
[2024-12-16] MEDS: TYLENOL 650 MG PO (15:14)
[2024-12-16] MEDS: LOVENOX 40 MG SC (17:12)
[2024-12-16] MEDS: LIPITOR 20 MG PO (17:12)
--- NOTE | 2024-12-16 17:48 | CON.ID ---
Consultation
-
Date/Time Consultation Requested: December 16, 2024
Date/Time Consultation Performed: December 16, 2024
Requesting Provider: Dr Mares
Performing Provider: Merline Stringer MD
Reason for Consultation: pulmonary infection LAVON, chronic with hisstory of chronic Pseudomonas
Chief Complaint / Past History
Chief Complaint
Chronic cough which interferes with sleep, oral intake, and daily activity
History of Present Illness
Angelito Pinedo is an 84-year-old man being seen in infectious consultation regarding Pseudomonas pneumonia. History is obtained from chart review, along with patient interview.
The patient is known to the ID service, having recently been seen on his admission dated 11/08 through 11/11/2024. During that admission, sputum cultures revealed the presence of Pseudomonas aeruginosa. Patient was ultimately discharged on
levofloxacin, to continue through 11/16.
The patient reports that following discharge, he had progressive shortness of breath, along with progressive weakness. He notes that he has been increasing fatigue since discharge and he became hypoxemic even with minimal exertion. He reports he
still has a cough, although sputum production has overall decreased as compared to when he was admitted on 11/08.
At admission he was placed on cefepime. Today he reports he feels about the same as yesterday, with ongoing weakness. He has not had any significant fevers. In the outpatient setting he follows with Dr. Cabezas of Pulmonary. At present, he
admits to a headache, he denies any chest pain, but notes ongoing shortness of breath. He denies any abdominal pain, nausea or vomiting.
Past History
Past Medical History: CAD, COPD, Hypercholesterolemia and Valvular Disease
Additional Past Medical History:
COPD on prn home O2
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
Hypertension.
Hyperlipidemia.
Coronary artery disease, status post CABG x2 08/2016.
Severe mitral regurgitation and mitral valve prolapse, status post mitral valve repair 08/2016.
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
Right bundle branch block.
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
Pulmonary nodule.
GERD.
Rectal polyps.
Duodenal ulcer 2017.
Peripheral neuropathy.
BPH.
Deviated septum.
Remote shingles.
Hearing impairment bilaterally.
Osteoarthritis, status post bilateral total hip arthroplasties
left TKA
�
Allergy History:
adhesive tape Allergy (Verified 11/13/24 13:53)
skin irritation
azithromycin Allergy (Verified 11/13/24 13:53)
GI upset
cat dander Allergy (Verified 11/13/24 13:53)
pat has cats/coughing, sneezing
moxifloxacin Allergy (Verified 11/16/24 11:50)
Unknown
penicillin G Allergy (Verified 11/13/24 13:53)
1960s had reaxn to injection-said he required treatment
Penicillins Allergy (Verified 11/13/24 13:53)
rash to amoxicillin [id number]'s many years ago
pollen extracts Allergy (Verified 11/13/24 13:53)
ENVIRONMENTAL-coughing, sneezing,ITCHING
Sulfa (Sulfonamide Antibiotics) Allergy (Verified 11/13/24 13:53)
Hives
sulfisoxazole Allergy (Verified 11/13/24 13:53)
Rash
tetanus toxoid, adsorbed Allergy (Verified 11/13/24 13:53)
Rash
Artifical sweeteners Allergy (Uncoded 11/13/24 13:53)
RECTAL PAIN
Medications Reviewed: Yes
Current Antibiotics:
Cefepime 1 g IV q8
Social History
Tobacco: Former Smoker
Alcohol: None
Drug: None
Personal:
Living: With Family
Employment: Retired
Family History
Family History: Not Pertinent
Review of Systems
Review of Systems
General: Change in Appetite
Cardiovascular: Dyspnea
Respiratory: Dyspnea, Cough and Sputum Production (Having difficulty in eating due to chronic cough, thick mucus, and difficulty swallowing)
Gasteroenterology: Weight Loss
Endocrine: Weight Change
Vital Signs
Temp Pulse Resp BP Pulse Ox
101.6 F H 108 18 99/63 97
12/16/24 15:00 12/16/24 15:05 12/16/24 15:05 12/16/24 15:00 12/16/24 15:05
Physical Exam
Physical Exam
Constitutional: Chronically Ill, Non-toxic (Appears weak and although quite conversant appears frail and fatigued) and Cachetic
Head: Normocephalic
Eyes: Pupils Equal, Pupils Round, No Conjunctival Hemorrhage and Sclera Anicteric
Pharynx: Other (Mild erythema with thick tenacious mucus)
Oral: No Thrush and No Ulcers
Cardiovascular: Regular Rate (Pacemaker present)
Pulmonary: Coarse (Tachypnea with decreased breath sounds and increased work of breathing)
Gastrointestinal: Soft, Non Tender, Non Distended and Decreased Bowel Sounds
Extremities: Other (No edema, limited ROM, mostly nonambulatory due to shortness of breath and increased work of breathing with any activity)
Skin: Warm and Dry
Wound: None
Neurological: Awake, Alert, Oriented and AO x 3 (Patient interactive, conversant, animated and cooperative)
Psychological: Calm
Lines: PIV
Lab / Diagnostic Study Results
12/16/24 06:28
12/16/24 06:28
Abs Immat Gran (auto) 0.1 10^3/uL (0-0.05) H 12/16/24 06:28
Absolute Neuts (auto) 12.1 10^3/uL (1.4-6.5) H 12/16/24 06:28
Absolute Lymphs (auto) 0.5 10^3/uL (1.2-3.4) L 12/16/24 06:28
Absolute Monos (auto) 0.6 10^3/uL (0.1-0.6) 12/16/24 06:28
Absolute Basos (auto) 0.1 10^3/uL (0-0.2) 12/16/24 06:28
Immature Gran % 0.7 % (0-0.5) H 12/16/24 06:28
Neutrophils % 89.1 % (42.2-75.2) H 12/16/24 06:28
Lymphocytes % 3.7 % (20.5-51.1) L 12/16/24 06:28
Monocytes % 4.4 % (1.7-9.3) 12/16/24:
Eosinophils % 1.7 % (0-6) 12/16/24 06:
Basophils % 0.4 % (0-2) 12/16/24 06:28
Lactic Acid Cancelled 12/15/24 22:15
Procalcitonin 0.06 ng/ml (0.0-0.25) 12/16/24 06:28
Microbiology Results
Micro:
12/16/24 14:11 Respiratory Culture - Pending
Sputum Gram Stain - Preliminary
12/15/24 18:47 Blood Culture - Pending
Blood/Venous
12/15/24 18:48 Blood Culture - Pending
Blood/Venous
Assessment / Plan
1. COPD with oxygen dependency and basically bed to chair existence with limited activity possible Patient with past smoking history with progressive emphysema
2. Persistent pneumonia involving left upper lobe with areas of significant bronchiectasis and production of thick tenacious yellow sputum noted in At bedside
3. History of chronic Pseudomonas infection with suppression at home on oral levofloxacin and recent use of cefepime
4. Sputum cultures sent from bedside sample today with pulmonary consultation in place and plan for bronchoscopy with BAL tomorrow
5. Patient has had significant weight loss, decrease in activity, and decreased quality of life in setting of not only chronic shortness of breath but persistent intractable cough which interferes with sleep, oral intake, and physical activity
6. Cardiac history is remarkable for pacemaker, CAD, past mitral valve disease with patient currently without chest pain or cardiac discomfort
7. Pulmonary consultation on chart with plans for discontinuing of antibiotic at this time in view of normal PCT, temperature, and WBC
8. Obtaining sputum sample will be helpful in ascertaining nature of pneumonia and encourage microbiology evaluation of BAL sample as well as pathology depending on results and further discussion with real estate legal assistant will consider sending laboratory
studies for geographic fungae, as well as other appropriate studies as indicated including pathology
Care Review
Total Time Spent with Patient (in minutes): 50
[2024-12-16] MEDS: LOPRESSOR PO (22:22)
[2024-12-16 22:23] VITALS: BP 96/58
[2024-12-16] MEDS: TESSALON PERLES 100 MG PO (22:27)
[2024-12-16 23:14] VITALS: BP 103/54
[2024-12-17] VITALS (9 sets, daily range): BP systolic 85–116; BP diastolic 48–64; BMI 18.0
--- NOTE | 2024-12-17 07:12 | W.PN.HOSP.TC ---
Addendum entered and electronically signed by Sami Espitia DO 12/18/24 13:15:
CDI: Sepsis, POA
Original Note:
Today's Communication/Plan
-
;/
Assessment / Plan
Assessment / Plan
Assessment/Plan
#SOB with concern for pneumonia
#Recurrent pseudomonal pulmonary infections
#COPD/bronchiectasis
#History of MDRO Pseudomonas
-CXR on presentation- Emphysematous changes redemonstrated. Stable severe left midlung airspace disease. Stable milder biapical airspace disease. No significant pleural effusions. No visualized pneumothorax.
-CT Chest 12/16- Progression of pneumonia in the posterior left upper lobe and within the lingula (since the prior CT). There is new pneumonia in the medial left lower lobe. Progression of subcarinal lymphadenopathy compared with prior CT. No change
in mildly enlarged precarinal lymph node. The adenopathy is probably reactive secondary to the pneumonia.
-started on IV cefepime Q8, on hold at this time for procedure
-bronchoscopy with bronchoalveolar Lavage today
-blood culture prelim negative.
-Continue scheduled breathing treatments with additional as needed
-Supplemental oxygen, titrate to maintain O2 sat between 88 to 92%
-Avoid Inhaled corticosteroid due to Hx of Recurrent Pneumonia
-Pulmonology Following.
-Sputum culture pending
-ID following.
#Acute on chronic hypoxic respiratory failure
-Secondary to Pneumonia and underlying severe Emphysema and Bronchiectasis
-Patient on O2 2-4L at home due to COPD/bronchiectasis
-Now on 4 L via nasal cannula
-Titrate to maintain pulse ox between 88 and 92%
-Treatment of pulmonary infection as above
#HFpEF, chronic
#S/p MVR
-Unclear etiology, possibly valvular; home regimen includes metoprolol tartrate and Lasix; no GDMT
-Last echocardiogram with LVEF 50% and grade 2 diastology; normal transvalvular gradients
-Currently compensated, euvolemic
#CAD s/p CABG
-Home regimen includes beta-karina, aspirin, statin
#Third-degree AVB s/p PPM
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
#H/O PUD
#Chronic Anemia
DVT prophylaxis: Lovenox
CODE STATUS: Full code
Anticipated Discharge: > 48 hours
Subjective/Interval History
-
Date of Service: December 17, 2024
Objective Data
-
Labs:
Laboratory Results
12/17/24
06:49
WBC Pending
Hgb Pending
Hct Pending
Plt Count Pending
Sodium Pending
Potassium Pending
Chloride Pending
Carbon Dioxide Pending
BUN Pending
Creatinine Pending
Glucose Pending
Calcium Pending
Total Bilirubin Pending
AST Pending
ALT Pending
Alkaline Phosphatase Pending
Vital Signs:
Vital Signs
Temp Pulse Resp BP Pulse Ox
98.0 F 91 24 103/54 99
12/16/24 23:14 12/16/24 23:14 12/16/24 23:14 12/16/24 23:14 12/16/24 23:14
I&O
12/16/24 12/17/24 12/18/24
06:59 06:59 06:59
Intake Total 120 / 120 120 / 120
Output Total 225 / 225 325 / 325
Balance -105 / -105 -205 / -205
Physical Exam
-
General: No Apparent Distress
HEENT: Normocephalic, Atraumatic and Oxygen (on 4L)
Respiratory: Non Labored Respirations and Decreased Breath Sounds
Cardiac: Regular Rhythm and S1/S2
GI: Soft, Nontender, Nondistended and Normal Bowel Sounds
Musculoskeletal: No Edema
Neuro: Awake, Alert, Oriented and AO x 3
Psych: Calm
[2024-12-17] MEDS: DUONEB 3 ML INH ×3 (07:49→19:11)
[2024-12-17] MEDS: SODIUM CHLORIDE 3% FOR INHALATION 1 VIAL INH ×2 (07:49→19:11)
[2024-12-17] MEDS: MUCINEX 1200 MG PO ×2 (07:51→19:23)
[2024-12-17] MEDS: LOW STRENGTH ASPIRIN 81 MG PO (07:51)
[2024-12-17] MEDS: OCUVITE SOFTGEL 1 CAP PO ×2 (07:51→19:20)
[2024-12-17] MEDS: CLARITIN 10 MG PO (07:51)
[2024-12-17] MEDS: PEPCID 20 MG PO (07:52)
[2024-12-17] MEDS: LOPRESSOR 12.5 MG PO (07:52)
[2024-12-17] MEDS: THERAGRAN 1 TABLET PO (07:52)
[2024-12-17] MEDS: TESSALON PERLES 100 MG PO (07:52)
[2024-12-17 08:27] LABS: % Basophils 0.4 % (0-2); % Eosinophils 4.2 % (0-6); % Immature Granulocytes 0.4 % (0-0.5); % Lymphocytes 9.3 % (20.5-51.1); % Monocytes 6.9 % (1.7-9.3); % Neutrophils 78.8 % (42.2-75.2); Absolute Basophils 0.1 10^3/uL (0-0.2); Absolute Eosinophils 0.6 10^3/uL (0-0.7); Absolute Immature Granulocytes 0.1 10^3/uL (0-0.05); Absolute Lymphocytes 1.4 10^3/uL (1.2-3.4); Absolute Neutrophils 11.5 10^3/uL (1.4-6.5); Hematocrit 33.1 % (39.0-52.0); Hemoglobin 10.7 g/dL (13.0-18.0); Mean Corp Hgb Conc. 32.3 g/dL (33.0-37.0); Mean Corpuscular Hgb 28.2 pg (27.0-31.0); Mean Corpuscular Volume 87.1 fL (80.0-94.0); Mean Platelet Volume 11.6 fL (7.4-10.4); Nucleated Red Blood Cells % 0 % (-); Platelet Count 330 10^3/uL (130-400); Red Cell Dist. Width 15.5 % (11.5-14.5); White Blood Cell Count 14.6 10^3/uL (4.8-10.8)
[2024-12-17 09:17] LABS: ALT (SGPT) < 10 U/L (0-50); AST (SGOT) 17 U/L (17-59); Albumin 3.2 g/dl (3.5-5.0); Alkaline Phosphatase 99 U/L (38-126); Blood Urea Nitrogen 33 mg/dl (9-20); Calcium 9.3 mg/dl (8.4-10.2); Carbon Dioxide 24 mmol/L (22-30); Chloride 107 mmol/L (98-107); Estimated Creatinine Clearance 38 ml/min; Glucose 76 mg/dl (70-99); Potassium 4.5 mmol/L (3.5-5.1); Sodium 138 mmol/L (135-145); Total Bilirubin 0.7 mg/dl (0.2-1.3); Total Protein 6.6 g/dl (6.3-8.2); eGFR > 60.00
--- NOTE | 2024-12-17 12:13 | W.PN.PUL3 ---
Today's Communication / Plan
-
- Bronchoscopy and BAL later today
- Follow-up on cultures, hold antibiotics for now
Assessment
-
#1. Acute on chronic hypoxic respiratory failure.
- Multifactorial, related to underlying severe emphysema/COPD along with chronic bronchiectasis with persistent left upper lobe/lingular consolidation
- Continue bronchodilators, airway clearance and supplemental oxygen, hold antibiotics for now
#2. Persistent left upper lobe/lingular pneumonia
- Procalcitonin 0.06, patient is afebrile and WBC count on admission was normal at 7.5, elevated to 13.6 this morning
- Follow-up CT chest pursued, final report pending, preliminary review by myself is suggestive of persistent left upper lobe/lingular opacity for more than a month now
- Hold IV antibiotics for now, discussed with patient need for bronchoscopy and BAL left upper lobe as well as lingular region along with bronchoscopic inspection to evaluate for any endobronchial lesion that might be leading to airway loss in the
area
- Patient currently n.p.o., bronchoscopy and BAL later today
- Infectious disease service on case, follow-up sputum cultures, preliminary normal respiratory jian
#3. Severe Emphysema with acute exacerbation of COPD (former smoker)
- Continue Duoneb qid, holding Spiriva and olodaterol while patient is receiving scheduled DuoNeb 4 times daily
- In view of recurrent Pneumonias, avoid inhaled steroids
- Currently no wheezing, hold off IV steroids
#4. Bronchiectasis with RUL fibrotic changes, prior history of Pseudomonas in sputum
- Avoid inhaled steroids
- Continue 3% NS nebulized bid with Duoneb
- Expectorating well with above airway clearance measures, hold off vest therapy for now
Other medical diagnosis:
- HFpEF
- CAD, s/p CABG
- h/o severe MR, s/p MVR
- S/p pacemaker placement
Discussed with primary team as well.
Total time spent on this consultation/encounter __45__ minutes which includes review of history, physical exam, medications, laboratory data, personal review of imaging, extensive review of outpatient records, discussion with care team and
respiratory therapy.
Data:
CXR 11/2024: Stable bilateral airspace disease suspicious for pneumonia.
CT Chest 10/2024: 1. Left upper lobe pneumonia, new as compared with previous examination.
2. Advanced emphysematous changes as seen previously. Unchanged partial atelectasis/scarring right apex with associated cylindrical and cystic bronchiectatic change. Unchanged wedge-shaped area of consolidation at the right lung base likely
related to atelectasis/scarring. Trace bilateral pleural effusions.
Lexiscan 03/2024: There is a medium sized, fixed defect of mild to moderate severity in the mid inferior, mid inferoseptal, apical inferior, apical septal and apex consistent with finding of known pacemaker and some degree of infarction. Systolic
function is normal global contractility with abnormal septal motion consistent with pacemaker.. The ejection fraction is 52%.
Stress Risk is moderate risk study (1 - 3% RI or /year) due to pharmacologic agent used.
Compared with the study performed on 03/08/2021. The size of the defect has decreased in no longer includes the apical anterior wall and inferolateral wall. The overall systolic function has improved from 45% to 52% on today's study.
ECHO 03/2024: Mildly reduced left ventricular systolic function. Left ventricular ejection
fraction is 50% by Wilcox's method.
Stage II diastolic dysfunction suggestive of abnormal relaxation and increased
filling pressures.
MVR with peak/mean gradients across the mitral valve are 14/5 mmHg.
Moderate to severe mitral regurgitation.
Compared to previous echo 07/04/2023, the mitral regurgitation is sightly
progressed.
Subjective Data
-
Date of Service:
Date of Service: December 17, 2024
Subjective:
Patient comfortably sitting in bed, no acute distress, reports feeling somewhat better, having copious expectoration.
Review of Systems
Genitourinary: Other (No new symptoms reported)
Objective Data
Data Reviewed
Vital Signs / I&O / Oxygen:
Vital Signs
Temp Pulse Resp BP Pulse Ox
97.5 F 91 18 116/64 98
12/17/24 08:05 12/17/24 11:10 12/17/24 11:10 12/17/24 08:05 12/17/24 11:10
Intake and Output
12/16/24 12/17/24 12/18/24
06:59 06:59 06:59
Intake Total 120 / 120 120 / 120
Output Total 225 / 225 325 / 325
Balance -105 / -105 -205 / -205
SaO2 98
Nasal Cannula flow liters per 4
minute
Physical Exam
General: Comfortable
HEENT: Normocephalic
Cardiovascular: S1-S2
Respiratory: Wheeze (No wheezing), Rhonchi and Other (Rattling secretions on exam)
GI: Soft and Non Distended
Neurology: Awake and Alert
Skin: Warm
Labs/Micro/Reports
Lab Data
12/17/24 06:49
12/17/24 06:49
Microbiology
12/16/24 14:11 Sputum Respiratory Culture - Preliminary
Usual Respiratory Jian
12/16/24 14:11 Sputum Gram Stain - Preliminary
12/15/24 18:47 Blood/Venous Blood Culture - Preliminary
No Growth in 24 hours- Final report to follow
12/15/24 18:48 Blood/Venous Blood Culture - Preliminary
No Growth in 24 hours- Final report to follow
[2024-12-17] MEDS: DUONEB INH (15:27)
[2024-12-17] MEDS: LOVENOX 40 MG SC (17:03)
[2024-12-17] MEDS: LIPITOR 20 MG PO (17:03)
[2024-12-17] MEDS: MAXIPIME 1000 MG IV (17:03)
[2024-12-17] MEDS: STERILE WATER FOR INJECTION 10 ML IV (17:04)
--- NOTE | 2024-12-17 18:14 | W.PN.ID1 ---
Date of Service
Date of Service: December 17, 2024
Today's Communication
Patient with leukocytosis WBC 14.5 with bronchoscopy done today and cultures pending
Assessment / Plan
1. COPD with oxygen dependency and basically bed to chair existence with limited activity possible Patient with past smoking history with progressive emphysema
2. Persistent pneumonia involving left upper lobe with areas of significant bronchiectasis and production of thick tenacious yellow sputum noted in At bedside
3. History of chronic Pseudomonas infection with suppression at home on oral levofloxacin and recent use of cefepime
4. Sputum cultures sent from bedside sample today with pulmonary consultation in place, bronchoscopy done today with cultures pending
5. Patient has had significant weight loss, decrease in activity, and decreased quality of life in setting of not only chronic shortness of breath but persistent intractable cough which interferes with sleep, oral intake, and physical activity
6. Cardiac history is remarkable for pacemaker, CAD, past mitral valve disease with patient currently without chest pain or cardiac discomfort
7. Pulmonary consultation on chart with plans for discontinuing of antibiotic at this time in view of normal PCT, temperature, and WBC
8. Obtaining sputum sample will be helpful in ascertaining nature of pneumonia and encourage microbiology evaluation of BAL sample as well as pathology depending on results and further discussion with relief docking master will consider sending laboratory
studies for geographic fungae, as well as other appropriate studies as indicated including pathology
Chief Complaint
-: Pneumonia (shortness of breath with worsening of Chest imaging )
Subjective / Review of Systems
Review of Systems: No Fever, No Chills, No Headache, No Pharyngitis, No Stiff Neck, Cough, No Sputum Production, No Chest Pain, No Abdominal Pain, No Nausea and No Skin Rash
Vital Signs / Physical Exam
Vital Signs
Vital Signs
Temp Pulse Resp BP Pulse Ox
98.2 F 95 17 107/62 97
12/17/24 16:19 12/17/24 16:19 12/17/24 16:19 12/17/24 16:19 12/17/24 16:19
Physical Exam
Constitutional: No Acute Distress, Acutely Ill, Chronically Ill, Non-toxic and Cachetic
Head: Normocephalic
Eyes: Pupils Equal, Pupils Round, No Conjunctival Hemorrhage and Sclera Anicteric
Oropharyngeal: Benign
Cardiovascular: Regular Rate
Pulmonary: Coarse and Other (labored)
Gastrointestinal: Soft, Non Tender, Non Distended, Decreased Bowel Sounds, No Rebound and No Guarding
Skin: Warm and Dry
Wound: Other (pressure injuries)
Neurological: Other (somnolent)
Psychological: Calm (minimally responsive)
Lines: PIV
Objective Data
Lab Data
Lab Results
12/17/24 06:49
12/17/24 06:49
Estimated Creat Clear 38 ml/min 12/17/24 06:49
Lactic Acid Cancelled 12/15/24 22:15
Total Bilirubin 0.7 mg/dl (0.2-1.3) 12/17/24 06:49
AST 17 U/L (17-59) 12/17/24 06:49
ALT < 10 U/L (0-50) 12/17/24 06:49
Alkaline Phosphatase 99 U/L (38-126) 12/17/24 06:49
Most recent labs reviewed.
Microbiology: Report Reviewed (Bronchoscopy studies/cultures pending)
Micro Results:
12/17/24 14:52 Fungal Culture - Preliminary
Bronch [place] Culture in progress.
Positive cultures are reported as soon as detected.
Final report to follow in four to five weeks.
12/17/24 14:51 Fungal Culture - Preliminary
Bronchoalveolar Lavage Culture in progress.
Positive cultures are reported as soon as detected.
Final report to follow in four to five weeks.
12/17/24 14:51 Acid Fast Bacilli Smear - Pending
Bronch [place] Acid Fast Bacilli Culture - Pending
12/17/24 14:52 Acid Fast Bacilli Smear - Pending
Bronchoalveolar Lavage Acid Fast Bacilli Culture - Pending
12/17/24 14:51 Respiratory Culture - Pending
Res Misc Gram Stain - Pending
12/17/24 14:51 Respiratory Culture - Pending
Bronchial Brushing Gram Stain - Pending
12/16/24 14:11 Respiratory Culture - Preliminary
Sputum Usual Respiratory [place]
Gram Stain - Preliminary
12/15/24 18:47 Blood Culture - Preliminary
Blood/Venous No Growth in 24 hours- Final report to follow
12/15/24 18:48 Blood Culture - Preliminary
Blood/Venous No Growth in 24 hours- Final report to follow
Chest X-Ray: Report Reviewed
CT Scan: Report Reviewed
Care Review
Total Time Spent with Patient (in minutes): 25
[2024-12-17] MEDS: SENOKOT-S 1 TABLET PO (19:20)
[2024-12-17] MEDS: LOPRESSOR PO (22:19)
[2024-12-18] MEDS: STERILE WATER FOR INJECTION 10 ML IV ×3 (01:07→17:00)
[2024-12-18] MEDS: MAXIPIME 1000 MG IV ×3 (01:07→17:00)
[2024-12-18] MEDS: MIRALAX 17 GRAMS PO (05:04)
[2024-12-18 05:50] VITALS: BMI 18.2
[2024-12-18] MEDS: DUONEB 3 ML INH ×4 (07:15→19:59)
[2024-12-18] MEDS: SODIUM CHLORIDE 3% FOR INHALATION 1 VIAL INH ×2 (07:15→19:59)
--- NOTE | 2024-12-18 07:17 | W.PN.HOSP.TC ---
Today's Communication/Plan
-
;/
Assessment / Plan
Assessment / Plan
Assessment/Plan
#SOB with concern for pneumonia
#Recurrent pseudomonal pulmonary infections
#COPD/bronchiectasis
#History of MDRO Pseudomonas
-CXR on presentation- Emphysematous changes redemonstrated. Stable severe left midlung airspace disease. Stable milder biapical airspace disease. No significant pleural effusions. No visualized pneumothorax.
-CT Chest 12/16- Progression of pneumonia in the posterior left upper lobe and within the lingula (since the prior CT). There is new pneumonia in the medial left lower lobe. Progression of subcarinal lymphadenopathy compared with prior CT. No change
in mildly enlarged precarinal lymph node. The adenopathy is probably reactive secondary to the pneumonia.
-started on IV cefepime 1g Q8
-s/p bronchoscopy with bronchoalveolar Lavage 12/17, culture and cytology results pending
-blood culture NGTD
-Continue scheduled breathing treatments with additional as needed
-Supplemental oxygen, titrate to maintain O2 sat between 88 to 92%
-Avoid Inhaled corticosteroid due to Hx of Recurrent Pneumonia
-Pulmonology Following.
-ID following.
#Acute on chronic hypoxic respiratory failure
-Secondary to Pneumonia and underlying severe Emphysema and Bronchiectasis
-Patient on O2 2-4L at home due to COPD/bronchiectasis
-Now on 4 L via nasal cannula
-Titrate to maintain pulse ox between 88 and 92%
-Treatment of pulmonary infection as above
#HFpEF, chronic
#S/p MVR
-Unclear etiology, possibly valvular; home regimen includes metoprolol tartrate and Lasix; no GDMT
-Last echocardiogram with LVEF 50% and grade 2 diastology; normal transvalvular gradients
-Currently compensated, euvolemic
#CAD s/p CABG
-Home regimen includes beta-karina, aspirin, statin
#Third-degree AVB s/p PPM
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
#H/O PUD
#Chronic Anemia
DVT prophylaxis: Lovenox
CODE STATUS: Full code
Anticipated Discharge: > 48 hours
Subjective/Interval History
-
Patient seen and examined at bedside. Reports improvement of cough.
Objective Data
-
Labs:
Laboratory Results
12/18/24
06:48
WBC Pending
Hgb Pending
Hct Pending
Plt Count Pending
Sodium Pending
Potassium Pending
Chloride Pending
Carbon Dioxide Pending
BUN Pending
Creatinine Pending
Glucose Pending
Calcium Pending
Total Bilirubin Pending
AST Pending
ALT Pending
Alkaline Phosphatase Pending
Vital Signs:
Vital Signs
Temp Pulse Resp BP Pulse Ox
97.3 F 94 20 104/62 98
12/17/24 22:47 12/17/24 22:47 12/17/24 22:47 12/17/24 22:47 12/17/24 22:47
I&O
12/17/24 12/18/24 12/19/24
06:59 06:59 06:59
Intake Total 120 / 120 480 / 480
Output Total 325 / 325 200 / 200
Balance -205 / -205 280 / 280
Review of Systems
-
All other systems: Reviewed and negative (except as documented)
Physical Exam
-
General: No Apparent Distress
HEENT: Normocephalic, Atraumatic and Oxygen (on 4L)
Respiratory: Clear to Auscultation and Non Labored Respirations
Cardiac: Regular Rhythm and S1/S2
GI: Soft, Nontender, Nondistended and Normal Bowel Sounds
Musculoskeletal: No Edema
Neuro: Awake, Alert, Oriented and AO x 3
Psych: Calm
[2024-12-18 07:32] VITALS: BP 122/77
[2024-12-18 07:34] LABS: % Basophils 0.2 % (0-2); % Immature Granulocytes 0.5 % (0-0.5); % Monocytes 4.7 % (1.7-9.3); % Neutrophils 87.6 % (42.2-75.2); Absolute Immature Granulocytes 0.1 10^3/uL (0-0.05); Absolute Lymphocytes 0.7 10^3/uL (1.2-3.4); Absolute Monocytes 0.5 10^3/uL (0.1-0.6); Absolute Neutrophils 8.6 10^3/uL (1.4-6.5); Hematocrit 30.4 % (39.0-52.0); Hemoglobin 9.8 g/dL (13.0-18.0); Mean Corp Hgb Conc. 32.2 g/dL (33.0-37.0); Mean Corpuscular Volume 86.9 fL (80.0-94.0); Mean Platelet Volume 11.5 fL (7.4-10.4); Nucleated Red Blood Cells % 0 % (-); Platelet Count 343 10^3/uL (130-400); Red Cell Dist. Width 15.4 % (11.5-14.5); White Blood Cell Count 9.8 10^3/uL (4.8-10.8)
[2024-12-18 08:09] LABS: ALT (SGPT) < 10 U/L (0-50); AST (SGOT) 16 U/L (17-59); Albumin 3.1 g/dl (3.5-5.0); Alkaline Phosphatase 104 U/L (38-126); Blood Urea Nitrogen 39 mg/dl (9-20); Calcium 9.5 mg/dl (8.4-10.2); Carbon Dioxide 23 mmol/L (22-30); Chloride 108 mmol/L (98-107); Estimated Creatinine Clearance 43 ml/min; Glucose 187 mg/dl (70-99); Potassium 4.7 mmol/L (3.5-5.1); Sodium 138 mmol/L (135-145); Total Bilirubin 0.5 mg/dl (0.2-1.3); Total Protein 6.3 g/dl (6.3-8.2); eGFR > 60.00
[2024-12-18] MEDS: PEPCID 20 MG PO (08:16)
[2024-12-18] MEDS: THERAGRAN 1 TABLET PO (08:16)
[2024-12-18] MEDS: MUCINEX 1200 MG PO ×2 (08:16→19:52)
[2024-12-18] MEDS: OCUVITE SOFTGEL 1 CAP PO ×2 (08:16→19:52)
[2024-12-18] MEDS: LOW STRENGTH ASPIRIN 81 MG PO (08:16)
[2024-12-18] MEDS: LOPRESSOR 12.5 MG PO (08:16)
[2024-12-18] MEDS: CLARITIN 10 MG PO (08:16)
--- NOTE | 2024-12-18 10:45 | CM ---
Patient seen at bedside in [facility]. Patient stated that he was planning to go home and that he was told that it would be after the weekend. Patient planning to go to [facility] and home O2 is from [facility]. Therapy recommendation is for home with home
health. CM will continue to follow for discharge planning needs.
Plan; home with [facility] and home O2
--- NOTE | 2024-12-18 11:06 | PN.CDI ---
CDI
- -
CDI:
Physician Documentation Request
Admit Date: 12/15/24 19:50
Dear Doctor Suzan,
Patient admitted with pneumonia.
12/17 PN, 'Acute on chronic hypoxic respiratory failure....started on IV cefepime Q8.'
12/16 WBC 13.6, T max 101.6 and HR> 90.
Please clarify which of the following most accurately describes the status of the patient's infection:
Severe sepsis , POA
Severe sepsis, evolved during hospitalization
Pneumonia only
Other
Sepsis
- Systemic manifestations of infection, with 2 or more SIRS criteria which include:
- Fever >100.9 degrees F or hypothermia < 96.8 degrees F
- Leukocytosis - WBC > 12,000 or leukopenia - WBC < 4,000 or > 10% bands
- Tachycardia > 90 beats per minute
- Tachypnea - RR > 20 breaths per minute or PaCO2 , 32mmHg
Source: Merck Manual 2013
- Indicate the known or suspected organism
- Indicate the known or suspected underlying infection, such as pneumonia
Severe Sepsis
- Sepsis with associated acute organ dysfunction, such as renal or respiratory failure
- Documentation should indicate the association between the sepsis and the organ dysfunction
Localized Infection Only, Without Systemic Illness
- indicate the site/source, such as pneumonia
Other
Use of terms such as suspected, likely, concern for, or probable (associated with a specific diagnosis that is being evaluated, monitored, or treated as if it exists) are acceptable and can be coded in the inpatient setting, when documented at the
time of discharge.
Thank you,
Carol BOND,RN,CCDS
CDI Specialist
Available via [facility] text
Please use your independent medical judgment in providing your response.
--- NOTE | 2024-12-18 13:44 | W.PN.PUL3 ---
Today's Communication / Plan
-
- Continue current airway clearance measures, await culture and sensitivities
- If continues to improve, anticipate discharge 12/19
- Will arrange outpatient follow-up with pulmonary clinic
Assessment
-
#1. Acute on chronic hypoxic respiratory failure.
- Multifactorial, related to underlying severe emphysema/COPD along with chronic bronchiectasis with persistent left upper lobe/lingular consolidation
- Continue bronchodilators, airway clearance and supplemental oxygen
- WBC count improving, patient clearly response to IV antibiotic as well as airway clearance
#2. Persistent left upper lobe/lingular pneumonia
- Procalcitonin 0.06, patient is afebrile and WBC count on admission was normal at 7.5 on admission
- Follow-up CT chest persistent left upper lobe/lingular consolidation
- S/p bronchoscopy and BAL 12/17, so far no growth
- IV cefepime was resumed after bronchoscopy
- Patient clearly response to IV antibiotic and airway clearance with improvement in his symptoms, expectoration as well as cough. Suspect underlying bronchiectasis primarily drives his symptoms and IV antibiotics help decrease the bacterial burden
with resultant symptom improvement.
- If continues to improve, anticipate discharge home 12/19
#3. Severe Emphysema with acute exacerbation of COPD (former smoker)
- Continue Duoneb qid, holding Spiriva and olodaterol while patient is receiving scheduled DuoNeb 4 times daily
- In view of recurrent Pneumonias, avoid inhaled steroids
- Currently no wheezing, hold off IV steroids
#4. Bronchiectasis with RUL fibrotic changes, prior history of Pseudomonas in sputum
- Avoid inhaled steroids
- Continue 3% NS nebulized bid with Duoneb
- Expectorating well with above airway clearance measures, hold off vest therapy for now
Other medical diagnosis:
- HFpEF
- CAD, s/p CABG
- h/o severe MR, s/p MVR
- S/p pacemaker placement
Discussed with primary team as well.
Total time spent on this consultation/encounter __45__ minutes which includes review of history, physical exam, medications, laboratory data, personal review of imaging, extensive review of outpatient records, discussion with care team and
respiratory therapy.
Data:
CXR 11/2024: Stable bilateral airspace disease suspicious for pneumonia.
CT Chest 10/2024: 1. Left upper lobe pneumonia, new as compared with previous examination.
2. Advanced emphysematous changes as seen previously. Unchanged partial atelectasis/scarring right apex with associated cylindrical and cystic bronchiectatic change. Unchanged wedge-shaped area of consolidation at the right lung base likely
related to atelectasis/scarring. Trace bilateral pleural effusions.
Lexiscan 03/2024: There is a medium sized, fixed defect of mild to moderate severity in the mid inferior, mid inferoseptal, apical inferior, apical septal and apex consistent with finding of known pacemaker and some degree of infarction. Systolic
function is normal global contractility with abnormal septal motion consistent with pacemaker.. The ejection fraction is 52%.
Stress Risk is moderate risk study (1 - 3% [place] or /year) due to pharmacologic agent used.
Compared with the study performed on 03/08/2021. The size of the defect has decreased in no longer includes the apical anterior wall and inferolateral wall. The overall systolic function has improved from 45% to 52% on today's study.
ECHO 03/2024: Mildly reduced left ventricular systolic function. Left ventricular ejection
fraction is 50% by Wilcox's method.
Stage II diastolic dysfunction suggestive of abnormal relaxation and increased
filling pressures.
MVR with peak/mean gradients across the mitral valve are 14/5 mmHg.
Moderate to severe mitral regurgitation.
Compared to previous echo 07/04/2023, the mitral regurgitation is sightly
progressed.
Subjective Data
-
Date of Service:
Date of Service: December 18, 2024
Subjective:
Patient comfortably lying in bed, in no acute distress, reports overall feeling much better.
Review of Systems
Genitourinary: Other (All 14 systems reviewed and negative except as stated above in the history of present illness.)
Objective Data
Data Reviewed
Vital Signs / I&O / Oxygen:
Vital Signs
Temp Pulse Resp BP Pulse Ox
97.6 F 82 14 122/77 100
12/18/24 07:32 12/18/24 11:17 12/18/24 11:17 12/18/24 07:32 12/18/24 11:17
Intake and Output
12/17/24 12/18/24 12/19/24
06:59 06:59 06:59
Intake Total 120 / 120 480 / 480
Output Total 325 / 325 200 / 200
Balance -205 / -205 280 / 280
SaO2 100
Nasal Cannula flow liters per 3
minute
Physical Exam
General: Comfortable
HEENT: Normocephalic
Cardiovascular: S1-S2
Respiratory: Wheeze (No wheezing) and Other (Air entry much improved)
GI: Soft and Non Distended
Neurology: Awake and Alert
Skin: Warm
Labs/Micro/Reports
Lab Data
12/18/24 06:48
12/18/24 06:48
Microbiology
12/17/24 14:51 Bronchial Brushing Respiratory Culture - Preliminary
Usual Respiratory [place]
12/17/24 14:51 Bronchial Brushing Gram Stain - Preliminary
12/17/24 14:51 Res Misc Respiratory Culture - Preliminary
NO GROWTH
12/17/24 14:51 Res Misc Gram Stain - Preliminary
12/16/24 14:11 Sputum Respiratory Culture - Final
Hortencia albicans
12/16/24 14:11 Sputum Gram Stain - Final
12/15/24 18:47 Blood/Venous Blood Culture - Preliminary
No Growth in 48 hours- Final report to follow
12/15/24 18:48 Blood/Venous Blood Culture - Preliminary
No Growth in 48 hours- Final report to follow
12/17/24 14:52 Bronch [place] Fungal Culture - Preliminary
Culture in progress.
Positive cultures are reported as soon as detected.
Final report to follow in four to five weeks.
12/17/24 14:51 Bronchoalveolar Lavage Fungal Culture - Preliminary
Culture in progress.
Positive cultures are reported as soon as detected.
Final report to follow in four to five weeks.
[2024-12-18 15:01] VITALS: BP 108/59; PULSE 88; O2SAT 98
[2024-12-18 15:04] VITALS: BP 127/63
[2024-12-18] MEDS: LOVENOX 40 MG SC (16:59)
[2024-12-18] MEDS: LIPITOR 20 MG PO (16:59)
--- NOTE | 2024-12-18 19:20 | W.PN.ID1 ---
Date of Service
Date of Service: December 18, 2024
Today's Communication
patient feels a bit better this AM with decreased cough
Assessment / Plan
1. COPD with oxygen dependency and basically bed to chair existence with limited activity possible Patient with past smoking history with progressive emphysema
2. Persistent pneumonia involving left upper lobe with areas of significant bronchiectasis and production
3. History of chronic Pseudomonas infection with suppression at home on oral levofloxacin and recent use of cefepime
4. Sputum cultures pending with pulmonary consultation in place, bronchoscopy done with cultures pending
5. Patient has had significant weight loss, decrease in activity, and decreased quality of life in setting of not only chronic shortness of breath but persistent intractable cough which interferes with sleep, oral intake, and physical activity
6. Cardiac history is remarkable for pacemaker, CAD, past mitral valve disease with patient currently without chest pain or cardiac discomfort
7. Pulmonary consultation on chart with plans for discontinuing of antibiotic at this time in view of normal PCT, temperature, and WBC
8. Obtaining sputum sample will be helpful in ascertaining nature of pneumonia and encourage microbiology evaluation of BAL sample as well as pathology depending on results and further discussion with bearing ring assembler will consider sending laboratory
studies for geographic fungae, as well as other appropriate studies as indicated including pathology
Chief Complaint
-: Pneumonia (shortness of breath with worsening of Chest imaging )
Subjective / Review of Systems
Review of Systems: No Fever, No Chills, No Headache, No Pharyngitis, No Stiff Neck, No Swollen Lymph Nodes, Cough (but decreased today), Sputum Production (minimal to none), No Chest Pain, No Palpitations, No Abdominal Pain, No Nausea, No Vomiting,
No Diarrhea, No Dysuria, No Joint Pain and No Skin Rash
Vital Signs / Physical Exam
Vital Signs
Vital Signs
Temp Pulse Resp BP Pulse Ox
97.6 F 78 15 127/63 97
12/18/24 15:04 12/18/24 15:06 12/18/24 15:06 12/18/24 15:04 12/18/24 15:06
Physical Exam
Constitutional: No Acute Distress, Well Developed, Comfortable, Chronically Ill, Non-toxic and Cachetic
Head: Normocephalic
Eyes: Pupils Equal, Pupils Round, No Conjunctival Hemorrhage and Sclera Anicteric
Oropharyngeal: Benign
Cardiovascular: Regular Rate
Pulmonary: Clear and Non Labored
Gastrointestinal: Soft, Non Tender, Non Distended, Decreased Bowel Sounds, No Rebound and No Guarding
Skin: Warm and Dry
Wound: None
Neurological: Awake, Alert, Oriented, AO x 3 and No Motor Deficits
Psychological: Calm
Lines: PIV
Objective Data
Lab Data
Lab Results
12/18/24 06:48
12/18/24 06:48
Estimated Creat Clear 43 ml/min 12/18/24 06:48
Lactic Acid Cancelled 12/15/24 22:15
Total Bilirubin 0.5 mg/dl (0.2-1.3) 12/18/24 06:48
AST 16 U/L (17-59) L 12/18/24 06:48
ALT < 10 U/L (0-50) 12/18/24 06:48
Alkaline Phosphatase 104 U/L (38-126) 12/18/24 06:48
Most recent labs reviewed.
Microbiology: Report Reviewed (cultures pending)
Micro Results:
12/15/24 18:47 Blood Culture - Preliminary
Blood/Venous No Growth in 72 hours- Final report to follow
12/15/24 18:48 Blood Culture - Preliminary
Blood/Venous No Growth in 72 hours- Final report to follow
12/17/24 14:51 Respiratory Culture - Preliminary
Bronchial Brushing Usual Respiratory Ivette
Gram Stain - Preliminary
12/17/24 14:51 Respiratory Culture - Preliminary
Res Misc NO GROWTH
Gram Stain - Preliminary
12/16/24 14:11 Respiratory Culture - Final
Sputum Hortencia albicans
Gram Stain - Final
12/17/24 14:52 Fungal Culture - Preliminary
Bronch [place] Culture in progress.
Positive cultures are reported as soon as detected.
Final report to follow in four to five weeks.
12/17/24 14:51 Fungal Culture - Preliminary
Bronchoalveolar Lavage Culture in progress.
Positive cultures are reported as soon as detected.
Final report to follow in four to five weeks.
12/17/24 14:51 Acid Fast Bacilli Smear - Pending
Bronch [place] Acid Fast Bacilli Culture - Pending
12/17/24 14:52 Acid Fast Bacilli Smear - Pending
Bronchoalveolar Lavage Acid Fast Bacilli Culture - Pending
CT Scan: Report Reviewed
Care Review
Total Time Spent with Patient (in minutes): 25
[2024-12-18] MEDS: LOPRESSOR PO ×2 (19:52→19:57)
[2024-12-18 23:00] VITALS: BP 117/60
[2024-12-19] MEDS: STERILE WATER FOR INJECTION 10 ML IV ×3 (01:06→17:25)
[2024-12-19] MEDS: MAXIPIME 1000 MG IV ×3 (01:06→17:25)
[2024-12-19 05:18] VITALS: BMI 18.4
[2024-12-19 07:00] VITALS: BP 124/66
--- NOTE | 2024-12-19 07:23 | W.PN.HOSP.TC ---
Today's Communication/Plan
-
;/
Assessment / Plan
Assessment / Plan
Assessment/Plan
#SOB with concern for pneumonia
#Recurrent pseudomonal pulmonary infections
#COPD/bronchiectasis
#History of MDRO Pseudomonas
-CXR on presentation- Emphysematous changes redemonstrated. Stable severe left midlung airspace disease. Stable milder biapical airspace disease. No significant pleural effusions. No visualized pneumothorax.
-CT Chest 12/16- Progression of pneumonia in the posterior left upper lobe and within the lingula (since the prior CT). There is new pneumonia in the medial left lower lobe. Progression of subcarinal lymphadenopathy compared with prior CT. No change
in mildly enlarged precarinal lymph node. The adenopathy is probably reactive secondary to the pneumonia.
-started on IV cefepime 1g Q8
-s/p bronchoscopy with bronchoalveolar Lavage 12/17, culture and cytology results pending
-blood culture NGTD
-Sputum culture positive for Hortencia
-Continue scheduled breathing treatments with additional as needed
-Supplemental oxygen, titrate to maintain O2 sat between 88 to 92%
-Avoid Inhaled corticosteroid due to Hx of Recurrent Pneumonia
-Pulmonology Following.
-ID following.
#Acute on chronic hypoxic respiratory failure
-Secondary to Pneumonia and underlying severe Emphysema and Bronchiectasis
-Patient on O2 2-4L at home due to COPD/bronchiectasis
-Now on 2 L via nasal cannula
-Titrate to maintain pulse ox between 88 and 92%
-Treatment of pulmonary infection as above
#HFpEF, chronic
#S/p MVR
-Unclear etiology, possibly valvular; home regimen includes metoprolol tartrate and Lasix; no GDMT
-Last echocardiogram with LVEF 50% and grade 2 diastology; normal transvalvular gradients
-Currently compensated, euvolemic
#Severe protein calorie malnutrition,
-pulmonary cachexia.
-BMI 18. Has good appetite.
-Continue to encourage oral intake and start Ensure twice daily with meals.
#CAD s/p CABG
-Home regimen includes beta-karina, aspirin, statin
#Third-degree AVB s/p PPM
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
#H/O PUD
#Chronic Anemia
DVT prophylaxis: Lovenox
CODE STATUS: Full code
Anticipated Discharge: > 48 hours
Subjective/Interval History
-
Patient seen and examined at bedside. Was on 2L 02. Reports improvement of symptoms.
Objective Data
-
Labs:
Laboratory Results
12/19/24
06:46
WBC Pending
Hgb Pending
Hct Pending
Plt Count Pending
Sodium Pending
Potassium Pending
Chloride Pending
Carbon Dioxide Pending
BUN Pending
Creatinine Pending
Glucose Pending
Calcium Pending
Vital Signs:
Vital Signs
Temp Pulse Resp BP Pulse Ox
97.6 F 84 16 117/60 98
12/18/24 23:00 12/18/24 23:00 12/18/24 23:00 12/18/24 23:00 12/18/24 23:00
I&O
12/18/24 12/19/24 12/20/24
06:59 06:59 06:59
Intake Total 480 / 480 580 / 580
Output Total 200 / 200
Balance 280 / 280 580 / 580
Review of Systems
-
All other systems: Reviewed and negative (except as documented)
Physical Exam
-
General: No Apparent Distress
HEENT: Normocephalic, Atraumatic and Oxygen (on 4L)
Respiratory: Clear to Auscultation and Non Labored Respirations
Cardiac: Regular Rhythm and S1/S2
GI: Soft, Nontender, Nondistended and Normal Bowel Sounds
Musculoskeletal: No Edema
Neuro: Awake, Alert, Oriented and AO x 3
Psych: Calm
[2024-12-19 07:28] LABS: % Basophils 0.5 % (0-2); % Eosinophils 3.7 % (0-6); % Immature Granulocytes 0.4 % (0-0.5); % Lymphocytes 12.3 % (20.5-51.1); % Monocytes 6.1 % (1.7-9.3); Absolute Basophils 0.1 10^3/uL (0-0.2); Absolute Eosinophils 0.4 10^3/uL (0-0.7); Absolute Lymphocytes 1.4 10^3/uL (1.2-3.4); Absolute Monocytes 0.7 10^3/uL (0.1-0.6); Absolute Neutrophils 8.4 10^3/uL (1.4-6.5); Hematocrit 26.3 % (39.0-52.0); Hemoglobin 8.6 g/dL (13.0-18.0); Mean Corp Hgb Conc. 32.7 g/dL (33.0-37.0); Mean Corpuscular Hgb 28.7 pg (27.0-31.0); Mean Corpuscular Volume 87.7 fL (80.0-94.0); Mean Platelet Volume 11.3 fL (7.4-10.4); Nucleated Red Blood Cells % 0 % (-); Platelet Count 320 10^3/uL (130-400); Red Cell Dist. Width 15.4 % (11.5-14.5); White Blood Cell Count 10.9 10^3/uL (4.8-10.8)
[2024-12-19] MEDS: SODIUM CHLORIDE 3% FOR INHALATION 1 VIAL INH (07:37)
[2024-12-19] MEDS: DUONEB 3 ML INH ×3 (07:38→15:35)
[2024-12-19 07:50] LABS: Blood Urea Nitrogen 34 mg/dl (9-20); Calcium 9.7 mg/dl (8.4-10.2); Carbon Dioxide 24 mmol/L (22-30); Chloride 112 mmol/L (98-107); Estimated Creatinine Clearance 43 ml/min; Glucose 94 mg/dl (70-99); Magnesium 2.3 mg/dl (1.6-2.3); Potassium 4.6 mmol/L (3.5-5.1); Sodium 139 mmol/L (135-145); eGFR > 60.00
[2024-12-19] MEDS: MUCINEX 1200 MG PO (08:34)
[2024-12-19] MEDS: OCUVITE SOFTGEL 1 CAP PO (08:34)
[2024-12-19] MEDS: CLARITIN 10 MG PO (08:34)
[2024-12-19] MEDS: LOW STRENGTH ASPIRIN 81 MG PO (08:34)
[2024-12-19] MEDS: PEPCID 20 MG PO (08:34)
[2024-12-19] MEDS: LOPRESSOR 12.5 MG PO (08:34)
[2024-12-19] MEDS: THERAGRAN 1 TABLET PO (08:35)
--- NOTE | 2024-12-19 13:24 | W.PN.ID1 ---
Date of Service
Date of Service: December 19, 2024
Today's Communication
clinically improved
Assessment / Plan
1. COPD with oxygen dependency and basically bed to chair existence with limited activity possible Patient with past smoking history with progressive emphysema
2. Persistent pneumonia involving left upper lobe with areas of significant bronchiectasis and sputum production gratly improved after bronchoscopy
3. No positive bacterial culture this admission//will defer to Pulmonary for supressive antibiotic, but for now doing well on Cefepime afebrile,no leukocytosis,minimal cough, no sputum
4. Pulmonary consultation with bronchoscopy done with cultures pending
5. Patient feeling better with resolution of cough and is eating and more interactive and is now able to speak and converse without persistant cough
6. Cardiac history is remarkable for pacemaker, CAD, past mitral valve disease with patient currently without chest pain or cardiac discomfort
7. Pulmonary consultation on chart with plans for discontinuing of antibiotic at this time in view of normal PCT, temperature, and WBC
8. Evaluation of BAL sample including pathology with further discussion with sanitation supervisor for discharge plan imperative
Chief Complaint
-: Pneumonia (shortness of breath with worsening of Chest imaging )
Subjective / Review of Systems
Review of Systems: No Fever, No Chills, No Headache, No Pharyngitis, No Stiff Neck, Cough, No Sputum Production, No Chest Pain, No Palpitations (cough with significnt decrease s/p bronchoscopy and clearing of secretions and possible mucus plugging),
No Abdominal Pain, No Nausea, No Vomiting, No Diarrhea, No Dysuria, No Joint Pain and No Skin Rash
Vital Signs / Physical Exam
Vital Signs
Vital Signs
Temp Pulse Resp BP Pulse Ox
97.3 F 81 16 124/66 98
12/19/24 07:00 12/19/24 11:15 12/19/24 11:15 12/19/24 08:34 12/19/24 11:15
Physical Exam
Constitutional: No Acute Distress, Well Developed, Comfortable, Chronically Ill, Non-toxic and Cachetic
Head: Normocephalic
Eyes: Pupils Equal, Pupils Round, No Conjunctival Hemorrhage and Sclera Anicteric
Oropharyngeal: Benign
Cardiovascular: Regular Rate
Pulmonary: Coarse and Non Labored
Gastrointestinal: Soft, Non Tender, Non Distended, Normal Bowel Sounds, No Rebound and No Guarding
Extremities: Other (fair Rom)
Skin: Warm and Dry
Wound: None
Neurological: Awake, Alert, Oriented, AO x 3 and No Motor Deficits (much more awake, alert and conversant since admission and particularly after bronchoscopy)
Psychological: Calm
Lines: PIV
Objective Data
Lab Data
Lab Results
12/19/24 06:46
12/19/24 06:46
Estimated Creat Clear 43 ml/min 12/19/24 06:46
Lactic Acid Cancelled 12/15/24 22:15
Total Bilirubin 0.5 mg/dl (0.2-1.3) 12/18/24 06:48
AST 16 U/L (17-59) L 12/18/24 06:48
ALT < 10 U/L (0-50) 12/18/24 06:48
Alkaline Phosphatase 104 U/L (38-126) 12/18/24 06:48
Most recent labs reviewed.
Microbiology: Report Reviewed (disregard sputum hortencia as it is contaminated oral collection //BAL 12/17/24 cultures reliable with normal jian with and cultures without growth,BAL fungal cultures pending and are often slow to report, AFB pending)
Micro Results:
12/17/24 14:51 Respiratory Culture - Final
Res Misc NO GROWTH
Gram Stain - Final
12/17/24 14:51 Respiratory Culture - Final
Bronchial Brushing Usual Respiratory Jian
Gram Stain - Final
12/15/24 18:47 Blood Culture - Preliminary
Blood/Venous No Growth in 72 hours- Final report to follow
12/15/24 18:48 Blood Culture - Preliminary
Blood/Venous No Growth in 72 hours- Final report to follow
12/16/24 14:11 Respiratory Culture - Final
Sputum Hortencia albicans
Gram Stain - Final
12/17/24 14:52 Fungal Culture - Preliminary
Bronch [place] Culture in progress.
Positive cultures are reported as soon as detected.
Final report to follow in four to five weeks.
12/17/24 14:51 Fungal Culture - Preliminary
Bronchoalveolar Lavage Culture in progress.
Positive cultures are reported as soon as detected.
Final report to follow in four to five weeks.
12/17/24 14:51 Acid Fast Bacilli Smear - Pending
Bronch [place] Acid Fast Bacilli Culture - Pending
12/17/24 14:52 Acid Fast Bacilli Smear - Pending
Bronchoalveolar Lavage Acid Fast Bacilli Culture - Pending
Care Review
Total Time Spent with Patient (in minutes): 35
[2024-12-19 15:06] VITALS: BP 107/71
--- NOTE | 2024-12-19 16:11 | CM ---
Poss d/c today. Current w/ [facility] for VN and PT
Spouse will transport
IMM verbally reviewed, copy provided, copy on chart
Plan: Home, YRN w/ [facility]
--- NOTE | 2024-12-19 16:52 | W.PN.PUL3 ---
Today's Communication / Plan
-
-Levofloxacin for 7 days
-Continue Anoro, Nebulized 3% BID and Albuterol/Duoneb
-Out patient pulmonary follow up
Assessment
-
#1. Acute on chronic hypoxic respiratory failure.
- Multifactorial, related to underlying severe emphysema/COPD along with chronic bronchiectasis with persistent left upper lobe/lingular consolidation
- Continue bronchodilators, airway clearance and supplemental oxygen
- WBC count improving, patient clearly responding to IV antibiotic as well as airway clearance
#2. Persistent left upper lobe/lingular pneumonia
- Procalcitonin 0.06, patient is afebrile and WBC count on admission was normal at 7.5 on admission
- Follow-up CT chest persistent left upper lobe/lingular consolidation
- S/p bronchoscopy and BAL 12/17, so far no growth
- IV cefepime was resumed after bronchoscopy
- Patient clearly responds to IV antibiotic and airway clearance with improvement in his symptoms, expectoration as well as cough. Suspect underlying bronchiectasis primarily drives his symptoms and IV antibiotics help decrease the bacterial burden
with resultant symptom improvement.
- Switch to Po Levofloxacin for another 7 days, d/c home.
#3. Severe Emphysema with acute exacerbation of COPD (former smoker)
- Continue Duoneb qid, holding Spiriva and olodaterol while patient is receiving scheduled DuoNeb 4 times daily
- In view of recurrent Pneumonias, avoid inhaled steroids
- Currently no wheezing, hold off IV steroids
#4. Bronchiectasis with RUL fibrotic changes, prior history of Pseudomonas in sputum
- Avoid inhaled steroids
- Continue 3% NS nebulized bid with Duoneb
- Expectorating well with above airway clearance measures, hold off vest therapy for now
Other medical diagnosis:
- HFpEF
- CAD, s/p CABG
- h/o severe MR, s/p MVR
- S/p pacemaker placement
Discussed with primary team as well.
Total time spent on this consultation/encounter __45__ minutes which includes review of history, physical exam, medications, laboratory data, personal review of imaging, extensive review of outpatient records, discussion with care team and
respiratory therapy.
Data:
CXR 11/2024: Stable bilateral airspace disease suspicious for pneumonia.
CT Chest 10/2024: 1. Left upper lobe pneumonia, new as compared with previous examination.
2. Advanced emphysematous changes as seen previously. Unchanged partial atelectasis/scarring right apex with associated cylindrical and cystic bronchiectatic change. Unchanged wedge-shaped area of consolidation at the right lung base likely
related to atelectasis/scarring. Trace bilateral pleural effusions.
Lexiscan 03/2024: There is a medium sized, fixed defect of mild to moderate severity in the mid inferior, mid inferoseptal, apical inferior, apical septal and apex consistent with finding of known pacemaker and some degree of infarction. Systolic
function is normal global contractility with abnormal septal motion consistent with pacemaker.. The ejection fraction is 52%.
Stress Risk is moderate risk study (1 - 3% SD or /year) due to pharmacologic agent used.
Compared with the study performed on 03/08/2021. The size of the defect has decreased in no longer includes the apical anterior wall and inferolateral wall. The overall systolic function has improved from 45% to 52% on today's study.
ECHO 03/2024: Mildly reduced left ventricular systolic function. Left ventricular ejection
fraction is 50% by Wilcox's method.
Stage II diastolic dysfunction suggestive of abnormal relaxation and increased
filling pressures.
MVR with peak/mean gradients across the mitral valve are 14/5 mmHg.
Moderate to severe mitral regurgitation.
Compared to previous echo 07/04/2023, the mitral regurgitation is sightly
progressed.
Subjective Data
-
Date of Service:
Date of Service: December 19, 2024
Subjective:
Patient comfortably sitting in bed
Review of Systems
Genitourinary: Other (No new symptoms )
Objective Data
Data Reviewed
Vital Signs / I&O / Oxygen:
Vital Signs
Temp Pulse Resp BP Pulse Ox
98.2 F 84 20 107/71 99
12/19/24 15:06 12/19/24 15:06 12/19/24 15:06 12/19/24 15:06 12/19/24 15:06
Intake and Output
12/18/24 12/19/24 12/20/24
06:59 06:59 06:59
Intake Total 480 / 480 580 / 580
Output Total 200 / 200
Balance 280 / 280 580 / 580
SaO2 99
Nasal Cannula flow liters per 2.5
minute
Physical Exam
General: Comfortable
HEENT: Normocephalic
Cardiovascular: S1-S2
Respiratory: Wheeze (No wheezing) and Other (Air entry much improved)
GI: Soft and Non Distended
Neurology: Awake and Alert
Skin: Warm
Labs/Micro/Reports
Lab Data
12/19/24 06:46
12/19/24 06:46
Microbiology
12/17/24 14:51 Res Misc Respiratory Culture - Final
NO GROWTH
12/17/24 14:51 Res Misc Gram Stain - Final
12/17/24 14:51 Bronchial Brushing Respiratory Culture - Final
Usual Respiratory Ivette
12/17/24 14:51 Bronchial Brushing Gram Stain - Final
12/15/24 18:47 Blood/Venous Blood Culture - Preliminary
No Growth in 72 hours- Final report to follow
12/15/24 18:48 Blood/Venous Blood Culture - Preliminary
No Growth in 72 hours- Final report to follow
12/16/24 14:11 Sputum Respiratory Culture - Final
Hortencia albicans
12/16/24 14:11 Sputum Gram Stain - Final
12/17/24 14:52 Bronch [place] Fungal Culture - Preliminary
Culture in progress.
Positive cultures are reported as soon as detected.
Final report to follow in four to five weeks.
12/17/24 14:51 Bronchoalveolar Lavage Fungal Culture - Preliminary
Culture in progress.
Positive cultures are reported as soon as detected.
Final report to follow in four to five weeks.
--- NOTE | 2024-12-19 17:21 | W.DCSUMMARY ---
Documented by User: Maureen Mares MD, Resident 12/19/24 18:20
Discharge Summary
Discharge Data
Date of Admission: 12/15/24
Date of Discharge: 12/19/24
-
Pending Results: Yes (endobronchial cultures pending)
Hospital Course
Brief Hospital course; This is an 84-year-old male with past medical history of severe emphysema, oxygen dependent COPD, upper lobe bronchiectasis with chronic Pseudomonas colonization who presented to ED 12/15 complaining of 3 days of productive
cough and shortness of breath. He recently had an hospitalization 10/2024 for community-acquired pneumonia and bronchiectasis flare and was treated with IV antibiotics in the hospital and then transitioned to [facility] as an outpatient. Upon
presentation to the ED, patient was afebrile, blood pressure 140/62, satting at 98% requiring 3 L of oxygen. He was evaluated with a chest x-ray which showed stable bilateral airspace disease suspicious for pneumonia. He was eventually started on
IV cefepime, with sputum culture ordered. Pulmonology was consulted to evaluate patient. Infectious disease was consulted to evaluate patient given his history of multidrug resistance. A follow-up CT was ordered with results below. Given his
persistent left upper lobe/lingula opacity for more than a months, a bronchoscopy and BAL left upper lobe was performed on 12/17/2024 with endobronchial cultures obtained which are currently pending at this time. Throughout the course of hospital
stay, patient had clinical improvement and a great response to IV antibiotics as well as airway clearance. He was continued on bronchodilators, supplemental oxygen with max O2 requirement of 4 L similar to his baseline. He was also continued on
DuoNebs 4 times daily and 3% NS nebulized twice daily.
Due to great clinical improvement, patient will be discharged today to follow up with pulmonology as an outpatient. He will be discharged on Levofloxacin 750mg Daily for 7 more days. Albuterol sulfate inhaler and sodium chloride inhaler twice daily
Acapella mucus clearing device. He is advised to Stop using DuoNebs (replaced with albuterol and sodium chloride nebs)
CT CHEST;
IMPRESSION:
Progression of pneumonia in the posterior left upper lobe and within the lingula (since the prior CT). There is new pneumonia in the medial left lower lobe.
Progression of subcarinal lymphadenopathy compared with prior CT. No change in mildly enlarged precarinal lymph node. The adenopathy is probably reactive secondary to the pneumonia.
Close follow-up chest CT recommended for reevaluation of the above findings and to ensure the mediastinal adenopathy improves or resolves.
No change in region of scarring and cystic bronchiectasis in the right upper lobe. No change in partial atelectasis or scarring in the right lower lobe
Severe emphysema
Discharge Plan
-
Patient Disposition: Home (Routine Discharge)
Discharge Diagnosis/Procedures: Acute on chronic hypoxic respiratory failure
Persistent left upper lobe/lingular pneumonia
Severe emphysema with acute exacerbation of COPD
Bronchiectasis which right upper lung fibrotic changes
Condition: Fair
Diet: As tolerated
Activity: As tolerated
Driving Restrictions: As prior to admission
Other Services: VN
Referrals:
Jeffrey Cabezas MD [Active, Pulmonary Medicine] - in two weeks
Cleveland Charles MD [Family Provider, Family Practice] - in two to three weeks
Additional Discharge Medication Instructions: Levofloxacin 750mg Daily for 7 more days
Use albuterol sulfate inhaler and sodium chloride inhaler twice daily
Use Acapella mucus clearing device
Stop using DuoNebs (replaced with albuterol and sodium chloride nebs)
Prescriptions:
New
levofloxacin 750 mg tablet
750 mg PO Q24H Qty: 7 0RF
(DME) mucus clearing device Device
See Rx Instructions .Route Qty: 1 0RF
Rx Instructions:
As directed
albuterol sulfate 1.25 mg/3 mL solution for nebulization
1.25 mg inhalation BID Qty: 75 0RF
sodium chloride 0.9 % solution for nebulization
1 ml inhalation Q12H Qty: 90 0RF
Continued
metoprolol tartrate 25 mg Tablet
12.5 mg PO BID Qty: 10 0RF
benzonatate 100 mg capsule
100 mg PO DAILYPRN PRN (Reason: cough)
furosemide 40 mg Tablet
40 mg PO DAILY
atorvastatin 20 mg Tablet
20 mg PO QPM
famotidine 40 mg Tablet
40 mg PO DAILY
codeine-guaifenesin 10-100 mg/5 mL Liquid
5 ml PO HSPRN PRN (Reason: cough)
diphenhydramine-acetaminophen [Tylenol PM Extra Strength] 25-500 mg Tablet
1 tab PO HSPRN PRN (Reason: sleep)
PreserVision AREDS-2 250-90-40-1 mg Tablet,Chewable
1 tab PO BID
therapeutic multivitamin Tablet
1 tab PO DAILY
TheraTears 0.25 % Drops
1 drp BOTH EYES DAILYPRN PRN (Reason: dry eyes)
aspirin 81 mg Tablet
81 mg PO DAILY
loratadine 10 mg Tablet
10 mg PO DAILY
Patient Comments:
Not taking
sodium chloride [NebuSal] 3 % Solution For Nebulization
4 ml inhalation R BID Qty: 120 0RF
umeclidinium-vilanterol [Anoro Ellipta] 62.5-25 mcg/actuation blister with device
1 inh inhalation Q24H Qty: 60 0RF
Discontinued
ipratropium-albuterol 0.5 mg-3 mg(2.5 mg base)/3 mL solution for nebulization
3 ml inhalation R BID
fluticasone propionate 50 mcg/actuation spray,suspension
2 spray INTRANASAL DAILY
levofloxacin 750 mg tablet
750 mg PO Q24H Qty: 7 0RF
Patient Comments:
Not taking anymore
Discharge Orders:
Discharge Patient (As Directed); Ordered 12/19/24
Ordered By: Sami Espitia
Discharge Date and Time
Discharge Date/Time: 12/19/24 18:42
Print Language: ROMANSH

Documented by User: Sami Espitia, DO 12/21/24 11:16
Discharge Summary
Discharge Data
Date of Admission: 12/15/24
Date of Discharge: 12/19/24
Total time spent discharging patient (in min): 35
Discharge Plan
-
Patient Disposition: Home (Routine Discharge)
Discharge Diagnosis/Procedures: Acute on chronic hypoxic respiratory failure
Persistent left upper lobe/lingular pneumonia
Severe emphysema with acute exacerbation of COPD
Bronchiectasis which right upper lung fibrotic changes
Condition: Fair
Diet: As tolerated
Activity: As tolerated
Driving Restrictions: As prior to admission
Other Services: VN
Referrals:
Jeffrey Cabezas MD [Active, Pulmonary Medicine] - in two weeks
Cleveland Charles MD [Family Provider, Family Practice] - in two to three weeks
Additional Discharge Medication Instructions: Levofloxacin 750mg Daily for 7 more days
Use albuterol sulfate inhaler and sodium chloride inhaler twice daily
Use Acapella mucus clearing device
Stop using DuoNebs (replaced with albuterol and sodium chloride nebs)
Prescriptions:
New
levofloxacin 750 mg tablet
750 mg PO Q24H Qty: 7 0RF
(DME) mucus clearing device Device
See Rx Instructions .Route Qty: 1 0RF
Rx Instructions:
As directed
albuterol sulfate 1.25 mg/3 mL solution for nebulization
1.25 mg inhalation BID Qty: 75 0RF
sodium chloride 0.9 % solution for nebulization
1 ml inhalation Q12H Qty: 90 0RF
Continued
metoprolol tartrate 25 mg Tablet
12.5 mg PO BID Qty: 10 0RF
benzonatate 100 mg capsule
100 mg PO DAILYPRN PRN (Reason: cough)
furosemide 40 mg Tablet
40 mg PO DAILY
atorvastatin 20 mg Tablet
20 mg PO QPM
famotidine 40 mg Tablet
40 mg PO DAILY
codeine-guaifenesin 10-100 mg/5 mL Liquid
5 ml PO HSPRN PRN (Reason: cough)
diphenhydramine-acetaminophen [Tylenol PM Extra Strength] 25-500 mg Tablet
1 tab PO HSPRN PRN (Reason: sleep)
PreserVision AREDS-2 250-90-40-1 mg Tablet,Chewable
1 tab PO BID
therapeutic multivitamin Tablet
1 tab PO DAILY
TheraTears 0.25 % Drops
1 drp BOTH EYES DAILYPRN PRN (Reason: dry eyes)
aspirin 81 mg Tablet
81 mg PO DAILY
loratadine 10 mg Tablet
10 mg PO DAILY
Patient Comments:
Not taking
sodium chloride [NebuSal] 3 % Solution For Nebulization
4 ml inhalation R BID Qty: 120 0RF
umeclidinium-vilanterol [Anoro Ellipta] 62.5-25 mcg/actuation blister with device
1 inh inhalation Q24H Qty: 60 0RF
Discontinued
ipratropium-albuterol 0.5 mg-3 mg(2.5 mg base)/3 mL solution for nebulization
3 ml inhalation R BID
fluticasone propionate 50 mcg/actuation spray,suspension
2 spray INTRANASAL DAILY
levofloxacin 750 mg tablet
750 mg PO Q24H Qty: 7 0RF
Patient Comments:
Not taking anymore
Discharge Orders:
Discharge Patient (As Directed); Ordered 12/19/24
Ordered By: Sami Espitia
Discharge Date and Time
Discharge Date/Time: 12/19/24 18:42
Print Language: ROMANSH
[2024-12-19] MEDS: LIPITOR 20 MG PO (17:26)
[2024-12-19] MEDS: LOVENOX SC ×2 (17:26→17:34)
== END 2024-12-19 18:42 | disposition home health service (06) | DRG 871 ==
LOC: 4 WEST ACU 19:50
PROVIDERS: Clinical Nurse Specialist Family Health; Emergency Medicine; Student in an Organized Health Care Education/Training Program; ADMITTING PHYSICIAN Internal Medicine; ATTENDING PHYSICIAN Internal Medicine; CONSULT PHYSICIAN Internal Medicine; EMERGENCY PHYSICIAN Emergency Medicine; FAMILY PHYSICIAN Family Medicine; OTHER PHYSICIAN Hospitalist
PROC: 0BD88ZX Extraction of Left Upper Lobe Bronchus, Via Natural or Artificial Opening Endoscopic, Diagnostic (ICD-10-PCS; 2024-12-17)
PROC: 0B9G8ZX Drainage of Left Upper Lung Lobe, Via Natural or Artificial Opening Endoscopic, Diagnostic (ICD-10-PCS; 2024-12-17)
DX: A41.9 Sepsis, unspecified organism (principal); J18.9 Pneumonia, unspecified organism; J96.21 Acute and chronic respiratory failure with hypoxia; J44.1 Chronic obstructive pulmonary disease with (acute) exacerbation; J44.0 Chronic obstructive pulmonary disease with (acute) lower respiratory infection; J47.0 Bronchiectasis with acute lower respiratory infection; I50.32 Chronic diastolic (congestive) heart failure; I44.2 Atrioventricular block, complete; J43.9 Emphysema, unspecified; Z99.81 Dependence on supplemental oxygen; Z22.39 Carrier of other specified bacterial diseases; D64.9 Anemia, unspecified; E78.00 Pure hypercholesterolemia, unspecified; G62.9 Polyneuropathy, unspecified; H91.93 Unspecified hearing loss, bilateral; I11.0 Hypertensive heart disease with heart failure; I25.10 Atherosclerotic heart disease of native coronary artery without angina pectoris; Z95.1 Presence of aortocoronary bypass graft; Z95.0 Presence of cardiac pacemaker; Z95.2 Presence of prosthetic heart valve; K21.9 Gastro-esophageal reflux disease without esophagitis; J34.2 Deviated nasal septum; N40.0 Benign prostatic hyperplasia without lower urinary tract symptoms; Z96.652 Presence of left artificial knee joint; Z96.643 Presence of artificial hip joint, bilateral; Z87.891 Personal history of nicotine dependence; Z88.1 Allergy status to other antibiotic agents; Z88.0 Allergy status to penicillin; Z88.2 Allergy status to sulfonamides; Z79.82 Long term (current) use of aspirin; Z79.899 Other long term (current) drug therapy; Z86.718 Personal history of other venous thrombosis and embolism; Z87.01 Personal history of pneumonia (recurrent); Z87.11 Personal history of peptic ulcer disease
CPT/HCPCS: 71046; 71250; 80048; 80053; 83605; 83735; 84145; 85025; 87015; 87040; 87070; 87102; 87116; 87205; 88112; 93005; 94640; 96374; 97162; 97530; 99285

== ENCOUNTER → 2024-12-31 13:20 | Outpatient (REF) | payer BC, SELFPAY ==
[2024-12-31 15:47] LABS: Blood Urea Nitrogen 28 mg/dl (9-20); Calcium 9.5 mg/dl (8.4-10.2); Carbon Dioxide 27 mmol/L (22-30); Chloride 108 mmol/L (98-107); Glucose 94 mg/dl (70-99); Potassium 4.5 mmol/L (3.5-5.1); Sodium 139 mmol/L (135-145); eGFR > 60.00
[2025-01-03 08:26] LABS: Box Elder/Maple Tree <0.10 kU/L (<=0.34); Cat Epithelium/Dander <0.10 kU/L (<=0.34); Common/Short Ragweed <0.10 kU/L (<=0.34); Dermatophagoides pteronyssinus <0.10 kU/L (<=0.34); Hormodendrum <0.10 kU/L (<=0.34); Mountain Cedar Tree <0.10 kU/L (<=0.34); Mouse Epithelium <0.10 kU/L (<=0.34); Mugwort Weed <0.10 kU/L (<=0.34); Sheep Sorrel Weed <0.10 kU/L (<=0.34); Sycamore Tree <0.10 kU/L (<=0.34); White Ash Tree <0.10 kU/L (<=0.34); White Mulberry Tree <0.10 kU/L (<=0.34)
== END ==
LOC: REG 13:20
PROVIDERS: ATTENDING PHYSICIAN Nurse Practitioner Adult Health; FAMILY PHYSICIAN Nurse Practitioner Family; OTHER PHYSICIAN Family Medicine; REFERRING PHYSICIAN Nurse Practitioner
DX: Z87.01 Personal history of pneumonia (recurrent) (principal); R89.8 Other abnormal findings in specimens from other organs, systems and tissues; J45.909 Unspecified asthma, uncomplicated; R04.2 Hemoptysis; U07.1 COVID-19; J90 Pleural effusion, not elsewhere classified; J15.1 Pneumonia due to Pseudomonas; I50.32 Chronic diastolic (congestive) heart failure; Z98.890 Other specified postprocedural states
CPT/HCPCS: 36415; 80048; 82784; 82785; 82787; 86003

== ENCOUNTER → 2025-01-05 15:39 | Outpatient (REF) | payer MEDICARE, BC, SELFPAY | LOC: RCS 15:39 | PROVIDERS: ATTENDING PHYSICIAN Internal Medicine Cardiovascular Disease; FAMILY PHYSICIAN Family Medicine | DX: I34.0 Nonrheumatic mitral (valve) insufficiency (principal); R06.09 Other forms of dyspnea; Z98.890 Other specified postprocedural states | CPT/HCPCS: 93306 ==